=== PATIENT | male | born 1960 | race Caucasian/White ===

== ENCOUNTER 2017-01-17 09:28 | Inpatient (IN) ==
[2017-01-17] MEDS ORDERED: SODIUM CHLORIDE 0.9% 1,000 ML IV STA (09:43)
[2017-01-17] MEDS ORDERED: ASPIRIN 300 MG SUPP RECTAL STA (09:43)
[2017-01-17] MEDS ORDERED: ONDANSETRON 4 MG/2 ML VIAL IV PRN (09:43)
--- NOTE | 2017-01-17 09:48 | EKG Report ---
Stationary ECG Study [facility] Test Date: 01/17/2017 9:39:39 AM Pat Name: LANETTE CARCAMO Department: Room: Gender: M Exercise Planner: : 1960 Requested by: Noman Galloway Order Number: [id number] Reading MD: LANETTE KHOURY Intervals [place] Rate: 85 P: 52 NC: 176 QRS: -42 QRSD: 144 T: 124 QT: 417 QTc: 459 Interpretive Statements SINUS RHYTHM POSSIBLE LEFT ATRIAL ENLARGEMENT MARKED LEFT AXIS DEVIATION LEFT BUNDLE BRANCH BLOCK Electronically Signed On 01-17-17 19:53:18 CDT by LANETTE KHOURY [email or web address]
[2017-01-17] MEDS ORDERED: ASPIRIN 300 MG SUPP RECTAL ONE (09:53)
[2017-01-17 09:56] LABS: Basophils # 0.1 10*3/uL (0.0-0.2); Basophils % 0.7 % (0.0-0.8); Eosinophils # 0.8 10*3/uL (0.0-0.87); Eosinophils % 5.5 % (0.00-10.9); Hematocrit 51.8 VOL% (42.0-52.0); Hemoglobin 17.1 GM/DL (14.0-18.0); Immature Granulocytes % 0.3 %; Immature Granulocytes Absolute 0.05 #; Lymphocytes # 2.6 10*3/uL (1.4-4.0); Lymphocytes % 17.3 % (21.2-54.2); Mean Corpuscular Hemoglobin 31 PG (27-34); Mean Corpuscular Volume 92.8 FL (87-102); Mean Platelet Volume 10.4 FL (9.6-12.0); Monocytes # 1.1 10*3/uL (0.11-0.8); Monocytes % 7.5 % (1.7-12.7); Neutrophils # 10.4 10*3/uL (1.4-7.4); Neutrophils % 68.7 % (38.7-73.9); Platelet Count 293 T/CUMM (130-400); Red Blood Count 5.58 MC/CUMM (3.8-5.5); Red Cell Distribution Width 13.1 % (9.3-17.3); White Blood Count 15.2 T/CUMM (4-12)
--- NOTE | 2017-01-17 09:58 | CT Report ---
CT brain Indication: Left side facial droop, ataxia Comparison: None available Technique: Axial CT imaging of the brain is performed without contrast with 3 mm increments. Findings: No evidence of hemorrhage, mass mass effect midline shift or acute infarct seen. The brain parenchyma attenuation and differentiation appears within normal limits. The ventricles and cisterns are normal in caliber. And ectatic basilar artery is present. No cranial or skull base abnormality is identified. Impression: Ectasia of the basilar artery. No other evidence of abnormality demonstrated. This CT exam was performed using one or more the following dose reduction techniques: Automated exposure control, adjustment of the MA and/or KV according to patient size, or use of iterative reconstruction technique. PROCEDURE INTERPRETED AT [facility] DEPARTMENT OF RADIOLOGY Final Report Signed by: Dr. Chi Chang
--- NOTE | 2017-01-17 09:59 | XRay Report ---
XR chest 2V Indication: Dyspnea Comparison: 02 Feb 2014 Findings: The heart and mediastinum are normal in size and configuration. The pulmonary vascularity is normal in caliber. No lung infiltrates, effusions, pneumothorax or other abnormality is demonstrated. Impression: No acute cardiac pulmonary disease. PROCEDURE INTERPRETED AT [facility] DEPARTMENT OF RADIOLOGY Final Report Signed by: Dr. Chi Chang
[2017-01-17 10:11] LABS: INR 1.1; Partial Thromboplastin Time 30.1 SECS (0-40)
[2017-01-17 10:17] LABS: CKMB % 2.2 %
[2017-01-17 10:18] LABS: Troponin I Only 0.143 NG/ML (0.00-0.045)
--- NOTE | 2017-01-17 10:22 | Emergency Department Note ---
Seema Brennan Kasabria, am scribing for, and in the presence of, Noman Yu MD 10 :18. Aimee Brennan James D, MD, personally performed the services described in this documentation, ascribed by Christopher Stephenson in my presence, and it is both accurate and complete . Arrival - Arrival Chief Complaint: Neuro Stated Complaint: L sided numbness ED Nursing Triage Note: Patient went to bed at 2030 last night feeling fine. He woke up at 0300 this morning with left side weakness, difficulty walking, and left side facial droop. Mode of Arrival: Ambulatory Limitations: No Limitations Source: Patient Time Seen by Provider: 01/17/17 09:42 - History of Present Illness HPI Narrative: This is a 56 y/o white male presenting to the ED with c/o left sided weakness, left sided facial droop and difficulty walking that onset this morning at approximately 2030 last night. states last night he went to the kitchen he felt fine, when he went to reach for an item off the counter with his left hand , "it did not work". Afterwards he had disorientation and then fell down. Pt woke up and went to work this morning and continued to have weakness. states the pt has a PMHx of CHF that is mostly like secondary to his uncontrolled hypertension. 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 Pt denies JADE, fever, chills, nausea, vomiting, dysphagia, and vision change. According to the pt's , he is a former heavy drinker but stopped since his CHF in 2003. He is followed by Dr. Ash and takes ASA daily. Onset (ago): hour(s) (11) Consistency: constant Severity: moderate Allergies/Adverse Reactions: Allergies Allergy/AdvReac Type Severity Reaction Status Date / Time No Known Allergies Allergy Unverified 01/17/17 09:42 Review of System - Review of System 12 point system: reviewed and no additional remarkable complaints except as stated - Review of System Constitutional: Present: diaphoresis. Absent: chills, fever, weakness Eyes: Absent: vision change Head/Ears/Nose/Throat: Absent: nasal drainage Respiratory: Absent: cough, wheezing Cardiovascular: Absent: chest pain, dyspnea on exertion, syncope Gastrointestinal: Absent: abdominal pain, nausea, vomiting, diarrhea Genitourinary male: Absent: dysuria Musculoskeletal: Absent: arm pain, back pain, leg pain, neck pain Skin: Absent: rash Neurological: Present: weakness (left sided facial droop, left arm, and left leg weakness ). Absent: headache, numbness, confusion, abnormal gait, vertigo Psychiatric: Absent: anxiety Endocrine: Absent: fatigue Hematological/Lymphatic: Absent: easy bleeding Allergic/Immunologic: Absent: facial swelling Medical,Surgical,& Family Hx - Medical History Cardio: History of: CHF Gastrointestinal: History of: Diverticulitis/ Diverticulosis, GI Problems ( partial colectomy with colestomy with reversal) - Family History Family History: Reports;: Family Cancer (brain cancer), Family Hypertension ( mother), Family Stroke (maternal grandmother) - Social History Smoking Status: Never smoker Frequency of Alcohol Use: Rarely Type of Drug Use: None Exam Vital Signs: Vital Signs Temperature 96.0 F L 01/17/17 09:33 Pulse Rate 83 01/17/17 09:33 Respiratory Rate 18 01/17/17 09:33 Blood Pressure 111/85 01/17/17 09:33 O2 Sat by Pulse Oximetry 99 01/17/17 09:33 - General General appearance: alert, in no apparent distress - Head Head exam: Present: atraumatic, normocephalic, normal inspection - Eye Eye exam: Present: normal appearance, PERRL, EOMI - ENT ENT exam: Present: normal exam, normal oropharynx, mucous membranes moist, TM's normal bilaterally, normal external ear exam - Neck Neck exam: Present: normal inspection, full ROM, trachea midline. Absent: tenderness - Chest Chest inspection: Present: normal inspection, symmetric chest wall rise. Absent : tenderness - Respiratory Respiratory exam: Present: normal lung sounds bilaterally - Cardiovascular Cardiovascular exam: Present: regular rate, normal rhythm, normal heart sounds - Abdominal Exam Abdominal exam: Present: soft, normal bowel sounds. Absent: distention, tenderness - Extremities Exam Extremities exam: Present: normal inspection, full ROM, normal capillary refill. Absent: tenderness, pedal edema, calf tenderness - Back Exam Back exam: Present: normal inspection, full ROM. Absent: tenderness - Neurological Exam Neurological exam: Present: alert, oriented X3, CN II-XII intact, normal gait, motor sensory deficit (left arm weakness 3-4/5 deficit, 4/5 left leg; ataxia to left leg; left sided facial weakness), reflexes normal - Psychiatric Psychiatric exam: Present: normal affect, normal mood - Skin Skin exam: Present: warm, intact, normal color, diaphoresis. Absent: dry Course Course Narrative: Pt is not a candidate for TPA due to the amount of time that has surpassed between the symptom onset. - Consultations Consultation #1: Discussed with hospitalist. Patient will be admitted to the hospital on their service. Time: 10:20 Results - Labs CBC & BMP: 01/17/17 09:43 Lab Results: I have reviewed the patients labs Labs: Laboratory Tests 01/17/17 01/17/17 09:43 09:43 Troponin I 0.143 H Cholesterol 186 LDL Cholesterol 133.0 VLDL Cholesterol 26.4 HDL Cholesterol 48 Heart Disease Risk Ratio 3.88 - EKG EKG results: interpreted by ERMD - Impressions EKG: Normal sinus rhythm with a rate of 85, left axis deviation, left bundle branch block, nonspecific ST-T wave changes. - Diagnostic Findings Procedure: Chest x-ray: image reviewed by me (No cardiomegaly, no pleural effusions, no infiltrates.), CT: image reviewed by me, report reviewed by me ( CT head: No acute intracranial lesion or hemorrhage.), Ultrasound: report reviewed by me (Carotid Doppler: Results are pending) Disposition Clinical Impression: Subacute stroke, Essential hypertension, Dyslipidemia Case discussed with: patient, patient's family Disposition: Still a Patient Condition: Stable Time of Disposition: 10:21
--- NOTE | 2017-01-17 10:24 | Ultrasound Report ---
Carotid artery ultrasound Indication: Stroke Comparison: None available Color Doppler flow and spectral analysis was performed. Findings: Small amount of atherosclerotic plaque is present in both proximal internal carotid arteries. The peak systolic velocity in the right is 72 cm/s . Ratio of flow is 1.5. The peak systolic velocity in the left is 47 cm/s . Ratio of flow is 0.8 Bilateral antegrade vertebral flow is seen. Impression: No evidence of hemodynamically significant stenosis is seen, 0-49% estimated stenosis. Consensus conference on the carotid ultrasound criteria used. Ultrasound images were captured and stored. PROCEDURE INTERPRETED AT [facility] DEPARTMENT OF RADIOLOGY Final Report Signed by: Dr. Chi Chang
[2017-01-17 10:26] LABS: Risk Ratio 3.88; VLDL CHOLESTEROL 26.4 MG/DL
[2017-01-17 10:36] LABS: Alanine Aminotransferase 19 U/L (16-61); Albumin 3.8 G/DL (3.4-5.0); Alkaline Phosphatase 87 U/L (45-117); Aspartate Amino Transferase 35 U/L (0-37); Blood Urea Nitrogen 17 MG/DL (7-18); Calcium 9.2 MG/DL (8.5-10.1); Glucose 100 MG/DL (74-106); Osmolality,Calculated 278.5 MOS/KG (273-304); Potassium 4.3 MMOL/L (3.5-5.1); Sodium 139 MMOL/L (136-145); Total Protein 7.5 G/DL (6.4-8.3)
[2017-01-17 10:47] LABS: Free T4 (Free Thyroxine) 1.16 NG/DL (0.76-1.46); Thyroid Stimulating Hormone 1.19 uIU/ml (0.358-3.74)
--- NOTE | 2017-01-17 10:55 | Hospitalist History & Physical ---
Assessment and Plan (1) Acute left-sided weakness Status: Acute Assessment and plan: We will admit and complete stroke work-up. Will consult Neuro to evaluate. Current Visit: Yes (2) Dyslipidemia Status: Acute Assessment and plan: We will treat and manage. Current Visit: Yes (3) Essential hypertension Status: Acute Assessment and plan: Will treat and manage. Current Visit: Yes History of Present Illness Chief complaint: left sided weakness History of present illness: This is a very pleasant 56 year old male that presented to the ED this morning for evaluation of left sided weakness. He has medical history significant for hyperlipidemia, congestive heart failure, and hypertension. The patient reports that he went to bed around 8PM on last night. He reports that he got up out of bed and went into the kitchen to get something to drink. He attempted to get something to drink and that his left arm "went out", he lost his balance, and scraped his left hand. He then proceeded to go back to bed and returned to sleep. He noticed some difficulty this morning when he was attempting to shower but really didn't focus on it because he needed to get to work. 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 When he got to work, he noticed that he was not his normal self and called his son. His son arrived and brought him to the ED for further evaluation. At the time of ED presentation; he was noted to have some left sided weakness and facial droop. Labs were obtained which revealed his WBC's at 15.2 and creatinine of 1.60 otherwise unremarkable. Cardiac enzymes were obtained which revealed a troponin at 0.143, CK at 365, and CKMB at 7.9. CT Head performed which revealed no evidence of hemorrhage, mass effect, midline shift, or acute infarct; however ectasia of the basilar artery was noted. Chest radiograph was essentially unremarkable for any acute cardiac or pulmonary processes. After brief discussion with Dr. Yu and Dr. De La O, the patient will be admitted to the hospitalist service for continuation of care. Allergies Allergy/AdvReac Type Severity Reaction Status Date / Time No Known Allergies Allergy Unverified 01/17/17 09:42 Medical,Surgical,& Family Hx - Medical History Cardio: History of: CHF Gastrointestinal: History of: Diverticulitis/ Diverticulosis, GI Problems ( partial colectomy with colestomy with reversal) - Family History Family History: Reports;: Family Cancer (brain cancer), Family Hypertension ( mother), Family Stroke (maternal grandmother) - Social History Smoking Status: Never smoker Frequency of Alcohol Use: Rarely Type of Drug Use: None Exam - Constitutional Vitals: Period Temp Pulse Resp BP Sys/Cha Pulse Ox Last 24 Hr 96.0 F-96.0 F 83-83 18-18 111-111/85-85 99 General appearance: normal weight, no acute distress - Head Head exam: Present: normal inspection, normocephalic - Eye Eye exam: Present: EOMI. Absent: conjunctival injection, nystagmus Pupils: Present: ROJELIO, normal accommodation - ENT ENT exam: Present: other (left sided facial droop) - Neck Neck exam: Present: normal inspection. Absent: lymphadenopathy, meningismus, tenderness, thyromegaly - Respiratory Respiratory exam: Absent: rales, rhonchi, stridor, wheezes - Cardiovascular Cardiovascular exam: Present: regular rate and rhythm. Absent: carotid bruit, diastolic murmur, gallop, JVD, rubs, systolic murmur - GI/Abdominal GI/Abdominal exam: Present: normal bowel sounds, soft. Absent: tenderness - Extremities Exam Extremities exam: Present: normal inspection, other (left sided weakness) - Back Exam Back exam: Present: normal inspection - Neurological Exam Neurological exam: Present: alert, oriented X3, motor sensory deficit (Present: alert, oriented X3, CN II-XII intact, normal gait, motor sensory deficit (left arm weakness 3-4/5 deficit, 4/5 left leg; ataxia to left leg; left sided facial weakness; reflexes normal) - Psychiatric Psychiatric exam: Present: normal affect, normal mood - Skin Skin exam: Present: normal color, warm, dry Results - Labs CBC & BMP: 01/17/17 09:43 01/17/17 09:43 Lab Results: I have reviewed the past 24 hour labs Quality Measures - Stroke Onset of Symptoms Date: 01/17/17 Onset of Symptoms Time: 03:00 Presenting Symptoms: Left hemiparesis Symptom Onset Unknown: Yes
[2017-01-17 12:28] LABS: Apearance,Urine CLEAR (Clear); Bilirubin,Urine Negative (Negative); Blood, Urine Negative (Negative); Glucose,Urine (UA) Negative (Negative); Hyaline Casts,Urine 1 /LPF (0-3); Ketones,Urine Negative (Negative); Mucus,Urine Occasional /LPF (Occasional); Nitrite,Urine Negative (Negative); Protein,Urine Negative; RBC,Urine 1 /HPF (0-4); Squamous Epithelial Cell,Urine Occasional /HPF (0-10); Urine Specific Gravity 1.004 (1.001-1.035); Urine Urobilinogen < 2.0 EU/DL (0.2-1.0)
[2017-01-17 12:31] LABS: Urine Color Light Yellow (Yellow)
[2017-01-17 12:45] LABS: Barbiturates Screen,Urine Negative (Negative); Benzodiazepines Screen,Urine Negative (Negative); Cannabinoid Screen,Urine Positive (Negative); Opiate Screen,Urine Negative (Negative); Phencyclidine Screen,Urine Negative (Negative)
[2017-01-17] MEDS ORDERED: LABETALOL 20 MG/4 ML SYRINGE IV PRN (14:59)
[2017-01-17] MEDS ORDERED: ENOXAPARIN 40 MG/0.4 ML SYRINGE SUBCUT SCH (15:00)
--- NOTE | 2017-01-17 15:48 | XRay Report ---
History: Clearance for MRI. Left arm weakness Date: 01/17/2017 Study: 3 views orbits for MRI clearance Comparison exam: No previous similar exam There is no radiopaque orbital foreign body. There is no acute osseous abnormality. The paranasal sinuses are clear except for some mild to moderate circumferential mucosal thickening in the right frontal sinus. Impression: No radiopaque orbital foreign body is identified PROCEDURE INTERPRETED AT [facility] DEPARTMENT OF RADIOLOGY Final Report Signed by: Dr. Tamela Logan
--- NOTE | 2017-01-17 16:58 | Magnetic Resonance Report ---
Referring physician: Deng De La O Exam: MRI brain without contrast Date: January 17, 2017 Comparison: CT brain without contrast January 17, 2017 Reason: Left arm weakness The patient is an inpatient who was admitted on January 17, 2017. Technique: MRI of the brain was performed without the use of contrast. Obtained images include sagittal T1, axial diffusion-weighted, axial FLAIR, axial T2, coronal T2, axial gradient and axial T1 sequences. A 1.2 Francie open magnet was used. Findings: There is a small area of diffusion restriction and corresponding T2/FLAIR hyperintensity within the right parietal lobe, involving both the cortex and subcortical white matter. This is consistent with an acute infarction and is in a right MCA distribution. There is also a small acute infarction at the vermis of the cerebellum. There are small scattered areas of T2/FLAIR hyperintensity within the cerebral white matter bilaterally. This is nonspecific but likely represents mild chronic microvascular ischemic change. Less common considerations include a demyelinating process, vasculitis, viral process or Lyme disease. No hydrocephalus or midline shift is present. There is no evidence of recent intracranial hemorrhage, abnormal mass effect or an abnormal extra-axial fluid collection. There is a remote lacunar type infarction at the left caudate. Major vascular flow voids are visualized. The basilar artery is slightly ectatic. The orbits, sella and brainstem are unremarkable. The paranasal sinuses and mastoid air cells are clear. Impression: 1. There is a small acute infarction within the right parietal lobe, involving the cortex and subcortical white matter. This is in a right MCA distribution. There is also a subcentimeter acute infarction at the cerebellar vermis (superior cerebellar artery distribution). 2. Probable mild chronic microvascular ischemic change. 3. Remote lacunar infarction at the left caudate. Findings were discussed with Dr. De La O on January 17, 2017 at 4:50 PM. This is a critical test. PROCEDURE INTERPRETED AT [facility] DEPARTMENT OF RADIOLOGY Final Report Signed by: Dr. Rosetta Nicole
[2017-01-17] MEDS: ENOXAPARIN 100 MG/ML SYRINGE SUBCUT SCH (18:10)
[2017-01-17] MEDS: CARVEDILOL 12.5 MG TABLET PO SCH (20:50)
--- NOTE | 2017-01-18 00:25 | ECHO Report ---
Brooks Loving Exam Date: 01/17/2017 12:39 Referring Physician: Technologist: Gena Lawrence [facility] Age: 56 Ht (in): 68 Wt (lb): 226 Gender: M Exam Location: [facility] Echo hypertension BP: 111 / 85 HR: 74 Rhythm: Sinus Technical Quality: IMPRESSIONS Mildly increased left ventricular cavity size with severely reduced left ventricular ejection fraction which is estimated at 20 %. Moderately increased left atrial size. Mild mitral valve regurgitation. Moderate aortic valve calcification with trace to mild aortic valve regurgitation. Trace tricuspid valve regurgitation. MEASUREMENTS (Male / Female) Normal Values 2D ECHO LV Diastolic Diameter PLAX 5.8 cm 4.2 - 5.9 / 3.9 - 5.3 cm LV Systolic Diameter PLAX 5.1 cm LV Fractional Shortening PLAX 11.6 % IVS Diastolic Thickness 1.4 cm 0.6 - 1.0 / 0.6 - 0.9 cm LVPW Diastolic Thickness 1.4 cm 0.6 - 1.0 / 0.6 - 0.9 cm RV Internal Dim ED PLAX 3.8 cm Aortic Root Diameter 3.9 cm LA Systolic Diameter LX 4.6 cm 3.0 - 4.0 / 2.7 - 3.8 cm FINDINGS Left Ventricle Mildly increased left ventricular cavity size with severely reduced left ventricular ejection fraction which is estimated at 20 %. Right Ventricle The right ventricle is normal in size and function. Right Atrium The right atrium is mildly enlarged. Left Atrium Moderately increased left atrial size. Mitral Valve Morphologically normal mitral valve. Mild mitral valve regurgitation. Aortic Valve Moderate aortic valve calcification. Mean gradient 19 mmHg, ROBINSON 1.5 cm. Trace to mild aortic valve regurgitation. Tricuspid Valve Morphologically normal tricuspid valve. Trace tricuspid valve regurgitation. Pulmonic Valve Morphologically normal pulmonic valve without significant stenosis. There is no pulmonic regurgitation. Pericardium Normal pericardium without effusion. Aorta Normal ascending aorta dimension. Brooks Carlson (Electronically Signed) Final Date: 18 Jan 2017 00:23
[2017-01-18] MEDS: ENOXAPARIN 100 MG/ML SYRINGE SUBCUT SCH (06:03)
[2017-01-18] MEDS ORDERED: ASPIRIN 325 MG TABLET PO SCH (09:00)
[2017-01-18] MEDS ORDERED: FUROSEMIDE 40 MG TABLET PO SCH (09:00)
[2017-01-18] MEDS ORDERED: SPIRONOLACTONE 25 MG TABLET PO SCH (09:00)
[2017-01-18] MEDS ORDERED: VALSARTAN/HCTZ 160-12.5 MG TABLET PO SCH (09:00)
[2017-01-18] MEDS: CARVEDILOL 12.5 MG TABLET PO SCH (12:51)
--- NOTE | 2017-01-18 13:35 | Discharge Summary ---
Hospital Course - Hospital Course Hospital Course: This is a 56-year-old man who came to the hospital with slurred speech, gait disturbance, and left upper extremity weakness. The slurred speech and most of the gait disturbance improved over the first 2 hours. Because the symptoms were rapidly improving no TPA was given. Initial CT scan revealed no hemorrhage or stroke. The patient was treated with subcutaneous Lovenox. MRI scan revealed tiny strokes in 2 different watershed distributions. The strokes were in the deep portions of the right brain. Because of this distribution I am concerned that the patient might have embolic phenomenon. Echocardiogram revealed no source of emboli. Carotid Doppler study revealed no significant disease. The patient will be treated with Xarelto as an outpatient. I reviewed the risk and benefit with the patient and offered him the option of taking aspirin alone. The patient will follow up with Dr. Mackay or other primary care physician and might benefit with outpatient neurology evaluation. The neurology erp consultant was not available during the hospital stay. On the date of discharge, chest is clear, abdomen soft, left upper extremity strength improving. [id number] time 34 minutes for discharge planning and documentation. - Time spent with patient Time with patient DS: Greater than 30 minutes Diagnosis - Discharge Diagnosis (1) Lacunar infarct, acute Status: Acute (2) Essential hypertension Status: Acute Discharge Plan - Discharge Data Disposition: Disch To Home/Self Care Condition at Discharge: Stable Discharge Diet: regular diet Activity: resume usual activities as tolerated, other (return to work on Friday, January 22) - Discharge Medications New Atorvastatin [Lipitor] 10 mg PO BEDTIME #30 tablet Rivaroxaban [Xarelto] 15 mg PO DAILY W/SUPPER #30 tablet Continue Spironolactone 25 mg PO DAILY Furosemide 40 mg PO DAILY Valsartan/Hydrochlorothiazide [Valsartan-Hctz 160-12.5 mg Tab] 1 each PO DAILY Carvedilol 12.5 mg PO BID Aspirin [Ecotrin] 81 mg PO DAILY - Follow Up or Referral Follow Up: Felipe Hitchcock MD [Physician] - 2 Weeks - Forms/Instructions Exam - Constitutional Vitals: Period Temp Pulse Resp BP Sys/Cha Pulse Ox Last 24 Hr 96.6 F-98.2 F 70-84 18-20 94-112/66-76 92-99 Discharge Results Labs on day of discharge: Labs from last 24 hours 01/18/17 02:56 Hemoglobin A1c 5.9 DS: Provider Date of admission: 01/17/17 10:31 Primary care physician: . No PCP Attending physician on admission: Deng De La O MD Consults: 01/17/17 15:00 Consult to Occupational Therapy [CONS] Routine Reason for Occupational Therapy: Evaluate and Treat Consult Comment: Stroke Consult to Physical Therapy [CONS] Routine Reason for Physical Therapy: Evaluate and Treat Consult Comment: stroke Consult to Speech Therapy [CONS] Routine Reason for Speech Therapy: CVA Consult Comment: with/without possible aspiration Discharging clinician: Deng De La O MD
[2017-01-18 14:26] VITALS: BP 109/71
[2017-01-20 14:20] LABS: DRVVT Screen Ratio 0.9 ratio (0.0 - 1.1)
[2017-01-20 15:15] LABS: Homocysteine 17 mcmol/L
[2017-01-20 15:45] LABS: Factor V Leiden (R506Q) Mutati Negative (Negative)
== END 2017-01-18 15:45 | disposition home or self-care (01) | DRG 65 ==
LOC: N.ED 09:28 → N.EDINP 10:31 → N.TELES 11:10
PROVIDERS: ADMIT Internal Medicine; ATTEND Internal Medicine

== ENCOUNTER 2017-01-27 15:24 | Inpatient (IN) ==
--- NOTE | 2017-01-27 16:52 | Hospitalist History & Physical ---
<Casie Pablo - Last Filed: 01/27/17 17:56> Assessment and Plan (1) Hypotension Status: Acute Assessment and plan: At the time of presentation, SBP was noted in the 90's. Not sure if this is attributed to volume depletion or medications; he currently takes 2 agents containing diuretics. We will hold meds for now and gently rehydrate. Will obtain labs for baseline and review. Current Visit: Yes Qualifiers: Hypotension type: unspecified hypotension type Qualified Code(s): I95.9 - Hypotension, unspecified (2) Weakness Status: Acute Assessment and plan: This may attributed to volume depletion. He has no gross deficits secondary to his recent CVA. I suspect that this will improve when volume is replenished. Current Visit: Yes (3) Nausea & vomiting Status: Acute Assessment and plan: We will rehydrate and give antiemetics as needed. Current Visit: Yes (4) Essential hypertension Status: Acute Assessment and plan: Patient is hypotensive at this time. We will hold meds for now and reassess in AM. Current Visit: No History of Present Illness Chief complaint: dehydration/nausea/vomiting History of present illness: This is a very pleasant 56 year old male that presented to [facility] as a direct admission from Dr. Bernard Hernandez's office this afternoon for evaluation of nausea, vomiting, and hypotension. He has medical history significant for hyperlipidemia, congestive heart failure, and recent left lacunar stroke. on 01/18. The patient presented to Dr. Hernandez's office today with a chief complaint of nausea, vomiting, and weakness. He was assessed and found to be hypotensive at that time also. He reported a decrease in oral intake over the last several days. He states"I have only been able to keep my medications down". We were notified by Dr. Hernandez on the patient's status. He was subsequently admitted to [facility] to the hospitalist service for further evaluation and care. The patient was recently discharged from [facility] on 01/19 for left sided weakness, slurred speech, and gait disturbances. MRI was performed during the clinical encounter which revealed multiple tiny infarcts within two different watershed distributions within the right brain. The patient was discharged on Xarelto as an outpatient. At the time of discharge, his symptoms were resolved. Home Medications Medication Instructions Recorded Confirmed Type Furosemide 40 mg PO DAILY 01/17/17 01/27/17 History Spironolactone 25 mg PO DAILY 01/17/17 01/27/17 History Valsartan/Hydrochlorothiazide 1 each PO DAILY 01/17/17 01/27/17 History [Valsartan-Hctz 160-12.5 mg Tab] Rivaroxaban [Xarelto] 15 mg PO DAILY W/SUPPER #30 tablet 01/18/17 01/27/17 Rx Allergies Allergy/AdvReac Type Severity Reaction Status Date / Time No Known Allergies Allergy Unverified 01/17/17 09:42 Medical,Surgical,& Family Hx - Medical History Cardio: History of: CHF, Hypertension Gastrointestinal: History of: Diverticulitis/ Diverticulosis, GI Problems ( partial colectomy with colestomy with reversal) - Family History Family History: Reports;: Family Cancer (brain cancer), Family Hypertension ( mother), Family Stroke (maternal grandmother) - Social History Smoking Status: Never smoker - Constitutional Constitutional: Present: fatigue, malaise - Gastrointestinal Gastrointestinal: Present: nausea, vomiting (diaphragm tenderness) - Musculoskeletal Musculoskeletal: Present: other Exam - Constitutional General appearance: normal weight, no acute distress - Head Head exam: Present: normal inspection, normocephalic, atraumatic - Eye Eye exam: Present: EOMI, conjunctival injection Pupils: Present: ROJELIO, normal accommodation - ENT ENT exam: Present: normal exam, normal external ear exam, normal oropharynx - Neck Neck exam: Present: normal inspection. Absent: lymphadenopathy, meningismus, tenderness, thyromegaly - Respiratory Respiratory exam: Present: clear to auscultation bilaterally. Absent: rales, rhonchi, stridor, wheezes - Cardiovascular Cardiovascular exam: Present: regular rate and rhythm. Absent: carotid bruit, diastolic murmur, gallop, JVD, rubs, systolic murmur - GI/Abdominal GI/Abdominal exam: Present: normal bowel sounds, tenderness (upper abdominal/ diaphragm) - Extremities Exam Extremities exam: Present: normal inspection, normal capillary refill, full ROM. Absent: edema - Back Exam Back exam: Present: normal inspection - Neurological Exam Neurological exam: Present: alert, oriented X3, CN II-XII intact, reflexes normal. Absent: motor sensory deficit - Psychiatric Psychiatric exam: Present: anxious - Skin Skin exam: Present: warm, dry, pallor, other (discoloration to upper abdomen/ diaphragm from fall on last week) <Alexandra Gale - Last Filed: 01/27/17 19:03> Assessment and Plan - Time spent with patient Time spent with patient: Greater than 30 minutes (1) ARF (acute renal failure) Status: Acute Assessment and plan: Patient is treated with 3 diuretics as an outpatient for management of his chronic systolic congestive heart failure with ejection fraction of 20%. His diuretics have been held and IV fluids have been started at 75 cc/h. I believe this is all related to volume contraction and dehydration secondary to medications. Further recommendations will depend on his response to therapy. Current Visit: Yes Qualifiers: Acute renal failure type: unspecified Qualified Code(s): N17.9 - Acute kidney failure, unspecified (2) Hyponatremia Status: Acute Assessment and plan: Acute hyponatremia as a result of diuretic effect. Diuretic medications have been held a normal saline ordered. I anticipate this will improve slowly with IV fluid hydration. Current Visit: Yes (3) Dehydration Status: Acute Assessment and plan: See above. Current Visit: Yes (4) Chronic systolic (congestive) heart failure Status: Acute Assessment and plan: Recent echocardiogram reveals an ejection fraction of 20%. Patient will be hydrated slowly with normal saline at 75 cc/h. Current Visit: Yes History of Present Illness History of present illness: Mr. Loving is a 56 year old male admitted as a direct admission from Dr. Hernandez's office with complaints of nausea vomiting and weakness. I have personally seen and examined this patient today. I agree with the above note as prepared by the advanced practice provider. I agree with the assessment and plan. Please see my assessment and plan at the end of the note. The patient's home medications were reviewed and reconciled. His sister was at the bedside at the time of my evaluation. He is a full code. Nephrotoxic medications were held. IV fluids started. Previous chart reviewed including echocardiogram showing chronic systolic left- sided congestive heart failure with an ejection fraction of 20%. Medical,Surgical,& Family Hx - Medical History Cardio: History of: CHF, Hypertension Neurology: History of: Cerebrovascular Accident - Social History Frequency of Alcohol Use: None Type of Drug Use: None Lives With:: Alone Functional capacity: independent ambulation 12 point system: reviewed and no additional remarkable complaints except as stated Exam - Constitutional Vitals: Period Temp Pulse Resp BP Sys/Cha Pulse Ox Last 24 Hr 97.4 F 85 20 93/69 97 Results - Labs CBC & BMP: 01/27/17 17:23 01/27/17 17:23 Lab Results: I have reviewed the past 24 hour labs
[2017-01-27] MEDS ORDERED: ACETAMINOPHEN 325 MG TABLET PO PRN (16:53)
[2017-01-27] MEDS: SODIUM CHLORIDE 0.9% 1,000 ML IV SCH (17:35)
[2017-01-27] MEDS: ONDANSETRON 4 MG/2 ML VIAL IV PRN ×2 (17:35→21:08)
[2017-01-27 18:12] LABS: Basophils # 0.1 10*3/uL (0.0-0.2); Basophils % 0.4 % (0.0-0.8); Eosinophils # 0.1 10*3/uL (0.0-0.87); Eosinophils % 0.6 % (0.00-10.9); Hematocrit 49.5 VOL% (42.0-52.0); Hemoglobin 17.8 GM/DL (14.0-18.0); Immature Granulocytes % 0.6 %; Immature Granulocytes Absolute 0.08 #; Lymphocytes # 1.8 10*3/uL (1.4-4.0); Lymphocytes % 13.1 % (21.2-54.2); Mean Corpuscular Hemoglobin 31 PG (27-34); Mean Corpuscular Volume 86.4 FL (87-102); Mean Platelet Volume 11.3 FL (9.6-12.0); Monocytes # 0.9 10*3/uL (0.11-0.8); Monocytes % 6.6 % (1.7-12.7); Neutrophils % 78.7 % (38.7-73.9); Platelet Count 275 T/CUMM (130-400); Red Blood Count 5.73 MC/CUMM (3.8-5.5); Red Cell Distribution Width 13.1 % (9.3-17.3)
[2017-01-27 18:20] LABS: Apearance,Urine CLEAR (Clear); Bilirubin,Urine Negative (Negative); Blood, Urine Negative (Negative); Glucose,Urine (UA) Negative (Negative); Ketones,Urine Negative (Negative); Mucus,Urine Occasional /LPF (Occasional); Nitrite,Urine Negative (Negative); Protein,Urine Negative; RBC,Urine <1 /HPF (0-4); Squamous Epithelial Cell,Urine Occasional /HPF (0-10); Urine Color Yellow (Yellow); Urine Specific Gravity 1.009 (1.001-1.035); Urine Urobilinogen < 2.0 EU/DL (0.2-1.0); WBC,Urine 1 /HPF (0-6)
[2017-01-27] MEDS ORDERED: RIVAROXABAN 15 MG TABLET PO SCH (18:30)
[2017-01-27 18:39] LABS: Bilirubin,Total 0.7 MG/DL (0.2-1.0); Calcium 11.1 MG/DL (8.5-10.1); Osmolality,Calculated 259.2 MOS/KG (273-304); Potassium 4.2 MMOL/L (3.5-5.1); Total Protein 7.5 G/DL (6.4-8.3)
[2017-01-27 18:46] LABS: Magnesium 1.9 MG/DL (1.8-2.4); Thyroid Stimulating Hormone 0.836 uIU/ml (0.358-3.74)
[2017-01-27 18:48] LABS: Risk Ratio 4.4; VLDL CHOLESTEROL 41.2 MG/DL
--- NOTE | 2017-01-27 19:33 | CT Report ---
CT brain Indication: Recent cerebrovascular occlusion, nausea vomiting, hypotension Comparison: 17 Jan 2017 Technique: Axial CT imaging of the brain is performed without contrast with 3 mm increments. Findings: No evidence of hemorrhage, mass mass effect midline shift or acute infarct seen. The brain parenchyma attenuation and differentiation appears within normal limits. The ventricles and cisterns are normal in caliber. No cranial or skull base abnormality is identified. Impression: No evidence of acute findings or significant change demonstrated. This CT exam was performed using one or more the following dose reduction techniques: Automated exposure control, adjustment of the MA and/or KV according to patient size, or use of iterative reconstruction technique. PROCEDURE INTERPRETED AT [facility] DEPARTMENT OF RADIOLOGY Final Report Signed by: Dr. Chi Chang
[2017-01-28] MEDS: ONDANSETRON 4 MG/2 ML VIAL IV PRN ×4 (00:38→12:43)
[2017-01-28] MEDS: MORPHINE 2 MG/1 ML SYRINGE IV PRN ×4 (00:42→12:43)
[2017-01-28 06:41] LABS: Basophils # 0.1 10*3/uL (0.0-0.2); Basophils % 0.5 % (0.0-0.8); Eosinophils # 0.4 10*3/uL (0.0-0.87); Eosinophils % 2.4 % (0.00-10.9); Hematocrit 47.5 VOL% (42.0-52.0); Hemoglobin 16.5 GM/DL (14.0-18.0); Immature Granulocytes % 0.5 %; Immature Granulocytes Absolute 0.07 #; Lymphocytes # 3.1 10*3/uL (1.4-4.0); Lymphocytes % 21.3 % (21.2-54.2); Mean Corpuscular HGB Conc 34.7 GM/DL (32-36); Mean Corpuscular Hemoglobin 31 PG (27-34); Mean Corpuscular Volume 88.3 FL (87-102); Mean Platelet Volume 11.5 FL (9.6-12.0); Monocytes # 1.3 10*3/uL (0.11-0.8); Monocytes % 9.1 % (1.7-12.7); Neutrophils # 9.8 10*3/uL (1.4-7.4); Neutrophils % 66.2 % (38.7-73.9); Platelet Count 279 T/CUMM (130-400); Red Blood Count 5.38 MC/CUMM (3.8-5.5); Red Cell Distribution Width 13.1 % (9.3-17.3); White Blood Count 14.8 T/CUMM (4-12)
--- NOTE | 2017-01-28 07:03 | XRay Report ---
Exam: XR chest 1V portable Date: 01/28/2017 4:00 AM Indication: COPD Comparison: 01/17/2017 Technical: AP portable Findings: Mild cardiac enlargement. A few reticular nodular densities in the perihilar regions. Oxygen tubing superimposes exam. No obvious infiltrate or effusion. Mediastinum is intact. Impression: 1. No acute cardiopulmonary pathology PROCEDURE INTERPRETED AT [facility] DEPARTMENT OF RADIOLOGY Final Report Signed by: Dr. Román Suazo
[2017-01-28 07:21] LABS: Magnesium 1.9 MG/DL (1.8-2.4); Phosphorous 3.4 MG/DL (2.5-4.9)
[2017-01-28 07:23] LABS: Albumin 3.7 G/DL (3.4-5.0); Bilirubin,Total 0.7 MG/DL (0.2-1.0); Calcium 9.6 MG/DL (8.5-10.1); Osmolality,Calculated 255.4 MOS/KG (273-304); Potassium 4.9 MMOL/L (3.5-5.1)
[2017-01-28] MEDS: SODIUM CHLORIDE 0.9% 1,000 ML IV SCH ×2 (08:39→21:34)
[2017-01-28] MEDS: SODIUM CHLORIDE 1 GM TABLET PO SCH ×2 (08:39→21:33)
[2017-01-28 09:54] LABS: INR 1.1; Partial Thromboplastin Time 34.1 SECS (0-40)
[2017-01-28] MEDS: APIXABAN 2.5 MG TABLET PO SCH ×2 (11:15→21:32)
--- NOTE | 2017-01-28 15:07 | EKG Report ---
Stationary ECG Study [facility] Test Date: 01/28/2017 3:07:23 PM Pat Name: LANETTE CARCAMO Department: Room: 527 Gender: M Stocklayer: ANNY : 1960 Requested by: Rico Ash Order Number: [id number] Reading MD: RICO ASH Intervals [place] Rate: 90 P: 37 [place]: 211 QRS: 17 QRSD: 144 T: 196 QT: 423 QTc: 471 Interpretive Statements SINUS RHYTHM WITH PROLONGED [place] INTERVAL WITH FREQUENT VENTRICULAR PREMATURE COMPLEXES LEFT BUNDLE BRANCH BLOCK Electronically Signed On 01-28-17 18:36:58 CDT by RICO ASH [email or web address]
--- NOTE | 2017-01-28 15:15 | Cardiology Consult Note ---
History of Present Illness - Data of Consult Patient: known to practice within the last 3 years - Consult Narrative History of present illness: Cardiology consult 56-year-old man status post left lacunar stroke January 18, 2017. Was discharged home on January 19 with Xarelto 15 mg daily. He has been at Dr. Hernandez's office 3 times since discharge for evaluation of nausea and weakness and low blood pressure. He was hospitalized yesterday to receive normal saline hydration and his Xarelto was stopped. He was switched Eliquis 5 mg twice daily and his nausea is significantly improved. He denies diarrhea fever or chills. Chest x-ray shows cardiomegaly but no obvious heart failure or infiltrate. CT of the head does not show evidence for acute stroke or hemorrhage. The patient has a documented Nonischemic cardia myopathy secondary to untreated hypertension and alcohol abuse. Cardiac cath done October 19, 2003 showed severe global LV dysfunction, ejection fraction 20% with widely patent coronaries. The patient used to chew tobacco and drink heavily but quit in 2003 following his first episode of congestive heart failure. No history of diabetes. He weighs 97 kg and is 5 feet 8 inches tall. No history of peptic ulcer disease. Denies melena. No history of seizure. No allergies. Surgery tonsillectomy The patient lives in [place] with his Tanya. 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 Lab data today Sodium 126 potassium 4.9 chloride 86 CO2 30 BUN 23 creatinine 1.90 INR 1.1 magnesium 1.9 glucose 84 BNP 411 White count 14.8 hemoglobin 16 point hematocrit 47.5 Impression Nonischemic cardiomyopathy EF 20% and widely patent coronaries documented by cardiac cath October 19, 2003 when the patient presented with first episode of congestive heart failure. Prior history of EtOH abuse, quit 2003 following his CHF episode Status post partial colectomy October 2013 for recurrent diverticulitis 5 feet 8 inches tall, 98 kg. Status post left lacunar stroke January 18, 2017 Echo Doppler done January 17, [address] Carlson showed ejection fraction of 20% with severe global hypokinesis moderate dilated left atrium, mild MR, mild a.s. with mean gradient 19 and ROBINSON 1.5 cm and mild TR Nausea hypotension weakness Plan Xarelto stopped and he is doing better on Eliquis 5 mg twice a day Cautious fluids Holding Lasix and spironolactone I have not seen this patient since November 10, 2013. He does not come to the office for follow-up as requested. BMP in a.m. When I last saw him November 10, 2013 he was taking Coreg 6.25 mg twice daily, Lasix 40 mg daily, Aldactone 25 g daily, Diovan HCT 160/12.5 mg daily and tramadol 50 mg every 8 hours as needed CC: Yuly Perez MD - Home Medications and Allergies Home Medications: Home Medications Medication Instructions Recorded Confirmed Type Furosemide 40 mg PO DAILY 01/17/17 01/27/17 History Spironolactone 25 mg PO DAILY 01/17/17 01/27/17 History Valsartan/Hydrochlorothiazide 1 each PO DAILY 01/17/17 01/27/17 History [Valsartan-Hctz 160-12.5 mg Tab] Rivaroxaban [Xarelto] 15 mg PO DAILY W/SUPPER #30 tablet 01/18/17 01/27/17 Rx Allergies/Adverse Reactions: Allergies Allergy/AdvReac Type Severity Reaction Status Date / Time No Known Allergies Allergy Unverified 01/17/17 09:42 Medical,Surgical,& Family Hx - Medical History Cardio: History of: CHF, Hypertension Psychological: No history of: Anxiety Disorders, ADHD, Behavior Problems, Bipolar Disorder, Depression, Previous Suicide Attempt, Psychiatric/Substance Abuse Tx, Schizophrenia, Violent Behavior, Psychiatric Problems Neurology: History of: Cerebrovascular Accident Rheumatology: History of;: Gout Gastrointestinal: History of: Diverticulitis/ Diverticulosis, GI Problems ( partial colectomy with colestomy with reversal) - Surgical History Thoracic Surgeries: Patient denies;: Organ Transplant Neurologic Surgeries: Patient denies: Neurologic Surgery HEENT Surgeries: Patient denies: Eye Surgery, Tonsilectomy & Adenoidectomy - Family History Family History: Reports;: Family Cancer (brain cancer), Family Hypertension ( mother), Family Stroke (maternal grandmother) - Social History Smoking Status: Never smoker Frequency of Alcohol Use: None Type of Drug Use: None Physical Examination Vital Signs Temp Pulse Resp BP Pulse Ox 97.4 F L 85 20 93/69 97 01/27/17 16:56 01/27/17 16:56 01/27/17 16:56 01/27/17 16:56 01/27/17 16:56 Result/EKG - Labs CBC & BMP: 01/28/17 05:51 01/28/17 05:51 Labs: Laboratory Results - last 24 hr 01/27/17 01/27/17 01/27/17 17:13 17:21 17:21 WBC RBC Hgb Hct MCV MCH MCHC RDW Plt Count MPV Neut % (Auto) Lymph % (Auto) [place] % (Auto) Eos % (Auto) Baso % (Auto) Neut # (Auto) Lymph # (Auto) [place] # (Auto) Eos # (Auto) Baso # (Auto) Immature Gran % Nucleated RBC % Immature Gran # Nucleated RBCs # INR PT Patient/Control Mix Circ Anticoag PTT Sodium Potassium Chloride Carbon Dioxide Anion Gap BUN Creatinine GFR Calculation BUN/Creatinine Ratio Glucose Calculated Osmolality Calcium Phosphorus Magnesium 1.9 Total Bilirubin AST ALT Alkaline Phosphatase B-Natriuretic Peptide 411 H Total Protein Albumin Globulin Albumin/Globulin Ratio Triglycerides Cholesterol LDL Cholesterol VLDL Cholesterol HDL Cholesterol Heart Disease Risk Ratio TSH 3rd Generation 0.836 Urine Color Yellow Urine Appearance Clear Urine pH 5.0 Ur Specific [place] 1.009 Urine Protein Negative Urine Glucose (UA) Negative Urine Ketones Negative Urine Blood Negative Urine Nitrate Negative Urine Bilirubin Negative Urine Urobilinogen < 2.0 H Urine Leukocytes Negative Urine RBC <1 Urine WBC 1 Ur Squamous Epith Cells Occasional Urine Mucus Occasional Ur Culture Indicated? Not indicated 01/27/17 01/27/17 01/27/17 17:23 17:23 17:23 WBC 14.0 H RBC 5.73 H Hgb 17.8 Hct 49.5 MCV 86.4 L MCH 31 MCHC 36.0 RDW 13.1 Plt Count 275 MPV 11.3 Neut % (Auto) 78.7 H Lymph % (Auto) 13.1 L [place] % (Auto) 6.6 Eos % (Auto) 0.6 Baso % (Auto) 0.4 Neut # (Auto) 11.0 H Lymph # (Auto) 1.8 [place] # (Auto) 0.9 H Eos # (Auto) 0.1 Baso # (Auto) 0.1 Immature Gran % 0.6 Nucleated RBC % 0.0 Immature Gran # 0.08 Nucleated RBCs # 0.00 INR PT Patient/Control Mix Circ Anticoag PTT Sodium 127 L Potassium 4.2 Chloride 86 L Carbon Dioxide 30 Anion Gap 15.2 H BUN 26 H Creatinine 2.30 H GFR Calculation 37 BUN/Creatinine Ratio 11.00 Glucose 100 Calculated Osmolality 259.2 L Calcium 11.1 H Phosphorus Magnesium Total Bilirubin 0.70 AST 25 ALT 21 Alkaline Phosphatase 83 B-Natriuretic Peptide Total Protein 7.5 Albumin 4.0 Globulin 3.5 Albumin/Globulin Ratio 1.1 Triglycerides 206 H Cholesterol 198 LDL Cholesterol 128.0 VLDL Cholesterol 41.2 HDL Cholesterol 45 Heart Disease Risk Ratio 4.40 TSH 3rd Generation Urine Color Urine Appearance Urine pH Ur Specific [place] Urine Protein Urine Glucose (UA) Urine Ketones Urine Blood Urine Nitrate Urine Bilirubin Urine Urobilinogen Urine Leukocytes Urine RBC Urine WBC Ur Squamous Epith Cells Urine Mucus Ur Culture Indicated? 01/27/17 01/28/17 01/28/17 17:23 05:51 05:51 WBC 14.8 H RBC 5.38 Hgb 16.5 Hct 47.5 MCV 88.3 MCH 31 MCHC 34.7 RDW 13.1 Plt Count 279 MPV 11.5 Neut % (Auto) 66.2 Lymph % (Auto) 21.3 [place] % (Auto) 9.1 Eos % (Auto) 2.4 Baso % (Auto) 0.5 Neut # (Auto) 9.8 H Lymph # (Auto) 3.1 [place] # (Auto) 1.3 H Eos # (Auto) 0.4 Baso # (Auto) 0.1 Immature Gran % 0.5 Nucleated RBC % 0.0 Immature Gran # 0.07 Nucleated RBCs # 0.00 INR PT Patient/Control Mix Circ Anticoag PTT Sodium 126 L Potassium 4.9 Chloride 87 L Carbon Dioxide 30 Anion Gap 13.9 BUN 23 H Creatinine 1.90 H GFR Calculation 47 BUN/Creatinine Ratio 12.00 Glucose 84 Calculated Osmolality 255.4 L Calcium 9.6 Phosphorus 3.5 Magnesium Total Bilirubin 0.70 AST 25 ALT 21 Alkaline Phosphatase 77 B-Natriuretic Peptide Total Protein 7.0 Albumin 3.7 Globulin 3.3 Albumin/Globulin Ratio 1.1 Triglycerides Cholesterol LDL Cholesterol VLDL Cholesterol HDL Cholesterol Heart Disease Risk Ratio TSH 3rd Generation Urine Color Urine Appearance Urine pH Ur Specific [place] Urine Protein Urine Glucose (UA) Urine Ketones Urine Blood Urine Nitrate Urine Bilirubin Urine Urobilinogen Urine Leukocytes Urine RBC Urine WBC Ur Squamous Epith Cells Urine Mucus Ur Culture Indicated? 01/28/17 01/28/17 05:51 05:51 WBC RBC Hgb Hct MCV MCH MCHC RDW Plt Count MPV Neut % (Auto) Lymph % (Auto) [place] % (Auto) Eos % (Auto) Baso % (Auto) Neut # (Auto) Lymph # (Auto) [place] # (Auto) Eos # (Auto) Baso # (Auto) Immature Gran % Nucleated RBC % Immature Gran # Nucleated RBCs # INR 1.1 PT Patient/Control Mix 12.0 Circ Anticoag PTT 34.1 Sodium Potassium Chloride Carbon Dioxide Anion Gap BUN Creatinine GFR Calculation BUN/Creatinine Ratio Glucose Calculated Osmolality Calcium Phosphorus 3.4 Magnesium 1.9 Total Bilirubin AST ALT Alkaline Phosphatase B-Natriuretic Peptide Total Protein Albumin Globulin Albumin/Globulin Ratio Triglycerides Cholesterol LDL Cholesterol VLDL Cholesterol HDL Cholesterol Heart Disease Risk Ratio TSH 3rd Generation Urine Color Urine Appearance Urine pH Ur Specific [place] Urine Protein Urine Glucose (UA) Urine Ketones Urine Blood Urine Nitrate Urine Bilirubin Urine Urobilinogen Urine Leukocytes Urine RBC Urine WBC Ur Squamous Epith Cells Urine Mucus Ur Culture Indicated? Quality Measures - VTE Contraindication to Pharmacological VTE Prophylaxis: Already on Theraputic Agent , No Prophylaxis Needed
[2017-01-29] MEDS: ONDANSETRON 4 MG/2 ML VIAL IV PRN ×2 (00:30→04:09)
[2017-01-29] MEDS: MORPHINE 2 MG/1 ML SYRINGE IV PRN ×2 (00:30→04:10)
[2017-01-29 06:05] LABS: Basophils # 0.1 10*3/uL (0.0-0.2); Basophils % 0.5 % (0.0-0.8); Eosinophils # 0.3 10*3/uL (0.0-0.87); Eosinophils % 1.6 % (0.00-10.9); Hematocrit 46.2 VOL% (42.0-52.0); Hemoglobin 15.9 GM/DL (14.0-18.0); Immature Granulocytes % 0.7 %; Immature Granulocytes Absolute 0.11 #; Lymphocytes # 1.9 10*3/uL (1.4-4.0); Lymphocytes % 11.2 % (21.2-54.2); Mean Corpuscular HGB Conc 34.4 GM/DL (32-36); Mean Corpuscular Hemoglobin 31 PG (27-34); Mean Corpuscular Volume 88.7 FL (87-102); Mean Platelet Volume 11.5 FL (9.6-12.0); Monocytes # 1.3 10*3/uL (0.11-0.8); Monocytes % 7.9 % (1.7-12.7); Neutrophils # 13.2 10*3/uL (1.4-7.4); Neutrophils % 78.1 % (38.7-73.9); Platelet Count 274 T/CUMM (130-400); Red Blood Count 5.21 MC/CUMM (3.8-5.5); Red Cell Distribution Width 13.2 % (9.3-17.3); White Blood Count 16.8 T/CUMM (4-12)
[2017-01-29 06:32] LABS: Calcium 9.2 MG/DL (8.5-10.1); Osmolality,Calculated 264.5 MOS/KG (273-304); Potassium 5.5 MMOL/L (3.5-5.1)
[2017-01-29] MEDS: APIXABAN 2.5 MG TABLET PO SCH ×2 (08:56→21:04)
[2017-01-29] MEDS: SODIUM CHLORIDE 1 GM TABLET PO SCH ×2 (08:57→21:04)
[2017-01-29] MEDS: SODIUM CHLORIDE 0.9% 1,000 ML IV SCH (11:13)
--- NOTE | 2017-01-29 15:37 | Cardiology Progress Note ---
Se Brennan April, RN, am scribing for, and in the presence of, Mirza Ash MD 15:36. 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 Ash Mr. Loving is a 56-year-old man post left lacunar stroke Jan 18 2007. This admission Xarelto has been changed to Eliquis, and he reports his nausea is greatly improved. He denies any chest pain, shortness of breath, palpitations, or dizziness. O2 sat 98% Blood pressure 101/81 Afebrile Lab data: White count 16.8 hemoglobin 15.9 hematocrit 46.2 Sodium 132 potassium 5.5 chloride 95 CO2 29 BUN 16 creatinine 1.60 Impression: Nonischemic cardiomyopathy ejection EF 20% widely patent coronaries documented by cardiac cath October 19, 2003 Prior history of EtOH abuse, quit 2003 following CHF episode Status post partial colectomy before 2013 for recurrent diverticulitis Status post left lacunar stroke January 18, 2017 Echo done Feb [address] Carlson showed ejection fraction of 20% with severe global hypokinesis, moderate dilated left atrium, mild MR, mild with mean gradient 19 and ROBINSON 1.5 cm and mild TR Nausea, hypertension, weakness Cardiology addendum Patient seen and examined and discussed with nurse Giovanna Saez RN. The patient is hungry and wants to eat. He feels much better. His sister Radha and mother at the bedside. blood pressure 100/62 O2 sat 96% on room air Regular rhythm no gallop Abdomen soft benign nontender No leg edema Plan Begin cardiac diet BMP in a.m. Exam (Progress Note) - Constitutional Vitals: Period Temp Pulse Resp BP Sys/Cha Pulse Ox Last 24 Hr 97.3 F-98.6 F 79-90 18-145 96-110/50-81 95-98 General appearance: no acute distress, over weight - Head Head exam: Absent: abrasion, hematoma - Eye Eye exam: Absent: periorbital swelling, laceration to eyelids - Respiratory Respiratory exam: Present: clear to auscultation bilaterally. Absent: accessory muscle use, chest wall tenderness - Cardiovascular Cardiovascular exam: Present: regular rate and rhythm - GI/Abdominal GI/Abdominal exam: Present: normal bowel sounds, soft. Absent: distended, tenderness - Extremities Exam Extremities exam: Absent: edema - Neurological Exam Neurological exam: Present: alert, oriented X3 - Psychiatric Psychiatric exam: Present: normal affect, normal mood - Skin Skin exam: Present: warm, dry Result/EKG - Labs CBC & BMP: 01/29/17 05:21 01/29/17 05:21 Lab Results: I have reviewed the past 24 hour labs Labs: Laboratory Results - last 24 hr 01/28/17 01/29/17 01/29/17 05:51 05:21 05:21 WBC 16.8 H RBC 5.21 Hgb 15.9 Hct 46.2 MCV 88.7 MCH 31 MCHC 34.4 RDW 13.2 Plt Count 274 MPV 11.5 Neut % (Auto) 78.1 H Lymph % (Auto) 11.2 L [place] % (Auto) 7.9 Eos % (Auto) 1.6 Baso % (Auto) 0.5 Neut # (Auto) 13.2 H Lymph # (Auto) 1.9 [place] # (Auto) 1.3 H Eos # (Auto) 0.3 Baso # (Auto) 0.1 Immature Gran % 0.7 Nucleated RBC % 0.0 Immature Gran # 0.11 Nucleated RBCs # 0.00 INR 1.1 PT Patient/Control Mix 12.0 Circ Anticoag PTT 34.1 Sodium 132 L Potassium 5.5 H Chloride 95 L Carbon Dioxide 29 Anion Gap 13.5 BUN 16 Creatinine 1.60 H GFR Calculation 58 BUN/Creatinine Ratio 10.00 Glucose 90 Calculated Osmolality 264.5 L Calcium 9.2 - EKG EKG results: interpreted by me EKG shows: sinus rhythm Quality Measures - VTE Contraindication to Pharmacological VTE Prophylaxis: Already on Theraputic Agent , No Prophylaxis Needed INilsa Thomas, MD, personally performed the services described in this documentation, ascribed by Giovanna Saez RN in my presence, and it is both accurate and complete 536 .
--- NOTE | 2017-01-29 18:54 | Hospitalist Progress Note ---
Assessment and Plan (1) Chronic systolic (congestive) heart failure Status: Acute Assessment and plan: Nonischemic cardiomyopathy EF 20% and widely patent coronaries documented by cardiac cath October 19, 2003 Cardiology is following Current Visit: Yes (2) Nausea & vomiting Status: Acute Assessment and plan: IVF-cautiously. BMP in am Current Visit: Yes (3) Hypotension Status: Acute Assessment and plan: On IVf. cardiology is following Current Visit: Yes Qualifiers: Hypotension type: unspecified hypotension type Qualified Code(s): I95.9 - Hypotension, unspecified (4) CVA (cerebral vascular accident) Status: Acute Assessment and plan: Status post left lacunar stroke January 18, 2017 Patient has been switched to Eliquis due to Xarelto causing nausea and vomiting Current Visit: Yes (5) Dyslipidemia Status: Acute Assessment and plan: will place on statins Current Visit: Yes (6) Hyponatremia Status: Acute Assessment and plan: resolving on salt pills Current Visit: Yes (7) ARF (acute renal failure) Status: Acute Assessment and plan: resolving with IVF BMP in am Current Visit: Yes Qualifiers: Acute renal failure type: unspecified Qualified Code(s): N17.9 - Acute kidney failure, unspecified Hospitalist: Subjective Interval history: Progress note 01/28/2017 Patient seen. He state nausea and vomiting were related to Xarelto. Exam - Constitutional Vitals: Period Temp Pulse Resp BP Sys/Cha Pulse Ox Last 24 Hr 97.3 F-98.6 F 79-90 18-145 96-118/53-81 95-99 General appearance: no acute distress - Head Head exam: Present: normal inspection - Respiratory Respiratory exam: Present: clear to auscultation bilaterally - Cardiovascular Cardiovascular exam: Present: regular rate and rhythm - GI/Abdominal GI/Abdominal exam: Present: normal bowel sounds - Extremities Exam Extremities exam: Present: normal inspection Results - Labs CBC & BMP: 01/29/17 05:21 01/29/17 05:21 Lab Results: I have reviewed the past 24 hour labs Quality Measures - VTE Contraindication to Pharmacological VTE Prophylaxis: Already on Theraputic Agent , No Prophylaxis Needed
--- NOTE | 2017-01-29 19:05 | Hospitalist Progress Note ---
Assessment and Plan (1) Chronic systolic (congestive) heart failure Status: Acute Assessment and plan: Nonischemic cardiomyopathy EF 20% and widely patent coronaries documented by cardiac cath October 19, 2003 : stable Cardiology is following will dc IVf Current Visit: Yes (2) Nausea & vomiting Status: Acute Assessment and plan: improved. DC IVF BMP in am Current Visit: Yes (3) Hypotension Status: Acute Assessment and plan: stable cardiology is following Current Visit: Yes Qualifiers: Hypotension type: unspecified hypotension type Qualified Code(s): I95.9 - Hypotension, unspecified (4) CVA (cerebral vascular accident) Status: Acute Assessment and plan: Status post left lacunar stroke January 18, 2017 Patient has been switched to Eliquis due to Xarelto causing nausea and vomiting Current Visit: Yes (5) Dyslipidemia Status: Acute Assessment and plan: continue with statins Current Visit: Yes (6) Hyponatremia Status: Acute Assessment and plan: resolving on salt pills Current Visit: Yes (7) ARF (acute renal failure) Status: Acute Assessment and plan: stable BMP in am Current Visit: Yes Qualifiers: Acute renal failure type: unspecified Qualified Code(s): N17.9 - Acute kidney failure, unspecified Hospitalist: Subjective Interval history: Patient seen today. He states nausea and vomiting have resolved. He is tolerating Eliquis. Exam - Constitutional Vitals: Period Temp Pulse Resp BP Sys/Cha Pulse Ox Last 24 Hr 97.3 F-98.6 F 79-90 18-145 96-118/53-81 95-99 General appearance: no acute distress - Head Head exam: Present: normal inspection - Respiratory Respiratory exam: Present: clear to auscultation bilaterally - Cardiovascular Cardiovascular exam: Present: regular rate and rhythm - GI/Abdominal GI/Abdominal exam: Present: normal bowel sounds - Extremities Exam Extremities exam: Present: normal inspection Results - Labs CBC & BMP: 01/29/17 05:21 01/29/17 05:21 Lab Results: I have reviewed the past 24 hour labs Quality Measures - VTE Contraindication to Pharmacological VTE Prophylaxis: Already on Theraputic Agent , No Prophylaxis Needed
[2017-01-29] MEDS ORDERED: ATORVASTATIN 20 MG TABLET PO SCH (21:00)
[2017-01-30 05:51] LABS: Basophils # 0.1 10*3/uL (0.0-0.2); Basophils % 1.1 % (0.0-0.8); Eosinophils # 0.5 10*3/uL (0.0-0.87); Eosinophils % 4.4 % (0.00-10.9); Hematocrit 44.8 VOL% (42.0-52.0); Hemoglobin 15.5 GM/DL (14.0-18.0); Immature Granulocytes % 0.4 %; Immature Granulocytes Absolute 0.04 #; Lymphocytes # 3.1 10*3/uL (1.4-4.0); Lymphocytes % 26.8 % (21.2-54.2); Mean Corpuscular HGB Conc 34.6 GM/DL (32-36); Mean Corpuscular Hemoglobin 31 PG (27-34); Mean Corpuscular Volume 90.7 FL (87-102); Mean Platelet Volume 11.1 FL (9.6-12.0); Monocytes # 1.4 10*3/uL (0.11-0.8); Neutrophils # 6.3 10*3/uL (1.4-7.4); Neutrophils % 55.3 % (38.7-73.9); Platelet Count 259 T/CUMM (130-400); Red Blood Count 4.94 MC/CUMM (3.8-5.5); Red Cell Distribution Width 13.2 % (9.3-17.3); White Blood Count 11.4 T/CUMM (4-12)
[2017-01-30 06:25] LABS: Calcium 8.6 MG/DL (8.5-10.1); Osmolality,Calculated 272.7 MOS/KG (273-304); Potassium 4.2 MMOL/L (3.5-5.1)
[2017-01-30 08:07] VITALS: BP 96/71
[2017-01-30] MEDS: APIXABAN 2.5 MG TABLET PO SCH (08:46)
[2017-01-30] MEDS: SODIUM CHLORIDE 1 GM TABLET PO SCH (08:46)
--- NOTE | 2017-01-30 09:27 | Discharge Summary ---
<Pili Pabloda - Last Filed: 01/30/17 09:28> Hospital Course - Hospital Course Hospital Course: This is a very pleasant 56 year old male that presented to [facility] as a direct admission from Dr. Bernard Hernandez's on 01/27 for evaluation of nausea, vomiting, and hypotension. He has medical history significant for hyperlipidemia, congestive heart failure, and recent left lacunar stroke. on 01/18. The patient presented to Dr. Hernandez's office on the day of presentation with a chief complaint of nausea, vomiting, and weakness. He was assessed and found to be hypotensive at that time also. He reported a decrease in oral intake over the last several days. He reported "I have only been able to keep my medications down". We were notified by Dr. Hernandez on the patient's status. He was subsequently admitted to [facility] to the hospitalist service for further evaluation and care. The patient was recently discharged from [facility] on 01/19 for left sided weakness, slurred speech, and gait disturbances. MRI was performed during the clinical encounter which revealed multiple tiny infarcts within two different watershed distributions within the right brain. The patient was discharged on Xarelto as an outpatient. At the time of discharge, his symptoms were resolved. The patient was admitted and volume replacement was initiated. Cardiology was consulted to evaluate and his medications were adjusted. His condition improved. He has experienced no significant overnight events and his blood pressures are stable. Today, we feel that he is indeed appropriate for discharge home to follow-up with his PCP as directed. Diagnosis - Discharge Diagnosis (1) Hypotension Status: Acute (2) Weakness Status: Acute (3) Nausea & vomiting Status: Acute (4) Essential hypertension Status: Acute Specialty Discharge - Follow Up or Referrals Follow up with: Mirza Ash MD [Physician] - 02/14/17 8:20 am Discharge Plan - Discharge Data Disposition: Disch To Home/Self Care - Discharge Medications New Acetaminophen Tab [Tylenol Tab] 650 mg PO Q4H PRN #0 tablet PRN Reason: Fever, Headache, Mild Pain Atorvastatin [Lipitor] 20 mg PO BEDTIME #30 tablet Sodium Chloride Tab 1 gm PO BID #60 tablet Apixaban [Eliquis] 2.5 mg PO BID #60 tablet Continue Spironolactone 25 mg PO DAILY Discontinued Furosemide 40 mg PO DAILY Rivaroxaban [Xarelto] 15 mg PO DAILY W/SUPPER #30 tablet Valsartan/Hydrochlorothiazide [Valsartan-Hctz 160-12.5 mg Tab] 1 each PO DAILY - Follow Up or Referral Follow Up: Mirza Ash MD [Physician] - 02/14/17 8:20 am - Forms/Instructions Instructions: Dehydration (DC), Acute Nausea and Vomiting (DC) Exam - Constitutional Vitals: Period Temp Pulse Resp BP Sys/Cha Pulse Ox Last 24 Hr 97.6 F-99.5 F 81-104 16-20 96-118/53-73 92-99 Discharge Results Labs on day of discharge: Labs from last 24 hours 01/30/17 01/30/17 05:09 05:09 WBC 11.4 D RBC 4.94 Hgb 15.5 Hct 44.8 MCV 90.7 MCH 31 MCHC 34.6 RDW 13.2 Plt Count 259 MPV 11.1 Neut % (Auto) 55.3 Lymph % (Auto) 26.8 [place] % (Auto) 12.0 Eos % (Auto) 4.4 Baso % (Auto) 1.1 H Neut # (Auto) 6.3 Lymph # (Auto) 3.1 [place] # (Auto) 1.4 H Eos # (Auto) 0.5 Baso # (Auto) 0.1 Immature Gran % 0.4 Nucleated RBC % 0.0 Immature Gran # 0.04 Nucleated RBCs # 0.00 Sodium 138 Potassium 4.2 Chloride 103 Carbon Dioxide 27 Anion Gap 12.2 BUN 11 Creatinine 1.40 H GFR Calculation 69 BUN/Creatinine Ratio 7.00 Glucose 72 L Calculated Osmolality 272.7 L Calcium 8.6 DS: Provider Date of admission: 01/27/17 15:39 Primary care physician: . No PCP Attending physician on admission: Yuly Perez MD Consults: 01/28/17 10:43 Consult to Physician [CONS] Routine Comment: known t you , recent stroke, Hx of CHF Consulting Provider: Mirza Ash Person Notified: Daron Date Notified: 01/28/17 Time Notified: 10:43 Discharging clinician: Casie Pablo CNP <Yuly Perez - Last Filed: 01/30/17 12:17> Hospital Course - Hospital Course Hospital Course: Patient apparently had never visited Dr Ash in the clinic, their contacts have been during hospitalization. He has a nonischemic cardiomyopathy with an EF of 20% probable. He will follow up with him in 2weeks in the clinic.His home meds were held in the hospital due to hypotension and renal failure. I have restarted his spironolactone, his PCP or cardiology need to restart the Lasix and Valsartan/HCTZ if needed as outpatient. His Xarelto was also switched to Eliquis due to nausea and vomiting. - Time spent with patient Time with patient DS: Greater than 30 minutes (time spent: 35mins) Diagnosis - Discharge Diagnosis (1) Chronic systolic (congestive) heart failure Status: Acute (2) Nausea & vomiting Status: Acute (3) Hypotension Status: Acute (4) CVA (cerebral vascular accident) Status: Acute (5) Dyslipidemia Status: Acute (6) Hyponatremia Status: Acute (7) ARF (acute renal failure) Status: Acute (8) Ischemic cardiomyopathy Status: Acute Discharge Plan - Discharge Data Condition at Discharge: Stable Discharge Diet: heart healthy Activity: resume usual activities as tolerated - Forms/Instructions Additional Discharge Instructions: Follow with PCP in 1week, follow with Dr Ash as scheduled.
--- NOTE | 2017-01-30 09:49 | Cardiology Progress Note ---
Assessment and Plan (1) Hypotension Status: Acute Current Visit: Yes Qualifiers: Hypotension type: unspecified hypotension type Qualified Code(s): I95.9 - Hypotension, unspecified (2) Nausea & vomiting Status: Acute Current Visit: Yes (3) Weakness Status: Acute Current Visit: Yes Cardiology - PN: Subj Interval history: Cardiology note Eating without difficulty. No shortness of breath. No nausea. O2 sat 97% room air blood pressure 104/72 Regular rhythm no murmur Clear lungs Abdomen soft benign White count 11.4 Hemoglobin 15.5 hematocrit 44.8 lab data today Sodium 138 potassium 4.2 chloride 103 CO2 2711 creatinine 1.40 Nonischemic cardiomyopathy EF 20% probable Status post left lacunar stroke January 18, 2017 Status post partial colectomy 2013 for recurrent diverticulitis Prior history of EtOH abuse quit 2003 following CHF episode Plan Agree with discharge Office visit with EKG 2 weeks Exam (Progress Note) - Constitutional Vitals: Period Temp Pulse Resp BP Sys/Cha Pulse Ox Last 24 Hr 97.6 F-99.5 F 81-104 16-20 96-118/53-73 92-99 Result/EKG - Labs CBC & BMP: 01/30/17 05:09 01/30/17 05:09 Labs: Laboratory Results - last 24 hr 01/30/17 01/30/17 05:09 05:09 WBC 11.4 D RBC 4.94 Hgb 15.5 Hct 44.8 MCV 90.7 MCH 31 MCHC 34.6 RDW 13.2 Plt Count 259 MPV 11.1 Neut % (Auto) 55.3 Lymph % (Auto) 26.8 [place] % (Auto) 12.0 Eos % (Auto) 4.4 Baso % (Auto) 1.1 H Neut # (Auto) 6.3 Lymph # (Auto) 3.1 [place] # (Auto) 1.4 H Eos # (Auto) 0.5 Baso # (Auto) 0.1 Immature Gran % 0.4 Nucleated RBC % 0.0 Immature Gran # 0.04 Nucleated RBCs # 0.00 Sodium 138 Potassium 4.2 Chloride 103 Carbon Dioxide 27 Anion Gap 12.2 BUN 11 Creatinine 1.40 H GFR Calculation 69 BUN/Creatinine Ratio 7.00 Glucose 72 L Calculated Osmolality 272.7 L Calcium 8.6 Quality Measures - VTE Contraindication to Pharmacological VTE Prophylaxis: Already on Theraputic Agent , No Prophylaxis Needed
== END 2017-01-30 13:10 | disposition home or self-care (01) | DRG 683 ==
LOC: N.5E 15:39
PROVIDERS: ADMIT Internal Medicine; ATTEND Internal Medicine

== ENCOUNTER 2017-02-14 23:01 | Inpatient (IN) ==
--- NOTE | 2017-02-14 23:30 | Emergency Department Note ---
ISeema Kasabria, am scribing for, and in the presence of, Jayna Beckwith DO 23 :30. ITang Debra, DO, personally performed the services described in this documentation, ascribed by Christopher Stephenson in my presence, and it is both accurate and complete 330 . Arrival - Arrival Chief Complaint: Shortness of Breath Stated Complaint: cant breathe ED Nursing Triage Note: pt to triage via wc. pt states he is having trouble breathing since this am. pt was seen by dr ash this am. dr ash increased lasix today to 40 mg bid. Mode of Arrival: Wheelchair Limitations: No Limitations Source: Patient - History of Present Illness HPI Narrative: This is a 56 y/o white male presenting to the ED with c/o SOB that onset this morning. This is a pt of Dr. Ash and he saw him this morning. Pt had a stroke 3-4 weeks ago and was placed on blood thinners. He saw Dr. Hernandez and was taken off the blood thinner and placed on a sodium pill. After visiting Dr. Ash this morning, states he was unhappy with this and took the pt off the sodium pill and put him on Eliquis. Pt has been taking blood thinners since 2003 for CHF. Pt denies residual weakness from the stroke 2-3 weeks ago. Pt was admitted by David for low blood pressure. His blood pressure at triage was 88/ 68 with oxygen sats at 93% on room air. Pt denies chest pain, abdominal pain, back pain, cough, fever, JADE, vision change, and dysuria. His PMHx is consistent with HTN, diverticulitis, CHF, and partial colectomy. Consistency: constant Severity: moderate Allergies/Adverse Reactions: Allergies Allergy/AdvReac Type Severity Reaction Status Date / Time No Known Allergies Allergy Unverified 02/14/17 23:12 Home Medications: Home Medications Medication Instructions Recorded Confirmed Type Spironolactone 25 mg PO DAILY 01/17/17 01/27/17 History Acetaminophen Tab [Tylenol Tab] 650 mg PO Q4H PRN #0 tablet 01/30/17 Rx Apixaban [Eliquis] 2.5 mg PO BID #60 tablet 01/30/17 Rx Atorvastatin [Lipitor] 20 mg PO BEDTIME #30 tablet 01/30/17 Rx Sodium Chloride Tab 1 gm PO BID #60 tablet 01/30/17 Rx Review of System - Review of System 12 point system: reviewed and no additional remarkable complaints except as stated - Review of System Constitutional: Absent: chills, diaphoresis, fever, weakness Eyes: Absent: vision change Head/Ears/Nose/Throat: Absent: nasal drainage Respiratory: Absent: wheezing Cardiovascular: Present: dyspnea on exertion. Absent: chest pain Gastrointestinal: Absent: abdominal pain, nausea, vomiting, diarrhea Genitourinary male: Absent: dysuria Musculoskeletal: Absent: arm pain, back pain, leg pain, neck pain Skin: Absent: rash Neurological: Absent: headache, weakness, confusion, vertigo Psychiatric: Absent: anxiety Endocrine: Absent: fatigue Hematological/Lymphatic: Absent: easy bleeding Allergic/Immunologic: Absent: facial swelling Medical,Surgical,& Family Hx - Medical History Cardio: History of: CHF, Hypertension Psychological: No history of: Anxiety Disorders, ADHD, Behavior Problems, Bipolar Disorder, Depression, Previous Suicide Attempt, Psychiatric/Substance Abuse Tx, Schizophrenia, Violent Behavior, Psychiatric Problems Neurology: History of: Cerebrovascular Accident Rheumatology: History of;: Gout Gastrointestinal: History of: Diverticulitis/ Diverticulosis, GI Problems ( partial colectomy with colestomy with reversal) - Surgical History Thoracic Surgeries: Patient denies;: Organ Transplant Neurologic Surgeries: Patient denies: Neurologic Surgery HEENT Surgeries: Patient denies: Eye Surgery, Tonsilectomy & Adenoidectomy - Family History Family History: Reports;: Family Cancer (brain cancer), Family Hypertension ( mother), Family Stroke (maternal grandmother) - Social History Smoking Status: Never smoker Frequency of Alcohol Use: None Type of Drug Use: None Exam Vital Signs: Vital Signs Temperature 97.8 F 02/14/17 23:04 Pulse Rate 72 02/14/17 23:25 Respiratory Rate 20 02/14/17 23:25 Blood Pressure 94/75 02/14/17 23:25 O2 Sat by Pulse Oximetry 93 L 02/14/17 23:04 - General General appearance: alert, in no apparent distress - Head Head exam: Present: atraumatic, normocephalic, normal inspection - Eye Eye exam: Present: normal appearance, PERRL, EOMI - ENT ENT exam: Present: normal exam, normal oropharynx, mucous membranes moist, TM's normal bilaterally, normal external ear exam - Neck Neck exam: Present: normal inspection, full ROM, trachea midline. Absent: tenderness - Chest Chest inspection: Present: normal inspection, symmetric chest wall rise. Absent : tenderness - Respiratory Respiratory exam: Present: normal lung sounds bilaterally - Cardiovascular Cardiovascular exam: Present: regular rate, normal rhythm, normal heart sounds - Abdominal Exam Abdominal exam: Present: soft, normal bowel sounds. Absent: distention, tenderness - Extremities Exam Extremities exam: Present: normal inspection, full ROM, normal capillary refill. Absent: tenderness, pedal edema, calf tenderness - Back Exam Back exam: Present: normal inspection, full ROM. Absent: tenderness - Neurological Exam Neurological exam: Present: alert, oriented X3, CN II-XII intact, normal gait, reflexes normal - Psychiatric Psychiatric exam: Present: normal affect, normal mood - Skin Skin exam: Present: warm, dry, intact, normal color, erythema (bilateral knees ) . Absent: rash, diaphoresis Course Course Narrative: spoke with DR Savage,who will admit pt for chf Results - Labs CBC & BMP: 02/14/17 23:46 02/14/17 23:46 Lab Results: I have reviewed the patients labs - Diagnostic Findings Procedure: Chest x-ray: image reviewed by me (chf) Disposition Clinical Impression: Congestive heart failure Case discussed with: patient, patient's family Disposition: Still a Patient Condition: Stable Time of Disposition: 01:01
[2017-02-14 23:56] LABS: Basophils # 0.1 10*3/uL (0.0-0.2); Basophils % 0.6 % (0.0-0.8); Eosinophils # 0.2 10*3/uL (0.0-0.87); Eosinophils % 1.5 % (0.00-10.9); Hematocrit 40.6 VOL% (42.0-52.0); Hemoglobin 13.4 GM/DL (14.0-18.0); Immature Granulocytes % 0.3 %; Immature Granulocytes Absolute 0.03 #; Lymphocytes # 2.7 10*3/uL (1.4-4.0); Lymphocytes % 26.5 % (21.2-54.2); Mean Corpuscular Hemoglobin 30 PG (27-34); Mean Corpuscular Volume 91.9 FL (87-102); Mean Platelet Volume 11.2 FL (9.6-12.0); Monocytes # 1.3 10*3/uL (0.11-0.8); Monocytes % 12.8 % (1.7-12.7); NRBC # 0.03 10*3/uL; Neutrophils % 58.3 % (38.7-73.9); Platelet Count 283 T/CUMM (130-400); Red Blood Count 4.42 MC/CUMM (3.8-5.5); White Blood Count 10.3 T/CUMM (4-12)
[2017-02-15 00:06] LABS: INR 1.4; PT Patient Result 15.4 SECS; Partial Thromboplastin Time 29.2 SECS (0-40)
[2017-02-15 00:31] LABS: Albumin 3.2 G/DL (3.4-5.0); Bilirubin,Total 1.3 MG/DL (0.2-1.0); Calcium 8.7 MG/DL (8.5-10.1); Osmolality,Calculated 279.7 MOS/KG (273-304); Potassium 5.3 MMOL/L (3.5-5.1); Total Protein 5.9 G/DL (6.4-8.3)
[2017-02-15] MEDS ORDERED: FUROSEMIDE 40 MG/4 ML VIAL IV STA (00:45)
[2017-02-15] MEDS ORDERED: ONDANSETRON 4 MG/2 ML VIAL IV STA (00:56)
[2017-02-15] MEDS ORDERED: HYDROmorphone 2 MG/1 ML VIAL IV STA (00:56)
[2017-02-15] MEDS ORDERED: HYDROmorphone 2 MG/1 ML VIAL ONE (00:59)
[2017-02-15] MEDS ORDERED: FUROSEMIDE 40 MG/4 ML VIAL ONE (00:59)
[2017-02-15] MEDS ORDERED: ONDANSETRON 4 MG/2 ML VIAL ONE (00:59)
[2017-02-15] MEDS ORDERED: BISACODYL 5 MG TABLET PO PRN (01:17)
[2017-02-15] MEDS ORDERED: MORPHINE 2 MG/1 ML SYRINGE IV PRN (01:17)
[2017-02-15] MEDS ORDERED: ONDANSETRON 4 MG/2 ML VIAL IV PRN (01:17)
[2017-02-15] MEDS ORDERED: ACETAMINOPHEN 325 MG TABLET PO PRN (01:17)
--- NOTE | 2017-02-15 01:22 | Hospitalist History & Physical ---
Assessment and Plan (1) Acute on chronic systolic CHF (congestive heart failure) Status: Acute Current Visit: Yes (2) Acute worsening of stage 3 chronic kidney disease Status: Acute Current Visit: Yes (3) History of recent stroke Status: Acute Current Visit: Yes (4) Chronic anticoagulation Status: Acute Assessment and plan: Plan: Admit for CHF exacerbation, restart diuretics, daily weights, ins and outs Serial cardiac enzymes Continue remainder CHF medications, continue anticoagulation Current Visit: Yes History of Present Illness Chief complaint: Shortness of breath, worsening peripheral edema History of present illness: Mr. Loivng is a 56 year old male with chronic systolic CHF, recent echo showing EF of 20%. He has had a recent stroke and is on Eliquis. He was recently discharged from the hospital being treated for hypotension and dehydration. At that time his diuretic was stopped. Since that time he reports worsening shortness of breath, and worsening swelling of the lower extremities. Shortness of breath and swelling have been constant and worsening since shortly after he was discharged. He denies chest pain, palpitations, or productive cough. He denies fever, nausea vomiting or diarrhea. Chest x-ray is consistent with CHF exacerbation, BNP markedly elevated. Home Medications Medication Instructions Recorded Confirmed Type Spironolactone 25 mg PO DAILY 01/17/17 02/15/17 History Acetaminophen Tab [Tylenol Tab] 650 mg PO Q4H PRN #0 tablet 01/30/17 02/15/17 Rx Apixaban [Eliquis] 2.5 mg PO BID #60 tablet 01/30/17 02/15/17 Rx Atorvastatin [Lipitor] 20 mg PO BEDTIME #30 tablet 01/30/17 02/15/17 Rx Carvedilol [Coreg] 6.25 mg PO BID 02/15/17 02/15/17 History Furosemide 40 mg PO BID 02/15/17 02/15/17 History Allergies Allergy/AdvReac Type Severity Reaction Status Date / Time No Known Allergies Allergy Unverified 02/14/17 23:12 Medical,Surgical,& Family Hx - Medical History Cardio: History of: CHF (EF 20% on echo, January 2017), Hypertension Psychological: No history of: Anxiety Disorders, ADHD, Behavior Problems, Bipolar Disorder, Depression, Previous Suicide Attempt, Psychiatric/Substance Abuse Tx, Schizophrenia, Violent Behavior, Psychiatric Problems Neurology: History of: Cerebrovascular Accident Rheumatology: History of;: Gout Gastrointestinal: History of: Diverticulitis/ Diverticulosis, GI Problems ( partial colectomy with colestomy with reversal) - Surgical History Thoracic Surgeries: Patient denies;: Organ Transplant Neurologic Surgeries: Patient denies: Neurologic Surgery HEENT Surgeries: Patient denies: Eye Surgery, Tonsilectomy & Adenoidectomy - Family History Family History: Reports;: Family Cancer (brain cancer), Family Hypertension ( mother), Family Stroke (maternal grandmother) - Social History Smoking Status: Never smoker Frequency of Alcohol Use: None Type of Drug Use: None Marital Status: Unknown Review of systems: A 12 point review of systems is negative except as specified in the HPI Exam - Constitutional Vitals: Period Temp Pulse Resp BP Sys/Cha Pulse Ox Last 24 Hr 97.8 F-97.8 F 72-77 20-22 88-94/68-75 93 Exam: EXAM: CONSTITUTIONAL: non toxic, NAD HEENT: NC, AT, OP benign, ROJELIO, EOMI CV: RRR no m/g/r RESP: Coarse bilaterally, bibasilar rales GI: abd soft, NT, ND, +bowel sounds INTEGUMENTARY: no lesions or rash EXTREMITIES: 1+ pitting edema bilateral lower extremities NEURO: no focal deficits PSYCH: Awake alert cooperative Results - Labs CBC & BMP: 02/14/17 23:46 02/14/17 23:46 Lab Results: I have reviewed the past 24 hour labs - EKG EKG shows: sinus rhythm - Diagnostic Findings Procedure: Chest x-ray: image reviewed by me Quality Measures - VTE Contraindication to Pharmacological VTE Prophylaxis: Already on Theraputic Agent , No Prophylaxis Needed
[2017-02-15 06:30] LABS: Basophils # 0.1 10*3/uL (0.0-0.2); Basophils % 0.7 % (0.0-0.8); Eosinophils # 0.1 10*3/uL (0.0-0.87); Eosinophils % 0.7 % (0.00-10.9); Hematocrit 42.9 VOL% (42.0-52.0); Hemoglobin 14.1 GM/DL (14.0-18.0); Immature Granulocytes % 0.3 %; Immature Granulocytes Absolute 0.03 #; Lymphocytes # 3.1 10*3/uL (1.4-4.0); Lymphocytes % 28.5 % (21.2-54.2); Mean Corpuscular HGB Conc 32.9 GM/DL (32-36); Mean Corpuscular Hemoglobin 30 PG (27-34); Mean Corpuscular Volume 92.5 FL (87-102); Mean Platelet Volume 11.5 FL (9.6-12.0); Monocytes % 9.6 % (1.7-12.7); NRBC # 0.03 10*3/uL; Neutrophils # 6.5 10*3/uL (1.4-7.4); Neutrophils % 60.2 % (38.7-73.9); Platelet Count 315 T/CUMM (130-400); Red Blood Count 4.64 MC/CUMM (3.8-5.5); Red Cell Distribution Width 15.2 % (9.3-17.3); White Blood Count 10.7 T/CUMM (4-12)
[2017-02-15 07:09] LABS: Albumin 3.5 G/DL (3.4-5.0); Calcium 8.9 MG/DL (8.5-10.1); Osmolality,Calculated 275.1 MOS/KG (273-304); Total Protein 6.5 G/DL (6.4-8.3)
[2017-02-15 07:17] LABS: Potassium 6.6 MMOL/L (3.5-5.1)
[2017-02-15 07:22] LABS: Free T4 (Free Thyroxine) 1.4 NG/DL (0.76-1.46); Thyroid Stimulating Hormone 1.16 uIU/ml (0.358-3.74)
--- NOTE | 2017-02-15 07:39 | Hospitalist Progress Note ---
Assessment and Plan - Time spent with patient Time spent with patient: Less than 30 minutes (1) Acute on chronic systolic CHF (congestive heart failure) Status: Acute Assessment and plan: Patient was admitted with acute decompensation of chronic systolic congestive heart failure with ejection fraction at 20% in January 2017. He is symptomatically better this morning. We will continue to optimize his medical therapy. Current Visit: Yes (2) Hyperkalemia Status: Acute Assessment and plan: Patient is hyperkalemic which is likely secondary to potassium sparing diuretics as well as acute on chronic kidney injury. Will adjust his medical therapy as appropriate and provide Kayexalate with follow-up potassium level later today and in a.m. Current Visit: Yes (3) Acute worsening of stage 3 chronic kidney disease Status: Acute Assessment and plan: Patient's creatinine was 1.4 at the time of most recent discharge. We will continue to optimize his medical therapy and follow-up renal function in the a.m. Current Visit: Yes (4) Chronic anticoagulation Status: Chronic Assessment and plan: Continuing his chronic anticoagulation for prior CVA. Current Visit: Yes (5) History of recent stroke Status: Chronic Assessment and plan: Patient had prior CVA and is being treated with Eliquis. No new signs or symptoms to be concerned about. Current Visit: Yes (6) Dyslipidemia Status: Chronic Assessment and plan: Continuing statin therapy. Current Visit: No (7) Essential hypertension Status: Acute Assessment and plan: Blood pressures currently well controlled. Continue current medical regimen. Current Visit: No Hospitalist: Subjective Interval history: Patient seen and examined this morning. Mr. Loving is a 56-year-old white male admitted last evening for decompensated congestive heart failure and acute on chronic kidney injury. He states his breathing is much better. However this morning we have noted elevation in his creatinine as well as hyperkalemia. He denies any abdominal pain nausea or vomiting. Exam - Constitutional Vitals: Period Temp Pulse Resp BP Sys/Cha Pulse Ox Last 24 Hr 95.9 F-98.2 F 72-77 20-22 88-132/50-76 93-96 General appearance: no acute distress - Head Head exam: Present: normocephalic, atraumatic - Eye Eye exam: Present: EOMI Pupils: Present: ROJELIO - ENT ENT exam: Present: normal exam - Neck Neck exam: Present: normal inspection - Respiratory Respiratory exam: Present: clear to auscultation bilaterally - Cardiovascular Cardiovascular exam: Present: regular rate and rhythm - GI/Abdominal GI/Abdominal exam: Present: normal bowel sounds, soft. Absent: tenderness - Extremities Exam Extremities exam: Absent: calf tenderness, edema - Back Exam Back exam: Present: normal inspection - Neurological Exam Neurological exam: Present: alert, oriented X3, CN II-XII intact. Absent: motor sensory deficit - Psychiatric Psychiatric exam: Present: normal affect, normal mood. Absent: agitated, anxious - Skin Skin exam: Present: warm, dry. Absent: rash Results - Labs CBC & BMP: 02/15/17 05:38 02/15/17 05:38 Lab Results: I have reviewed the past 24 hour labs - Diagnostic Findings Procedure: Chest x-ray: image reviewed by me Quality Measures - VTE Contraindication to Pharmacological VTE Prophylaxis: Already on Theraputic Agent , No Prophylaxis Needed - Stroke Symptom Onset Unknown: No
[2017-02-15] MEDS ORDERED: SODIUM POLYSTYRENE SULFATE 15 GM/60 ML BOTTLE PO ONE (07:47)
[2017-02-15] MEDS ORDERED: FUROSEMIDE 40 MG/4 ML VIAL IV SCH (08:00)
[2017-02-15] MEDS ORDERED: SPIRONOLACTONE 25 MG TABLET PO SCH (09:00)
[2017-02-15] MEDS: PANTOPRAZOLE 40 MG TABLET PO SCH (09:39)
[2017-02-15] MEDS: CARVEDILOL 6.25 MG TABLET PO SCH ×2 (09:39→20:56)
[2017-02-15] MEDS: FUROSEMIDE 40 MG TABLET PO SCH ×2 (09:39→20:56)
[2017-02-15] MEDS: APIXABAN 2.5 MG TABLET PO SCH ×2 (09:39→20:56)
--- NOTE | 2017-02-15 14:51 | Cardiology Consult Note ---
Assessment and Plan (1) Acute on chronic systolic CHF (congestive heart failure) Status: Acute Assessment and plan: I agree with current management. He is improved with IV diuresis. I agree with stopping his spironolactone secondary to hyperkalemia. His potassium improved with Kayexalate. Due to his renal insufficiency and hyperkalemia, an SHEKHAR inhibitor or angiotensin receptor calixto is contraindicated right now. Continue present treatment. Current Visit: Yes (2) Nonischemic cardiomyopathy Status: Acute Current Visit: Yes (3) Acute worsening of stage 3 chronic kidney disease Status: Acute Current Visit: Yes (4) Hyperkalemia Status: Acute Current Visit: Yes (5) Chronic anticoagulation Status: Chronic Current Visit: Yes (6) History of recent stroke Status: Chronic Current Visit: Yes (7) Essential hypertension Status: Acute Current Visit: No History of Present Illness - Consult Narrative History of present illness: Mr. Loving is a 56 year old male who is normally followed by Dr. hollis for cardiology management. The patient has a history of multiple medical problems including a severe nonischemic cardiomyopathy thought to be secondary to alcohol abuse and untreated hypertension. Cardiac catheterization in October 2003 showed a severely reduced left ventricular systolic function with ejection fraction of around 20% and widely patent coronary arteries. Patient also recently had a left lacunar stroke. He is on chronic anticoagulation for this. He was actually discharged from the hospital on 01/30/2017. At that time he actually was somewhat dehydrated secondary to nausea and vomiting. He was gently hydrated and had adjustment in his medical management at that time. Since then he has been doing fairly well until the night of admission when he developed worsening dyspnea. He became moderate to severely short of breath. He had some orthopnea. There were no specific exacerbating or alleviating factors. There were no associated symptoms. He came to the hospital for further workup and management. Clinical evaluation, chest x-ray, and BNP are all consistent with volume overload, secondary to acute on chronic systolic heart failure. Overnight the patient has been started on diuresis and is clinically improved today. Of note, he was on spironolactone as an outpatient, but at the time of this admission his potassium was quite high so this medication had to be stopped and he has been started on Kayexalate. This improved his potassium. He denies any palpitations or syncope. He denies any fever, chills, or cough. He denies any anginal symptoms. CC: Darren Adams - Home Medications and Allergies Home Medications: Home Medications Medication Instructions Recorded Confirmed Type Spironolactone 25 mg PO DAILY 01/17/17 02/15/17 History Acetaminophen Tab [Tylenol Tab] 650 mg PO Q4H PRN #0 tablet 01/30/17 02/15/17 Rx Apixaban [Eliquis] 2.5 mg PO BID #60 tablet 01/30/17 02/15/17 Rx Atorvastatin [Lipitor] 20 mg PO BEDTIME #30 tablet 01/30/17 02/15/17 Rx Carvedilol [Coreg] 6.25 mg PO BID 02/15/17 02/15/17 History Furosemide 40 mg PO BID 02/15/17 02/15/17 History Allergies/Adverse Reactions: Allergies Allergy/AdvReac Type Severity Reaction Status Date / Time No Known Allergies Allergy Unverified 02/14/17 23:12 Medical,Surgical,& Family Hx - Medical History Cardio: History of: CHF (EF 20% on echo, January 2017), Hypertension Psychological: No history of: Anxiety Disorders, ADHD, Behavior Problems, Bipolar Disorder, Depression, Previous Suicide Attempt, Psychiatric/Substance Abuse Tx, Schizophrenia, Violent Behavior, Psychiatric Problems Neurology: History of: Cerebrovascular Accident Rheumatology: History of;: Gout Gastrointestinal: History of: Diverticulitis/ Diverticulosis, GI Problems ( partial colectomy with colestomy with reversal) - Surgical History Thoracic Surgeries: Patient denies;: Organ Transplant Neurologic Surgeries: Patient denies: Neurologic Surgery HEENT Surgeries: Patient denies: Eye Surgery, Tonsilectomy & Adenoidectomy Abdominal Surgeries: Surgical HX of: Abdominal Surgery Reproductive Surgeries: Patient denies;: Genitourinary Surgery - Family History Family History: Reports;: Family Cancer (brain cancer), Family Hypertension ( mother), Family Stroke (maternal grandmother) - Social History Smoking Status: Never smoker Frequency of Alcohol Use: None Type of Drug Use: None Physical Examination Vital Signs Temp Pulse Resp BP Pulse Ox 97.8 F 73 22 88/68 93 L 02/14/17 23:04 02/14/17 23:04 02/14/17 23:04 02/14/17 23:04 02/14/17 23:04 Other: General: Appears well developed, well nourished, obese, no apparent distress HEENT: Normocephalic, atraumatic Neck: Supple Neck, Midline Trachea, No Bruit, No JVD Cardiac: Regular rhythm, 2/6 systolic murmur, no gallop, no rub Lungs: Coarse breath sounds with slight bibasilar crackles Neuro: Cranial Nerve 2-12 Intact, Motor Function Grossly Intact Abdomen: Soft, Active Bowel Sounds, No Masses, No Pulsations/Bruits Skin: Normal color, no rash Extremities: No Clubbing, No Cyanosis, trace bilateral lower extremity edema, Normal Upper Extr. Pulses Musculoskeletal: No acute abnormality noted Psychiatric: The patient does not appear to be anxious or depressed Result/EKG - Labs CBC & BMP: 02/15/17 05:38 02/15/17 12:34 Lab Results: I have reviewed the past 24 hour labs Labs: Laboratory Results - last 24 hr 02/14/17 02/14/17 02/14/17 23:46 23:46 23:46 WBC 10.3 RBC 4.42 Hgb 13.4 L Hct 40.6 L MCV 91.9 MCH 30 MCHC 33.0 RDW 15.0 Plt Count 283 MPV 11.2 Neut % (Auto) 58.3 Lymph % (Auto) 26.5 [place] % (Auto) 12.8 H Eos % (Auto) 1.5 Baso % (Auto) 0.6 Neut # (Auto) 6.0 Lymph # (Auto) 2.7 [place] # (Auto) 1.3 H Eos # (Auto) 0.2 Baso # (Auto) 0.1 Immature Gran % 0.3 Nucleated RBC % 0.3 Immature Gran # 0.03 Nucleated RBCs # 0.03 INR 1.4 PT Patient/Control Mix 15.4 D D-Dimer, Quantitative Circ Anticoag PTT 29.2 Sodium 138 Potassium 5.3 H Chloride 104 Carbon Dioxide 21 Anion Gap 18.3 H BUN 29 H Creatinine 2.10 H GFR Calculation 45 BUN/Creatinine Ratio 13.00 Glucose 84 Calculated Osmolality 279.7 Calcium 8.7 Magnesium Total Bilirubin 1.30 H AST 105 H ALT 171 H Alkaline Phosphatase 136 H B-Natriuretic Peptide Total Protein 5.9 L Albumin 3.2 L Globulin 2.7 Albumin/Globulin Ratio 1.1 Free T4 TSH 3rd Generation 02/14/17 02/14/17 02/15/17 23:46 23:46 05:38 WBC 10.7 RBC 4.64 Hgb 14.1 Hct 42.9 MCV 92.5 MCH 30 MCHC 32.9 RDW 15.2 Plt Count 315 MPV 11.5 Neut % (Auto) 60.2 Lymph % (Auto) 28.5 [place] % (Auto) 9.6 Eos % (Auto) 0.7 Baso % (Auto) 0.7 Neut # (Auto) 6.5 Lymph # (Auto) 3.1 [place] # (Auto) 1.0 H Eos # (Auto) 0.1 Baso # (Auto) 0.1 Immature Gran % 0.3 Nucleated RBC % 0.3 Immature Gran # 0.03 Nucleated RBCs # 0.03 INR PT Patient/Control Mix D-Dimer, Quantitative 0.6 Circ Anticoag PTT Sodium Potassium Chloride Carbon Dioxide Anion Gap BUN Creatinine GFR Calculation BUN/Creatinine Ratio Glucose Calculated Osmolality Calcium Magnesium Total Bilirubin AST ALT Alkaline Phosphatase B-Natriuretic Peptide 4480 H Total Protein Albumin Globulin Albumin/Globulin Ratio Free T4 TSH 3rd Generation 02/15/17 02/15/17 02/15/17 05:38 05:38 05:38 WBC RBC Hgb Hct MCV MCH MCHC RDW Plt Count MPV Neut % (Auto) Lymph % (Auto) [place] % (Auto) Eos % (Auto) Baso % (Auto) Neut # (Auto) Lymph # (Auto) [place] # (Auto) Eos # (Auto) Baso # (Auto) Immature Gran % Nucleated RBC % Immature Gran # Nucleated RBCs # INR PT Patient/Control Mix D-Dimer, Quantitative Circ Anticoag PTT Sodium 135 L Potassium 6.6 H* D Chloride 101 Carbon Dioxide 25 Anion Gap 15.6 H BUN 33 H Creatinine 2.20 H GFR Calculation 42 BUN/Creatinine Ratio 15.00 Glucose 75 Calculated Osmolality 275.1 Calcium 8.9 Magnesium 2.0 Total Bilirubin 1.00 AST 92 H ALT 172 H Alkaline Phosphatase 138 H B-Natriuretic Peptide 4812 H Total Protein 6.5 Albumin 3.5 Globulin 3.0 Albumin/Globulin Ratio 1.1 Free T4 1.40 TSH 3rd Generation 1.160 02/15/17 12:34 WBC RBC Hgb Hct MCV MCH MCHC RDW Plt Count MPV Neut % (Auto) Lymph % (Auto) [place] % (Auto) Eos % (Auto) Baso % (Auto) Neut # (Auto) Lymph # (Auto) [place] # (Auto) Eos # (Auto) Baso # (Auto) Immature Gran % Nucleated RBC % Immature Gran # Nucleated RBCs # INR PT Patient/Control Mix D-Dimer, Quantitative Circ Anticoag PTT Sodium Potassium 5.1 Chloride Carbon Dioxide Anion Gap BUN Creatinine GFR Calculation BUN/Creatinine Ratio Glucose Calculated Osmolality Calcium Magnesium Total Bilirubin AST ALT Alkaline Phosphatase B-Natriuretic Peptide Total Protein Albumin Globulin Albumin/Globulin Ratio Free T4 TSH 3rd Generation - EKG EKG results: interpreted by me Quality Measures - VTE Contraindication to Pharmacological VTE Prophylaxis: Already on Theraputic Agent , No Prophylaxis Needed - Stroke Symptom Onset Unknown: No
[2017-02-15] MEDS ORDERED: FUROSEMIDE 40 MG/4 ML VIAL IV ONE (14:56)
--- NOTE | 2017-02-15 15:28 | XRay Report ---
Exam: XR chest 1V portable Indication: Cardiomegaly, shortness of breath Comparison study: Prior chest radiograph 01/28/2017 Findings: Cardiac silhouette is enlarged, similar to prior. There is slight worsening of perihilar and basilar interstitial opacities suggestive of interstitial edema and/or atelectasis. No definite focal consolidation is visualized. There is no pneumothorax. Osseous structures appear stable from prior Impression: Cardiomegaly with mild interstitial edema changes suggested and/or basilar atelectasis. PROCEDURE INTERPRETED AT [facility] DEPARTMENT OF RADIOLOGY Final Report Signed by: Juvencio Osman
--- NOTE | 2017-02-15 18:30 | EKG Report ---
Stationary ECG Study [facility] ER Test Date: 02/14/2017 11:10:13 PM Pat Name: LANETTE CARCAMO Department: Room: 528 Gender: M Resident Care Aide: Tennille : 1960 Requested by: Jayna Beckwith Order Number: [id number] Reading MD: MALINDA RODRÍGUEZ Intervals [place] Rate: 74 P: 43 DE: 180 QRS: -38 QRSD: 136 T: 129 QT: 476 QTc: 503 Interpretive Statements SINUS RHYTHM WITH OCCASIONAL VENTRICULAR PREMATURE COMPLEXES LEFT ATRIAL ENLARGEMENT LEFT AXIS DEVIATION NONSPECIFIC INTRAVENTRICULAR CONDUCTION BLOCK Electronically Signed On 02-17-17 13:53:17 CDT by MALINDA RODRÍGUEZ [email or web address]
[2017-02-15] MEDS: ATORVASTATIN 20 MG TABLET PO SCH (20:56)
[2017-02-16 06:39] LABS: Calcium 8.3 MG/DL (8.5-10.1); Magnesium 1.9 MG/DL (1.8-2.4); Osmolality,Calculated 280.8 MOS/KG (273-304); Potassium 4.3 MMOL/L (3.5-5.1)
[2017-02-16 06:49] LABS: Bilirubin,Direct 0.3 MG/DL (0.0-0.20); Bilirubin,Indirect 0.3 MG/DL (0.0-1.0); Bilirubin,Total 0.6 MG/DL (0.2-1.0); Total Protein 5.8 G/DL (6.4-8.3)
--- NOTE | 2017-02-16 08:52 | Hospitalist Progress Note ---
Assessment and Plan - Time spent with patient Time spent with patient: Less than 30 minutes (1) Acute on chronic systolic CHF (congestive heart failure) Status: Acute Assessment and plan: Patient was admitted with acute decompensation of chronic systolic congestive heart failure with ejection fraction at 20% in January 2017. He is symptomatically better this morning. We will continue to optimize his medical therapy. Current Visit: Yes (2) Hyperkalemia Status: Acute Assessment and plan: Patient is hyperkalemic which is likely secondary to potassium sparing diuretics as well as acute on chronic kidney injury. Will adjust his medical therapy as appropriate and provide Kayexalate with follow-up potassium level later today and in a.m. Current Visit: Yes (3) Acute worsening of stage 3 chronic kidney disease Status: Acute Assessment and plan: Patient's creatinine was 1.4 at the time of most recent discharge. We will continue to optimize his medical therapy and follow-up renal function in the a.m. Current Visit: Yes (4) Chronic anticoagulation Status: Chronic Assessment and plan: Continuing his chronic anticoagulation for prior CVA. Current Visit: Yes (5) History of recent stroke Status: Chronic Assessment and plan: Patient had prior CVA and is being treated with Eliquis. No new signs or symptoms to be concerned about. Current Visit: Yes (6) Dyslipidemia Status: Chronic Assessment and plan: Continuing statin therapy. Current Visit: No (7) Essential hypertension Status: Acute Assessment and plan: Blood pressures currently well controlled. Continue current medical regimen. Current Visit: No Exam - Constitutional Vitals: Period Temp Pulse Resp BP Sys/Cha Pulse Ox Last 24 Hr 96.9 F-98.1 F 42-95 16-20 110-118/66-92 89-100 Results - Labs CBC & BMP: 02/15/17 05:38 02/16/17 04:56 Lab Results: I have reviewed the past 24 hour labs - Diagnostic Findings Procedure: Chest x-ray: image reviewed by me Quality Measures - VTE Contraindication to Pharmacological VTE Prophylaxis: Already on Theraputic Agent , No Prophylaxis Needed - Stroke Symptom Onset Unknown: No
[2017-02-16] MEDS: FUROSEMIDE 40 MG TABLET PO SCH ×2 (09:12→21:17)
[2017-02-16] MEDS: PANTOPRAZOLE 40 MG TABLET PO SCH (09:12)
[2017-02-16] MEDS: CARVEDILOL 6.25 MG TABLET PO SCH ×2 (09:12→21:17)
[2017-02-16] MEDS: APIXABAN 2.5 MG TABLET PO SCH ×2 (09:12→21:17)
--- NOTE | 2017-02-16 09:20 | Hospitalist Progress Note ---
Assessment and Plan - Time spent with patient Time spent with patient: Less than 30 minutes (1) Acute on chronic systolic CHF (congestive heart failure) Status: Acute Assessment and plan: Patient was admitted with acute decompensation of chronic systolic congestive heart failure with ejection fraction at 20% in January 2017. He is symptomatically better this morning. We will continue to optimize his medical therapy. 02/16/17: Patient appears to be fairly well compensated. He has been seen by cardiology and will await further recommendations as for his change in medications, disposition, follow-up. Current Visit: Yes (2) Hyperkalemia Status: Resolved Assessment and plan: Patient is hyperkalemic which is likely secondary to potassium sparing diuretics as well as acute on chronic kidney injury. Will adjust his medical therapy as appropriate and provide Kayexalate with follow-up potassium level later today and in a.m. 02/16/17: He is down normokalemic. We will continue to follow electrolytes and renal function. Current Visit: Yes (3) Acute worsening of stage 3 chronic kidney disease Status: Acute Assessment and plan: Patient's creatinine was 1.4 at the time of most recent discharge. We will continue to optimize his medical therapy and follow-up renal function in the a.m. 02/16/17: Patient's creatinine is 2.1 today which is a slight improvement from prior. We will continue to follow. Current Visit: Yes (4) Chronic anticoagulation Status: Chronic Assessment and plan: Continuing his chronic anticoagulation for prior CVA. Current Visit: Yes (5) History of recent stroke Status: Chronic Assessment and plan: Patient had prior CVA and is being treated with Eliquis. No new signs or symptoms to be concerned about. Current Visit: Yes (6) Dyslipidemia Status: Chronic Assessment and plan: Continuing statin therapy. Current Visit: No (7) Essential hypertension Status: Acute Assessment and plan: Blood pressures currently well controlled. Continue current medical regimen. Current Visit: No Hospitalist: Subjective Interval history: Patient is doing well this morning he denies any chest pain, shortness of breath , abdominal pain, nausea, vomiting. He had follow-up chest x-ray and abdominal ultrasound this morning which currently pending. Nurses reported that he had a couple episodes of nonsustained ventricular tachycardia during the night. He was unaware and otherwise asymptomatic. Exam - Constitutional Vitals: Period Temp Pulse Resp BP Sys/Cha Pulse Ox Last 24 Hr 96.9 F-98.1 F 42-95 16-20 110-118/66-92 89-100 General appearance: no acute distress - Head Head exam: Present: normocephalic, atraumatic - Eye Eye exam: Present: EOMI Pupils: Present: ROJELIO - ENT ENT exam: Present: normal exam - Neck Neck exam: Present: normal inspection - Respiratory Respiratory exam: Present: clear to auscultation bilaterally - Cardiovascular Cardiovascular exam: Present: regular rate and rhythm - GI/Abdominal GI/Abdominal exam: Present: normal bowel sounds, soft. Absent: tenderness - Extremities Exam Extremities exam: Absent: calf tenderness, edema - Back Exam Back exam: Present: normal inspection - Neurological Exam Neurological exam: Present: alert, oriented X3, CN II-XII intact. Absent: motor sensory deficit - Psychiatric Psychiatric exam: Present: normal affect, normal mood. Absent: agitated, anxious - Skin Skin exam: Present: warm, dry. Absent: rash Results - Labs CBC & BMP: 02/15/17 05:38 02/16/17 04:56 Lab Results: I have reviewed the past 24 hour labs - Diagnostic Findings Procedure: Chest x-ray: image reviewed by me Quality Measures - VTE Contraindication to Pharmacological VTE Prophylaxis: Already on Theraputic Agent , No Prophylaxis Needed - Stroke Symptom Onset Unknown: No
--- NOTE | 2017-02-16 11:07 | XRay Report ---
Exam: XR chest 1V portable Indication: Cardiomegaly Shortness of breath Comparison study: Radiographs 17 Findings: Cardiac silhouette is enlarged, similar to prior. Minimal perihilar interstitial opacities appear essentially unchanged and may represent atelectasis/scarring changes or underlying interstitial edema. Mediastinal contours otherwise appear within normal limits. There is no focal consolidation. There is no pneumothorax or pleural effusion.. Impression: Similar cardiomegaly and mild perihilar interstitial opacities may represent a degree of underlying interstitial edema. PROCEDURE INTERPRETED AT [facility] DEPARTMENT OF RADIOLOGY Final Report Signed by: Juvencio Osman
--- NOTE | 2017-02-16 11:20 | Ultrasound Report ---
Exam: US abdomen Date:02/16/2017 8:00 AM Indication: Renal failure, abdominal pain, elevated liver function studies Comparison: Prior CT abdomen and pelvis 11/10/2013 Findings: Liver: Liver measures 16.8 cm in maximal dimension and hepatic parenchyma appears grossly within normal limits. No focal lesions or intrahepatic biliary ductal dilatation are visualized. Gallbladder: Gallbladder is not enlarged. There is no wall thickening or pericholecystic fluid. Sonographic Starkey's sign is negative. No intraluminal echoes are visualized. CBD: 0.5 cm . Pancreas: Not well seen Kidneys Right kidney measures 9.3 x 4.7 x 5.2 cm with normal echogenicity and no hydronephrosis or perinephric fluid. Left kidney measures 10.4 x 4.9 x 4.6 cm. At the lower pole, there is an echogenic focus with posterior shadowing within the renal parenchyma measuring up to 1.1 x 0.6 x 0.6 cm which is most compatible with a nonobstructing renal stone. Aorta IVC: Visualized proximal aorta is nonaneurysmal. The distal aorta is obscured. IVC is patent. Spleen: Spleen appears unremarkable as visualized. There is no ascites. Impression: 1. There is no acute sonographic abnormality within the abdomen. 2. Possible 1.1 cm nonobstructing stone lower pole left kidney PROCEDURE INTERPRETED AT [facility] DEPARTMENT OF RADIOLOGY Final Report Signed by: Juvencio Osman
--- NOTE | 2017-02-16 14:21 | Cardiology Progress Note ---
Assessment and Plan (1) Acute on chronic systolic CHF (congestive heart failure) Status: Acute Assessment and plan: I agree with current management. He is improved with IV diuresis. I agree with stopping his spironolactone secondary to hyperkalemia. His potassium is back to normal. Due to his renal insufficiency and hyperkalemia, an SHEKHAR inhibitor or angiotensin receptor calixto is contraindicated right now. Continue present treatment. Current Visit: Yes (2) Nonischemic cardiomyopathy Status: Acute Assessment and plan: I think the patient would benefit from an internal cardiac defibrillator, but I am not sure that it is appropriate to do this within just a few weeks of an acute stroke. He wanted to discuss this with his primary blintze roller. Ultimately, I do think this is something that should be planned once he is a little further out from his stroke. Current Visit: Yes (3) Acute worsening of stage 3 chronic kidney disease Status: Acute Current Visit: Yes (4) Chronic anticoagulation Status: Chronic Current Visit: Yes (5) History of recent stroke Status: Chronic Current Visit: Yes (6) Essential hypertension Status: Acute Current Visit: No (7) NSVT (nonsustained ventricular tachycardia) Status: Acute Assessment and plan: The patient had several very short runs of NSVT while sleeping. As noted above , at some point I think he would benefit from a defibrillator, but I am uncomfortable doing this procedure and a defibrillator threshold test less than a month after an acute stroke. At any rate, I am suspicious he may have sleep apnea which may be contributing to the NSVT. I am going to order a sleep consultation for tomorrow. Current Visit: Yes Cardiology - PN: Subj Interval history: The patient is feeling better. His breathing is improved. His potassium is also better. He has no new complaints today. Last night, the patient had multiple episodes of nonsustained VT lasting for 1 or 2 seconds. This seem to only occur while he was asleep. I am suspicious he may have sleep apnea as a contributing factor. I discussed internal cardiac defibrillator implant with the patient today. I do think he would benefit from such a procedure, but he just had a stroke a few weeks ago. I am not sure would be appropriate to do a defibrillator shock so soon after this acute event. He wanted to discuss this with his primary blintze roller Dr. Ash. Current Medications Acetaminophen (Tylenol Tab) 650 mg PO Q4H PRN PRN Reason: Fever, Headache, Mild Pain Hydrocodone Bitart/Acetaminophen (Whitefish 5-325) 1 tablet PO Q4H PRN PRN Reason: Pain Mild (1-3) Last Admin: 02/15/17 18:22 Dose: 1 tablet Apixaban (Eliquis) 2.5 mg PO BID [facility] Last Admin: 02/16/17 09:12 Dose: 2.5 mg Atorvastatin Calcium (Lipitor) 20 mg PO BEDTIME [facility] Last Admin: 02/15/17 20:56 Dose: 20 mg Bisacodyl (Dulcolax Tab) 10 mg PO DAILY PRN PRN Reason: Constipation Carvedilol (Coreg) 6.25 mg PO BID [facility] Last Admin: 02/16/17 09:12 Dose: 6.25 mg Furosemide (Lasix Tab) 40 mg PO BID [facility] Last Admin: 02/16/17 09:12 Dose: 40 mg Pantoprazole Sodium (Protonix Tab) 40 mg PO DAILY [facility] Last Admin: 02/16/17 09:12 Dose: 40 mg Exam (Progress Note) - Constitutional Vitals: Period Temp Pulse Resp BP Sys/Cha Pulse Ox Last 24 Hr 96.9 F-98.4 F 83-99 16-20 110-119/77-92 92-100 Exam: General: Appears well developed, morbidly obese, no apparent distress HEENT: Normocephalic, atraumatic Neck: Supple Neck, Midline Trachea, No Bruit, No JVD Cardiac: Regular rhythm, 2 out of 6 murmur, no gallop, no rub Lungs: Clear to auscultation, No Wheeze, Rales, Rhonchi Neuro: Cranial Nerve 2-12 Intact, Motor Function Grossly Intact Abdomen: Soft, Active Bowel Sounds, No Masses, No Pulsations/Bruits Skin: Normal color, no rash Extremities: No Clubbing, No Cyanosis, No Edema, Normal Upper Extr. Pulses Musculoskeletal: No acute abnormality noted Psychiatric: The patient does not appear to be anxious or depressed Result/EKG - Labs CBC & BMP: 02/15/17 05:38 02/16/17 04:56 Lab Results: I have reviewed the past 24 hour labs Labs: Laboratory Results - last 24 hr 02/16/17 02/16/17 04:56 04:56 Sodium 137 Potassium 4.3 Chloride 99 Carbon Dioxide 29 Anion Gap 13.3 BUN 34 H Creatinine 2.10 H GFR Calculation 44 BUN/Creatinine Ratio 16.00 Glucose 90 Calculated Osmolality 280.8 Calcium 8.3 L Magnesium 1.9 Total Bilirubin 0.60 Direct Bilirubin 0.30 H Indirect Bilirubin 0.3 AST 59 H ALT 145 H Alkaline Phosphatase 153 H Total Protein 5.8 L Albumin 3.0 L - EKG EKG results: interpreted by me Quality Measures - VTE Contraindication to Pharmacological VTE Prophylaxis: Already on Theraputic Agent , No Prophylaxis Needed - Stroke Symptom Onset Unknown: No
[2017-02-16] MEDS: ATORVASTATIN 20 MG TABLET PO SCH (21:17)
[2017-02-17 05:48] LABS: Osmolality,Calculated 280.5 MOS/KG (273-304)
[2017-02-17] MEDS: FUROSEMIDE 40 MG TABLET PO SCH (08:29)
[2017-02-17] MEDS: PANTOPRAZOLE 40 MG TABLET PO SCH (08:29)
[2017-02-17] MEDS: CARVEDILOL 6.25 MG TABLET PO SCH ×2 (08:29→20:51)
[2017-02-17] MEDS: APIXABAN 2.5 MG TABLET PO SCH ×2 (08:29→20:51)
--- NOTE | 2017-02-17 16:26 | Hospitalist Progress Note ---
Assessment and Plan (1) Acute on chronic systolic CHF (congestive heart failure) Status: Chronic Assessment and plan: cont coreg and lasix 40 mg IV. Cont to monitor renal failure, cont to teach about salt and water restriction Current Visit: Yes (2) History of recent stroke Status: Chronic Assessment and plan: Continue Eliquis Current Visit: Yes (3) Nonischemic cardiomyopathy Status: Chronic Assessment and plan: Echocardiogram in January 2017 showed an EF of 20%. Patient will need an AICD. Cardiology has seen him and will like him discuss that with Dr. Ash. Current Visit: Yes (4) Hyperkalemia Status: Resolved Assessment and plan: Resolved Current Visit: Yes (5) NSVT (nonsustained ventricular tachycardia) Status: Acute Assessment and plan: especially while sleeping, cont coreg Current Visit: Yes (6) KATHARINA (obstructive sleep apnea) Status: Acute Assessment and plan: Dr. Viera was consulted Current Visit: Yes Hospitalist: Subjective Interval history: Patient's son is radiology transcriptionist here. Patient is frustrated that his father has had reoccurring admissions being that this is the third admission since January. Patient appears to be noncompliant with his fluid restriction he has got multiple bottles of soda in his room. He is got candy which contains quite a bit of salt tendons and continues to eat pretty much whatever he wants. Will switch him to IV lasix. Will need to enforce fluid restrictions. Exam - Constitutional Vitals: Period Temp Pulse Resp BP Sys/Cha Pulse Ox Last 24 Hr 96.5 F-98.5 F 81-93 18-20 110-124/67-91 96-98 Exam: Heart Rate-[RRR] Lungs-[bilateral crackles] GI-[+bs soft, NT] Ext-[1+ edema] Neuro [Motor 5/5], [alert and oriented times 3] psych [normal mood and affect] General [no acute distress] Results - Labs CBC & BMP: 02/15/17 05:38 02/17/17 04:18 Lab Results: I have reviewed the past 24 hour labs Quality Measures - VTE Contraindication to Pharmacological VTE Prophylaxis: Already on Theraputic Agent , No Prophylaxis Needed - Stroke Symptom Onset Unknown: No Specialty Discharge - Follow Up or Referrals
--- NOTE | 2017-02-17 16:32 | Cardiology Progress Note ---
Clint Brennan Vanessa, RN, am scribing for, and in the presence of, Juan Jose Tenorio MD 16:32. Assessment and Plan - Time spent with patient Time spent with patient: Greater than 30 minutes (1) Acute on chronic systolic CHF (congestive heart failure) Status: Chronic Assessment and plan: CHF has improved with IV diuresis. SHEKHAR inhibitor and ARB are avoided due to current renal insufficiency. Current Visit: Yes (2) Nonischemic cardiomyopathy Status: Chronic Assessment and plan: Known ejection fraction of 20%. Patient will most likely benefit from AICD placement, and he wishes to discuss this with his primary server developer at follow -up. Current Visit: Yes (3) Acute worsening of stage 3 chronic kidney disease Status: Acute Current Visit: Yes (4) NSVT (nonsustained ventricular tachycardia) Status: Acute Assessment and plan: Short, self sustained runs of NSVT while sleeping at night. Sleep apnea could be a contributing factor, and sleep medicine consult has been ordered and is pending. Although patient would benefit from cardiac defibrillator placement, he has had a stroke in the past few weeks, and it may be beneficial to wait until this is further resolved. Current Visit: Yes (5) Chronic anticoagulation Status: Chronic Current Visit: Yes (6) History of recent stroke Status: Chronic Current Visit: Yes (7) Dyslipidemia Status: Chronic Assessment and plan: Continue current lipid lowering agent. Current Visit: No (8) Essential hypertension Status: Acute Assessment and plan: Controlled at this time. Continue current medication regimen. Current Visit: No Cardiology - PN: Subj Interval history: PRIMARY CREATIVE SERVICES DESIGNER: DR ASH PCP: DR. HANH GALLARDO SUMMARY: Mr. Loving is a 56 year old white male with risk factors significant for: hypertension, previous tobacco use, morbid obesity. Past medical history includes nonischemic cardiomyopathy secondary to uncontrolled hypertension with past drug and alcohol abuse. Echo in January 2017 shows LV ejection fraction 20% with severe global hypokinesis, mildly dilated LA, mild MR, AV sclerosis, mild TR with a PA pressure of 40 mmHg. Cardiac cath in October 2003 also revealed severely reduced LV systolic function with EF 20% with widely patent coronary arteries. Status post recent CVA in January 2017, and Eliquis has since been started. He was discharged from the hospital on January 30 after being treated for dehydration secondary to nausea and vomiting. At follow-up visit with Dr. Ash, he was started on Spironolactone. He presented to [facility]'s ED on February 14 with moderate shortness of breath, BNP noted to be 4480, chest x-ray suggestive of volume overload, and hyperkalemia with potassium up to 6.6. Aldactone has been stopped, Kayexalate has been given, and potassium is improved. Cardiac monitoring has revealed several brief episodes of nonsustained VT while at rest, and patient has been asymptomatic.Cardiology has been consulted for evaluation and recommendations. Sleep medicine consultation is pending to evaluate for sleep apnea as source for ectopy. Patient to discuss AICD placement with primary server developer. FEBRUARY 17, 2017: Cardiac monitoring reveals sinus rhythm, occasional ventricular ectopy but overall, less NSVT seen. Patient is awake and alert this morning and is in no acute distress. He denies chest pain, shortness of breath, palpitation, or other complaint. Reports good appetite. Afebrile, vitals stable. Labs reviewed. Potassium is 4.0 and magnesium 2.0. Creatinine continues to trend down and is 1.7 today with GFR 57. LFTs noted. Patient is slowly improving. His electrolytes are back into the normal range and is overall slowly better. His rhythm has been stable and we will continue as currently. Exam (Progress Note) - Constitutional Vitals: Period Temp Pulse Resp BP Sys/Cha Pulse Ox Last 24 Hr 96.5 F-98.5 F 81-108 18-20 113-124/67-91 95-98 Exam: General: Appears well developed, morbidly obese, no apparent distress HEENT: Normocephalic, atraumatic Neck: Supple Neck, Midline Trachea, No Bruit, No JVD Cardiac: Regular rhythm, no gallop, no rub Lungs: Clear to auscultation, No Wheeze, Rales, Rhonchi Neuro: Cranial Nerve 2-12 Intact, Motor Function Grossly Intact Abdomen: Soft, Active Bowel Sounds, No Masses, No Pulsations/Bruits Skin: Normal color, no rash Extremities: No Clubbing, No Cyanosis, No Edema, Normal Upper Extr. Pulses Musculoskeletal: No acute abnormality noted Psychiatric: The patient does not appear to be anxious or depressed Result/EKG - Labs CBC & BMP: 02/15/17 05:38 02/17/17 04:18 Lab Results: I have reviewed the past 24 hour labs Labs: Laboratory Results - last 24 hr 02/17/17 04:18 Sodium 139 Potassium 4.0 Chloride 101 Carbon Dioxide 28 Anion Gap 14.0 BUN 26 H Creatinine 1.70 H GFR Calculation 57 BUN/Creatinine Ratio 15.00 Glucose 87 Calculated Osmolality 280.5 Calcium 8.0 L Magnesium 2.0 - EKG EKG results: interpreted by me, no acute changes EKG shows: sinus rhythm Quality Measures - VTE Contraindication to Pharmacological VTE Prophylaxis: Already on Theraputic Agent , No Prophylaxis Needed - Stroke Symptom Onset Unknown: No Specialty Discharge - Follow Up or Referrals IJona Wesley, MD, personally performed the services described in this documentation, ascribed by Cayla Jaramillo RN in my presence, and it is both accurate and complete [id number] .
--- NOTE | 2017-02-17 16:50 | Sleep Medicine Consult ---
Assessment and Plan (1) Unspecified sleep apnea Status: Acute Assessment and plan: Mr. Loving has a history of loud, disruptive snoring during sleep as well as a positive medical history including congestive heart failure, hypertension, and cardiomyopathy. He recently experienced nonsustained ventricular tachycardia during his sleep that can be suggestive for an underlying sleep disorder, specifically obstructive sleep apnea. I reviewed obstructive sleep apnea in detail as well as the risks and benefits of treatment. He verbalized understanding and does wish to proceed with testing. I will order an HSAT for tonight and will review the results with him tomorrow. Current Visit: Yes History of Present Illness Chief complaint: NSVT during sleep History of present illness: Mr. Loving is a 56 year old male who was admitted last Friday night with acute exacerbation of congestive heart failure. He is a known patient of Dr. Ash for at least 15 years and has battled with congestive heart failure and hypertension ever since. During routine monitoring he was found to have SVT during sleep so sleep medicine was consulted for further review. Mr. Loving lives and sleeps alone but does admit to a long history of snoring, especially in his earlier years when he was an alcoholic. He denies ever awakening with feelings of shortness of breath or racing heartbeat. He denies any shortness of breath while laying supine and typically sleeps on one pillow. He goes to bed between the hours of 10 PM and 1 AM he gets out of bed daily around 6 AM. During the night he gets out of bed at least 2 times to urinate. He denies any difficulty initiating or maintaining sleep routinely. On his stop bang sleep apnea questionnaire, he did have a positive score with 5 positive responses. He awakens refreshed most mornings and has a normal Burns sleepiness score of 2. In addition to congestive heart failure, he recently had a light stroke and is still recovering. He also has an underlying history of kidney failure, hyperlipidemia, nonischemic cardiomyopathy and hypertension. Home Medications Medication Instructions Recorded Confirmed Type Spironolactone 25 mg PO DAILY 01/17/17 02/15/17 History Acetaminophen Tab [Tylenol Tab] 650 mg PO Q4H PRN #0 tablet 01/30/17 02/15/17 Rx Apixaban [Eliquis] 2.5 mg PO BID #60 tablet 01/30/17 02/15/17 Rx Atorvastatin [Lipitor] 20 mg PO BEDTIME #30 tablet 01/30/17 02/15/17 Rx Carvedilol [Coreg] 6.25 mg PO BID 02/15/17 02/15/17 History Furosemide 40 mg PO BID 02/15/17 02/15/17 History Allergies Allergy/AdvReac Type Severity Reaction Status Date / Time No Known Allergies Allergy Unverified 02/14/17 23:12 - Constitutional Constitutional: Present: fatigue. Absent: daytime sleepiness, night sweats, stops breathing during sleep - EENT Nose, mouth and throat: Absent: nasal congestion - Cardiovascular Cardiovascular: Present: dyspnea on exertion, palpitations. Absent: chest pain at rest, chest pain with activity, orthopnea - Respiratory Respiratory: Present: dyspnea on exertion. Absent: pain on inspiration - Gastrointestinal Gastrointestinal: Present: heartburn, other - Genitourinary Genitourinary: Present: urinary frequency (2 times per night) - Neurological Neurological: Present: other (history of stroke/ extremity weakness) - Endocrine Endocrine: Present: fatigue Exam (Pulmonay) H&P - Constitutional Vitals: Period Temp Pulse Resp BP Sys/Cha Pulse Ox Last 24 Hr 96.5 F-98.5 F 81-93 18-20 110-124/67-91 96-98 General appearance: over weight - Head Head exam: Present: normocephalic, atraumatic - Eye Pupils: Present: ROJELIO - ENT ENT exam: Present: other (Neck Circumference 18") - Expanded ENT Exam ENT Exam Mouth exam: Present: moist Throat exam: Present: normal inspection (Mallampati class III) - Neck Neck exam: Absent: lymphadenopathy, thyromegaly - Respiratory Respiratory exam: Present: clear to auscultation bilaterally. Absent: wheezes - Cardiovascular Cardiovascular exam: Present: irregular rhythm. Absent: systolic murmur - GI/Abdominal GI/Abdominal exam: Present: normal bowel sounds, soft. Absent: distended - Extremities Exam Extremities exam: Present: normal capillary refill, full ROM - Neurological Exam Neurological exam: Present: alert, oriented X3 - Psychiatric Psychiatric exam: Present: normal affect - Skin Skin exam: Present: warm, dry Medical,Surgical,& Family Hx - Medical History Cardio: History of: CHF (EF 20% on echo, January 2017), Hypertension Psychological: No history of: Anxiety Disorders, ADHD, Behavior Problems, Bipolar Disorder, Depression, Previous Suicide Attempt, Psychiatric/Substance Abuse Tx, Schizophrenia, Violent Behavior, Psychiatric Problems Neurology: History of: Cerebrovascular Accident Rheumatology: History of;: Gout Gastrointestinal: History of: Diverticulitis/ Diverticulosis, GI Problems ( partial colectomy with colestomy with reversal) - Surgical History Thoracic Surgeries: Patient denies;: Organ Transplant Neurologic Surgeries: Patient denies: Neurologic Surgery HEENT Surgeries: Patient denies: Eye Surgery, Tonsilectomy & Adenoidectomy Abdominal Surgeries: Surgical HX of: Abdominal Surgery Reproductive Surgeries: Patient denies;: Genitourinary Surgery - Family History Family History: Reports;: Family Cancer (brain cancer), Family Hypertension ( mother), Family Stroke (maternal grandmother) - Social History Smoking Status: Never smoker Frequency of Alcohol Use: None Type of Drug Use: None Results - Labs CBC & BMP: 02/15/17 05:38 02/17/17 04:18 Quality Measures - VTE Contraindication to Pharmacological VTE Prophylaxis: Already on Theraputic Agent , No Prophylaxis Needed - Stroke Symptom Onset Unknown: No Specialty Discharge - Follow Up or Referrals
[2017-02-17] MEDS: FUROSEMIDE 40 MG/4 ML VIAL IV SCH (18:23)
[2017-02-17] MEDS: ATORVASTATIN 20 MG TABLET PO SCH (20:51)
[2017-02-18] MEDS: FUROSEMIDE 40 MG/4 ML VIAL IV SCH ×2 (09:01→15:27)
[2017-02-18] MEDS: PANTOPRAZOLE 40 MG TABLET PO SCH (09:01)
[2017-02-18] MEDS: CARVEDILOL 6.25 MG TABLET PO SCH ×2 (09:01→20:32)
[2017-02-18] MEDS: APIXABAN 2.5 MG TABLET PO SCH ×2 (09:02→20:32)
--- NOTE | 2017-02-18 15:44 | Cardiology Progress Note ---
Clint Brennan Vanessa, RN, am scribing for, and in the presence of, Juan Jose Tenorio MD 15:44. Assessment and Plan - Time spent with patient Time spent with patient: Greater than 30 minutes (1) Acute on chronic systolic CHF (congestive heart failure) Status: Chronic Assessment and plan: CHF has improved with IV diuresis. SHEKHAR inhibitor and ARB are avoided due to current renal insufficiency. Current Visit: Yes (2) Nonischemic cardiomyopathy Status: Chronic Assessment and plan: Known ejection fraction of 20%. Patient will most likely benefit from AICD placement, and he wishes to discuss this with his primary glass presser at follow -up. Current Visit: Yes (3) Acute worsening of stage 3 chronic kidney disease Status: Acute Current Visit: Yes (4) NSVT (nonsustained ventricular tachycardia) Status: Acute Assessment and plan: Short, self sustained runs of NSVT while sleeping at night. Sleep apnea could be a contributing factor, and sleep medicine consult has been ordered and is pending. Although patient would benefit from cardiac defibrillator placement, he has had a stroke in the past few weeks, and it may be beneficial to wait until this is further resolved. Current Visit: Yes (5) Chronic anticoagulation Status: Chronic Current Visit: Yes (6) History of recent stroke Status: Chronic Current Visit: Yes (7) Dyslipidemia Status: Chronic Assessment and plan: Continue current lipid lowering agent. Current Visit: No (8) Essential hypertension Status: Acute Assessment and plan: Controlled at this time. Continue current medication regimen. Current Visit: No Cardiology - PN: Subj Interval history: PRIMARY TEXTILE CHEMIST: DR ASH PCP: DR. HANH GALLARDO SUMMARY: Mr. Loving is a 56 year old white male with risk factors significant for: hypertension, previous tobacco use, morbid obesity. Past medical history includes nonischemic cardiomyopathy secondary to uncontrolled hypertension with past drug and alcohol abuse. Echo in January 2017 shows LV ejection fraction 20% with severe global hypokinesis, mildly dilated LA, mild MR, AV sclerosis, mild TR with a PA pressure of 40 mmHg. Cardiac cath in October 2003 also revealed severely reduced LV systolic function with EF 20% with widely patent coronary arteries. Status post recent CVA in January 2017, and Eliquis has since been started. He was discharged from the hospital on January 30 after being treated for dehydration secondary to nausea and vomiting. At follow-up visit with Dr. Ash, he was started on Spironolactone. He presented to [facility]'s ED on February 14 with moderate shortness of breath, BNP noted to be 4480, chest x-ray suggestive of volume overload, and hyperkalemia with potassium up to 6.6. Aldactone has been stopped, Kayexalate has been given, and potassium is improved. Cardiac monitoring has revealed several brief episodes of nonsustained VT while at rest, and patient has been asymptomatic. Cardiology has been consulted for evaluation and recommendations. February: Continues to have intermittent NSVT, bigeminy, trigeminal pattern on cardiac monitoring, and he is asymptomatic with this. Patient was evaluated by sleep medicine yesterday, and sleep study was completed overnight last night. We do appreciate sleep medicine"s input and recommendation. He reports he did not sleep very well last night after receiving IV Lasix yesterday evening and having to get up to the bathroom frequently to void overnight. Systolic BP 120- 140. Labs reviewed. Potassium is 4.0, magnesium is 2.0. Renal function continues to improve, and today his creatinine is 1.7 with a GFR of 57. LFTs noted. Patient is making good progress with good diuresis. Likely will be able to be discharged in the next day or so. His electrolytes and renal function appear to be stable overall things are improving. Exam (Progress Note) - Constitutional Vitals: Period Temp Pulse Resp BP Sys/Cha Pulse Ox Last 24 Hr 97.2 F-97.9 F 80-97 18-20 110-135/67-92 94-98 Exam: General: Appears well developed, morbidly obese, no apparent distress HEENT: Normocephalic, atraumatic Neck: Supple Neck, Midline Trachea, No Bruit, No JVD Cardiac: Regular rhythm, no gallop, no rub Lungs: Clear to auscultation, No Wheeze, Rales, Rhonchi Neuro: Cranial Nerve 2-12 Intact, Motor Function Grossly Intact Abdomen: Soft, Active Bowel Sounds, No Masses, No Pulsations/Bruits Skin: Normal color, no rash Extremities: No Clubbing, No Cyanosis, No Edema, Normal Upper Extr. Pulses Musculoskeletal: No acute abnormality noted Psychiatric: The patient does not appear to be anxious or depressed Result/EKG - Labs CBC & BMP: 02/15/17 05:38 02/17/17 04:18 Lab Results: I have reviewed the past 24 hour labs - EKG EKG results: interpreted by me, no acute changes EKG shows: sinus rhythm (intermitten NSVT, trigeminy, bigeminy) Quality Measures - VTE Contraindication to Pharmacological VTE Prophylaxis: Already on Theraputic Agent , No Prophylaxis Needed - Stroke Symptom Onset Unknown: No Specialty Discharge - Follow Up or Referrals I, Juan Jose Tenorio MD, personally performed the services described in this documentation, ascribed by Cayla Jaramillo RN in my presence, and it is both accurate and complete [id number] .
--- NOTE | 2017-02-18 15:55 | Hospitalist Progress Note ---
Assessment and Plan (1) Acute on chronic systolic CHF (congestive heart failure) Status: Chronic Assessment and plan: cont coreg and decrease Lasix 40 mg IV once a day. Cont to monitor renal failure BMP in am Current Visit: Yes (2) History of recent stroke Status: Chronic Assessment and plan: Continue Eliquis Current Visit: Yes (3) Nonischemic cardiomyopathy Status: Chronic Assessment and plan: Echocardiogram in January 2017 showed an EF of 20%. Patient will need an AICD. Cardiology has seen him and will like him discuss that with Dr. Ash. Current Visit: Yes (4) Hyperkalemia Status: Resolved Assessment and plan: Recheck in am Current Visit: Yes (5) NSVT (nonsustained ventricular tachycardia) Status: Acute Assessment and plan: HST done last night Current Visit: Yes (6) KATHARINA (obstructive sleep apnea) Status: Acute Assessment and plan: HST last night Current Visit: Yes Hospitalist: Subjective Interval history: Patient feeling better today after urinating last night. He said he was up all night urinating and is not sure it is HST will be accurate. This is true he was not sleeping and probably will not be accurate. We will still need to do official sleep study on him when he is discharged. Son was at bedside discussed diet fluid restriction and salt restriction again. Exam - Constitutional Vitals: Period Temp Pulse Resp BP Sys/Cha Pulse Ox Last 24 Hr 97.2 F-98.3 F 48-97 18-20 111-141/67-96 94-97 Exam: Heart Rate-[RRR] Lungs-[clear] GI-[+bs soft, NT] Ext-[1+ edema] Neuro [Motor 5/5], [alert and oriented times 3] psych [normal mood and affect] General [no acute distress] - Expanded ENT Exam Mouth exam: Present: moist Throat exam: Present: normal inspection (Mallampati class III) Results - Labs CBC & BMP: 02/15/17 05:38 02/17/17 04:18 Lab Results: I have reviewed the past 24 hour labs Quality Measures - VTE Contraindication to Pharmacological VTE Prophylaxis: Already on Theraputic Agent , No Prophylaxis Needed - Stroke Symptom Onset Unknown: No Specialty Discharge - Follow Up or Referrals
--- NOTE | 2017-02-18 16:29 | Sleep Medicine Progress Note ---
Assessment and Plan (1) KATHARINA (obstructive sleep apnea) Status: Acute Assessment and plan: After review of HST results, Mr. Loving tested positive for moderate to severe obstructive sleep apnea with a diagnostic AHI of 29.9 along with oxygen desaturations as low as 68%. I will order an auto titration with CPAP with pressure ranging from 5-20 cm tonight. He will possibly be discharged tomorrow so he will be set up for formal CPAP titration at his earliest convenience following discharge. He verbalized understanding of the results of his study and does wish to proceed with testing. Current Visit: Yes Sleep Medicine Subjective Interval history: Mr. Loving is hospitalized with congestive heart failure and a significant medical history positive for nonischemic cardiomyopathy, history of stroke and renal failure. He was evaluated yesterday for possible underlying sleep disorder and was set up for an HSAT last night for further evaluation. He reports having very poor sleep quality due to being up and down all night after taking Lasix. Exam (Progress Note) - Constitutional Vitals: Period Temp Pulse Resp BP Sys/Cha Pulse Ox Last 24 Hr 97.2 F-98.3 F 48-97 18-20 111-141/67-96 94-95 General appearance: normal weight - Head Head exam: Present: normocephalic, atraumatic - Neck Neck exam: Absent: lymphadenopathy, thyromegaly - Respiratory Respiratory exam: Present: clear to auscultation bilaterally. Absent: rhonchi, wheezes - Cardiovascular Cardiovascular exam: Present: regular rate and rhythm - GI/Abdominal GI/Abdominal exam: Present: normal bowel sounds, soft. Absent: distended - Extremities Exam Extremities exam: Present: normal capillary refill - Neurological Exam Neurological exam: Present: oriented X3 - Psychiatric Psychiatric exam: Present: normal affect - Skin Skin exam: Present: warm, dry Results - Labs CBC & BMP: 02/15/17 05:38 02/17/17 04:18 Specialty Discharge - Follow Up or Referrals
--- NOTE | 2017-02-18 18:16 | XRay Report ---
Portable chest. Indication: Pulmonary edema. Comparison: February 16, 2017. The heart is enlarged. The pulmonary vasculature is prominent. No consolidation, pneumothorax, or pleural effusion. Impression: Cardiomegaly and venous congestion. No significant interval change. PROCEDURE INTERPRETED AT [facility] DEPARTMENT OF RADIOLOGY Final Report Signed by: Dr. Lory Hill
[2017-02-18] MEDS: ALBUTEROL/IPRATROPIUM 3 ML NEB RESP TX SCH ×2 (19:33→22:57)
[2017-02-18] MEDS: ATORVASTATIN 20 MG TABLET PO SCH (20:32)
[2017-02-19] MEDS: ALBUTEROL/IPRATROPIUM 3 ML NEB RESP TX SCH ×6 (02:50→23:36)
[2017-02-19 07:32] LABS: Calcium 8.5 MG/DL (8.5-10.1); Magnesium 1.8 MG/DL (1.8-2.4); Osmolality,Calculated 286.1 MOS/KG (273-304); Potassium 3.6 MMOL/L (3.5-5.1)
[2017-02-19] MEDS: APIXABAN 2.5 MG TABLET PO SCH ×2 (08:58→20:10)
[2017-02-19] MEDS: PANTOPRAZOLE 40 MG TABLET PO SCH (08:58)
[2017-02-19] MEDS: CARVEDILOL 6.25 MG TABLET PO SCH ×2 (08:58→20:10)
[2017-02-19] MEDS ORDERED: FUROSEMIDE 40 MG/4 ML VIAL IV SCH (09:00)
--- NOTE | 2017-02-19 12:42 | Hospitalist Progress Note ---
Assessment and Plan (1) Acute on chronic systolic CHF (congestive heart failure) Status: Chronic Assessment and plan: cont coreg and change Lasix to oral and discharge in am Current Visit: Yes (2) History of recent stroke Status: Chronic Assessment and plan: Continue Eliquis Current Visit: Yes (3) Nonischemic cardiomyopathy Status: Chronic Assessment and plan: Echocardiogram in January 2017 showed an EF of 20%. Patient will need an AICD. Cardiology has seen him and will like him discuss that with Dr. Ash. Current Visit: Yes (4) Hyperkalemia Status: Resolved Assessment and plan: resolved Current Visit: Yes (5) NSVT (nonsustained ventricular tachycardia) Status: Acute Assessment and plan: HST shows severe sleep apnea and is tolerating autotitration cpap at night. Current Visit: Yes (6) KATHARINA (obstructive sleep apnea) Status: Acute Assessment and plan: HST has severe KATHARINA autotitration cpap Current Visit: Yes Hospitalist: Subjective Interval history: Patient feels much better today he has slept on his CPAP all night. His sats on room air today with getting up and walking around the room were 90%. Will back off on the IV Lasix and change him to oral. Exam - Constitutional Vitals: Period Temp Pulse Resp BP Sys/Cha Pulse Ox Last 24 Hr 97.2 F-98.6 F 80-102 16-22 104-127/68-87 90-100 Exam: Heart Rate-[RRR] Lungs-[clear] GI-[+bs soft, NT] Ext-[no edema] Neuro [Motor 5/5], [alert and oriented times 3] psych [normal mood and affect] General [no acute distress] - Expanded ENT Exam Mouth exam: Present: moist Throat exam: Present: normal inspection (Mallampati class III) Results - Labs CBC & BMP: 02/15/17 05:38 02/19/17 06:36 Lab Results: I have reviewed the past 24 hour labs Quality Measures - VTE Contraindication to Pharmacological VTE Prophylaxis: Already on Theraputic Agent , No Prophylaxis Needed - Stroke Symptom Onset Unknown: No Specialty Discharge - Follow Up or Referrals
[2017-02-19] MEDS: POTASSIUM CHLORIDE 10 MEQ TABLET PO SCH (13:06)
[2017-02-19 14:22] LABS: Hepatitis A Ab IgM Quant 0.08 Index; Hepatitis A Ab IgM Result Negative (Negative); Hepatitis B Core IgM Quant 0.18 Index; Hepatitis B Core IgM Result Negative (Negative); Hepatitis B Surface Ag Quant 0.32 Index; Hepatitis B Surface Ag Result Negative (Negative); Hepatitis C Virus Ab Quant 0.12 Index; Hepatitis C Virus Ab Result Negative (Negative)
--- NOTE | 2017-02-19 15:11 | Cardiology Progress Note ---
Clint Brennan Vanessa, RN, am scribing for, and in the presence of, Juan Jose Tenorio MD 15:11. Assessment and Plan (1) Acute on chronic systolic CHF (congestive heart failure) Status: Chronic Assessment and plan: CHF has improved with IV diuresis. SHEKHAR inhibitor and ARB are avoided due to current renal insufficiency. IV Lasix has now been switched to by mouth Lasix. Current Visit: Yes (2) Nonischemic cardiomyopathy Status: Chronic Assessment and plan: Known ejection fraction of 20%. Patient will most likely benefit from AICD placement, and he wishes to discuss this with his primary veterans' coordinator at follow -up. Current Visit: Yes (3) Acute worsening of stage 3 chronic kidney disease Status: Acute Current Visit: Yes (4) NSVT (nonsustained ventricular tachycardia) Status: Acute Assessment and plan: Short, self sustained runs of NSVT while sleeping at night. Sleep apnea could be a contributing factor, and sleep medicine consult has been ordered and is pending. Although patient would benefit from cardiac defibrillator placement, he has had a stroke in the past few weeks, and it may be beneficial to wait until this is further resolved. Current Visit: Yes (5) Chronic anticoagulation Status: Chronic Current Visit: Yes (6) History of recent stroke Status: Chronic Current Visit: Yes (7) Dyslipidemia Status: Chronic Assessment and plan: Continue current lipid lowering agent. Current Visit: No (8) Essential hypertension Status: Acute Assessment and plan: Controlled at this time. Continue current medication regimen. Current Visit: No Cardiology - PN: Subj Interval history: PRIMARY LEGAL RESEARCH ANALYST: DR ASH PCP: DR. HANH GALLARDO SUMMARY: Mr. Loving is a 56 year old white male with risk factors significant for: hypertension, previous tobacco use, morbid obesity. Past medical history includes nonischemic cardiomyopathy secondary to uncontrolled hypertension with past drug and alcohol abuse. Echo in January 2017 shows LV ejection fraction 20% with severe global hypokinesis, mildly dilated LA, mild MR, AV sclerosis, mild TR with a PA pressure of 40 mmHg. Cardiac cath in October 2003 also revealed severely reduced LV systolic function with EF 20% with widely patent coronary arteries. Status post recent CVA in January 2017, and Eliquis has since been started. He was discharged from the hospital on January 30 after being treated for dehydration secondary to nausea and vomiting. At follow-up visit with Dr. Ash, he was started on Spironolactone. He presented to [place]'s ED on February 14 with moderate shortness of breath, BNP noted to be 4480, chest x-ray suggestive of volume overload, and hyperkalemia with potassium up to 6.6. Aldactone has been stopped, Kayexalate has been given, and potassium is improved. Cardiac monitoring has revealed several brief episodes of nonsustained VT while at rest, and patient has been asymptomatic. Cardiology has been consulted for evaluation and recommendations. February: Mr. Loving is feeling better today. Reports no chest pain or shortness of breath. Sleep study results positive for moderate to severe obstructive sleep apnea. He is now being set up with CPAP mask, and he used this last night. He rested much better overnight. He is increasing his activity today. IV Lasix has now been switched to by mouth Lasix. Blood pressure 112/87, and pulse rate is in the 90s and regular. Labs reviewed. Creatinine continues to improve and is 1.5 with GFR 65 today. BNP drawn this morning 3238. Previously drawn BNP on 02/15 was 4812. He does continue to have some nonsustained ventricular tachycardia prior cardiac monitoring, but this has not worsened. Exam (Progress Note) - Constitutional Vitals: Period Temp Pulse Resp BP Sys/Cha Pulse Ox Last 24 Hr 97.2 F-98.6 F 80-102 16-22 104-127/68-87 90-100 Result/EKG - Labs CBC & BMP: 02/15/17 05:38 02/19/17 06:36 Labs: Laboratory Results - last 24 hr 02/19/17 02/19/17 06:36 12:48 Sodium 142 Potassium 3.6 Chloride 102 Carbon Dioxide 28 Anion Gap 15.6 H BUN 19 H Creatinine 1.50 H GFR Calculation 65 BUN/Creatinine Ratio 12.00 Glucose 135 H Calculated Osmolality 286.1 Calcium 8.5 Magnesium 1.8 B-Natriuretic Peptide 3238 H Quality Measures - VTE Contraindication to Pharmacological VTE Prophylaxis: Already on Theraputic Agent , No Prophylaxis Needed - Stroke Symptom Onset Unknown: No Specialty Discharge - Follow Up or Referrals Jona Brennan Wesley, MD, personally performed the services described in this documentation, ascribed by Cayla Jaramillo RN in my presence, and it is both accurate and complete 511 .
[2017-02-19] MEDS: FUROSEMIDE 40 MG TABLET PO SCH (16:52)
[2017-02-19] MEDS: ATORVASTATIN 20 MG TABLET PO SCH (20:10)
[2017-02-20] MEDS: ALBUTEROL/IPRATROPIUM 3 ML NEB RESP TX SCH ×3 (03:47→11:04)
[2017-02-20 07:10] LABS: Basophils # 0.1 10*3/uL (0.0-0.2); Basophils % 0.8 % (0.0-0.8); Eosinophils # 0.5 10*3/uL (0.0-0.87); Eosinophils % 3.2 % (0.00-10.9); Hematocrit 43.8 VOL% (42.0-52.0); Hemoglobin 14.2 GM/DL (14.0-18.0); Immature Granulocytes % 0.6 %; Immature Granulocytes Absolute 0.08 #; Lymphocytes # 2.5 10*3/uL (1.4-4.0); Lymphocytes % 18.1 % (21.2-54.2); Mean Corpuscular HGB Conc 32.4 GM/DL (32-36); Mean Corpuscular Hemoglobin 30 PG (27-34); Mean Corpuscular Volume 91.6 FL (87-102); Mean Platelet Volume 11.2 FL (9.6-12.0); Monocytes # 1.4 10*3/uL (0.11-0.8); Monocytes % 9.7 % (1.7-12.7); Neutrophils # 9.5 10*3/uL (1.4-7.4); Neutrophils % 67.6 % (38.7-73.9); Platelet Count 320 T/CUMM (130-400); Red Blood Count 4.78 MC/CUMM (3.8-5.5); Red Cell Distribution Width 15.1 % (9.3-17.3)
[2017-02-20 07:37] LABS: Calcium 8.9 MG/DL (8.5-10.1); Magnesium 1.8 MG/DL (1.8-2.4); Osmolality,Calculated 281.4 MOS/KG (273-304); Potassium 3.9 MMOL/L (3.5-5.1)
[2017-02-20] MEDS: POTASSIUM CHLORIDE 10 MEQ TABLET PO SCH (08:59)
[2017-02-20] MEDS: PANTOPRAZOLE 40 MG TABLET PO SCH (08:59)
[2017-02-20] MEDS: FUROSEMIDE 40 MG TABLET PO SCH (08:59)
[2017-02-20] MEDS: APIXABAN 2.5 MG TABLET PO SCH (08:59)
[2017-02-20] MEDS: CARVEDILOL 6.25 MG TABLET PO SCH (09:00)
[2017-02-20 10:56] VITALS: BP 116/91
--- NOTE | 2017-02-20 11:49 | Discharge Summary ---
Hospital Course - Hospital Course Hospital Course: 56-year-old male presents emergency room with complaints of shortness of breath. His BNP on admission was over 4000. Patient was diuresed with IV Lasix. Patient has worsening acute renal failure which improved with diuresis. His creatinine on discharge is 1.5. No SHEKHAR or arb will be started due to his renal failure and hyperkalemia. His Spironolactone was discontinued due to elevated potassium on admission. Patient has elevated liver enzymes but his hepatitis panel is negative. Because of his elevated liver enzymes, I had to stop his Lipitor. We have told patient that is best for him to give up alcohol. He also tends to be very noncompliant with water and salt restrictions. Without doing this he will continue to go back into heart failure. His echocardiogram showed an EF of only 20%. Patient has had nonstop sustained runs of V. tach. Patient will need a defibrillator. Dr. Tenorio from cardiology has been seeing him and recommends that he discuss this with Dr. Ash as an outpatient. Patient also clearly has sleep apnea. Sleep medicine consult was performed with an HST showing severe obstructive sleep apnea. Patient was placed on auto titrating CPAP. He had difficulty sleeping on it last night but the night before was difficult. Dr. Viera will continue to work with him on titrating his CPAP. Patient will hopefully have less arrhythmias with treatment of his sleep apnea. Patient already is on anticoagulation to prevent further strokes. Patient will be discharged home today to follow-up with Dr. Ash and Dr. Viera in his primary care physician. - Time spent with patient Time with patient DS: Greater than 30 minutes (45 min) Diagnosis - Discharge Diagnosis (1) Acute on chronic systolic CHF (congestive heart failure) Status: Chronic (2) History of recent stroke Status: Chronic (3) Nonischemic cardiomyopathy Status: Chronic (4) Hyperkalemia Status: Resolved (5) NSVT (nonsustained ventricular tachycardia) Status: Acute (6) KATHARINA (obstructive sleep apnea) Status: Acute Specialty Discharge - Follow Up or Referrals Discharge Plan - Discharge Data Disposition: Disch To Home/Self Care Condition at Discharge: Stable Discharge Diet: heart healthy, low salt diet Activity: resume usual activities as tolerated Hygiene: no restrictions Weight Bearing at Discharge: full weight bearing Driving: no restrictions Contact your physician if you experience:: fever over 101 - Discharge Medications Continue Apixaban [Eliquis] 2.5 mg PO BID #60 tablet Carvedilol [Coreg] 6.25 mg PO BID Furosemide 40 mg PO BID #60 tablet Discontinued Spironolactone 25 mg PO DAILY Acetaminophen Tab [Tylenol Tab] 650 mg PO Q4H PRN #0 tablet PRN Reason: Fever, Headache, Mild Pain Atorvastatin [Lipitor] 20 mg PO BEDTIME #30 tablet - Follow Up or Referral Follow Up: Mirza Ash MD [Physician] - 1 Week Bernard Hernandez MD [Physician] - 2 Weeks Rachael Viera MD [Physician] - 1 Week - Forms/Instructions Instructions: Low Sodium Diet (DC) Additional Discharge Instructions: Fluid restriction of 2 L daily. No salt. lipitor discontinued due to elevated liver enzymes Exam - Constitutional Vitals: Period Temp Pulse Resp BP Sys/Cha Pulse Ox Last 24 Hr 97.4 F-98.5 F 91-107 12-22 112-125/75-91 90-99 General appearance: normal weight, no acute distress - Respiratory Respiratory exam: Present: clear to auscultation bilaterally. Absent: rhonchi, wheezes - Cardiovascular Cardiovascular exam: Present: regular rate and rhythm - GI/Abdominal GI/Abdominal exam: Present: soft. Absent: tenderness - Extremities Exam Extremities exam: Present: normal inspection, normal capillary refill, edema Discharge Results Procedures and tests throughout hospitalization: Pending Orders 02/21/17 04:00 BMP w/ Mg [Basic Metabolic Panel w/Mg] IN AM Comp Blood Count Auto Diff IN AM 02/22/17 04:00 BMP w/ Mg [Basic Metabolic Panel w/Mg] IN AM Comp Blood Count Auto Diff IN AM Labs on day of discharge: Labs from last 24 hours 02/20/17 02/20/17 02/19/17 06:19 06:19 12:48 WBC 14.0 H RBC 4.78 Hgb 14.2 Hct 43.8 MCV 91.6 MCH 30 MCHC 32.4 RDW 15.1 Plt Count 320 MPV 11.2 Neut % (Auto) 67.6 Lymph % (Auto) 18.1 L Navarro % (Auto) 9.7 Eos % (Auto) 3.2 Baso % (Auto) 0.8 Neut # (Auto) 9.5 H Lymph # (Auto) 2.5 Navarro # (Auto) 1.4 H Eos # (Auto) 0.5 Baso # (Auto) 0.1 Immature Gran % 0.6 Nucleated RBC % 0.0 Immature Gran # 0.08 Nucleated RBCs # 0.00 Sodium 140 Potassium 3.9 Chloride 101 Carbon Dioxide 30 Anion Gap 12.9 BUN 21 H Creatinine 1.50 H GFR Calculation 65 BUN/Creatinine Ratio 14.00 Glucose 97 Calculated Osmolality 281.4 Calcium 8.9 Magnesium 1.8 B-Natriuretic Peptide 3238 H Hepatitis A IgM Ab Hep Bs Antigen Hep B Core IgM Ab Hepatitis C Antibody 02/19/17 12:48 WBC RBC Hgb Hct MCV MCH MCHC RDW Plt Count MPV Neut % (Auto) Lymph % (Auto) Navarro % (Auto) Eos % (Auto) Baso % (Auto) Neut # (Auto) Lymph # (Auto) Navarro # (Auto) Eos # (Auto) Baso # (Auto) Immature Gran % Nucleated RBC % Immature Gran # Nucleated RBCs # Sodium Potassium Chloride Carbon Dioxide Anion Gap BUN Creatinine GFR Calculation BUN/Creatinine Ratio Glucose Calculated Osmolality Calcium Magnesium B-Natriuretic Peptide Hepatitis A IgM Ab Negative Hep Bs Antigen Negative Hep B Core IgM Ab Negative Hepatitis C Antibody Negative DS: Provider Date of admission: 02/15/17 01:17 Primary care physician: . No PCP Attending physician on admission: Howard Savage DO Consults: 02/15/17 01:17 Consult to Physician [CONS] Routine Comment: Consulting Provider: Consult to Specialist Group: Cardiology When should Consulting Provider be notified: In am Person Notified: ELIZABETH Date Notified: 02/17/17 Time Notified: 08:52 02/16/17 14:24 Consult to Sleep Center [CONS] Routine Reason for Sleep Center: Sleep Center Physician Consult Comment: hst may not be accurate due to up all night urinating 02/17/17 16:37 Consult to Dietitian [CONS] Routine Reason for Dietitian: Diet Recommendations Consult Comment: discuss fluid and salt restriction Discharging clinician: Chica Moreno MD
--- NOTE | 2017-02-20 13:05 | Sleep Medicine Progress Note ---
Assessment and Plan (1) KATHARINA (obstructive sleep apnea) Status: Acute Assessment and plan: I will have Dr. Viera review the results of his HSAT as there was some evidence of juliette pierre breathing, concerning for central sleep apnea. His CPAP data was obtained and shows worsening of his apnea with CPAP therapy with an elevated AHI of 37.2 while on CPAP pressure ranging from 5-20 cm. He utilized CPAP for 7 hours and 19 minutes. There was no significant mask leak detected. I recommend that he undergo in-house polysomnography with likely BiPAP titration due to his intolerance of CPAP and worsening apnea. If he is experiencing central sleep apneas, he will likely need BiPAP therapy. With an ejection fraction of 20%, he will not qualify for adaptive servo ventilation. I discussed the need for further testing, he verbalized understanding and does wish to proceed with further testing. He is being discharged today so an outpatient polysomnography possibly done in a split-night fashion with BiPAP titration will be ordered. Follow up in sleep clinic pending those results. Current Visit: Yes Sleep Medicine Subjective Interval history: Mr. Loving was diagnosed with severe sleep apnea earlier this week by HSAT with a diagnostic AHI of 29.9 and oxygen desaturations as low as 68%. He was placed on an auto CPAP with a pressure ranging from 5-20 cm for treatment last night but states he did not tolerate therapy well and had a difficult night overall. He had feelings of suffocation then states the pressure settings increased and he had a difficult time exhaling. He did not feel more rested upon awakening this morning. He hopes to be discharged later today. He was admitted with acute congestive heart failure and has a significant medical history including history of recent stroke, congestive heart failure, hypertension, history of alcoholism and hypercholesterolemia. He is also had recurrent nonsustained supraventricular tachycardia during sleep which precipitated the sleep consultation. Exam (Progress Note) - Constitutional Vitals: Period Temp Pulse Resp BP Sys/Cha Pulse Ox Last 24 Hr 97.4 F-98.5 F 91-107 12-22 115-125/75-91 90-99 General appearance: normal weight - Head Head exam: Present: normocephalic, atraumatic - Neck Neck exam: Absent: lymphadenopathy, thyromegaly - Respiratory Respiratory exam: Absent: rales, rhonchi, wheezes - Cardiovascular Cardiovascular exam: Present: regular rate and rhythm - GI/Abdominal GI/Abdominal exam: Present: normal bowel sounds. Absent: tenderness - Extremities Exam Extremities exam: Present: normal capillary refill - Neurological Exam Neurological exam: Present: oriented X3 - Psychiatric Psychiatric exam: Present: normal affect, normal mood - Skin Skin exam: Present: warm, dry Results - Labs CBC & BMP: 02/20/17 06:19 02/20/17 06:19 Specialty Discharge - Follow Up or Referrals Follow up with: Bernard Hernandez MD [Physician] - 2 Weeks Rachael Viera MD [Physician] - 1 Week Mirza Ash MD [Physician] - 1 Week
== END 2017-02-20 13:57 | disposition home or self-care (01) | DRG 291 ==
LOC: N.ED 23:01 → SUATTDRO 02-15 01:17 → N.EDINP 02-15 01:17 → N.5E 02-15 01:49
PROVIDERS: ADMIT Internal Medicine; ATTEND Internal Medicine

== ENCOUNTER 2017-03-05 13:56 | Inpatient (IN) ==
--- NOTE | 2017-03-05 14:32 | EKG Report ---
Stationary ECG Study [facility] ER Test Date: 03/05/2017 2:06:31 PM Pat Name: LANETTE CARCAMO Department: Room: Gender: M [employer] Department Manager: : 1960 Requested by: Noman Galloway Order Number: [id number] Reading MD: ELYSE DAMIAN Intervals [place] Rate: 80 P: 40 [place]: 196 QRS: -26 QRSD: 153 T: 139 QT: 471 QTc: 507 Interpretive Statements SINUS RHYTHM WITH OCCASIONAL VENTRICULAR PREMATURE COMPLEXES LEFT ATRIAL ENLARGEMENT Electronically Signed On 03-06-17 08:25:04 CDT by ELYSE DAMIAN [email or web address]
[2017-03-05] MEDS ORDERED: FUROSEMIDE 40 MG/4 ML VIAL IV STA (14:42)
[2017-03-05] MEDS ORDERED: FUROSEMIDE 40 MG/4 ML VIAL ONE (14:44)
[2017-03-05 14:56] LABS: Basophils # 0.1 10*3/uL (0.0-0.2); Basophils % 0.5 % (0.0-0.8); Eosinophils # 0.1 10*3/uL (0.0-0.87); Eosinophils % 0.4 % (0.00-10.9); Hematocrit 43.5 VOL% (42.0-52.0); Hemoglobin 14.6 GM/DL (14.0-18.0); Immature Granulocytes % 0.5 %; Immature Granulocytes Absolute 0.08 #; Lymphocytes # 3.1 10*3/uL (1.4-4.0); Lymphocytes % 18.3 % (21.2-54.2); Mean Corpuscular HGB Conc 33.6 GM/DL (32-36); Mean Corpuscular Hemoglobin 30 PG (27-34); Mean Corpuscular Volume 90.1 FL (87-102); Mean Platelet Volume 11.4 FL (9.6-12.0); Monocytes # 1.9 10*3/uL (0.11-0.8); Monocytes % 11.5 % (1.7-12.7); Neutrophils # 11.6 10*3/uL (1.4-7.4); Neutrophils % 68.8 % (38.7-73.9); Platelet Count 372 T/CUMM (130-400); Red Blood Count 4.83 MC/CUMM (3.8-5.5); Red Cell Distribution Width 15.6 % (9.3-17.3); White Blood Count 16.9 T/CUMM (4-12)
--- NOTE | 2017-03-05 15:03 | XRay Report ---
History: Shortness of breath Date: 03/05/2017 Study: Chest x-ray AP portable Comparison exam: February 18, 2017 There is cardiomegaly. The pulmonary vasculature is upper normal. There is some mild hazy right basilar and left infrahilar parenchymal disease. There is no gross pleural effusion. Osseous structures are unremarkable. Impression: Mild bilateral lower lung infiltrate/edema which could represent pulmonary edema rather than pneumonia PROCEDURE INTERPRETED AT [facility] DEPARTMENT OF RADIOLOGY Final Report Signed by: Dr. Tamela Logan
[2017-03-05 15:12] LABS: INR 1.3; PT Patient Result 14.2 SECS; Partial Thromboplastin Time 31.3 SECS (0-40)
[2017-03-05 15:24] LABS: Albumin 3.1 G/DL (3.4-5.0); Bilirubin,Total 1.2 MG/DL (0.2-1.0); Calcium 8.9 MG/DL (8.5-10.1); Magnesium 2.1 MG/DL (1.8-2.4); Potassium 3.7 MMOL/L (3.5-5.1); Total Protein 6.4 G/DL (6.4-8.3)
[2017-03-05] MEDS ORDERED: MORPHINE 2 MG/1 ML SYRINGE IV STA (15:24)
[2017-03-05] MEDS ORDERED: ONDANSETRON 4 MG/2 ML VIAL IV STA (15:24)
[2017-03-05] MEDS ORDERED: ONDANSETRON 4 MG/2 ML VIAL ONE (15:25)
[2017-03-05] MEDS ORDERED: MORPHINE 2 MG/1 ML SYRINGE ONE (15:26)
--- NOTE | 2017-03-05 15:26 | Emergency Department Note ---
Meaghan Brennan Hilary, am scribing for, and in the presence of, Noman Yu MD 14: 48. Aimee Brennan James D, MD, personally performed the services described in this documentation, ascribed by Doreen Harding in my presence, and it is both accurate and complete 519 . Arrival - Arrival Chief Complaint: Shortness of Breath Stated Complaint: SOB ED Nursing Triage Note: Pt c/o SOB since 0800 with a non productive cough. Mode of Arrival: Wheelchair Limitations: No Limitations Source: Patient, RN Notes Reviewed Time Seen by Provider: 03/05/17 14:29 - History of Present Illness HPI Narrative: Pt is a 57 y/o white male with c/o SOB which onset a few days ago. Pt was here for CHF 2 weeks ago and confirms SOB and cough. No other complaints or problems stated in the ED. Pt states that he takes his medication as prescribed. Onset (ago): day(s) Consistency: constant Severity: mild Severity scale (1-10): 1 Allergies/Adverse Reactions: Allergies Allergy/AdvReac Type Severity Reaction Status Date / Time No Known Allergies Allergy Unverified 02/14/17 23:12 Home Medications: Home Medications Medication Instructions Recorded Confirmed Type Apixaban [Eliquis] 2.5 mg PO BID #60 tablet 01/30/17 02/15/17 Rx Carvedilol [Coreg] 6.25 mg PO BID 02/15/17 02/15/17 History Furosemide 40 mg PO BID #60 tablet 02/20/17 Rx Review of System - Review of System 12 point system: reviewed and no additional remarkable complaints except as stated - Review of System Constitutional: Absent: fever Respiratory: Present: cough, respiratory distress (SOB) Medical,Surgical,& Family Hx - Medical History Cardio: History of: CHF (EF 20% on echo, January 2017), Hypertension Psychological: No history of: Anxiety Disorders, ADHD, Behavior Problems, Bipolar Disorder, Depression, Previous Suicide Attempt, Psychiatric/Substance Abuse Tx, Schizophrenia, Violent Behavior, Psychiatric Problems Neurology: History of: Cerebrovascular Accident Rheumatology: History of;: Gout Gastrointestinal: History of: Diverticulitis/ Diverticulosis, GI Problems ( partial colectomy with colestomy with reversal) - Surgical History Thoracic Surgeries: Patient denies;: Organ Transplant Neurologic Surgeries: Patient denies: Neurologic Surgery HEENT Surgeries: Patient denies: Eye Surgery, Tonsilectomy & Adenoidectomy Abdominal Surgeries: Surgical HX of: Abdominal Surgery Reproductive Surgeries: Patient denies;: Genitourinary Surgery - Family History Family History: Reports;: Family Cancer (brain cancer), Family Hypertension ( mother), Family Stroke (maternal grandmother) - Social History Smoking Status: Never smoker Exam Physical Examination: GENERAL: This is a well-nourished, well-developed in no apparent distress. VITAL SIGNS: Temperature: 96.3 Pulse: 86 Respiratory: 24 Blood Pressure: 105/ 77 O2Sat: 99 HEENT: Head is normocephalic and atraumatic. Pupils are equally round and reactive to light. Extraocular movement are intact. Oropharynx is benign with moist mucous membranes. NECK: Neck is soft and supple without tenderness. There are no masses. There is no lymphadenopathy. LUNGS: Bibasular rales. Chest rises symmetrically. There is no chest wall tenderness. CV: Heart is regular rate and rhythm, s3 gallops without murmurs, rubs. ABDOMEN: Abdomen is soft, non-tender to palpation. There are no abnormal masses palpated. There is no organomegaly. Bowel sounds are present and active. SKIN: Skin is warm and dry. No rash. Synodic EXTREMITIES: Patient has full range of motion without tenderness. There is no pedal edema. NEUROLOGIC: Awake, alert, and oriented x4. Cranial nerves II through XII are grossly intact. There are no motorsensory deficits. PSYCHIATRIC: Normal affect. Normal mood. Vital Signs: Vital Signs Temperature 96.3 F L 03/05/17 14:05 Pulse Rate 86 03/05/17 14:05 Respiratory Rate 24 03/05/17 14:05 Blood Pressure 105/77 03/05/17 14:05 O2 Sat by Pulse Oximetry 99 03/05/17 14:05 Course - Consultations Consultation #1: Discussed with Dr. Ybarra. Patient will be seen by him in the emergency department. The patient will be admitted to his service to telemetry. Time: 15:26 Results - Labs CBC & BMP: 03/05/17 14:50 Lab Results: I have reviewed the patients labs Labs: Laboratory Tests 03/05/17 03/05/17 14:50 14:50 WBC 16.9 H Hgb 14.6 Hct 43.5 Plt Count 372 INR 1.3 - EKG EKG results: interpreted by ERMD - Impressions EKG: Sinus rhythm with sinus arrhythmia, rate 80. Left bundle branch block. Left atrial enlargement, no further interpretation possible. - Diagnostic Findings Procedure: Chest x-ray: image reviewed by me (Cardiomegaly with increased pulmonary markings bilaterally) Disposition Clinical Impression: Acute on chronic congestive heart failure, Hypertensive cardiomyopathy, Epigastric pain, Left bundle branch block Case discussed with: patient, patient's family Disposition: Still a Patient Condition: Guarded
[2017-03-05 15:30] LABS: Troponin I Only 0.093 NG/ML (0.00-0.045)
--- NOTE | 2017-03-05 16:00 | XRay Report ---
XR abdomen complete w decub Indication: Epigastric abdominal pain. Abdomen 3 views: Comparison 11/08/2013. Scattered air-fluid levels and gaseous prominence without dilatation of small bowel are present throughout the mid abdomen. Little significant stool and gas is seen in the colon. No pneumatosis. No evidence of free air. Impression: Favor moderately severe ileus versus gastroenteritis. Doubt obstruction, but if symptoms worsen, recommend repeat radiograph. PROCEDURE INTERPRETED AT [facility] DEPARTMENT OF RADIOLOGY Final Report Signed by: Weston Lamar M.D.
[2017-03-05] MEDS ORDERED: diphenhydrAMINE CAP 25 MG CAPSULE PO PRN (16:13)
--- NOTE | 2017-03-05 16:36 | Cardiology History & Physical ---
Assessment and Plan - Time spent with patient Time spent with patient: Greater than 30 minutes (Exam, discussion with other physicians, chart review, film review documentation and orders) (1) Acute on chronic systolic and diastolic heart failure, NYHA class 3 Status: Acute Assessment and plan: This appears to be progressively worsening with 3 admissions now in the last 7 weeks. Current Visit: Yes (2) Dyslipidemia Status: Chronic Current Visit: No (3) Acute worsening of stage 3 chronic kidney disease Status: Chronic Assessment and plan: Recent hyperkalemia therefore no SHEKHAR/ARB or Entresto at this time. Get the patient out of HF and consider starting if renal failure stable. Current Visit: No (4) History of recent stroke Status: Chronic Current Visit: No (5) Chronic anticoagulation Status: Chronic Assessment and plan: INR is subtherapeutic. Will hold warfarin for now. May benefit from HOUSE RN-D if no evidence of infection. Current Visit: No (6) Nonischemic cardiomyopathy Status: Chronic Current Visit: No (7) Epigastric pain Status: Chronic Assessment and plan: recent fall. Check biomarkers Current Visit: Yes (8) Left bundle branch block Status: Chronic Current Visit: Yes History of Present Illness Chief complaint: Shortness of breath History of present illness: Mr. Loving is a 57 year old male who has a history of nonischemic dilated cardiomyopathy. He had left heart catheterization done on 12/27 showed severe LV systolic function ejection fraction of 20% and widely patent coronary arteries. He has a history of polysubstance abuse that was felt to be a large protruding factor both alcohol and methamphetamine to his cardiomyopathy. The patient is resides alone in [place]. The patient has had several admissions in the last 7 weeks he had a stroke that was felt to be cardioembolic and has been on anticoagulants. He also had hyperkalemia with a potassium of 6.6 and a creatinine of 2.2 on February 15. Due to his hyperkalemia his lisinopril and spironolactone were stopped at that time. The patient has been followed closely in outpatient setting by Dr. Howard Ash and was actually last seen on 02/27/2017 and was told to weigh himself daily and his weight has been stable. Despite a stable weight he has progressive shortness of breath that is worse he has 3 pillow orthopnea. He denies any chest pain but he has had some cough that has been scant sputum production. Dr. Ash is discussed with him about the possibility of an ICD and they are in the process of consideration for HOUSE RN-D. He presents to the emergency room was evaluated by Dr. Alfredo Yu is found to have chest x-ray that was abnormal with pulmonary edema and possibly underlying pneumonitis a white cell count of almost 17,000. I saw and examined the patient in the emergency room room 15. His sister was there at the time as well as his son. I discussed via the phone with his primary cake icer and packer Dr. Ash as well as Dr. Lombardo. Because of the patient's recent hyperkalemia with lisinopril and spironolactone will hold on this for now. I would consider adding Entresto at some point. No Aldactone at this time because of hyperkalemia and renal insufficiency. Home Medications Medication Instructions Recorded Confirmed Type Apixaban [Eliquis] 2.5 mg PO BID #60 tablet 01/30/17 03/05/17 Rx Furosemide 40 mg PO BID #60 tablet 02/20/17 03/05/17 Rx Carvedilol [Carvedilol] 12.5 mg PO BID 03/05/17 03/05/17 History Allergies Allergy/AdvReac Type Severity Reaction Status Date / Time No Known Allergies Allergy Unverified 02/14/17 23:12 - Constitutional Constitutional: Present: anorexia, daytime sleepiness, malaise, weakness, other (Weight has been stable over the last few days but he did lose some over the long-term. His day-to-day weights have fluctuated very little but his global direction has been a decline in weight). Absent: chills, headache(s), increased appetite, lethargy - EENT Eyes: Absent: blurry vision, diplopia Nose, mouth and throat: Absent: dysphagia, headache(s), lip swelling - Cardiovascular Cardiovascular: Present: chest pain at rest, dyspnea, dyspnea on exertion, edema , orthopnea, other (He has had some musculoskeletal chest wall pain after a fall where he hit his front and is back on the cabinets. He also has abdominal pain is he thinks is related.). Absent: chest pain with activity, palpitations - Respiratory Respiratory: Present: cough, dyspnea, dyspnea on exertion - Gastrointestinal Gastrointestinal: Present: abdominal pain, bloating, early satiety. Absent: constipation, cramping, diarrhea, dyspepsia, dysphagia, heartburn, hematemesis, melena, nausea, odynophagia, vomiting, jaundice - Genitourinary Genitourinary: Absent: difficulty urinating, hematuria - Musculoskeletal Musculoskeletal: Absent: arthralgias, joint swelling - Neurological Neurological: Absent: abnormal gait, abnormal speech, behavioral changes, confusion, convulsions, disequilibrium, dizziness, focal weakness, frequent falls, headache(s), memory loss - Psychiatric Psychiatric: Present: anxiety, depression, difficulty concentrating, memory loss - Endocrine Endocrine: Present: fatigue. Absent: cold intolerance, heat intolerance, polydipsia, polyphagia, polyuria Medical,Surgical,& Family Hx - Medical History Cardio: History of: CHF (EF 20% on echo, January 2017, nonischemic dilated cardiomyopathy with both syst), Hypertension Psychological: No history of: Anxiety Disorders, ADHD, Behavior Problems, Bipolar Disorder, Depression, Previous Suicide Attempt, Psychiatric/Substance Abuse Tx, Schizophrenia, Violent Behavior, Psychiatric Problems Neurology: History of: Cerebrovascular Accident ([place] to be cardioembolic approximately 7 weeks ago) Rheumatology: History of;: Gout Gastrointestinal: History of: Diverticulitis/ Diverticulosis, GI Problems ( partial colectomy with colestomy with reversal) - Surgical History Thoracic Surgeries: Patient denies;: Organ Transplant Neurologic Surgeries: Patient denies: Neurologic Surgery HEENT Surgeries: Patient denies: Eye Surgery, Tonsilectomy & Adenoidectomy Abdominal Surgeries: Surgical HX of: Abdominal Surgery Reproductive Surgeries: Patient denies;: Genitourinary Surgery - Family History Family History: Reports;: Family Cancer (brain cancer), Family Hypertension ( mother), Family Stroke (maternal grandmother) - Social History Smoking Status: Never smoker Marital Status: Lives With:: Alone Functional capacity: independent ambulation Cardiology Physical Exam - Constitutional Vitals: Vital Signs Temp Pulse Resp BP Pulse Ox 96.3 F L 92 H 26 H 101/69 99 03/05/17 14:30 03/05/17 15:00 03/05/17 15:00 03/05/17 15:00 03/05/17 15:00 Intake and Output 03/05/17 03/05/17 03/05/17 07:59 15:59 23:59 Other: Weight 100.698 kg Patient Weight 03/05/17 23:59 Weight 100.698 kg General appearance: over weight - Head Head exam: Present: normal inspection - Eye Eye exam: Present: EOMI Pupils: Present: ROJELIO - ENT ENT exam: Present: normal exam - Neck Neck exam: Present: normal inspection (Unable to assess JVP) - Respiratory Respiratory exam: Present: rales, rhonchi - Cardiovascular Cardiovascular exam: Present: regular rate and rhythm (PMI is laterally displaced he has an S3 gallop.) - GI/Abdominal GI/Abdominal exam: Present: normal bowel sounds - Extremities Exam Extremities exam: Absent: edema - Back Exam Back exam: Present: other (Tenderness over the middle of the spine) - Neurological Exam Neurological exam: Present: alert, oriented X3 - Psychiatric Psychiatric exam: Present: normal affect, depressed, flat affect - Skin Skin exam: Present: normal color, warm, dry Result/EKG - Labs CBC & BMP: 03/05/17 14:50 03/05/17 14:50 Labs: Laboratory Results - last 24 hr 03/05/17 03/05/17 03/05/17 14:50 14:50 14:50 WBC 16.9 H RBC 4.83 Hgb 14.6 Hct 43.5 MCV 90.1 MCH 30 MCHC 33.6 RDW 15.6 Plt Count 372 MPV 11.4 Neut % (Auto) 68.8 Lymph % (Auto) 18.3 L [place] % (Auto) 11.5 Eos % (Auto) 0.4 Baso % (Auto) 0.5 Neut # (Auto) 11.6 H Lymph # (Auto) 3.1 [place] # (Auto) 1.9 H Eos # (Auto) 0.1 Baso # (Auto) 0.1 Immature Gran % 0.5 Nucleated RBC % 0.0 Immature Gran # 0.08 Nucleated RBCs # 0.00 INR 1.3 PT Patient/Control Mix 14.2 Circ Anticoag PTT 31.3 Sodium 136 Potassium 3.7 Chloride 98 Carbon Dioxide 27 Anion Gap 14.7 BUN 38 H Creatinine 1.80 H GFR Calculation 52 BUN/Creatinine Ratio 21.00 H Glucose 103 Calculated Osmolality 280.0 Calcium 8.9 Magnesium 2.1 Total Bilirubin 1.20 H AST 26 ALT 26 Alkaline Phosphatase 88 Troponin I 0.093 H B-Natriuretic Peptide Total Protein 6.4 Albumin 3.1 L Globulin 3.3 Albumin/Globulin Ratio 0.9 L 03/05/17 14:50 WBC RBC Hgb Hct MCV MCH MCHC RDW Plt Count MPV Neut % (Auto) Lymph % (Auto) [place] % (Auto) Eos % (Auto) Baso % (Auto) Neut # (Auto) Lymph # (Auto) [place] # (Auto) Eos # (Auto) Baso # (Auto) Immature Gran % Nucleated RBC % Immature Gran # Nucleated RBCs # INR PT Patient/Control Mix Circ Anticoag PTT Sodium Potassium Chloride Carbon Dioxide Anion Gap BUN Creatinine GFR Calculation BUN/Creatinine Ratio Glucose Calculated Osmolality Calcium Magnesium Total Bilirubin AST ALT Alkaline Phosphatase Troponin I B-Natriuretic Peptide 3434 H Total Protein Albumin Globulin Albumin/Globulin Ratio - EKG EKG results: interpreted by me (Left bundle morphology with frequent PVCs QRS duration 150 ms) Quality Measures - VTE Contraindication to Pharmacological VTE Prophylaxis: Already on Theraputic Agent , No Prophylaxis Needed
[2017-03-05] MEDS ORDERED: PNEUMOCOCCAL VACCINE (13 VALENT) 0.5 ML SYRINGE IM ONE (18:21)
--- NOTE | 2017-03-05 18:26 | Electrophysiology Consultation ---
History of Present Illness - Data of Consult Patient: new to practice Consult date: 03/05/17 Requesting Physician: Irasema Ybarra - Consult Narrative Reason for consult: CHF, LBBB History of present illness: Mr. Loving is a 57 year old male, followed by Dr. Ash. He was diagnosed with nonischemic cardiomyopathy, ejection fraction 20%. He had multiple hospitalizations in the past few months due to recurrent CHF. Adjusting his CHF regimen was limited by acute kidney injury, hyperkalemia, the SHEKHAR inhibitor and Aldactone had to be stopped. He is currently taking low-dose Lasix, beta- calixto. Low blood pressure was also limiting titration of medications. He was discharged several days ago but developed progressive edema again and was readmitted. He is symptomatic at rest, unable to sleep due to orthopnea and had progressive shortness of breath. The lower extremity edema is only mild at this time. He has a history of alcohol and methamphetamine abuse. Tox screen from January 2017 was positive for marijuana and methamphetamine. He also had a recent ischemic CVA, was suggestive of embolic origin. So far, no A. fib documented. EKG shows sinus rhythm, PVCs, left bundle branch block with QRS around 135 ms. WBC 16.9, creatinine 1.8. CC: Irasema Ybarra, DO - Home Medications and Allergies Home Medications: Home Medications Medication Instructions Recorded Confirmed Type Apixaban [Eliquis] 2.5 mg PO BID #60 tablet 01/30/17 03/05/17 Rx Furosemide 40 mg PO BID #60 tablet 02/20/17 03/05/17 Rx Carvedilol [Carvedilol] 12.5 mg PO BID 03/05/17 03/05/17 History Allergies/Adverse Reactions: Allergies Allergy/AdvReac Type Severity Reaction Status Date / Time No Known Allergies Allergy Unverified 02/14/17 23:12 Medical,Surgical,& Family Hx - Medical History Cardio: History of: CHF (EF 20% on echo, January 2017, nonischemic dilated cardiomyopathy with both syst), Hypertension Psychological: No history of: Anxiety Disorders, ADHD, Behavior Problems, Bipolar Disorder, Depression, Previous Suicide Attempt, Psychiatric/Substance Abuse Tx, Schizophrenia, Violent Behavior, Psychiatric Problems Neurology: History of: Cerebrovascular Accident ([place] to be cardioembolic approximately 7 weeks ago) Rheumatology: History of;: Gout Gastrointestinal: History of: Diverticulitis/ Diverticulosis, GI Problems ( partial colectomy with colestomy with reversal) - Surgical History Thoracic Surgeries: Patient denies;: Organ Transplant Neurologic Surgeries: Patient denies: Neurologic Surgery HEENT Surgeries: Patient denies: Eye Surgery, Tonsilectomy & Adenoidectomy Abdominal Surgeries: Surgical HX of: Abdominal Surgery Reproductive Surgeries: Patient denies;: Genitourinary Surgery - Family History Family History: Reports;: Family Cancer (brain cancer), Family Hypertension ( mother), Family Stroke (maternal grandmother) - Social History Smoking Status: Never smoker Frequency of Alcohol Use: None Type of Drug Use: None 12 point system: reviewed and no additional remarkable complaints except as stated Exam - Constitutional Vitals: Period Temp Pulse Resp BP Sys/Cha Pulse Ox Last 24 Hr 96.3 F-96.3 F 71-92 13-26 94-116/69-80 97-100 General appearance: no acute distress, over weight - Head Head exam: Present: normal inspection. Absent: abrasion - Eye Eye exam: Absent: conjunctival injection Pupils: Absent: dilated - ENT ENT exam: Present: normal external ear exam - Neck Neck exam: Present: normal inspection, other (elev jvp) - Respiratory Respiratory exam: Present: decreased breath sounds, rhonchi - Cardiovascular Cardiovascular exam: Present: regular rate and rhythm, systolic murmur, tachycardia - GI/Abdominal GI/Abdominal exam: Present: normal bowel sounds. Absent: distended - Extremities Exam Extremities exam: Present: normal inspection, normal capillary refill, edema (1+ ) - Back Exam Back exam: Present: normal inspection - Neurological Exam Neurological exam: Present: alert, oriented X3 - Psychiatric Psychiatric exam: Present: normal affect, normal mood - Skin Skin exam: Present: normal color, warm. Absent: cyanosis Results - Labs CBC & BMP: 03/05/17 14:50 03/05/17 14:50 Lab Results: I have reviewed the past 24 hour labs Assessment and Plan (1) Nonischemic cardiomyopathy Status: Chronic Assessment and plan: 57-year-old male, nonischemic cardiomyopathy, CHF [place] Heart Association class IV, left bundle branch block, history of hypertension, most recently hypertension and recent acute kidney injury/hyperkalemia. Polysubstance abuse, including EtOH, methamphetamine and marijuana. Currently admitted with CHF exacerbation, after recent hospitalization. Medical management in the past was limited due to hypotension, acute kidney injury, hyperkalemia. -Nonischemic cardiomyopathy, left bundle branch block, CHF. He is a candidate for SEAT COVER CUTTER-D implant. Discussed risks and benefits of this option. -Check urine tox screen. If he is still abusing methamphetamine, I would suggest to address that first, as interventions would likely be futile if he keeps using cardiotoxic agents. -Increase Eliquis to 5 mg twice daily. The recent stroke is suggestive of cardioembolic origin, although no atrial fibrillation documented so far. No bleeding issues so far. -If his CHF improves and drug addiction is not an active issue, we may proceed with a SEAT COVER CUTTER-D implant during his hospitalization. Given his recent CVA, I plan to pursue this with minimal interruption to anticoagulation. Continue diuresis , still has pulmonary edema. Monitor and replete electrolytes closely. -We may plan for the procedure Friday afternoon, if his CHF improves by then and no prohibitive drug abuse issues identified Current Visit: No (2) Essential hypertension Status: Acute Current Visit: No (3) Dyslipidemia Status: Chronic Current Visit: No (4) Hypotension Status: Acute Current Visit: No Qualifiers: Hypotension type: unspecified hypotension type Qualified Code(s): I95.9 - Hypotension, unspecified (5) ARF (acute renal failure) Status: Acute Current Visit: No Qualifiers: Acute renal failure type: unspecified Qualified Code(s): N17.9 - Acute kidney failure, unspecified (6) Chronic anticoagulation Status: Chronic Current Visit: No (7) NSVT (nonsustained ventricular tachycardia) Status: Acute Current Visit: No (8) KATHARINA (obstructive sleep apnea) Status: Acute Current Visit: No (9) Left bundle branch block Status: Chronic Current Visit: Yes Quality Measures - VTE Contraindication to Pharmacological VTE Prophylaxis: Already on Theraputic Agent , No Prophylaxis Needed
[2017-03-05] MEDS ORDERED: FUROSEMIDE 40 MG/4 ML VIAL IV ONE (18:28)
[2017-03-05] MEDS: ALBUTEROL 0.63 MG/3 ML NEB RESP TX SCH ×3 (20:08→23:43)
[2017-03-05] MEDS: APIXABAN 2.5 MG TABLET PO SCH (20:51)
[2017-03-05] MEDS: CARVEDILOL 12.5 MG TABLET PO SCH (20:51)
[2017-03-05] MEDS: DOCUSATE SODIUM 100 MG CAPSULE PO SCH (20:52)
[2017-03-05] MEDS: MAGNESIUM OXIDE 400 MG TABLET PO SCH (20:52)
[2017-03-05] MEDS: POTASSIUM CHLORIDE 20 MEQ TABLET PO SCH (20:52)
[2017-03-05] MEDS ORDERED: POTASSIUM CHLORIDE 20 MEQ TABLET PO SCH (21:00)
[2017-03-05] MEDS ORDERED: APIXABAN 2.5 MG TABLET PO SCH (21:00)
[2017-03-05] MEDS ORDERED: SACUBITRIL/VALSARTAN 49-51 MG TABLET PO SCH (21:00)
[2017-03-05 21:27] LABS: Barbiturates Screen,Urine Negative (Negative); Benzodiazepines Screen,Urine Negative (Negative); Cannabinoid Screen,Urine Positive (Negative); Opiate Screen,Urine Negative (Negative); Phencyclidine Screen,Urine Negative (Negative)
[2017-03-06] MEDS: ACETAMINOPHEN 325 MG TABLET PO PRN (03:31)
[2017-03-06 04:43] LABS: Basophils # 0.1 10*3/uL (0.0-0.2); Basophils % 0.3 % (0.0-0.8); Eosinophils % 0.2 % (0.00-10.9); Hematocrit 38.8 VOL% (42.0-52.0); Hemoglobin 12.9 GM/DL (14.0-18.0); Immature Granulocytes % 0.6 %; Immature Granulocytes Absolute 0.09 #; Lymphocytes # 2.2 10*3/uL (1.4-4.0); Lymphocytes % 13.5 % (21.2-54.2); Mean Corpuscular HGB Conc 33.2 GM/DL (32-36); Mean Corpuscular Hemoglobin 30 PG (27-34); Mean Corpuscular Volume 89.2 FL (87-102); Mean Platelet Volume 11.8 FL (9.6-12.0); Neutrophils % 73.4 % (38.7-73.9); Platelet Count 329 T/CUMM (130-400); Red Blood Count 4.35 MC/CUMM (3.8-5.5); Red Cell Distribution Width 15.5 % (9.3-17.3); White Blood Count 16.3 T/CUMM (4-12)
[2017-03-06 05:13] LABS: Eosinophils 1 % (0-10); Hypochromasia 1+; Lymphocytes 13 % (20-55); Platelet Estimate Adequate; Segmented Neutrophils 77 % (50-85); Total Cells Counted 100
[2017-03-06 05:19] LABS: Calcium 8.7 MG/DL (8.5-10.1); Magnesium 2.2 MG/DL (1.8-2.4); Osmolality,Calculated 279.2 MOS/KG (273-304); Thyroid Stimulating Hormone 0.905 uIU/ml (0.358-3.74)
[2017-03-06] MEDS: metOLazone 5 MG TABLET PO SCH ×3 (05:54→08:21)
[2017-03-06] MEDS ORDERED: DIAZEPAM 5 MG TABLET PO ONE (06:47)
--- NOTE | 2017-03-06 07:03 | EKG Report ---
Stationary ECG Study [facility] Test Date: 03/06/2017 7:02:33 AM Pat Name: LANETTE CARCAMO Department: Room: 280 Gender: M Manager Actuarial: MEENU : 1960 Requested by: Porfirio Galloway Order Number: [id number] Mitra MD: LANETTE KHOURY Intervals [place] Rate: 84 P: 59 MA: 184 QRS: 101 QRSD: 141 T: -60 QT: 433 QTc: 474 Interpretive Statements SINUS RHYTHM MARKED RIGHT AXIS DEVIATION INTRAVENTRICULAR CONDUCTION DELAY Electronically Signed On 03-06-17 15:27:31 CDT by LANETTE KHOURY [email or web address]
[2017-03-06] MEDS: ALBUTEROL 0.63 MG/3 ML NEB RESP TX SCH ×4 (07:59→19:50)
[2017-03-06] MEDS ORDERED: FUROSEMIDE 40 MG/4 ML VIAL IV SCH (08:00)
[2017-03-06] MEDS: APIXABAN 2.5 MG TABLET PO SCH ×2 (08:20→20:38)
[2017-03-06] MEDS: POTASSIUM CHLORIDE 20 MEQ TABLET PO SCH ×2 (08:21→20:38)
[2017-03-06] MEDS: CARVEDILOL 12.5 MG TABLET PO SCH ×2 (08:21→20:38)
[2017-03-06] MEDS: MAGNESIUM OXIDE 400 MG TABLET PO SCH ×2 (08:21→20:38)
[2017-03-06] MEDS: DOCUSATE SODIUM 100 MG CAPSULE PO SCH ×2 (08:21→20:40)
--- NOTE | 2017-03-06 08:27 | XRay Report ---
XR chest 2V Date: 03/06/2017 4:00 AM History: Shortness of breath Comparison: 03/05/2017 Technique: PA and lateral chest Findings: Persistent cardiomegaly with residual diffuse parenchymal findings especially in the lower lung zones with stable mediastinum and osseous structures. Impression: Fairly stable diffuse edema/atelectasis/infiltration especially in the lower lobes. The heart remains minimally enlarged. PROCEDURE INTERPRETED AT [facility] DEPARTMENT OF RADIOLOGY Final Report Signed by: Dr. Stephy Zarate
[2017-03-06] MEDS ORDERED: POTASSIUM CHLORIDE 20 MEQ TABLET PO SCH (09:00)
--- NOTE | 2017-03-06 09:50 | Cardiology Progress Note ---
Assessment and Plan - Time spent with patient Time spent with patient: Greater than 30 minutes Time spent discussing smoking cessation with patient: more than 10 minutes (1) CHF (congestive heart failure), NYHA class III Status: Acute Assessment and plan: SEE PLAN OF CARE LISTED BELOW Current Visit: Yes Qualifiers: Congestive heart failure type: systolic Congestive heart failure chronicity : acute on chronic Qualified Code(s): I50.23 - Acute on chronic systolic ( congestive) heart failure (2) Cardiomyopathy, dilated, nonischemic Status: Chronic Assessment and plan: SEE PLAN OF CARE LISTED BELOW Current Visit: Yes (3) Hypertension Status: Chronic Assessment and plan: SEE PLAN OF CARE LISTED BELOW Current Visit: Yes (4) CKD (chronic kidney disease) stage 3, GFR 30-59 ml/min Status: Chronic Assessment and plan: SEE PLAN OF CARE LISTED BELOW Current Visit: Yes (5) History of recent stroke Status: Chronic Assessment and plan: SEE PLAN OF CARE LISTED BELOW Current Visit: No (6) Chronic anticoagulation Status: Chronic Assessment and plan: SEE PLAN OF CARE LISTED BELOW Current Visit: No (7) Left bundle branch block Status: Chronic Assessment and plan: SEE PLAN OF CARE LISTED BELOW Current Visit: Yes (8) Polysubstance abuse Status: Chronic Assessment and plan: SEE PLAN OF CARE LISTED BELOW Current Visit: Yes Cardiology - PN: Subj Interval history: ELECTORATE OFFICER: DR. MARTINEZ SUMMARY: Mr. Loving, 57WM, history of NIDCM with [facility] October 19, 2013 which revealed severe LV systolic function EF 20%, widely patent coronary arteries. History of polysubstance abuse (alcohol. marijuana and methamphetamine) felt to be a large protruding factor to his cardiomyopathy. He is positive for marijuana and methamphetamines this admission. The patient has had several admissions in the last 7 weeks. He had a stroke that was felt to be cardioembolic and has been on anticoagulants. He also had hyperkalemia, renal insufficiency February 15, 2017 therefor Lisinopril and Spironolactone were stopped. Patient was admitted March 05, 2017 for continued, progressive shortness of breath. Diagnosed with pulmonary edema and possibly underlying pneumonitis. MARCH 06, 2017: Overnight, patient is resting comfortably laying flat. Daily weight, intake and output record, does not reflect any weight loss however he appears much more comfortable. Denies chest pain, heaviness or tightness. Dr. Lombardo was consulted and evaluated patient for adjustment in CHF medication regimen, candidacy for DRILL SETUP OPERATOR-D. Unfortunately, patient has had several toxicology screens positive for methamphetamines, marijuana including this admission. Patient is not a candidate for ICD until he is reformed. I discussed the importance of cessation and abstinence and patient states "it has no problem to quit". No arrhythmia has been recorded per telemetry. Vital signs are stable fortunately, labs stable. Patient is on Eliquis, beta-calixto and diuretics. Potassium chloride was started last evening by Dr. Lombardo, potassium 4.0 this morning. Entresto may be considered prior to discharge if labs and blood pressure will allow. I will further discuss with Dr. Ybarra and await additional recommendations. Hopefully, because patient's orthopnea has resolved, he may be eligible for discharge soon. ASSESSMENT/PLAN: 1. NIDCM - EF 20%. Continue with beta-blockers, at this time avoiding SHEKHAR inhibitors but may try to incorporate Entresto prior to discharge if labs and blood pressure will allow. Dr. Lombardo has seen patient, evaluated and made recommendations. At this time, not a candidate for DRILL SETUP OPERATOR-D until reformed from polysubstance abuse 2. ACUTE ON CHRONIC CHF - Secondary to severely decreased LVEF (20%), NYHA CLASS III on admission, Class II this morning. Continue with diuretics, afterload reduction as able. 3. POLYSUBSTANCE ABUSE - the merits of substance abuse cessation was thoroughly discussed for greater than 10 minutes today. 4. RECENT CVA - continue Eliquis. Continue to monitor telemetry, no arrhythmia noted at this time. 5. CHRONIC ANTICOAGULATION - Eliquis continues 6. LBBB - continue current plan of care. 7. ELEVATED TROPONIN - not ACS. Continue current plan of care. 8. CKD - stage III. Creatinine 1.9 this morning. Continue monitoring daily Exam (Progress Note) - Constitutional Vitals: Period Temp Pulse Resp BP Sys/Cha Pulse Ox Last 24 Hr 96.3 F-98.8 F 71-92 13-28 93-127/69-92 93-100 Exam: General appearance: no acute distress, over weight - Head Head exam: Present: normal inspection. Absent: abrasion - Eye Eye exam: Absent: conjunctival injection Pupils: Absent: dilated - ENT ENT exam: Present: normal external ear exam - Neck Neck exam: Present: normal inspection, difficult to assess for JVD due to habitus. - Respiratory Respiratory exam: Present: decreased breath sounds, rhonchi throughout. Still requiring oxygen via nasal cannula - Cardiovascular Cardiovascular exam: Present: regular rate and rhythm, systolic murmur, tachycardia noted - GI/Abdominal GI/Abdominal exam: Present: normal bowel sounds. Absent: distended - Extremities Exam Extremities exam: Present: normal inspection, normal capillary refill, edema (1+ ) - Back Exam Back exam: Present: normal inspection without kyphosis - Neurological Exam Neurological exam: Present: alert, oriented X3. No tremors noted. No hemiparesis or paralysis noted - Psychiatric Psychiatric exam: Present: normal affect, normal mood - Skin Skin exam: Present: normal color, warm. Absent: cyanosis Result/EKG - Labs CBC & BMP: 03/06/17 04:35 03/06/17 04:35 Lab Results: I have reviewed the past 24 hour labs Labs: Laboratory Results - last 24 hr 03/05/17 03/05/17 03/05/17 14:50 14:50 14:50 WBC 16.9 H RBC 4.83 Hgb 14.6 Hct 43.5 MCV 90.1 MCH 30 MCHC 33.6 RDW 15.6 Plt Count 372 MPV 11.4 Neut % (Auto) 68.8 Lymph % (Auto) 18.3 L [place] % (Auto) 11.5 Eos % (Auto) 0.4 Baso % (Auto) 0.5 Neut # (Auto) 11.6 H Lymph # (Auto) 3.1 [place] # (Auto) 1.9 H Eos # (Auto) 0.1 Baso # (Auto) 0.1 Total Counted Immature Gran % 0.5 Nucleated RBC % 0.0 Immature Gran # 0.08 Segmented Neutrophils Lymphocytes Monocytes Eosinophils Nucleated RBCs # 0.00 Platelet Estimate Hypochromasia Morphology Comment INR 1.3 PT Patient/Control Mix 14.2 Circ Anticoag PTT 31.3 Sodium 136 Potassium 3.7 Chloride 98 Carbon Dioxide 27 Anion Gap 14.7 BUN 38 H Creatinine 1.80 H GFR Calculation 52 BUN/Creatinine Ratio 21.00 H Glucose 103 Calculated Osmolality 280.0 Calcium 8.9 Magnesium 2.1 Total Bilirubin 1.20 H AST 26 ALT 26 Alkaline Phosphatase 88 Troponin I 0.093 H B-Natriuretic Peptide Total Protein 6.4 Albumin 3.1 L Globulin 3.3 Albumin/Globulin Ratio 0.9 L Lipase Free T4 TSH 3rd Generation Urine Opiates Screen Ur Barbiturates Screen Ur Phencyclidine Scrn U Amphetamine/Methamph U Benzodiazepines Scrn U Cocaine Metab Screen U Cannabinoids Screen 03/05/17 03/05/17 03/05/17 14:50 19:14 19:14 WBC RBC Hgb Hct MCV MCH MCHC RDW Plt Count MPV Neut % (Auto) Lymph % (Auto) [place] % (Auto) Eos % (Auto) Baso % (Auto) Neut # (Auto) Lymph # (Auto) [place] # (Auto) Eos # (Auto) Baso # (Auto) Total Counted Immature Gran % Nucleated RBC % Immature Gran # Segmented Neutrophils Lymphocytes Monocytes Eosinophils Nucleated RBCs # Platelet Estimate Hypochromasia Morphology Comment INR PT Patient/Control Mix Circ Anticoag PTT Sodium Potassium Chloride Carbon Dioxide Anion Gap BUN Creatinine GFR Calculation BUN/Creatinine Ratio Glucose Calculated Osmolality Calcium Magnesium Total Bilirubin AST ALT Alkaline Phosphatase Troponin I 0.074 H D B-Natriuretic Peptide 3434 H Total Protein Albumin Globulin Albumin/Globulin Ratio Lipase 82.0 Free T4 TSH 3rd Generation Urine Opiates Screen Ur Barbiturates Screen Ur Phencyclidine Scrn U Amphetamine/Methamph U Benzodiazepines Scrn U Cocaine Metab Screen U Cannabinoids Screen 03/05/17 03/05/17 03/06/17 20:54 23:06 04:35 WBC 16.3 H RBC 4.35 Hgb 12.9 L Hct 38.8 L MCV 89.2 MCH 30 MCHC 33.2 RDW 15.5 Plt Count 329 MPV 11.8 Neut % (Auto) 73.4 Lymph % (Auto) 13.5 L [place] % (Auto) 12.0 Eos % (Auto) 0.2 Baso % (Auto) 0.3 Neut # (Auto) 12.0 H Lymph # (Auto) 2.2 [place] # (Auto) 2.0 H Eos # (Auto) 0.0 Baso # (Auto) 0.1 Total Counted 100 Immature Gran % 0.6 Nucleated RBC % 0.0 Immature Gran # 0.09 Segmented Neutrophils 77 Lymphocytes 13 L Monocytes 9 Eosinophils 1 Nucleated RBCs # 0.00 Platelet Estimate Adequate Hypochromasia 1+ Morphology Comment INR PT Patient/Control Mix Circ Anticoag PTT Sodium Potassium Chloride Carbon Dioxide Anion Gap BUN Creatinine GFR Calculation BUN/Creatinine Ratio Glucose Calculated Osmolality Calcium Magnesium Total Bilirubin AST ALT Alkaline Phosphatase Troponin I 0.083 H B-Natriuretic Peptide Total Protein Albumin Globulin Albumin/Globulin Ratio Lipase Free T4 TSH 3rd Generation Urine Opiates Screen Negative Ur Barbiturates Screen Negative Ur Phencyclidine Scrn Negative U Amphetamine/Methamph Positive H U Benzodiazepines Scrn Negative U Cocaine Metab Screen Negative U Cannabinoids Screen Positive H 03/06/17 03/06/17 04:35 04:35 WBC RBC Hgb Hct MCV MCH MCHC RDW Plt Count MPV Neut % (Auto) Lymph % (Auto) [place] % (Auto) Eos % (Auto) Baso % (Auto) Neut # (Auto) Lymph # (Auto) [place] # (Auto) Eos # (Auto) Baso # (Auto) Total Counted Immature Gran % Nucleated RBC % Immature Gran # Segmented Neutrophils Lymphocytes Monocytes Eosinophils Nucleated RBCs # Platelet Estimate Hypochromasia Morphology Comment INR PT Patient/Control Mix Circ Anticoag PTT Sodium 134 L Potassium 4.0 Chloride 97 L Carbon Dioxide 26 Anion Gap 15.0 BUN 44 H Creatinine 1.90 H GFR Calculation 48 BUN/Creatinine Ratio 23.00 H Glucose 110 H Calculated Osmolality 279.2 Calcium 8.7 Magnesium 2.2 Total Bilirubin AST ALT Alkaline Phosphatase Troponin I B-Natriuretic Peptide Total Protein Albumin Globulin Albumin/Globulin Ratio Lipase Free T4 1.70 H TSH 3rd Generation 0.905 Urine Opiates Screen Ur Barbiturates Screen Ur Phencyclidine Scrn U Amphetamine/Methamph U Benzodiazepines Scrn U Cocaine Metab Screen U Cannabinoids Screen - Diagnostic Findings Procedure: Chest x-ray: report reviewed by me - EKG EKG results: interpreted by me EKG shows: sinus rhythm Quality Measures - VTE Contraindication to Pharmacological VTE Prophylaxis: Already on Theraputic Agent , No Prophylaxis Needed
--- NOTE | 2017-03-06 12:24 | Electrophysiology Progress Not ---
Assessment and Plan (1) Nonischemic cardiomyopathy Status: Chronic Assessment and plan: 57-year-old male, nonischemic cardiomyopathy, CHF [place] Heart Association class IV, left bundle branch block, history of hypertension, most recently hypertension and recent acute kidney injury/hyperkalemia. Polysubstance abuse, including EtOH, methamphetamine and marijuana. Currently admitted with CHF exacerbation, after recent hospitalization. Medical management in the past was limited due to hypotension, acute kidney injury, hyperkalemia. -Nonischemic cardiomyopathy, left bundle branch block, CHF. He is a candidate for DRAWER UPFITTER-D implant. Unfortunately he is still actively abusing drugs, and is unlikely to respond well, unless he changes his lifestyle. He is leaking troponin and has frequent hospitalizations, despite attempts with medical management. I suspect methamphetamine plays a major role in his difficult to treat cardiomyopathy. -Polymorphic ventricular ectopy, nonsustained VT. I recommend LifeVest, he is high risk for malignant VTA. Electrolytes are normal. -Cont Eliquis 5 mg twice daily. Recent CVA, suggestive of embolic origin. No A. fib documented so far. -Follow-up with EP in 2 weeks. Once he is abstinent, we may pursue device implant. Current Visit: No (2) Essential hypertension Status: Acute Current Visit: No (3) Dyslipidemia Status: Chronic Current Visit: No (4) Hypotension Status: Acute Current Visit: No Qualifiers: Hypotension type: unspecified hypotension type Qualified Code(s): I95.9 - Hypotension, unspecified (5) ARF (acute renal failure) Status: Acute Current Visit: No Qualifiers: Acute renal failure type: unspecified Qualified Code(s): N17.9 - Acute kidney failure, unspecified (6) Chronic anticoagulation Status: Chronic Current Visit: No (7) NSVT (nonsustained ventricular tachycardia) Status: Acute Current Visit: No (8) KATHARINA (obstructive sleep apnea) Status: Acute Current Visit: No (9) Left bundle branch block Status: Chronic Current Visit: Yes Electrophysiology Subjective Interval history: He was anxious and mildly agitated yesterday night. Now calm. Polymorphic ventricular ectopy and few NSVTs documented on telemetry. He had poor urine output, despite IV Lasix. Blood pressure is trending borderline Exam - Constitutional Vitals: Period Temp Pulse Resp BP Sys/Cha Pulse Ox Last 24 Hr 96.3 F-98.8 F 71-92 13-28 93-127/69-92 93-100 General appearance: no acute distress, over weight - Head Head exam: Present: normal inspection, normocephalic - Eye Eye exam: Absent: conjunctival injection Pupils: Absent: dilated - ENT ENT exam: Present: normal external ear exam - Neck Neck exam: Present: normal inspection - Respiratory Respiratory exam: Present: decreased breath sounds, rhonchi - Cardiovascular Cardiovascular exam: Present: regular rate and rhythm, systolic murmur - GI/Abdominal GI/Abdominal exam: Present: normal bowel sounds. Absent: distended - Extremities Exam Extremities exam: Present: normal inspection, normal capillary refill, edema (1+ ) - Back Exam Back exam: Present: normal inspection - Neurological Exam Neurological exam: Present: alert - Psychiatric Psychiatric exam: Present: normal mood, flat affect - Skin Skin exam: Present: normal color, warm. Absent: cyanosis Results - Labs CBC & BMP: 03/06/17 04:35 03/06/17 04:35 Lab Results: I have reviewed the past 24 hour labs Quality Measures - VTE Contraindication to Pharmacological VTE Prophylaxis: Already on Theraputic Agent , No Prophylaxis Needed Specialty Discharge - Follow Up or Referrals - Speciality Discharge Instructions Cardiology Instructions: Follow up with EPdr. Lombardo in 2 weeks
[2017-03-06] MEDS: ZALEPLON 5 MG CAPSULE PO PRN (20:38)
[2017-03-07] MEDS: ALBUTEROL 0.63 MG/3 ML NEB RESP TX SCH ×7 (00:09→23:31)
[2017-03-07 05:35] LABS: Basophils # 0.1 10*3/uL (0.0-0.2); Basophils % 0.5 % (0.0-0.8); Eosinophils # 0.1 10*3/uL (0.0-0.87); Eosinophils % 0.5 % (0.00-10.9); Hemoglobin 14.5 GM/DL (14.0-18.0); Immature Granulocytes % 0.5 %; Immature Granulocytes Absolute 0.08 #; Lymphocytes # 2.8 10*3/uL (1.4-4.0); Lymphocytes % 18.3 % (21.2-54.2); Mean Corpuscular HGB Conc 33.7 GM/DL (32-36); Mean Corpuscular Hemoglobin 30 PG (27-34); Mean Corpuscular Volume 88.7 FL (87-102); Mean Platelet Volume 11.7 FL (9.6-12.0); Monocytes # 2.2 10*3/uL (0.11-0.8); Monocytes % 14.4 % (1.7-12.7); NRBC # 0.04 10*3/uL; Neutrophils # 10.1 10*3/uL (1.4-7.4); Neutrophils % 65.8 % (38.7-73.9); Platelet Count 340 T/CUMM (130-400); Red Blood Count 4.85 MC/CUMM (3.8-5.5); Red Cell Distribution Width 15.2 % (9.3-17.3); White Blood Count 15.4 T/CUMM (4-12)
[2017-03-07 05:59] LABS: Magnesium 2.2 MG/DL (1.8-2.4); Osmolality,Calculated 271.9 MOS/KG (273-304); Potassium 3.7 MMOL/L (3.5-5.1)
[2017-03-07 06:01] LABS: Calcium 8.3 MG/DL (8.5-10.1); Magnesium 2.2 MG/DL (1.8-2.4); Osmolality,Calculated 271.9 MOS/KG (273-304); Potassium 3.5 MMOL/L (3.5-5.1)
[2017-03-07] MEDS: CARVEDILOL 12.5 MG TABLET PO SCH ×2 (08:24→20:39)
[2017-03-07] MEDS: DOCUSATE SODIUM 100 MG CAPSULE PO SCH ×2 (08:24→20:37)
[2017-03-07] MEDS: APIXABAN 2.5 MG TABLET PO SCH ×2 (08:24→20:39)
[2017-03-07] MEDS: MAGNESIUM OXIDE 400 MG TABLET PO SCH ×2 (08:25→20:39)
[2017-03-07] MEDS: FUROSEMIDE 40 MG TABLET PO SCH (08:25)
[2017-03-07] MEDS: POTASSIUM CHLORIDE 20 MEQ TABLET PO SCH (08:25)
--- NOTE | 2017-03-07 09:32 | Discharge Summary ---
Se Brennan April RN, am scribing for, and in the presence of, Irasema Ybarra DO 09 :31. Hospital Course - Hospital Course Hospital Course: Senior Manager: Dr. Ash Mr. Loving is a 57 year old male who has a history of nonischemic dilated cardiomyopathy. He had left heart catheterization done on 10/19/2013 showed severe LV systolic function ejection fraction of 20% and widely patent coronary arteries. He has a history of polysubstance abuse that was felt to be a large protruding factor both alcohol and methamphetamine to his cardiomyopathy. The patient has had several admissions in the last 7 weeks, he had a stroke that was felt to be cardioembolic and has been on anticoagulants. He also had hyperkalemia with a potassium of 6.6 and a creatinine of 2.2 on February 15. Due to his hyperkalemia his lisinopril and spironolactone were stopped at that time, it was decided to continue holding these for now. He presented to emergency department 03/05/2016 with worsening shortness of breath, he reported 3 pillow orthopnea. He denies any chest pain but has had some productive cough. Dr. Ash has discussed with him regarding a possible ICD. Chest x-ray on admission was abnormal with pulmonary edema and possibly underlying pneumonia. Urine drug screen was positive for methamphetamines and cannabinoids. Dr. Lombardo saw the patient in consultation regarding STEAM HEATING INSTALLER device. Will wait on STEAM HEATING INSTALLER device for now since drug screen was positive. He will see the patient back in follow- up and if he becomes abstinent, may pursue device implant. He had a LifeVest placed 03/06/2017 and will be discharged with it. During his hospitalization I had 2 discussions with Mr. Loving about the importance of his cessation of recreational drug use. This has contributed to if not been the etiology of his nonischemic combined systolic and diastolic heart failure. He certainly is contributing to its inability to improve. He voiced understanding. Today Mr. Loving is seen resting in bed in no acute distress. He continues to complain of coughing of sputum and abdominal soreness. He states he has had this soreness since he fell a couple weeks ago. He denies any chest pain and states his breathing is improving. His white count is down to 15.4 today. His pressures have been stable, at 105/72 today. Telemetry monitoring currently sinus rhythm with heart rates in the 90s. He appears to have maximally benefited from hospitalization and has his LifeVest on. He will follow-up as below He has met maximum benefit from hospitalization and will be discharged home today. He will be discharged home the following medications: Increase Eliquis to 5 mg twice daily Decrease Lasix to 40 mg daily Add potassium 10 meq daily Coreg 12.5 mg twice daily Due to his hyperkalemia and renal insufficiency he will not be discharged on SHEKHAR inhibitor or an ARB. We will schedule follow-up with Dr. Lombardo in [address] Ash in 1 month. - Time spent with patient Time with patient DS: Greater than 30 minutes Diagnosis - Discharge Diagnosis (1) CHF (congestive heart failure), NYHA class III Status: Chronic (2) CKD (chronic kidney disease) stage 3, GFR 30-59 ml/min Status: Chronic (3) Cardiomyopathy, dilated, nonischemic Status: Chronic (4) Hypertension Status: Chronic (5) Polysubstance abuse Status: Chronic (6) Chronic anticoagulation Status: Chronic (7) History of recent stroke Status: Chronic Specialty Discharge - Follow Up or Referrals Follow up with: Hal Lombardo MD [Physician] - 2 Weeks Mirza Ash MD [Physician] - 1 Month (with EKG, CBC, BMP, Mag) Discharge Plan - Discharge Data Disposition: Disch To Home/Self Care Condition at Discharge: Stable Discharge Diet: heart healthy Activity: resume usual activities as tolerated Hygiene: no restrictions Weight Bearing at Discharge: weight bear as tolerated Driving: no restrictions Contact your physician if you experience:: fever over 101, Difficulty voiding, Redness or swelling, Nausea/Vomiting, Shortness of breath, Bleeding, pain uncontrolled by pain medications - Discharge Medications New Potassium Chloride Cap/Tab [K Dur] 10 meq PO DAILY #30 tablet Apixaban [Eliquis] 5 mg PO BID #60 tablet Furosemide Tab [Lasix Tab] 40 mg PO DAILY #30 tablet Continue Carvedilol 12.5 mg PO BID Discontinued Apixaban [Eliquis] 2.5 mg PO BID #60 tablet Furosemide 40 mg PO BID #60 tablet - Follow Up or Referral Follow Up: Hal Lombardo MD [Physician] - 2 Weeks Mirza Ash MD [Physician] - 1 Month (with EKG, CBC, BMP, Mag) - Forms/Instructions Exam - Constitutional Vitals: Period Temp Pulse Resp BP Sys/Cha Pulse Ox Last 24 Hr 97 F-99.2 F 72-99 15-28 94-121/48-80 82-100 General appearance: no acute distress, over weight - Head Head exam: Absent: abrasion, hematoma - Eye Eye exam: Absent: periorbital swelling, laceration to eyelids - Neck Neck exam: Absent: tenderness - Respiratory Respiratory exam: Present: rhonchi, other (Oxygen via nasal cannula). Absent: accessory muscle use, chest wall tenderness - Cardiovascular Cardiovascular exam: Present: regular rate and rhythm. Absent: rubs - GI/Abdominal GI/Abdominal exam: Present: normal bowel sounds, soft. Absent: distended, tenderness - Extremities Exam Extremities exam: Present: edema (Trace to bilateral lower extremities) - Neurological Exam Neurological exam: Present: alert, oriented X3 - Psychiatric Psychiatric exam: Present: anxious - Skin Skin exam: Present: warm, dry Discharge Results Procedures and tests throughout hospitalization: Pending Orders 03/08/17 04:00 BMP w/ Mg [Basic Metabolic Panel w/Mg] IN AM Basic Metabolic Panel IN AM CBC [Comp Blood Count Auto Diff] IN AM Comp Blood Count Auto Diff IN AM 03/09/17 04:00 BMP w/ Mg [Basic Metabolic Panel w/Mg] IN AM CBC [Comp Blood Count Auto Diff] IN AM 03/10/17 04:00 BMP w/ Mg [Basic Metabolic Panel w/Mg] IN AM CBC [Comp Blood Count Auto Diff] IN AM Labs on day of discharge: Labs from last 24 hours 03/07/17 03/07/17 03/07/17 05:09 05:08 05:08 WBC RBC Hgb Hct MCV MCH MCHC RDW Plt Count MPV Neut % (Auto) Lymph % (Auto) [place] % (Auto) Eos % (Auto) Baso % (Auto) Neut # (Auto) Lymph # (Auto) [place] # (Auto) Eos # (Auto) Baso # (Auto) Immature Gran % Nucleated RBC % Immature Gran # Nucleated RBCs # Sodium 129 L 129 L Potassium 3.7 3.5 Chloride 85 L 87 L Carbon Dioxide 34 H 27 Anion Gap 13.7 18.5 H BUN 46 H 48 H Creatinine 2.00 H 1.90 H GFR Calculation 45 48 BUN/Creatinine Ratio 23.00 H 25.00 H Glucose 127 H 116 H Calculated Osmolality 271.9 L 271.9 L Calcium 9.0 8.3 L Magnesium 2.2 2.2 B-Natriuretic Peptide 4245 H 03/07/17 05:08 WBC 15.4 H RBC 4.85 Hgb 14.5 Hct 43.0 MCV 88.7 MCH 30 MCHC 33.7 RDW 15.2 Plt Count 340 MPV 11.7 Neut % (Auto) 65.8 Lymph % (Auto) 18.3 L [place] % (Auto) 14.4 H Eos % (Auto) 0.5 Baso % (Auto) 0.5 Neut # (Auto) 10.1 H Lymph # (Auto) 2.8 [place] # (Auto) 2.2 H Eos # (Auto) 0.1 Baso # (Auto) 0.1 Immature Gran % 0.5 Nucleated RBC % 0.3 Immature Gran # 0.08 Nucleated RBCs # 0.04 Sodium Potassium Chloride Carbon Dioxide Anion Gap BUN Creatinine GFR Calculation BUN/Creatinine Ratio Glucose Calculated Osmolality Calcium Magnesium B-Natriuretic Peptide - Imaging and Cardiology Procedure: Abdominal x-ray: report reviewed by me, Chest x-ray: report reviewed by me DS: Provider Consults: 03/05/17 16:17 Consult to Physician [CONS] Routine Comment: CRTD? Consulting Provider: Hal Lombardo 03/06/17 14:51 Consult to Case Mgmt/Social Srvs [CONS] Routine Reason for Case Mgmt/Social Srvs: Equipment Consult Comment: lifevest Expected date of discharge: 03/07/17 Amada Brennan Shea, , personally performed the services described in this documentation, ascribed by Giovanna Saez RN in my presence, and it is both accurate and complete [id number] .
--- NOTE | 2017-03-07 10:39 | Event Note ---
The patient had been discharged because is felt that he had maximally benefited from hospitalization. The patient's requested that he stay in the hospital because she thinks he is no better we had a lengthy discussion with the and his son we will hold onto the patient. I will give a trial dose of Samsca because of the declining sodium with diuresis that he is experienced since he has been here. The patient is able to lie completely flat in the bed his vital signs are stable. If he does not improve with Samsca I suppose we could consider a trial of milrinone.
--- NOTE | 2017-03-07 10:47 | Physician Query Form ---
CLICK EDIT DOCUMENT TO SELECT QUERY ANSWER --> OK --> SIGN Suri Andino RN, CCDS Certified Clinical Toolsmith W) [phone] (f) [phone] [email or web address] PROVIDERS: Make your selection(s) from the choices in EACH section by typing an "x" and enter comments in the comment section. Please use your independent medical judgment in providing your response. This request does not imply that any particular answer is desired or expected. CLINICAL INDICATORS: (Providers should not edit this section) "I will give a trial dose of Samsca because of the declining sodium with diuresis that he is experienced since he has been here." Based on the above, could you clarify the appropriate diagnosis, if significant , that supports the above abnormalities and additional evaluation, monitoring, and/or treatment rendered: (x) Patient treated or monitored for hyponatremia ( ) Patient not treated or monitored for hyponatremia ( ) Other, please specify: ( ) Clinically unable to determine COMMENTS: PLEASE ALSO DOCUMENT RESPONSE IN PROGRESS NOTES AND/OR DISCHARGE SUMMARY Use of terms such as suspected, likely, or probable (associated with a specific diagnosis that is being evaluated, monitored, or treated as if it exists) are acceptable and can be restated in the discharge summary if not ruled out. MTDD
[2017-03-07] MEDS ORDERED: TOLVAPTAN 15 MG TABLET PO SCH (11:00)
[2017-03-07] MEDS: DOXYCYCLINE HYCLATE 100 MG CAPSULE PO SCH ×2 (11:37→20:39)
[2017-03-07] MEDS: LORazepam 1 MG TABLET PO PRN (16:21)
[2017-03-07] MEDS: ACETAMINOPHEN 325 MG TABLET PO PRN (16:21)
[2017-03-08] MEDS: LORazepam 1 MG TABLET PO PRN ×3 (01:49→20:24)
[2017-03-08] MEDS: ALBUTEROL 0.63 MG/3 ML NEB RESP TX SCH ×6 (03:44→23:13)
[2017-03-08 04:53] LABS: Basophils # 0.1 10*3/uL (0.0-0.2); Basophils % 0.4 % (0.0-0.8); Eosinophils # 0.2 10*3/uL (0.0-0.87); Hematocrit 40.3 VOL% (42.0-52.0); Hemoglobin 13.8 GM/DL (14.0-18.0); Immature Granulocytes % 0.6 %; Immature Granulocytes Absolute 0.09 #; Lymphocytes # 2.8 10*3/uL (1.4-4.0); Lymphocytes % 17.8 % (21.2-54.2); Mean Corpuscular HGB Conc 34.2 GM/DL (32-36); Mean Corpuscular Hemoglobin 30 PG (27-34); Mean Corpuscular Volume 87.4 FL (87-102); Monocytes # 2.2 10*3/uL (0.11-0.8); Monocytes % 14.1 % (1.7-12.7); NRBC # 0.06 10*3/uL; Neutrophils # 10.3 10*3/uL (1.4-7.4); Neutrophils % 66.1 % (38.7-73.9); Platelet Count 334 T/CUMM (130-400); Red Blood Count 4.61 MC/CUMM (3.8-5.5); Red Cell Distribution Width 15.1 % (9.3-17.3); White Blood Count 15.6 T/CUMM (4-12)
[2017-03-08 05:20] LABS: Calcium 8.2 MG/DL (8.5-10.1); Osmolality,Calculated 269.8 MOS/KG (273-304)
[2017-03-08 05:37] LABS: Calcium 8.4 MG/DL (8.5-10.1); Magnesium 2.4 MG/DL (1.8-2.4); Osmolality,Calculated 269.8 MOS/KG (273-304)
[2017-03-08] MEDS ORDERED: POTASSIUM CHLORIDE 20 MEQ TABLET PO ONE ×2 (07:11→11:00)
[2017-03-08] MEDS: MAGNESIUM OXIDE 400 MG TABLET PO SCH ×2 (08:34→20:19)
[2017-03-08] MEDS: APIXABAN 2.5 MG TABLET PO SCH ×2 (08:34→20:19)
[2017-03-08] MEDS: FUROSEMIDE 40 MG TABLET PO SCH (08:34)
[2017-03-08] MEDS: DOXYCYCLINE HYCLATE 100 MG CAPSULE PO SCH ×2 (08:34→20:19)
[2017-03-08] MEDS: CARVEDILOL 12.5 MG TABLET PO SCH ×2 (08:35→20:19)
[2017-03-08] MEDS: POTASSIUM CHLORIDE 10 MEQ TABLET PO SCH (08:35)
[2017-03-08] MEDS: DOCUSATE SODIUM 100 MG CAPSULE PO SCH ×2 (08:35→20:02)
[2017-03-08] MEDS ORDERED: POTASSIUM CHLORIDE 10 MEQ TABLET PO SCH (09:00)
[2017-03-08] MEDS ORDERED: TOLVAPTAN 15 MG TABLET PO SCH (09:00)
--- NOTE | 2017-03-08 09:54 | Cardiology Progress Note ---
Assessment and Plan (1) CHF (congestive heart failure), NYHA class III Status: Chronic Current Visit: Yes Qualifiers: Congestive heart failure type: systolic Congestive heart failure chronicity : acute on chronic Qualified Code(s): I50.23 - Acute on chronic systolic ( congestive) heart failure (2) CKD (chronic kidney disease) stage 3, GFR 30-59 ml/min Status: Chronic Current Visit: Yes (3) Cardiomyopathy, dilated, nonischemic Status: Chronic Current Visit: Yes (4) Hypertension Status: Chronic Current Visit: Yes (5) Polysubstance abuse Status: Chronic Current Visit: Yes (6) Chronic anticoagulation Status: Chronic Assessment and plan: INR is subtherapeutic. Will hold warfarin for now. May benefit from INSURANCE ADJUSTER-D if no evidence of infection. Current Visit: No (7) History of recent stroke Status: Chronic Current Visit: No (8) Ventricular tachycardia Status: Acute Current Visit: Yes Cardiology - PN: Subj Interval history: The patient states that he is much better. He is lying flat. No palpitations but lots of ventricular ectopy and some non-sustained ventricular tachycardia. He has diuresed some overnight and his sodium is up. I discussed with the patient and his . He looks like he feels better. His thinks that it is because he got a good night's sleep and she has requested "sleeping pills" for when he goes home. Exam (Progress Note) - Constitutional Vitals: Period Temp Pulse Resp BP Sys/Cha Pulse Ox Last 24 Hr 97.2 F-98.7 F 61-88 16-22 107-140/63-86 91-98 General appearance: normal weight - Head Head exam: Present: normal inspection - Eye Eye exam: Present: EOMI Pupils: Present: ROJELIO - Neck Neck exam: Present: normal inspection - Respiratory Respiratory exam: Present: clear to auscultation bilaterally, other (no rales or rhonchi.) - Cardiovascular Cardiovascular exam: Present: regular rate and rhythm (S3.) - GI/Abdominal GI/Abdominal exam: Present: normal bowel sounds - Extremities Exam Extremities exam: Present: normal inspection - Back Exam Back exam: Present: normal inspection - Neurological Exam Neurological exam: Present: alert, oriented X3 - Psychiatric Psychiatric exam: Present: normal affect, depressed - Skin Skin exam: Present: normal color, warm Result/EKG - Labs CBC & BMP: 03/08/17 04:08 03/08/17 04:09 Labs: Laboratory Results - last 24 hr 03/08/17 03/08/17 03/08/17 04:08 04:08 04:09 WBC 15.6 H RBC 4.61 Hgb 13.8 L Hct 40.3 L MCV 87.4 MCH 30 MCHC 34.2 RDW 15.1 Plt Count 334 MPV 12.0 Neut % (Auto) 66.1 Lymph % (Auto) 17.8 L [place] % (Auto) 14.1 H Eos % (Auto) 1.0 Baso % (Auto) 0.4 Neut # (Auto) 10.3 H Lymph # (Auto) 2.8 [place] # (Auto) 2.2 H Eos # (Auto) 0.2 Baso # (Auto) 0.1 Immature Gran % 0.6 Nucleated RBC % 0.4 Immature Gran # 0.09 Nucleated RBCs # 0.06 Sodium 130 L 130 L Potassium 3.0 L 3.0 L Chloride 86 L 85 L Carbon Dioxide 33 H 33 H Anion Gap 14.0 15.0 BUN 40 H 39 H Creatinine 1.60 H 1.50 H GFR Calculation 59 63 BUN/Creatinine Ratio 25.00 H 26.00 H Glucose 99 109 H Calculated Osmolality 269.8 L 269.8 L Calcium 8.4 L 8.2 L Magnesium 2.4 Quality Measures - VTE Contraindication to Pharmacological VTE Prophylaxis: Already on Theraputic Agent , No Prophylaxis Needed Specialty Discharge - Follow Up or Referrals Follow up with: Hal Lombardo MD [Physician] - 03/25/17 1:30 pm Mirza Ash MD [Physician] - 04/18/17 8:00 am (with EKG, CBC, BMP, Mag)
--- NOTE | 2017-03-08 10:22 | XRay Report ---
XR chest 2V Date: 03/08/2017 4:00 AM History: Shortness of breath Comparison: 03/06/2017 Technique: PA and lateral chest Findings: Persistent cardiomegaly with progressive perihilar parenchymal findings extending into the lung bases. There is associated hilar prominence with degenerative changes. Artifactual densities limit the exam. Impression: COPD with progressive pulmonary edema/infiltration with more prominent pulmonary vasculature/daniela. Follow-up chest x-ray recommended. PROCEDURE INTERPRETED AT [facility] DEPARTMENT OF RADIOLOGY Final Report Signed by: Dr. Stephy Zarate
[2017-03-09 03:29] LABS: Basophils # 0.1 10*3/uL (0.0-0.2); Basophils % 0.3 % (0.0-0.8); Eosinophils # 0.2 10*3/uL (0.0-0.87); Hematocrit 40.7 VOL% (42.0-52.0); Hemoglobin 13.5 GM/DL (14.0-18.0); Immature Granulocytes % 0.5 %; Immature Granulocytes Absolute 0.09 #; Lymphocytes # 2.6 10*3/uL (1.4-4.0); Lymphocytes % 15.8 % (21.2-54.2); Mean Corpuscular HGB Conc 33.2 GM/DL (32-36); Mean Corpuscular Hemoglobin 29 PG (27-34); Mean Corpuscular Volume 88.7 FL (87-102); Mean Platelet Volume 11.9 FL (9.6-12.0); Monocytes # 1.6 10*3/uL (0.11-0.8); Monocytes % 9.8 % (1.7-12.7); NRBC # 0.02 10*3/uL; Neutrophils # 11.9 10*3/uL (1.4-7.4); Neutrophils % 72.6 % (38.7-73.9); Platelet Count 310 T/CUMM (130-400); Red Blood Count 4.59 MC/CUMM (3.8-5.5); Red Cell Distribution Width 14.9 % (9.3-17.3); White Blood Count 16.4 T/CUMM (4-12)
[2017-03-09 04:08] LABS: Calcium 8.2 MG/DL (8.5-10.1); Magnesium 2.2 MG/DL (1.8-2.4); Osmolality,Calculated 272.5 MOS/KG (273-304); Potassium 2.8 MMOL/L (3.5-5.1)
[2017-03-09] MEDS ORDERED: POTASSIUM CHLORIDE RIDER 20 MEQ in PREMIX 1 EACH IV PRN (05:10)
[2017-03-09] MEDS: ALBUTEROL 0.63 MG/3 ML NEB RESP TX SCH ×5 (05:26→20:46)
[2017-03-09] MEDS: POTASSIUM CHLORIDE RIDER 10 MEQ in PREMIX 1 EACH IV PRN (05:37)
[2017-03-09] MEDS ORDERED: POTASSIUM CHLORIDE 20 MEQ TABLET PO ONE ×4 (07:33→15:00)
[2017-03-09] MEDS: DOXYCYCLINE HYCLATE 100 MG CAPSULE PO SCH ×2 (08:27→20:02)
[2017-03-09] MEDS: POTASSIUM CHLORIDE 10 MEQ TABLET PO SCH (08:27)
[2017-03-09] MEDS: LORazepam 1 MG TABLET PO PRN (08:27)
[2017-03-09] MEDS: MAGNESIUM OXIDE 400 MG TABLET PO SCH ×3 (08:27→20:02)
[2017-03-09] MEDS: CARVEDILOL 12.5 MG TABLET PO SCH ×2 (08:27→20:02)
[2017-03-09] MEDS: FUROSEMIDE 40 MG TABLET PO SCH (08:27)
[2017-03-09] MEDS: APIXABAN 2.5 MG TABLET PO SCH ×2 (08:27→20:02)
[2017-03-09] MEDS: DOCUSATE SODIUM 100 MG CAPSULE PO SCH ×2 (08:30→20:01)
--- NOTE | 2017-03-09 10:01 | Cardiology Progress Note ---
Assessment and Plan (1) CHF (congestive heart failure), NYHA class III Status: Chronic Current Visit: Yes Qualifiers: Congestive heart failure type: systolic Congestive heart failure chronicity : acute on chronic Qualified Code(s): I50.23 - Acute on chronic systolic ( congestive) heart failure (2) CKD (chronic kidney disease) stage 3, GFR 30-59 ml/min Status: Chronic Current Visit: Yes (3) Cardiomyopathy, dilated, nonischemic Status: Chronic Current Visit: Yes (4) Hypertension Status: Chronic Current Visit: Yes (5) Polysubstance abuse Status: Chronic Current Visit: Yes (6) Chronic anticoagulation Status: Chronic Current Visit: No (7) History of recent stroke Status: Chronic Current Visit: No (8) Ventricular tachycardia Status: Acute Current Visit: Yes (9) Hypokalemia Status: Acute Assessment and plan: Replete Current Visit: Yes Cardiology - PN: Subj Interval history: The patient continues to be very somnolent and his is at the bedside they both say that he is doing dramatically better. He is lying completely flat in bed. His eyes and nose would suggest that he has been positive since he has been here however his weight is down almost 3 kg yesterday from his admission weight. He has also been profoundly hypokalemic which would suggest volume loss. His sodium has come up his potassium has gone down I think this is a reflection of volume loss that is not collected. The patient appears to be too sedated to me at this time he and his were both requesting anxiolytics I will decrease the dose of this. His potassium is very low and we will replete this today and hopefully anticipate discharge in the next 24 hours. I think the hypokalemia certainly contributing to his ventricular ectopy. Hopefully the patient will mend his ways and get off his recreational substances. His primary ops analyst is Dr. bunny Ash will be resuming care tomorrow. His LifeVest is on at this time. Exam (Progress Note) - Constitutional Vitals: Period Temp Pulse Resp BP Sys/Cha Pulse Ox Last 24 Hr 97.4 F-100.1 F 75-92 15-20 85-106/52-80 89-99 General appearance: normal weight, other (Somnolent but arousable) - Head Head exam: Present: normal inspection - Eye Eye exam: Present: EOMI Pupils: Present: ROJELIO - Respiratory Respiratory exam: Present: clear to auscultation bilaterally (I hear no rales wheezing or rhonchi) - Cardiovascular Cardiovascular exam: Present: regular rate and rhythm - GI/Abdominal GI/Abdominal exam: Present: normal bowel sounds - Extremities Exam Extremities exam: Present: normal inspection - Back Exam Back exam: Present: normal inspection - Neurological Exam Neurological exam: Present: oriented X3, other (Somnolent but arousable and oriented and conversant) - Psychiatric Psychiatric exam: Present: depressed, flat affect - Skin Skin exam: Present: normal color, warm, dry Result/EKG - Labs CBC & BMP: 03/09/17 02:59 03/09/17 02:59 Labs: Laboratory Results - last 24 hr 03/09/17 03/09/17 02:59 02:59 WBC 16.4 H RBC 4.59 Hgb 13.5 L Hct 40.7 L MCV 88.7 MCH 29 MCHC 33.2 RDW 14.9 Plt Count 310 MPV 11.9 Neut % (Auto) 72.6 Lymph % (Auto) 15.8 L [place] % (Auto) 9.8 Eos % (Auto) 1.0 Baso % (Auto) 0.3 Neut # (Auto) 11.9 H Lymph # (Auto) 2.6 [place] # (Auto) 1.6 H Eos # (Auto) 0.2 Baso # (Auto) 0.1 Immature Gran % 0.5 Nucleated RBC % 0.1 Immature Gran # 0.09 Nucleated RBCs # 0.02 Sodium 132 L Potassium 2.8 L Chloride 85 L Carbon Dioxide 34 H Anion Gap 15.8 H BUN 29 H D Creatinine 1.50 H GFR Calculation 63 BUN/Creatinine Ratio 19.00 Glucose 149 H Calculated Osmolality 272.5 L Calcium 8.2 L Magnesium 2.2 Quality Measures - VTE Contraindication to Pharmacological VTE Prophylaxis: Already on Theraputic Agent , No Prophylaxis Needed Specialty Discharge - Follow Up or Referrals Follow up with: Hal Lombardo MD [Physician] - 03/25/17 1:30 pm Mirza Ash MD [Physician] - 04/18/17 8:00 am (with EKG, CBC, BMP, Mag)
[2017-03-09] MEDS ORDERED: LORazepam 0.5 MG TABLET PO PRN (19:58)
[2017-03-10] MEDS: ZALEPLON 5 MG CAPSULE PO PRN (00:15)
[2017-03-10] MEDS: ALBUTEROL 0.63 MG/3 ML NEB RESP TX SCH ×4 (00:36→11:13)
[2017-03-10 05:20] LABS: Basophils # 0.1 10*3/uL (0.0-0.2); Basophils % 0.6 % (0.0-0.8); Eosinophils # 0.5 10*3/uL (0.0-0.87); Eosinophils % 2.9 % (0.00-10.9); Hemoglobin 14.1 GM/DL (14.0-18.0); Immature Granulocytes % 0.6 %; Immature Granulocytes Absolute 0.09 #; Lymphocytes # 3.3 10*3/uL (1.4-4.0); Lymphocytes % 21.1 % (21.2-54.2); Mean Corpuscular HGB Conc 33.6 GM/DL (32-36); Mean Corpuscular Hemoglobin 30 PG (27-34); Mean Corpuscular Volume 87.9 FL (87-102); Mean Platelet Volume 11.7 FL (9.6-12.0); Monocytes % 12.7 % (1.7-12.7); Neutrophils # 9.8 10*3/uL (1.4-7.4); Neutrophils % 62.1 % (38.7-73.9); Platelet Count 346 T/CUMM (130-400); Red Blood Count 4.78 MC/CUMM (3.8-5.5); Red Cell Distribution Width 14.7 % (9.3-17.3); White Blood Count 15.8 T/CUMM (4-12)
[2017-03-10 05:51] LABS: Calcium 8.7 MG/DL (8.5-10.1); Magnesium 2.5 MG/DL (1.8-2.4); Osmolality,Calculated 273.1 MOS/KG (273-304); Potassium 3.4 MMOL/L (3.5-5.1)
[2017-03-10] MEDS: DOXYCYCLINE HYCLATE 100 MG CAPSULE PO SCH (08:17)
[2017-03-10] MEDS: POTASSIUM CHLORIDE 10 MEQ TABLET PO SCH (08:17)
[2017-03-10] MEDS: CARVEDILOL 12.5 MG TABLET PO SCH (08:18)
[2017-03-10] MEDS: DOCUSATE SODIUM 100 MG CAPSULE PO SCH (08:18)
[2017-03-10] MEDS: APIXABAN 2.5 MG TABLET PO SCH (08:18)
[2017-03-10] MEDS: FUROSEMIDE 40 MG TABLET PO SCH (08:18)
[2017-03-10] MEDS: MAGNESIUM OXIDE 400 MG TABLET PO SCH (08:18)
[2017-03-10] MEDS: POTASSIUM CHLORIDE RIDER 10 MEQ in PREMIX 1 EACH IV PRN ×3 (08:19→10:47)
[2017-03-10 11:37] VITALS: BP 96/72
--- NOTE | 2017-03-10 11:37 | Discharge Summary ---
Se Brennan April RN, am scribing for, and in the presence of, Mirza Ash MD 11:36. 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 Ash Mr. Loving is a 57 year old male who has a history of nonischemic dilated cardiomyopathy. He had left heart catheterization done on 10/19/2013 showed severe LV systolic function ejection fraction of 20% and widely patent coronary arteries. He has a history of polysubstance abuse that was felt to be a large protruding factor both alcohol and methamphetamine to his cardiomyopathy. The patient has had several admissions in the last 7 weeks, he had a stroke that was felt to be cardioembolic and has been on anticoagulants. He also had hyperkalemia with a potassium of 6.6 and a creatinine of 2.2 on February 15. Due to his hyperkalemia his lisinopril and spironolactone were stopped at that time, it was decided to continue holding these for now. He presented to emergency department 03/05/2016 with worsening shortness of breath, he reported 3 pillow orthopnea. He denies any chest pain but has had some productive cough. Dr. Ash has discussed with him regarding a possible ICD. Chest x-ray on admission was abnormal with pulmonary edema and possibly underlying pneumonia. Urine drug screen was positive for methamphetamines and cannabinoids. Dr. Lombardo saw the patient in consultation regarding CERTIFIED PROFESSIONAL CODER device. Will wait on CERTIFIED PROFESSIONAL CODER device for now since drug screen was positive. He will see the patient back in follow- up and if he becomes abstinent, may pursue device implant. He had a LifeVest placed 03/06/2017 and will be discharged with it. He was scheduled to be discharged home 03/07/2017, his requested he stay because she thought he was no better. His BNP had elevated to 4245. Over the weekend he required DuoNeb's to assist with his breathing as well as Lasix for diuresing. His potassium has been low over the weekend and he has required IV potassium replacement. Today Mr. Loving is seen resting in bed in no acute distress. He denies any chest pain and states his breathing is improving. Blood pressure today is 95/ 68. Telemetry monitoring currently sinus rhythm with heart rates in the80s. Today's labs: White count 15.8 H&H 14.1 and 42.0 Sodium 135 potassium 3.4 chloride 88 CO2 35 BUN and creatinine 23 and 1.30 Magnesium 2.5 He has met maximum benefit from hospitalization and will be discharged home today. He will be discharged home the following medications: Increase Eliquis to 5 mg twice daily Decrease Lasix to 40 mg daily Add potassium 10 meq daily Continue Coreg 12.5 mg twice daily Due to his hyperkalemia and renal insufficiency he will not be discharged on SHEKHAR inhibitor or an ARB. We will schedule follow-up with Dr. Lombardo in [address] Ash in 2 weeks. Plan: 1. CHF 2. Chronic kidney disease 3. Cardiomyopathy, dilated, nonischemic 4. Hypertension 5. Polysubstance abuse 6. Chronic anticoagulation 7. History of recent stroke 8. Ventricular tachycardia 9. Office visit [address] Lombardo and recheck BMP I had a long talk with his Tanya about compliance with medical regimen and follow-up visits and limiting fluid intake to 2000 cc per day and absolutely no drug use. He will be staying at his mother house for the next week or 2 and watch closely. If his potassium permits, I hope to be able to start low-dose SHEKHAR inhibitor in the office. - Time spent with patient Time with patient DS: Greater than 30 minutes Diagnosis - Discharge Diagnosis (1) CHF (congestive heart failure), NYHA class III Status: Chronic (2) CKD (chronic kidney disease) stage 3, GFR 30-59 ml/min Status: Chronic (3) Cardiomyopathy, dilated, nonischemic Status: Chronic (4) Hypertension Status: Chronic (5) Polysubstance abuse Status: Chronic (6) Chronic anticoagulation Status: Chronic (7) History of recent stroke Status: Chronic Specialty Discharge - Follow Up or Referrals Follow up with: Hal Lombardo MD [Physician] - 03/25/17 1:30 pm Mirza Ash MD [Physician] - 2 Weeks (with EKG, CBC, BMP, Mag) Discharge Plan - Discharge Data Disposition: Disch To Home/Self Care Condition at Discharge: Stable Discharge Diet: heart healthy Activity: resume usual activities as tolerated Hygiene: no restrictions Weight Bearing at Discharge: weight bear as tolerated Driving: no restrictions Contact your physician if you experience:: fever over 101, Difficulty voiding, Redness or swelling, Nausea/Vomiting, Shortness of breath, Bleeding, pain uncontrolled by pain medications - Discharge Medications New Potassium Chloride Cap/Tab [K Dur] 10 meq PO DAILY #30 tablet Apixaban [Eliquis] 5 mg PO BID #60 tablet Furosemide Tab [Lasix Tab] 40 mg PO DAILY #30 tablet Continue Carvedilol 12.5 mg PO BID Discontinued Apixaban [Eliquis] 2.5 mg PO BID #60 tablet Furosemide 40 mg PO BID #60 tablet - Follow Up or Referral Follow Up: Hal Lombardo MD [Physician] - 03/25/17 1:30 pm Mirza Ash MD [Physician] - 2 Weeks (with EKG, CBC, BMP, Mag) - Forms/Instructions Instructions: Dilated Cardiomyopathy (DC) Exam - Constitutional Vitals: Period Temp Pulse Resp BP Sys/Cha Pulse Ox Last 24 Hr 98.0 F-100.0 F 46-91 16-24 80-105/47-72 88-98 Exam: General appearance: normal weight, other (Somnolent but arousable) - Head Head exam: Present: normal inspection - Eye Eye exam: Present: EOMI Pupils: Present: ROJELIO - Respiratory Respiratory exam: Present: clear to auscultation bilaterally (I hear no rales wheezing or rhonchi) - Cardiovascular Cardiovascular exam: Present: regular rate and rhythm - GI/Abdominal GI/Abdominal exam: Present: normal bowel sounds - Extremities Exam Extremities exam: Present: normal inspection - Back Exam Back exam: Present: normal inspection - Neurological Exam Neurological exam: Present: oriented X3, other (Somnolent but arousable and oriented and conversant) - Psychiatric Psychiatric exam: Present: depressed, flat affect - Skin Skin exam: Present: normal color, warm, dry Discharge Results Labs on day of discharge: Labs from last 24 hours 03/10/17 03/10/17 04:34 04:34 WBC 15.8 H RBC 4.78 Hgb 14.1 Hct 42.0 MCV 87.9 MCH 30 MCHC 33.6 RDW 14.7 Plt Count 346 MPV 11.7 Neut % (Auto) 62.1 Lymph % (Auto) 21.[address] [place] % (Auto) 12.7 Eos % (Auto) 2.9 Baso % (Auto) 0.6 Neut # (Auto) 9.8 H Lymph # (Auto) 3.3 [place] # (Auto) 2.0 H Eos # (Auto) 0.5 Baso # (Auto) 0.1 Immature Gran % 0.6 Nucleated RBC % 0.0 Immature Gran # 0.09 Nucleated RBCs # 0.00 Sodium 135 L Potassium 3.4 L Chloride 88 L Carbon Dioxide 35 H Anion Gap 15.4 H BUN 23 H Creatinine 1.30 GFR Calculation 76 BUN/Creatinine Ratio 17.00 Glucose 95 Calculated Osmolality 273.1 Calcium 8.7 Magnesium 2.5 H - Imaging and Cardiology Procedure: Chest x-ray: report reviewed by me DS: Provider Consults: 03/05/17 16:17 Consult to Physician [CONS] Routine Comment: CRTD? Consulting Provider: Hal Lombardo 03/06/17 14:51 Consult to Case Mgmt/Social Srvs [CONS] Routine Reason for Case Mgmt/Social Srvs: Equipment Consult Comment: lifevest Expected date of discharge: 03/10/17 Nilsa Brennan Thomas, MD, personally performed the services described in this documentation, ascribed by Giovanna Saez RN in my presence, and it is both accurate and complete 136 .
== END 2017-03-10 14:18 | disposition home or self-care (01) | DRG 291 ==
LOC: N.ED 13:56 → N.EDINP 16:13 → N.TELEN 16:46
PROVIDERS: ADMIT Internal Medicine Cardiovascular Disease; ATTEND Internal Medicine Cardiovascular Disease

== ENCOUNTER 2017-03-20 15:59 | Inpatient (IN) ==
[2017-03-20 16:23] LABS: Basophils # 0.1 10*3/uL (0.0-0.2); Basophils % 0.5 % (0.0-0.8); Eosinophils % 0.1 % (0.00-10.9); Hematocrit 40.4 VOL% (42.0-52.0); Hemoglobin 13.2 GM/DL (14.0-18.0); Immature Granulocytes % 0.6 %; Immature Granulocytes Absolute 0.11 #; Lymphocytes # 1.1 10*3/uL (1.4-4.0); Lymphocytes % 6.4 % (21.2-54.2); Mean Corpuscular HGB Conc 32.7 GM/DL (32-36); Mean Corpuscular Hemoglobin 30 PG (27-34); Mean Corpuscular Volume 90.2 FL (87-102); Mean Platelet Volume 10.4 FL (9.6-12.0); Monocytes # 1.4 10*3/uL (0.11-0.8); Monocytes % 8.2 % (1.7-12.7); Neutrophils # 14.6 10*3/uL (1.4-7.4); Neutrophils % 84.2 % (38.7-73.9); Platelet Count 349 T/CUMM (130-400); Red Blood Count 4.48 MC/CUMM (3.8-5.5); Red Cell Distribution Width 15.5 % (9.3-17.3); White Blood Count 17.3 T/CUMM (4-12)
[2017-03-20 16:30] LABS: INR 1.2; Partial Thromboplastin Time 34.1 SECS (0-40)
--- NOTE | 2017-03-20 16:34 | XRay Report ---
XR chest 1V portable Indication: Shortness of breath. Chest one view: Comparison 03/08/2017. Multiple the electronic devices are again seen over the chest wall, presumably implanted. This prior study, cardiomegaly has worsened with increased central pulmonary vascular congestion and increased reticular prominence of the lungs diffusely. No focal infiltrate is seen. Impression: CHF decompensation. Presumed electronic cardiac device, stable appearing overall. PROCEDURE INTERPRETED AT [facility] DEPARTMENT OF RADIOLOGY Final Report Signed by: Weston aLmar M.D.
[2017-03-20 16:41] LABS: Alanine Aminotransferase 28 U/L (16-61); Albumin 2.8 G/DL (3.4-5.0); Alkaline Phosphatase 88 U/L (45-117); Aspartate Amino Transferase 23 U/L (0-37); Blood Urea Nitrogen 22 MG/DL (7-18); Calcium 8.7 MG/DL (8.5-10.1); Glucose 112 MG/DL (74-106); Osmolality,Calculated 273.1 MOS/KG (273-304); Potassium 4.9 MMOL/L (3.5-5.1); Sodium 135 MMOL/L (136-145); Total Protein 6.4 G/DL (6.4-8.3)
[2017-03-20 16:43] LABS: Troponin I Only 0.065 NG/ML (0.00-0.045)
[2017-03-20] MEDS ORDERED: FUROSEMIDE 40 MG/4 ML VIAL IV STA (16:51)
--- NOTE | 2017-03-20 16:51 | Emergency Department Note ---
Vinnie Brennan Manpreet, am scribing for, and in the presence of, Jayna Beckwith DO 16: 17. ITang Debra, DO, personally performed the services described in this documentation, ascribed by Simba Birmingham in my presence, and it is both accurate and complete 651 . Arrival - Arrival Chief Complaint: Shortness of Breath Stated Complaint: sob Limitations: No Limitations Source: Patient, Family Time Seen by Provider: 03/20/17 16:08 - History of Present Illness HPI Narrative: Pt is a 57 y/o male, with PMHx of CHF, HTN, and CVA, who presents to the ED with CC of SOB since yesterday. Pt is accompanied by his son, who states the pt was previously discharged from the hospital on 03/10/17. Pt also has had 2 previous strokes before. No other pain/complaints reported to ED. Onset (ago): day(s) Consistency: constant Severity: moderate Severity scale (1-10): 3 Allergies/Adverse Reactions: Allergies Allergy/AdvReac Type Severity Reaction Status Date / Time No Known Allergies Allergy Verified 03/20/17 16:11 Home Medications: Home Medications Medication Instructions Recorded Confirmed Type Carvedilol 12.5 mg PO BID 03/05/17 03/20/17 History Furosemide Tab [Lasix Tab] 40 mg PO DAILY #30 tablet 03/07/17 03/20/17 Rx Potassium Chloride Cap/Tab [K Dur] 10 meq PO DAILY #30 tablet 03/07/17 03/20/17 Rx Acetaminophen/Diphenhydramine 1 each PO QPM 03/20/17 03/20/17 History [Acetaminophen Pm Caplet] Apixaban [Eliquis] 5 mg PO BID 03/20/17 03/20/17 History Zolpidem Tartrate [Ambien] 10 mg PO QPM 03/20/17 03/20/17 History Review of System - Review of System 12 point system: reviewed and no additional remarkable complaints except as stated - Review of System Constitutional: Absent: chills, diaphoresis, fever, weakness Respiratory: Present: respiratory distress. Absent: cough Cardiovascular: Absent: chest pain, dyspnea on exertion Gastrointestinal: Absent: abdominal pain, nausea Musculoskeletal: Absent: back pain Neurological: Absent: headache, weakness, numbness, paresthesias, confusion Medical,Surgical,& Family Hx - Medical History Cardio: History of: CHF (EF 20% on echo, January 2017, nonischemic dilated cardiomyopathy with both syst), Hypertension Psychological: No history of: Anxiety Disorders, ADHD, Behavior Problems, Bipolar Disorder, Depression, Previous Suicide Attempt, Psychiatric/Substance Abuse Tx, Schizophrenia, Violent Behavior, Psychiatric Problems Neurology: History of: Cerebrovascular Accident ([place] to be cardioembolic approximately 7 weeks ago) Rheumatology: History of;: Gout Gastrointestinal: History of: Diverticulitis/ Diverticulosis, GI Problems ( partial colectomy with colestomy with reversal) - Surgical History Thoracic Surgeries: Patient denies;: Organ Transplant Neurologic Surgeries: Patient denies: Neurologic Surgery HEENT Surgeries: Patient denies: Eye Surgery, Tonsilectomy & Adenoidectomy Abdominal Surgeries: Surgical HX of: Abdominal Surgery Reproductive Surgeries: Patient denies;: Genitourinary Surgery - Family History Family History: Reports;: Family Cancer (brain cancer), Family Hypertension ( mother), Family Stroke (maternal grandmother) - Social History Smoking Status: Never smoker Exam Vital Signs: Vital Signs Temperature 96.7 F L 03/20/17 16:07 Pulse Rate 98 H 03/20/17 16:15 Respiratory Rate 28 H 03/20/17 16:15 Blood Pressure 110/79 03/20/17 16:15 O2 Sat by Pulse Oximetry 98 03/20/17 16:15 - General General appearance: alert - Head Head exam: Present: atraumatic, normocephalic, normal inspection - Eye Eye exam: Present: normal appearance, PERRL, EOMI - ENT ENT exam: Present: normal exam, normal oropharynx, mucous membranes moist, TM's normal bilaterally - Neck Neck exam: Present: normal inspection, full ROM, trachea midline. Absent: tenderness, thyromegaly - Chest Chest inspection: Present: normal inspection, symmetric chest wall rise - Respiratory Respiratory exam: Present: normal lung sounds bilaterally, accessory muscle use (Use of accessory muscle upon breathing.), respiratory distress (Mild respiratory distress, decreased on left.), other - Cardiovascular Cardiovascular exam: Present: regular rate, normal rhythm, normal heart sounds. Absent: murmur, rubs, gallop - Abdominal Exam Abdominal exam: Present: soft, normal bowel sounds. Absent: distention, tenderness, diminished bowel sounds - Extremities Exam Extremities exam: Present: normal inspection, full ROM. Absent: tenderness - Back Exam Back exam: Present: normal inspection, full ROM. Absent: tenderness - Neurological Exam Neurological exam: Present: alert, oriented X3, CN II-XII intact, reflexes normal - Psychiatric Psychiatric exam: Present: normal affect, normal mood - Skin Skin exam: Present: warm, dry, intact, normal color. Absent: pallor Course Course Narrative: spoke with hospitalist who will admit pt. Results - Labs CBC & BMP: 03/20/17 16:14 03/20/17 16:14 Lab Results: I have reviewed the patients labs Labs: Laboratory Tests 03/20/17 03/20/17 16:14 16:14 WBC 17.3 H RBC 4.48 Hgb 13.2 L Hct 40.4 L Neut % (Auto) 84.2 H Lymph % (Auto) 6.4 L Neut # (Auto) 14.6 H Lymph # (Auto) 1.1 L [place] # (Auto) 1.4 H INR 1.2 PT Patient/Control Mix 13.0 Circ Anticoag PTT 34.1 Laboratory Tests 03/20/17 16:14 Sodium 135 L Potassium 4.9 Chloride 104 Carbon Dioxide 20 L Anion Gap 15.9 H BUN 22 H Glucose 112 H Total Bilirubin 2.10 H CK-MB (CK-2) 1.8 Troponin I 0.065 H Albumin 2.8 L Globulin 3.6 H Albumin/Globulin Ratio 0.7 L Laboratory Tests 03/20/17 16:14 B-Natriuretic Peptide 3939 H - Diagnostic Findings Procedure: Chest x-ray: report reviewed by me (CHF decompensation. Presumed electronic cardiac device, stable appearing overall.) Disposition Clinical Impression: Acute on chronic systolic CHF (congestive heart failure) Case discussed with: patient, patient's family Disposition: Still a Patient Condition: Stable Time of Disposition: 17:50
[2017-03-20] MEDS ORDERED: FUROSEMIDE 40 MG/4 ML VIAL ONE (17:18)
[2017-03-20 17:41] LABS: Barbiturates Screen,Urine Negative (Negative); Benzodiazepines Screen,Urine Negative (Negative); Cannabinoid Screen,Urine Positive (Negative); Opiate Screen,Urine Negative (Negative); Phencyclidine Screen,Urine Negative (Negative)
[2017-03-20 17:42] LABS: Apearance,Urine CLEAR (Clear); Bacteria,Urine Occasional /HPF (Few); Bilirubin,Urine Negative (Negative); Blood, Urine Small mg/dL (Negative); Glucose,Urine (UA) Negative (Negative); Hyaline Casts,Urine 7 /LPF (0-3); Ketones,Urine Negative (Negative); Mucus,Urine Occasional /LPF (Occasional); Nitrite,Urine Negative (Negative); Protein,Urine Negative; RBC,Urine <1 /HPF (0-4); Squamous Epithelial Cell,Urine Occasional /HPF (0-10); Urine Color Yellow (Yellow); Urine Urobilinogen < 2.0 EU/DL (0.2-1.0)
[2017-03-20] MEDS ORDERED: ONDANSETRON 4 MG/2 ML VIAL IV PRN (17:45)
[2017-03-20] MEDS ORDERED: ACETAMINOPHEN 325 MG TABLET PO PRN (17:45)
[2017-03-20] MEDS ORDERED: LACTULOSE 20 GM/30 ML UDCUP PO PRN (17:45)
[2017-03-20] MEDS ORDERED: ENOXAPARIN 30 MG/0.3 ML SYRINGE SUBCUT SCH (18:00)
--- NOTE | 2017-03-20 18:09 | Hospitalist History & Physical ---
Assessment and Plan (1) Acute on chronic congestive heart failure Status: Acute Assessment and plan: acute on chronic systolic chf exacerbation, noncompliance, lasix 40 mg IV every 12 hours, cont coreg 3.125 mg po bid, last echo January 2017 ef 20% Current Visit: No (2) Leukocytosis Status: Acute Assessment and plan: zosyn, blood cx times 2, ua negative, persistent elevation from 02/20, Dr Moran consulted Current Visit: Yes (3) Chronic anticoagulation Status: Chronic Assessment and plan: cont eliquis Current Visit: No (4) KATHARINA (obstructive sleep apnea) Status: Acute Assessment and plan: chest ct to rule out pe, sleep medicine coming to see him in the hospital Current Visit: No (5) Cardiomyopathy, dilated, nonischemic Status: Chronic Current Visit: No (6) Hypertension Status: Chronic Assessment and plan: cont coreg Current Visit: No (7) Polysubstance abuse Status: Chronic Assessment and plan: marijuana Current Visit: No (8) Elevated bilirubin Status: Acute Assessment and plan: direct bilirubin and us of abdomen Current Visit: Yes History of Present Illness Chief complaint: sob History of present illness: Mr. Loving is a 57 year old male with history of KATHARINA, Hypertension and chf exacerbation with reoccurring admission about every 2 weeks for chf exacerbation. Patient wearing life vest. Drug Screen again positive for marijuana. Patient looks very ashy. Denies chest pain, history of hepatitis. His WBC has been persistently elevated since 02/20 slowly increasing. Will get chest ct looking for infiltrates. Blood culture ordered, UA negative for infectiion. Patient requested to be DNI with and son present. Patient had an HST while in hospital but was seeing someone [facility] who will see him tomorrow. Needs cpap at night. Home Medications Medication Instructions Recorded Confirmed Type Carvedilol 12.5 mg PO BID 03/05/17 03/20/17 History Furosemide Tab [Lasix Tab] 40 mg PO DAILY #30 tablet 03/07/17 03/20/17 Rx Potassium Chloride Cap/Tab [K Dur] 10 meq PO DAILY #30 tablet 03/07/17 03/20/17 Rx Acetaminophen/Diphenhydramine 1 each PO QPM 03/20/17 03/20/17 History [Acetaminophen Pm Caplet] Apixaban [Eliquis] 5 mg PO BID 03/20/17 03/20/17 History Zolpidem Tartrate [Ambien] 10 mg PO QPM 03/20/17 03/20/17 History Allergies Allergy/AdvReac Type Severity Reaction Status Date / Time No Known Allergies Allergy Verified 03/20/17 16:11 Medical,Surgical,& Family Hx - Medical History Cardio: History of: CHF (EF 20% on echo, January 2017, nonischemic dilated cardiomyopathy with both syst), Hypertension Psychological: No history of: Anxiety Disorders, ADHD, Behavior Problems, Bipolar Disorder, Depression, Previous Suicide Attempt, Psychiatric/Substance Abuse Tx, Schizophrenia, Violent Behavior, Psychiatric Problems Neurology: History of: Cerebrovascular Accident ([place] to be cardioembolic approximately 7 weeks ago) Rheumatology: History of;: Gout Gastrointestinal: History of: Diverticulitis/ Diverticulosis, GI Problems ( partial colectomy with colestomy with reversal) - Surgical History Thoracic Surgeries: Patient denies;: Organ Transplant Neurologic Surgeries: Patient denies: Neurologic Surgery HEENT Surgeries: Patient denies: Eye Surgery, Tonsilectomy & Adenoidectomy Abdominal Surgeries: Surgical HX of: Abdominal Surgery Reproductive Surgeries: Patient denies;: Genitourinary Surgery - Family History Family History: Reports;: Family Cancer (brain cancer), Family Hypertension ( mother), Family Stroke (maternal grandmother) - Social History Smoking Status: Former smoker Frequency of Alcohol Use: None Type of Drug Use: Marijuana, Methamphetamine Marital Status: Lives With:: Alone Functional capacity: independent ambulation - Constitutional Constitutional: Present: fatigue, headache(s), weakness. Absent: fever(s) - EENT Eyes: Absent: blurry vision, diplopia Ears: Absent: decreased hearing, ear discharge Nose, mouth and throat: Present: headache(s). Absent: sore throat - Cardiovascular Cardiovascular: Present: dyspnea, dyspnea on exertion, edema, lightheadedness, orthopnea, palpitations, PND. Absent: chest pain at rest, chest pain with activity - Respiratory Respiratory: Present: dyspnea, dyspnea on exertion, snoring. Absent: cough, change in phlegm color - Gastrointestinal Gastrointestinal: Present: nausea, vomiting. Absent: constipation, diarrhea - Genitourinary Genitourinary: Absent: difficulty urinating, dysuria - Neurological Neurological: Present: confusion, dizziness, headache(s). Absent: syncope - Psychiatric Psychiatric: Present: depression, difficulty concentrating. Absent: anxiety - Endocrine Endocrine: Present: fatigue, heat intolerance. Absent: cold intolerance - Hematologic/Lymphatic Hematologic/Lymphatic: Present: easy bleeding, easy bruising Exam - Constitutional Vitals: Period Temp Pulse Resp BP Sys/Cha Pulse Ox Last 24 Hr 96.7 F-96.7 F 98-99 28-28 110-110/79-79 96-98 General appearance: mild distress, over weight - Head Head exam: Present: normal inspection, normocephalic - Eye Eye exam: Present: EOMI, scleral icterus Pupils: Present: ROJELIO, normal accommodation - ENT ENT exam: Present: normal exam, normal external ear exam - Neck Neck exam: Absent: lymphadenopathy, thyromegaly - Respiratory Respiratory exam: Present: decreased breath sounds, rales. Absent: wheezes - Cardiovascular Cardiovascular exam: Present: tachycardia. Absent: systolic murmur - GI/Abdominal GI/Abdominal exam: Present: normal bowel sounds, soft. Absent: tenderness - Extremities Exam Extremities exam: Present: normal capillary refill, edema - Neurological Exam Neurological exam: Present: altered, CN II-XII intact, reflexes normal. Absent : motor sensory deficit - Psychiatric Psychiatric exam: Present: depressed, flat affect - Skin Skin exam: Present: cyanosis, other (jaundice) Results - Labs CBC & BMP: 03/20/17 16:14 03/20/17 16:14 Lab Results: I have reviewed the past 24 hour labs Labs: uds marijuana, ua negative for infection - EKG EKG shows: tachycardia (St depression in inferior leads and lateral leads ), sinus rhythm - Diagnostic Findings Procedure: Chest x-ray: report reviewed by me (chf )
[2017-03-20 18:59] LABS: Bilirubin,Direct 0.7 MG/DL (0.0-0.20); Free T4 (Free Thyroxine) 1.32 NG/DL (0.76-1.46); Thyroid Stimulating Hormone 1.33 uIU/ml (0.358-3.74)
--- NOTE | 2017-03-20 19:00 | Ultrasound Report ---
History: Elevated bilirubin Date: 03/20/2017 Study: Abdominal ultrasound complete Comparison exam: February 16, 2017 Real-time ultrasound images are captured and archived. The gallbladder wall is measured mildly thickened at 6 mm. There is no cholelithiasis or sonographic Starkey sign. There is no abnormal pericholecystic fluid. There is no abnormal biliary dilatation. The common bile duct measures 4.8 mm diameter. The liver appears normal. The pancreas is obscured by bowel gas. There is hepatopedal flow in the portal vein. The right kidney measures 9.2 cm length and contains a 15 mm cyst at its upper pole. The left kidney measures 9.4 cm length and contains a 10 mm nonobstructing stone in its lower pole. There is no focal splenic abnormality. The spleen measures 12.0 x 3.6 x 4.0 cm. There is no aortic aneurysm. IVC is patent. The exam was technically difficult due to patient labored breathing. Impression: Nonspecific gallbladder wall thickening without cholelithiasis. There is no sonographic Starkey sign Nonobstructing left nephrolithiasis Some of the midline structures are obscured by bowel gas PROCEDURE INTERPRETED AT [facility] DEPARTMENT OF RADIOLOGY Final Report Signed by: Dr. Tamela Logan
--- NOTE | 2017-03-20 19:07 | CT Report ---
History: Shortness of breath. Elevated white blood cell count Date: 03/20/2017 Study: CT chest with IV contrast with pulmonary embolus technique Comparison exam: No previous Spiral CT sections were obtained through the lungs following the IV administration of 80 mL of Omnipaque 350 without immediate complication. Multiplanar reconstruction images are also evaluated. The CT exam was performed using one or more of the following dose reduction techniques: Automated exposure control, adjustment of the mA and/or kV according to patient size, or use of iterative reconstruction technique. There is no definite discrete filling defect within the pulmonary arterial tree to suggest acute pulmonary embolic disease. There is decreased sensitivity for small peripheral emboli in the lung bases because of metallic artifact from monitoring devices. There is mild nonspecific right paratracheal lymphadenopathy with lymph nodes measuring at least 11 mm maximum diameter. There is no pericardial effusion. There is trace pleural effusion. There is scattered patchy and groundglass infiltrate in all lobes. Pneumonia is slightly favored over pulmonary edema. The partially visualized upper abdomen is unremarkable. There is mild thoracic spondylosis. Impression: No evidence of acute pulmonary embolic disease Bilateral airspace disease. Pneumonia is favored. Trace bilateral pleural effusion Nonspecific mild right paratracheal lymphadenopathy PROCEDURE INTERPRETED AT [facility] DEPARTMENT OF RADIOLOGY Final Report Signed by: Dr. Tamela Logan
[2017-03-20] MEDS: CARVEDILOL 12.5 MG TABLET PO SCH (21:42)
[2017-03-20] MEDS: ZALEPLON 5 MG CAPSULE PO PRN (21:42)
[2017-03-20] MEDS: APIXABAN 5 MG TABLET PO SCH (21:43)
[2017-03-20] MEDS: ZOLPIDEM 5 MG TABLET PO SCH (21:44)
[2017-03-21] MEDS: PIPERACILLIN/TAZOBACTAM 3,375 MG in SODIUM CHLORIDE 0.9% 100 ML IV SCH ×5 (01:23→23:05)
[2017-03-21 06:01] LABS: Basophils # 0.1 10*3/uL (0.0-0.2); Basophils % 0.6 % (0.0-0.8); Eosinophils # 0.2 10*3/uL (0.0-0.87); Eosinophils % 1.1 % (0.00-10.9); Hematocrit 38.2 VOL% (42.0-52.0); Hemoglobin 12.4 GM/DL (14.0-18.0); Immature Granulocytes % 0.6 %; Immature Granulocytes Absolute 0.09 #; Lymphocytes # 2.2 10*3/uL (1.4-4.0); Lymphocytes % 13.8 % (21.2-54.2); Mean Corpuscular HGB Conc 32.5 GM/DL (32-36); Mean Corpuscular Hemoglobin 29 PG (27-34); Mean Corpuscular Volume 89.5 FL (87-102); Mean Platelet Volume 11.4 FL (9.6-12.0); Monocytes # 1.6 10*3/uL (0.11-0.8); Monocytes % 10.4 % (1.7-12.7); Neutrophils # 11.6 10*3/uL (1.4-7.4); Neutrophils % 73.5 % (38.7-73.9); Platelet Count 294 T/CUMM (130-400); Red Blood Count 4.27 MC/CUMM (3.8-5.5); Red Cell Distribution Width 15.3 % (9.3-17.3); White Blood Count 15.8 T/CUMM (4-12)
--- NOTE | 2017-03-21 06:29 | EKG Report ---
Stationary ECG Study [facility] ER Test Date: 03/20/2017 4:06:09 PM Pat Name: LANETTE CARCAMO Department: Room: 289 Gender: M [employer] Room: : 1960 Requested by: Jayna Beckwith Order Number: [id number] Reading MD: CHERYL BROWN Intervals [place] Rate: 102 P: 50 AK: 178 QRS: 134 QRSD: 137 T: -46 QT: 372 QTc: 431 Interpretive Statements SINUS TACHYCARDIA LEFT ATRIAL ENLARGEMENT INTRAVENTRICULAR CONDUCTION DELAY POSSIBLE RIGHT VENTRICULAR HYPERTROPHY Nonspecific repol abnorm Electronically Signed On 03-21-17 07:50:28 CDT by CHERYL BROWN [email or web address]
[2017-03-21 06:34] LABS: Albumin 2.4 G/DL (3.4-5.0); Bilirubin,Total 2.1 MG/DL (0.2-1.0); Osmolality,Calculated 280.5 MOS/KG (273-304); Potassium 4.5 MMOL/L (3.5-5.1); Risk Ratio 3.68; Total Protein 5.6 G/DL (6.4-8.3); VLDL CHOLESTEROL 12.6 MG/DL
[2017-03-21] MEDS: APIXABAN 5 MG TABLET PO SCH ×2 (08:15→21:55)
[2017-03-21] MEDS: CARVEDILOL 12.5 MG TABLET PO SCH (08:15)
[2017-03-21] MEDS: FUROSEMIDE 40 MG/4 ML VIAL IV SCH ×2 (08:16→15:50)
[2017-03-21] MEDS ORDERED: CLORAZEPATE 3.75 MG TABLET PO PRN ×2 (11:00→17:30)
--- NOTE | 2017-03-21 11:03 | Infectious Disease Consult ---
Assessment and Plan (1) Pneumonia Status: Acute Assessment and plan: Patient has bilateral bronchopneumonia based on CT chest findings. I am surprised he does not have significant sputum production. Recommendations: 1. Agree with empiric Zosyn 2. Sputum Gram stain and culture 3. Follow-up blood culture results Current Visit: Yes (2) Leukocytosis Status: Acute Assessment and plan: When he focus of infection I see is bilateral bronchopneumonia. Workup as above. Continue Zosyn. Current Visit: Yes (3) Acute on chronic systolic CHF (congestive heart failure) Status: Chronic Current Visit: Yes (4) CKD (chronic kidney disease) stage 2, GFR 60-89 ml/min Status: Chronic Current Visit: Yes (5) Hypertension Status: Chronic Current Visit: No History of Present Illness Chief complaint: Leukocytosis History of present illness: Mr. Loving is a 57 year old male with nonischemic dilated cardiomyopathy who is been in and out of hospital every 2 weeks about over the past 2 months. He says he has been more sick since he had a stroke in early January. Since then patient has been noted to have leukocytosis which has persisted averaging about 15-16. He has not had any fever at all. He has shortness of breath related to CHF with orthopnea and he is hardly able to sleep. He says he actually has not had a full night states that he was discharged from hospital 2 weeks ago. He has not had any significant sputum production no pleuritic chest pain no nausea vomiting or diarrhea no irritative urinary symptoms and his appetite has been excellent throughout all this he says. Because of this leukocytosis I am asked to assist with evaluation. Patient was started on Zosyn. No past positive cultures in the records. Home Medications Medication Instructions Recorded Confirmed Type Carvedilol 12.5 mg PO BID 03/05/17 03/20/17 History Furosemide Tab [Lasix Tab] 40 mg PO DAILY #30 tablet 03/07/17 03/20/17 Rx Potassium Chloride Cap/Tab [K Dur] 10 meq PO DAILY #30 tablet 03/07/17 03/20/17 Rx Acetaminophen/Diphenhydramine 1 each PO QPM 03/20/17 03/20/17 History [Acetaminophen Pm Caplet] Apixaban [Eliquis] 5 mg PO BID 03/20/17 03/20/17 History Zolpidem Tartrate [Ambien] 10 mg PO QPM 03/20/17 03/20/17 History Allergies Allergy/AdvReac Type Severity Reaction Status Date / Time No Known Allergies Allergy Verified 03/20/17 16:11 12 point system: reviewed and no additional remarkable complaints except as stated (Per HPI) Medical,Surgical,& Family Hx - Medical History Cardio: History of: CHF (EF 20% on echo, January 2017, nonischemic dilated cardiomyopathy with both syst), Hypertension Psychological: No history of: Anxiety Disorders, ADHD, Behavior Problems, Bipolar Disorder, Depression, Previous Suicide Attempt, Psychiatric/Substance Abuse Tx, Schizophrenia, Violent Behavior, Psychiatric Problems Neurology: History of: Cerebrovascular Accident ([place] to be cardioembolic approximately 7 weeks ago) Rheumatology: History of;: Gout Gastrointestinal: History of: Diverticulitis/ Diverticulosis, GI Problems ( partial colectomy with colestomy with reversal) - Surgical History Thoracic Surgeries: Patient denies;: Organ Transplant Neurologic Surgeries: Patient denies: Neurologic Surgery HEENT Surgeries: Patient denies: Eye Surgery, Tonsilectomy & Adenoidectomy Abdominal Surgeries: Surgical HX of: Abdominal Surgery Reproductive Surgeries: Patient denies;: Genitourinary Surgery - Family History Family History: Reports;: Family Cancer (brain cancer), Family Hypertension ( mother), Family Stroke (maternal grandmother) - Social History Smoking Status: Former smoker Frequency of Alcohol Use: None Type of Drug Use: Marijuana, Methamphetamine Infectious Disease Exam H&P - Constitutional Vitals: Vital Signs Temp Pulse Resp BP Pulse Ox 98 F 71 20 100/74 94 L 03/21/17 07:46 03/21/17 07:46 03/21/17 07:46 03/21/17 07:46 03/21/17 07:46 Intake and Output 03/20/17 03/21/17 03/21/17 23:59 07:59 15:59 Intake Total 480 / 480 200 / 200 Output Total 920 / 920 400 / 400 Balance -440 / -440 -200 / -200 Intake: IV 100 / 100 Zosyn 3,375 mg In Ns 100 100 / 100 ml @ 25 mls/hr IV Q8H MARILYN Rx#:[id number] Oral 480 / 480 100 / 100 Output: Urine 920 / 920 400 / 400 Other: Voiding Method Urinal Urinal Weight 95.254 kg 97.522 kg Patient Weight 03/21/17 23:59 Weight 97.522 kg Exam: General: Patient uncomfortable, short of breath at rest HEENT: Mucous membranes pink and moist, anicteric acyanotic, ROJELIO, no oral exudates Neck: Supple, no thyroid gland enlargement Respiratory system: He is quite tachypneic but breath sounds are vesicular, no crepitations or wheezes heard Cardiovascular: Normal S1 and S2, no murmurs appreciated Abdomen: Normal bowel sounds, soft nontender throughout, no organomegaly or mass Genitourinary: No suprapubic pain or bladder distention Extremities: no edema Skin: No rash Reports - Labs CBC & BMP: 03/21/17 05:03 03/21/17 05:03 Labs: Laboratory Results - last 24 hr 03/20/17 03/20/17 03/20/17 16:14 16:14 16:14 WBC 17.3 H RBC 4.48 Hgb 13.2 L Hct 40.4 L MCV 90.2 MCH 30 MCHC 32.7 RDW 15.5 Plt Count 349 MPV 10.4 Neut % (Auto) 84.2 H Lymph % (Auto) 6.4 L [place] % (Auto) 8.2 Eos % (Auto) 0.1 Baso % (Auto) 0.5 Neut # (Auto) 14.6 H Lymph # (Auto) 1.1 L [place] # (Auto) 1.4 H Eos # (Auto) 0.0 Baso # (Auto) 0.1 Immature Gran % 0.6 Nucleated RBC % 0.0 Immature Gran # 0.11 Nucleated RBCs # 0.00 INR 1.2 PT Patient/Control Mix 13.0 Circ Anticoag PTT 34.1 Sodium 135 L Potassium 4.9 Chloride 104 Carbon Dioxide 20 L Anion Gap 15.9 H BUN 22 H Creatinine 1.30 GFR Calculation 75 BUN/Creatinine Ratio 16.00 Glucose 112 H Hemoglobin A1c Calculated Osmolality 273.1 Calcium 8.7 Magnesium Total Bilirubin 2.10 H Direct Bilirubin AST 23 ALT 28 Alkaline Phosphatase 88 Ammonia Total Creatine Kinase 56 CK-MB (CK-2) 1.8 Troponin I 0.065 H B-Natriuretic Peptide Total Protein 6.4 Albumin 2.8 L Globulin 3.6 H Albumin/Globulin Ratio 0.7 L Triglycerides Cholesterol LDL Cholesterol VLDL Cholesterol HDL Cholesterol Heart Disease Risk Ratio Free T4 TSH 3rd Generation Urine Color Urine Appearance Urine pH Ur Specific [place] Urine Protein Urine Glucose (UA) Urine Ketones Urine Blood Urine Nitrate Urine Bilirubin Urine Urobilinogen Urine Leukocytes Urine RBC Ur Squamous Epith Cells Urine Bacteria Hyaline Casts Urine Mucus Ur Culture Indicated? Urine Opiates Screen Ur Barbiturates Screen Ur Phencyclidine Scrn U Amphetamine/Methamph U Benzodiazepines Scrn U Cocaine Metab Screen U Cannabinoids Screen 03/20/17 03/20/17 03/20/17 16:14 16:14 17:06 WBC RBC Hgb Hct MCV MCH MCHC RDW Plt Count MPV Neut % (Auto) Lymph % (Auto) [place] % (Auto) Eos % (Auto) Baso % (Auto) Neut # (Auto) Lymph # (Auto) [place] # (Auto) Eos # (Auto) Baso # (Auto) Immature Gran % Nucleated RBC % Immature Gran # Nucleated RBCs # INR PT Patient/Control Mix Circ Anticoag PTT Sodium Potassium Chloride Carbon Dioxide Anion Gap BUN Creatinine GFR Calculation BUN/Creatinine Ratio Glucose Hemoglobin A1c Calculated Osmolality Calcium Magnesium 2.0 Total Bilirubin Direct Bilirubin 0.70 H AST ALT Alkaline Phosphatase Ammonia 41 H Total Creatine Kinase CK-MB (CK-2) Troponin I B-Natriuretic Peptide 3939 H Total Protein Albumin Globulin Albumin/Globulin Ratio Triglycerides Cholesterol LDL Cholesterol VLDL Cholesterol HDL Cholesterol Heart Disease Risk Ratio Free T4 1.32 TSH 3rd Generation 1.330 Urine Color Yellow Urine Appearance Clear Urine pH 5.0 Ur Specific [place] 1.010 Urine Protein Negative Urine Glucose (UA) Negative Urine Ketones Negative Urine Blood Small Urine Nitrate Negative Urine Bilirubin Negative Urine Urobilinogen < 2.0 H Urine Leukocytes Negative Urine RBC <1 Ur Squamous Epith Cells Occasional Urine Bacteria Occasional Hyaline Casts 7 Urine Mucus Occasional Ur Culture Indicated? Not indicated Urine Opiates Screen Ur Barbiturates Screen Ur Phencyclidine Scrn U Amphetamine/Methamph U Benzodiazepines Scrn U Cocaine Metab Screen U Cannabinoids Screen 03/20/17 03/21/17 03/21/17 17:06 05:03 05:03 WBC 15.8 H RBC 4.27 Hgb 12.4 L Hct 38.2 L MCV 89.5 MCH 29 MCHC 32.5 RDW 15.3 Plt Count 294 MPV 11.4 Neut % (Auto) 73.5 Lymph % (Auto) 13.8 L [place] % (Auto) 10.4 Eos % (Auto) 1.1 Baso % (Auto) 0.6 Neut # (Auto) 11.6 H Lymph # (Auto) 2.2 [place] # (Auto) 1.6 H Eos # (Auto) 0.2 Baso # (Auto) 0.1 Immature Gran % 0.6 Nucleated RBC % 0.0 Immature Gran # 0.09 Nucleated RBCs # 0.00 INR PT Patient/Control Mix Circ Anticoag PTT Sodium 139 Potassium 4.5 Chloride 102 Carbon Dioxide 24 Anion Gap 17.5 H BUN 26 H Creatinine 1.40 H GFR Calculation 69 BUN/Creatinine Ratio 18.00 Glucose 87 Hemoglobin A1c Calculated Osmolality 280.5 Calcium 9.0 Magnesium Total Bilirubin 2.10 H Direct Bilirubin AST 15 ALT 22 Alkaline Phosphatase 75 Ammonia Total Creatine Kinase CK-MB (CK-2) Troponin I B-Natriuretic Peptide Total Protein 5.6 L Albumin 2.4 L Globulin 3.2 Albumin/Globulin Ratio 0.7 L Triglycerides 63 Cholesterol 147 LDL Cholesterol 94.0 VLDL Cholesterol 12.6 HDL Cholesterol 40 Heart Disease Risk Ratio 3.68 Free T4 TSH 3rd Generation Urine Color Urine Appearance Urine pH Ur Specific [place] Urine Protein Urine Glucose (UA) Urine Ketones Urine Blood Urine Nitrate Urine Bilirubin Urine Urobilinogen Urine Leukocytes Urine RBC Ur Squamous Epith Cells Urine Bacteria Hyaline Casts Urine Mucus Ur Culture Indicated? Urine Opiates Screen Negative Ur Barbiturates Screen Negative Ur Phencyclidine Scrn Negative U Amphetamine/Methamph Negative U Benzodiazepines Scrn Negative U Cocaine Metab Screen Negative U Cannabinoids Screen Positive H 03/21/17 03/21/17 05:03 05:03 WBC RBC Hgb Hct MCV MCH MCHC RDW Plt Count MPV Neut % (Auto) Lymph % (Auto) [place] % (Auto) Eos % (Auto) Baso % (Auto) Neut # (Auto) Lymph # (Auto) [place] # (Auto) Eos # (Auto) Baso # (Auto) Immature Gran % Nucleated RBC % Immature Gran # Nucleated RBCs # INR PT Patient/Control Mix Circ Anticoag PTT Sodium Potassium Chloride Carbon Dioxide Anion Gap BUN Creatinine GFR Calculation BUN/Creatinine Ratio Glucose Hemoglobin A1c 5.9 Calculated Osmolality Calcium Magnesium Total Bilirubin Direct Bilirubin AST ALT Alkaline Phosphatase Ammonia Total Creatine Kinase CK-MB (CK-2) Troponin I 0.075 H B-Natriuretic Peptide Total Protein Albumin Globulin Albumin/Globulin Ratio Triglycerides Cholesterol LDL Cholesterol VLDL Cholesterol HDL Cholesterol Heart Disease Risk Ratio Free T4 TSH 3rd Generation Urine Color Urine Appearance Urine pH Ur Specific [place] Urine Protein Urine Glucose (UA) Urine Ketones Urine Blood Urine Nitrate Urine Bilirubin Urine Urobilinogen Urine Leukocytes Urine RBC Ur Squamous Epith Cells Urine Bacteria Hyaline Casts Urine Mucus Ur Culture Indicated? Urine Opiates Screen Ur Barbiturates Screen Ur Phencyclidine Scrn U Amphetamine/Methamph U Benzodiazepines Scrn U Cocaine Metab Screen U Cannabinoids Screen - Diagnostic Findings Procedure: Chest x-ray: image reviewed by me, report reviewed by me (Patchy opacities bilaterally), CT - chest: image reviewed by me, report reviewed by me (Patchy consolidation bilaterally)
--- NOTE | 2017-03-21 14:41 | Cardiology Consult Note ---
Mika, Cayla Jaramillo RN, am scribing for, and in the presence of, Hal Lombardo MD 14 :36. Assessment and Plan - Time spent with patient Time spent with patient: Greater than 30 minutes (due to assessment, planning, documentation, medication review) Time spent discussing smoking cessation with patient: 3 to 10 minutes (1) Acute on chronic systolic CHF (congestive heart failure) Status: Chronic Assessment and plan: 57-year-old male, nonischemic cardiomyopathy, CHF [place] Heart Association class IV, left bundle branch block, history of hypertension, most recently hypertension and recent acute kidney injury/hyperkalemia. Polysubstance abuse, including EtOH, methamphetamine and marijuana. Currently admitted with CHF exacerbation, after recent hospitalization. Medical management in the past was limited due to hypotension, acute kidney injury, hyperkalemia. -NICM. We initiated medical CHF regimen on last admission, and tox screen finally negative for methamphetamines. Still positive for marijuana. Low blood pressure limits dose titration of his CHF medications at this time. -CT scan suggested bronchopneumonia. Antibiotics were started. He is still quite hypoxic. Will obtain pulmonary consult. -I suspect pulmonary edema from high filling pressure may still contribute to his findings. Doubt that we could use more diuretics, if low cardiac output, edema remains an issue, we can try dobutamine -Prior CVA. On Eliquis 5 mg twice daily. The recent stroke was suggestive of cardioembolic origin, although no atrial fibrillation documented so far. No bleeding issues. Current Visit: Yes (2) CKD (chronic kidney disease) stage 2, GFR 60-89 ml/min Status: Chronic Assessment and plan: SEE PLAN OF CARE LISTED ABOVE. Current Visit: Yes (3) Essential hypertension Status: Chronic Assessment and plan: SEE PLAN OF CARE LISTED ABOVE. Current Visit: No (4) NSVT (nonsustained ventricular tachycardia) Status: Chronic Current Visit: No (5) Chronic anticoagulation Status: Chronic Assessment and plan: SEE PLAN OF CARE LISTED ABOVE. Current Visit: No (6) History of recent stroke Status: Chronic Assessment and plan: SEE PLAN OF CARE LISTED ABOVE. Current Visit: No (7) Left bundle branch block Status: Chronic Assessment and plan: SEE PLAN OF CARE LISTED ABOVE. Current Visit: No (8) Polysubstance abuse Status: Chronic Assessment and plan: SEE PLAN OF CARE LISTED ABOVE. Current Visit: No (9) Cardiomyopathy, dilated, nonischemic Status: Chronic Assessment and plan: SEE PLAN OF CARE LISTED ABOVE. Current Visit: No History of Present Illness - Data of Consult Patient: known to practice within the last 3 years Consult date: 03/21/17 Requesting Physician: Chica Moreno Primary care physician: Bernard Hernandez - Consult Narrative Reason for consult: severe cardiomyopathy History of present illness: PRIMARY [employer] CAR UN[employer]ER: DR. MARTINEZ Mr. Loving is a 57 year old white male with risk factors significant for: hypertension, tobacco use, sedentary lifestyle, obesity. Past medical history includes nonischemic dilated cardiomyopathy with most recent EF 20% per echocardiogram in January 2017, polysubstance abuse, acute on chronic systolic congestive heart failure, NYHA class IV, chronic LBBB, chronic renal insufficiency. He has had several recurrent admissions for CHF over the last 8 weeks. Patient also had CVA in January 2017, thought to be of embolic origin. He has been started on Eliquis for stroke prevention. Patient was recently discharged from hospital on March 07 for CHF exacerbation. He was diuresed, medications were adjusted, and he showed improvement. SHEKHAR inhibitors and ARBs were not started due to hyperkalemia and renal dysfunction. NSVT and PVCs per EKG monitoring. Toxicology screen positive for methamphetamine and marijuana. BEZEL CUTTER-D placement was discussed with him, and could be pursued pending abstinence of illicit drug use. He had LifeVest placed prior to discharge and was discharged home with it. At time of discharge, medication compliance, fluid intake restriction, and absolute statement from drugs was discussed with patient and his . They voiced understanding. Patient presented to [facility] on the afternoon of March 20 with complaints of shortness of breath with onset approximately 2-3 days prior. He was tachypneic with RR 30. Chest CT ruled out pulmonary emboli. Chest x-ray with some worsened cardiomegaly and increasing pulmonary congestion but no infiltrate. BNP 3939. Creatinine 1.4. Tox screen again positive for marijuana. He was admitted to telemetry unit per hospital medicine for further observation. Cardiology has been asked to see also. Upon exam, he is sleeping without acute respiratory distress. No tachypnea at rest. He is not really orthopneic this morning, and is basically lying flat in bed using one pillow. Denies shortness of breath at this time, but he is mildly tachypneic with conversation. He is not having any chest pain. Admits PND, nocturia. Trace pretibial edema of bilateral lower extremities. His is present with him this morning. They report he had an outpatient appointment to be set up for CPAP machine. Patient's reports he will be seen by sleep medicine this morning in the hospital to get a machine. Nonproductive cough. No recent fever or chills. He received Lasix 80 mg IV in ER yesterday evening with greater than 1000 ml output overnight, and he reports that he feels better this morning. BP 150/75. Review of tele shows sinus rhythm with LBBB, some NSVT and PVCs. Electrolytes within acceptable range. WBC 15,800. Troponin 0.065. CC: Daniel Costello III - Home Medications and Allergies Home Medications: Home Medications Medication Instructions Recorded Confirmed Type Carvedilol 12.5 mg PO BID 03/05/17 03/20/17 History Furosemide Tab [Lasix Tab] 40 mg PO DAILY #30 tablet 03/07/17 03/20/17 Rx Potassium Chloride Cap/Tab [K Dur] 10 meq PO DAILY #30 tablet 03/07/17 03/20/17 Rx Acetaminophen/Diphenhydramine 1 each PO QPM 03/20/17 03/20/17 History [Acetaminophen Pm Caplet] Apixaban [Eliquis] 5 mg PO BID 03/20/17 03/20/17 History Zolpidem Tartrate [Ambien] 10 mg PO QPM 03/20/17 03/20/17 History Allergies/Adverse Reactions: Allergies Allergy/AdvReac Type Severity Reaction Status Date / Time No Known Allergies Allergy Verified 03/20/17 16:11 - Constitutional Constitutional: Present: daytime sleepiness, fatigue, lethargy, stops breathing during sleep. Absent: fever(s), frequent falls, weakness, weight gain, weight loss - EENT Eyes: Absent: loss of vision Ears: Absent: decreased hearing Nose, mouth and throat: Absent: dysphagia, nasal congestion, neck pain, throat swelling, tongue swelling - Cardiovascular Cardiovascular: Present: dyspnea, dyspnea on exertion, edema (Trace pretibial edema bilateral lower extremities), orthopnea, palpitations, PND. Absent: chest pain at rest, chest pain with activity, diaphoresis, radiating jaw, neck or arm pain, lightheadedness - Respiratory Respiratory: Present: cough (Nonproductive), dyspnea, dyspnea on exertion. Absent: hemoptysis, wheezing, change in phlegm color - Gastrointestinal Gastrointestinal: Present: abdominal pain. Absent: constipation, diarrhea, dysphagia, hematemesis, hematochezia, melena, nausea, vomiting - Genitourinary Genitourinary: Present: dysuria, nocturia. Absent: flank pain, hematuria - Musculoskeletal Musculoskeletal: Absent: arthralgias, limited range of motion - Neurological Neurological: Absent: abnormal speech, dizziness, frequent falls, syncope, tremor(s) - Psychiatric Psychiatric: Absent: anxiety, confusion, depression - Endocrine Endocrine: Absent: cold intolerance, heat intolerance - Hematologic/Lymphatic Hematologic/Lymphatic: Absent: easy bleeding, easy bruising Medical,Surgical,& Family Hx - Medical History Cardio: History of: Cardiac Dysrhythmia, CHF (EF 20% on echo, January 2017, nonischemic dilated cardiomyopathy with both syst), Hypertension No history of: HI Psychological: No history of: Anxiety Disorders, ADHD, Behavior Problems, Bipolar Disorder, Depression, Previous Suicide Attempt, Psychiatric/Substance Abuse Tx, Schizophrenia, Violent Behavior, Psychiatric Problems Neurology: History of: Cerebrovascular Accident ([place] to be cardioembolic approximately 7 weeks ago) No history of: Dementia, Seizures, TIA Endocrine: No history of: Diabetes Mellitus (IDDM), Diabetes Mellitus (NIDDM) Rheumatology: History of;: Gout Renal: History of: Renal Problems Gastrointestinal: History of: Diverticulitis/ Diverticulosis, GI Problems ( partial colectomy with colestomy with reversal) No history of: Gastrointestinal Bleed Hematology: No history of: Anemia Other: No history of: Cancer - Surgical History Cardiac Surgeries: Sugical HX of: Cardiac Catheterization Patient Denies: Internal Defibrillator Thoracic Surgeries: Patient denies;: Organ Transplant Neurologic Surgeries: Patient denies: Neurologic Surgery HEENT Surgeries: Patient denies: Eye Surgery, Tonsilectomy & Adenoidectomy Abdominal Surgeries: Surgical HX of: Abdominal Surgery Reproductive Surgeries: Patient denies;: Genitourinary Surgery - Family History Family History: Reports;: Family Cancer (brain cancer), Family Hypertension ( mother), Family Stroke (maternal grandmother) - Social History Smoking Status: Former smoker Frequency of Alcohol Use: None Type of Drug Use: Marijuana, Methamphetamine Marital Status: Functional capacity: independent ambulation Physical Examination Vital Signs Temp Pulse Resp BP Pulse Ox 96.7 F L 99 H 28 H 110/79 96 03/20/17 16:07 03/20/17 16:07 03/20/17 16:07 03/20/17 16:07 03/20/17 16:07 General: Present: Other (mild distress) HEENT: Present: Jaundice, PERRL, Mucus Membranes Dry Neck: Present: Midline Trachea, No JVD/HJR, No Masses, No Bruit Cardiac: Present: Irregularly Regular, No Murmur. Absent: Tachycardia, Bradycardia Lungs: Present: Decreased Breath Sounds, Rales - Left, Rales - Right, No Wheezes , No Rhonchi, Other (mild accessory muscle use) Neuro: Present: Grossly Intact. Absent: Numbness, Tingling, Weakness, Resting Tremor, Essential Tremor Abdomen: Present: Soft, Active Bowel Sounds. Absent: Tender Skin: Present: Clear. Absent: Rash, Suspicious Lesions Musculoskeletal: Present: Normal Range of Motion Extremities: Present: No Clubbing, No Cyanosis, Normal Upper Extr. Pulses, Normal Lower Extr. Pulses, Edema (Trace pretibial edema), Capillary Refill ( normal) Result/EKG - Labs CBC & BMP: 03/21/17 05:03 03/21/17 05:03 Lab Results: I have reviewed the past 24 hour labs Labs: Laboratory Results - last 24 hr 03/20/17 03/20/17 03/20/17 16:14 16:14 16:14 WBC 17.3 H RBC 4.48 Hgb 13.2 L Hct 40.4 L MCV 90.2 MCH 30 MCHC 32.7 RDW 15.5 Plt Count 349 MPV 10.4 Neut % (Auto) 84.2 H Lymph % (Auto) 6.4 L [place] % (Auto) 8.2 Eos % (Auto) 0.1 Baso % (Auto) 0.5 Neut # (Auto) 14.6 H Lymph # (Auto) 1.1 L [place] # (Auto) 1.4 H Eos # (Auto) 0.0 Baso # (Auto) 0.1 Immature Gran % 0.6 Nucleated RBC % 0.0 Immature Gran # 0.11 Nucleated RBCs # 0.00 INR 1.2 PT Patient/Control Mix 13.0 Circ Anticoag PTT 34.1 Sodium 135 L Potassium 4.9 Chloride 104 Carbon Dioxide 20 L Anion Gap 15.9 H BUN 22 H Creatinine 1.30 GFR Calculation 75 BUN/Creatinine Ratio 16.00 Glucose 112 H Hemoglobin A1c Calculated Osmolality 273.1 Calcium 8.7 Magnesium Total Bilirubin 2.10 H Direct Bilirubin AST 23 ALT 28 Alkaline Phosphatase 88 Ammonia Total Creatine Kinase 56 CK-MB (CK-2) 1.8 Troponin I 0.065 H B-Natriuretic Peptide Total Protein 6.4 Albumin 2.8 L Globulin 3.6 H Albumin/Globulin Ratio 0.7 L Triglycerides Cholesterol LDL Cholesterol VLDL Cholesterol HDL Cholesterol Heart Disease Risk Ratio Free T4 TSH 3rd Generation Urine Color Urine Appearance Urine pH Ur Specific [place] Urine Protein Urine Glucose (UA) Urine Ketones Urine Blood Urine Nitrate Urine Bilirubin Urine Urobilinogen Urine Leukocytes Urine RBC Ur Squamous Epith Cells Urine Bacteria Hyaline Casts Urine Mucus Ur Culture Indicated? Urine Opiates Screen Ur Barbiturates Screen Ur Phencyclidine Scrn U Amphetamine/Methamph U Benzodiazepines Scrn U Cocaine Metab Screen U Cannabinoids Screen 03/20/17 03/20/17 03/20/17 16:14 16:14 17:06 WBC RBC Hgb Hct MCV MCH MCHC RDW Plt Count MPV Neut % (Auto) Lymph % (Auto) [place] % (Auto) Eos % (Auto) Baso % (Auto) Neut # (Auto) Lymph # (Auto) [place] # (Auto) Eos # (Auto) Baso # (Auto) Immature Gran % Nucleated RBC % Immature Gran # Nucleated RBCs # INR PT Patient/Control Mix Circ Anticoag PTT Sodium Potassium Chloride Carbon Dioxide Anion Gap BUN Creatinine GFR Calculation BUN/Creatinine Ratio Glucose Hemoglobin A1c Calculated Osmolality Calcium Magnesium 2.0 Total Bilirubin Direct Bilirubin 0.70 H AST ALT Alkaline Phosphatase Ammonia 41 H Total Creatine Kinase CK-MB (CK-2) Troponin I B-Natriuretic Peptide 3939 H Total Protein Albumin Globulin Albumin/Globulin Ratio Triglycerides Cholesterol LDL Cholesterol VLDL Cholesterol HDL Cholesterol Heart Disease Risk Ratio Free T4 1.32 TSH 3rd Generation 1.330 Urine Color Yellow Urine Appearance Clear Urine pH 5.0 Ur Specific [place] 1.010 Urine Protein Negative Urine Glucose (UA) Negative Urine Ketones Negative Urine Blood Small Urine Nitrate Negative Urine Bilirubin Negative Urine Urobilinogen < 2.0 H Urine Leukocytes Negative Urine RBC <1 Ur Squamous Epith Cells Occasional Urine Bacteria Occasional Hyaline Casts 7 Urine Mucus Occasional Ur Culture Indicated? Not indicated Urine Opiates Screen Ur Barbiturates Screen Ur Phencyclidine Scrn U Amphetamine/Methamph U Benzodiazepines Scrn U Cocaine Metab Screen U Cannabinoids Screen 03/20/17 03/21/17 03/21/17 17:06 05:03 05:03 WBC 15.8 H RBC 4.27 Hgb 12.4 L Hct 38.2 L MCV 89.5 MCH 29 MCHC 32.5 RDW 15.3 Plt Count 294 MPV 11.4 Neut % (Auto) 73.5 Lymph % (Auto) 13.8 L [place] % (Auto) 10.4 Eos % (Auto) 1.1 Baso % (Auto) 0.6 Neut # (Auto) 11.6 H Lymph # (Auto) 2.2 [place] # (Auto) 1.6 H Eos # (Auto) 0.2 Baso # (Auto) 0.1 Immature Gran % 0.6 Nucleated RBC % 0.0 Immature Gran # 0.09 Nucleated RBCs # 0.00 INR PT Patient/Control Mix Circ Anticoag PTT Sodium 139 Potassium 4.5 Chloride 102 Carbon Dioxide 24 Anion Gap 17.5 H BUN 26 H Creatinine 1.40 H GFR Calculation 69 BUN/Creatinine Ratio 18.00 Glucose 87 Hemoglobin A1c Calculated Osmolality 280.5 Calcium 9.0 Magnesium Total Bilirubin 2.10 H Direct Bilirubin AST 15 ALT 22 Alkaline Phosphatase 75 Ammonia Total Creatine Kinase CK-MB (CK-2) Troponin I B-Natriuretic Peptide Total Protein 5.6 L Albumin 2.4 L Globulin 3.2 Albumin/Globulin Ratio 0.7 L Triglycerides 63 Cholesterol 147 LDL Cholesterol 94.0 VLDL Cholesterol 12.6 HDL Cholesterol 40 Heart Disease Risk Ratio 3.68 Free T4 TSH 3rd Generation Urine Color Urine Appearance Urine pH Ur Specific [place] Urine Protein Urine Glucose (UA) Urine Ketones Urine Blood Urine Nitrate Urine Bilirubin Urine Urobilinogen Urine Leukocytes Urine RBC Ur Squamous Epith Cells Urine Bacteria Hyaline Casts Urine Mucus Ur Culture Indicated? Urine Opiates Screen Negative Ur Barbiturates Screen Negative Ur Phencyclidine Scrn Negative U Amphetamine/Methamph Negative U Benzodiazepines Scrn Negative U Cocaine Metab Screen Negative U Cannabinoids Screen Positive H 03/21/17 05:03 WBC RBC Hgb Hct MCV MCH MCHC RDW Plt Count MPV Neut % (Auto) Lymph % (Auto) [place] % (Auto) Eos % (Auto) Baso % (Auto) Neut # (Auto) Lymph # (Auto) [place] # (Auto) Eos # (Auto) Baso # (Auto) Immature Gran % Nucleated RBC % Immature Gran # Nucleated RBCs # INR PT Patient/Control Mix Circ Anticoag PTT Sodium Potassium Chloride Carbon Dioxide Anion Gap BUN Creatinine GFR Calculation BUN/Creatinine Ratio Glucose Hemoglobin A1c 5.9 Calculated Osmolality Calcium Magnesium Total Bilirubin Direct Bilirubin AST ALT Alkaline Phosphatase Ammonia Total Creatine Kinase CK-MB (CK-2) Troponin I B-Natriuretic Peptide Total Protein Albumin Globulin Albumin/Globulin Ratio Triglycerides Cholesterol LDL Cholesterol VLDL Cholesterol HDL Cholesterol Heart Disease Risk Ratio Free T4 TSH 3rd Generation Urine Color Urine Appearance Urine pH Ur Specific [place] Urine Protein Urine Glucose (UA) Urine Ketones Urine Blood Urine Nitrate Urine Bilirubin Urine Urobilinogen Urine Leukocytes Urine RBC Ur Squamous Epith Cells Urine Bacteria Hyaline Casts Urine Mucus Ur Culture Indicated? Urine Opiates Screen Ur Barbiturates Screen Ur Phencyclidine Scrn U Amphetamine/Methamph U Benzodiazepines Scrn U Cocaine Metab Screen U Cannabinoids Screen - Diagnostic Findings Procedure: Chest x-ray: image reviewed by me, report reviewed by me - EKG EKG results: interpreted by me, no acute changes EKG shows: sinus rhythm Grupo Brennan Attila, MD, personally performed the services described in this documentation, ascribed by Cayla Jaramillo RN in my presence, and it is both accurate and complete [id number] .
--- NOTE | 2017-03-21 15:32 | Hospitalist Progress Note ---
Assessment and Plan (1) Pneumonia Problem details: Suspected bilateral community-acquired pneumonia. Patient does not complain of hypoxemia, productive cough, or recent systemic fever. He did experience hypoxemia prior to admission. Reportedly a portable O2 sat monitor recorded saturation in the mid 70s prior to his arrival in this hospital ED. formal home eval assessment is planned to determine if patient is available eligible for insurance company payment to receive supplemental home O2. Leukocytosis is slightly lower today compared with yesterday. Check sputum Gram stain and culture. No growth thus far and blood cultures collected yesterday. Status: Acute Current Visit: Yes (2) Acute on chronic systolic CHF (congestive heart failure) Status: Acute Current Visit: Yes (3) Acute kidney injury Problem details: Continue IV hydration. Repeat BMP in a.m. serum creatinine level is slightly higher today compared with yesterday. Balance need for diuresis to correct congestive heart failure with need to preserve intravascular volume and renal perfusion. Patient is wearing a LifeVest defibrillator unit until permanent implanted device is placed. Status: Acute Current Visit: Yes (4) Elevated troponin level Problem details: Not thought to be indicative of acute coronary syndrome. Troponin level is a sustained low-level elevation not the characteristic peak and fall toward normal range. Status: Acute Current Visit: Yes (5) Dyslipidemia Problem details: Fasting lipid panel total cholesterol 147, LDL 94, HDL 40, triglycerides 63 Status: Acute Current Visit: Yes (6) Substance abuse Problem details: Patient counseled and encouraged to avoid THC use. Status: Acute Current Visit: Yes (7) Dilated cardiomyopathy Problem details: Nonischemic causing significant ADL functional impairment. Status: Acute Current Visit: Yes (8) On continuous oral anticoagulation Problem details: Atrial fibrillation not documented. Nonetheless patient receives Eliquis 5 mg twice daily. Status: Acute Current Visit: Yes (9) Essential hypertension Problem details: Fairly well-controlled. Continue Coreg, Lasix, lisinopril combination therapy. Status: Acute Current Visit: Yes (10) Obstructive sleep apnea Problem details: Patient is tolerating overnight CPAP therapy. Status: Acute Current Visit: Yes (11) Advanced directives, counseling/discussion Problem details: Patient requests DNR/DNI status. Order written to reflect same in patient's medical records. Status: Acute Current Visit: Yes Hospitalist: Subjective Interval history: Patient is alert and fully oriented. He communicates well verbally. His 2 sisters and mother are at bedside at the time of my interview and exam today. He describes mid sternal chest pressure intermittent. He has not identified any precipitating or relieving factors. Eating or specific food ingestion does not seem to exacerbate his complaints. He was please with the beneficial effect of hospital CPAP unit on overnight last night. Exam - Constitutional Vitals: Period Temp Pulse Resp BP Sys/Cha Pulse Ox Last 24 Hr 96.7 F-99.4 F 71-103 18-52 84-113/53-83 91-98 General appearance: normal weight - Head Head exam: Present: normal inspection - Eye Eye exam: Present: EOMI Pupils: Present: ROJELIO - ENT ENT exam: Present: normal exam - Neck Neck exam: Present: normal inspection - Respiratory Respiratory exam: Present: clear to auscultation bilaterally. Absent: accessory muscle use, chest wall tenderness, rales, wheezes - Cardiovascular Cardiovascular exam: Present: regular rate and rhythm - GI/Abdominal GI/Abdominal exam: Present: normal bowel sounds, soft. Absent: rebound - Extremities Exam Extremities exam: Absent: calf tenderness, edema - Neurological Exam Neurological exam: Present: alert, oriented X3, other (No focal motor weakness or abnormal activity) - Skin Skin exam: Present: normal color, warm, dry. Absent: petechiae, rash Results - Labs CBC & BMP: 03/21/17 05:03 03/21/17 05:03 - Diagnostic Findings Procedure: Chest x-ray: report reviewed by me, other (Yesterday's chest x-ray interpreted as cardiomegaly with worsening central pulmonary vascular congestion without focal lung infiltrate.), CT - chest: report reviewed by me, other (Chest CT completed yesterday no acute pulmonary emboli reported. Mild nonspecific right paratracheal lymphadenopathy with nodes measuring up to 11 mm maximum diameter. No significant pericardial effusion. Trace pleural effusions bilaterally. Scattered patchy and groundglass infiltrate all lobes suspect pneumonia or diffuse pulmonary edema. Thoracic spondylosis. )
--- NOTE | 2017-03-21 17:31 | ECHO Report ---
Brooks Loving Exam Date: 03/21/2017 09:57 Referring Physician: Technologist: clifford Soler ARDMS, RVT Age: 57 Ht (in): 71 Wt (lb): 210 Gender: M Exam Location: [facility] Echo Indications: Pulmonary hypertension, CHF BP: 98 / 76 HR: 72 Rhythm: Sinus Technical Quality: IMPRESSIONS Moderately dilated left ventricle, with mild concentric hypertrophy, with severe global hypokinesis. Estimated left ventricle ejection fraction 10%. Grade 3 diastolic dysfunction. The right ventricle is normal in size, with decreased systolic function. Biatrial enlargement. Thickened mitral valve, with moderate regurgitation. Aortic valve sclerosis, without stenosis, with mild insufficiency. Moderate pulmonary hypertension. MEASUREMENTS (Male / Female) Normal Values 2D ECHO LV Diastolic Diameter PLAX 6.8 cm 4.2 - 5.9 / 3.9 - 5.3 cm LV Systolic Diameter PLAX 6.5 cm LV Fractional Shortening PLAX 4.8 % IVS Diastolic Thickness 1.6 cm 0.6 - 1.0 / 0.6 - 0.9 cm LVPW Diastolic Thickness 1.6 cm 0.6 - 1.0 / 0.6 - 0.9 cm RV Internal Dim ED PLAX 5.1 cm Aortic Root Diameter 4.6 cm LA Systolic Diameter LX 4.4 cm 3.0 - 4.0 / 2.7 - 3.8 cm DOPPLER TR Peak Velocity 322.0 cm/s TR Peak Gradient 41.5 mmHg FINDINGS Left Ventricle Moderately dilated left ventricle, with mild concentric hypertrophy, with severe global hypokinesis. Estimated left ventricle ejection fraction 10%. Grade 3 diastolic dysfunction. Right Ventricle The right ventricle is normal in size, with decreased systolic function. Right Atrium The right atrium is mildly enlarged. Left Atrium Moderately increased left atrial size. Mitral Valve Thickened mitral valve. Moderate mitral regurgitation. Aortic Valve Aortic valve sclerosis, without stenosis. Mild insufficiency. Tricuspid Valve Morphologically normal tricuspid valve. Mild tricuspid valve regurgitation. Tricuspid regurgitation velocities suggest a PAP of 51 mmHg. Pulmonic Valve Morphologically normal pulmonic valve without significant stenosis. There is no pulmonic regurgitation. Pericardium Normal pericardium without effusion. Aorta Normal ascending aorta dimension. Hal Lombardo (Electronically Signed) Final Date: 21 March 2017 17:04
--- NOTE | 2017-03-21 17:52 | Event Note ---
Echo showed progression of cardiomyopathy, LVEF 10%, moderate pulmonary hypertension, moderate mitral regurgitation, hypokinetic right ventricle. I suspect the pulmonary findings are mostly due to restrictive LV filling, MR, pulmonary edema, low cardiac output state. He continues to have borderline troponins. We discussed management options. Unfortunately, he was tested for amphetamines/methamphetamine multiple times recently, and his most recent drug screen is still positive for marijuana. He understands that at this time, he would not be a candidate for LVAD or heart transplant due to these issues. Otherwise, he does not smoke and has a supportive family and has no other limiting disease, if he remains abstinent and we cannot manage his CHF otherwise, we can consider these options. He can also be a candidate for endomyocardial biopsy, if the cardiomyopathy does not improve with drug abstinence and medical management. Onset a month ago , IVCD/NSVT, persistent mild trop elevation. -We will start dobutamine 2 mics for hemodynamic support. Hold Coreg and lisinopril for now. Once blood pressure allows, we will pursue vasodilation treatment. Continue IV diuretics. -Continue to monitor on telemetry. Had asymptomatic nonsustained VT. If VTA becomes more frequent or he becomes hemodynamically unstable, recommend transfer to the ICU. -Discussed CODE STATUS in length. Yesterday, he refused long-term ventilator treatment and asked for DNI. He would be okay with short-term respiratory support, if needed. We will switch his CODE STATUS to full code.
[2017-03-21] MEDS: DOBUTamine 500 MG/250 ML PREMIX IV SCH (17:56)
--- NOTE | 2017-03-21 18:18 | Pulmonology Consult Note ---
Assessment and Plan (1) Acute on chronic systolic CHF (congestive heart failure) Status: Acute Assessment and plan: Patient comes in with shortness of breath and his symptoms and clinical picture are certainly consistent with heart failure. He will continue with diuretic therapy. He is getting dobutamine. Current Visit: Yes (2) History of recent stroke Status: Chronic Assessment and plan: He is getting Eliquis and has had a previous stroke. Current Visit: No (3) Chronic anticoagulation Status: Chronic Assessment and plan: He will continue with his anticoagulation. Current Visit: No (4) NSVT (nonsustained ventricular tachycardia) Status: Chronic Assessment and plan: The patient is wearing a LifeVest and is being monitored. Current Visit: No (5) CHF (congestive heart failure), NYHA class III Status: Chronic Assessment and plan: The patient does have chronic congestive heart failure. Current Visit: No Qualifiers: Congestive heart failure type: systolic Congestive heart failure chronicity : acute on chronic Qualified Code(s): I50.23 - Acute on chronic systolic ( congestive) heart failure (6) CKD (chronic kidney disease) stage 2, GFR 60-89 ml/min Status: Chronic Assessment and plan: His creatinine around 1.4 Current Visit: Yes (7) Pneumonia Status: Acute Assessment and plan: He is being covered with antibiotics but clinically is not acting much like pneumonia. Current Visit: Yes (8) Substance abuse Problem details: Patient counseled and encouraged to avoid THC use. Status: Acute Assessment and plan: He apparently has a long history of substance abuse. Current Visit: Yes (9) Dilated cardiomyopathy Problem details: Nonischemic causing significant ADL functional impairment. 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 His ejection fraction is 20% Current Visit: Yes (10) Essential hypertension Problem details: Fairly well-controlled. Continue Coreg, Lasix, lisinopril combination therapy. Status: Acute Assessment and plan: His blood pressures on the low side now. Current Visit: Yes History of Present Illness Chief complaint: Shortness of breath History of present illness: Mr. Loving is a 57 year old white male that has a history of having a very severe nonischemic cardiomyopathy. He has a long history of hypertension and some substance abuse. He apparently drank alcohol quite frequently in the past. He has been in and out of the hospital with congestive heart failure. He does have problems with hypotension and renal insufficiency and he has had nonsustained V. tach at times. He is chronically been on anticoagulation. He did have an embolic CVA in the past. He has class IV symptoms in the short of breath all the time. He says he does not sleep very well. He has been wearing a LifeVest at home. He says he is not coughing much or having any pleurisy. He has not had any fever or chills or significant sweats. His ejection fraction apparently is about 20%. He is a former smoker. Home Medications Medication Instructions Recorded Confirmed Type Carvedilol 12.5 mg PO BID 03/05/17 03/20/17 History Furosemide Tab [Lasix Tab] 40 mg PO DAILY #30 tablet 03/07/17 03/20/17 Rx Potassium Chloride Cap/Tab [K Dur] 10 meq PO DAILY #30 tablet 03/07/17 03/20/17 Rx Acetaminophen/Diphenhydramine 1 each PO QPM 03/20/17 03/20/17 History [Acetaminophen Pm Caplet] Apixaban [Eliquis] 5 mg PO BID 03/20/17 03/20/17 History Zolpidem Tartrate [Ambien] 10 mg PO QPM 03/20/17 03/20/17 History Allergies Allergy/AdvReac Type Severity Reaction Status Date / Time No Known Allergies Allergy Verified 03/20/17 16:11 - Constitutional Constitutional: Present: fatigue, lethargy. Absent: chills, fever(s), weight gain (He had about a 5 pound weight gain since 2 weeks ago.) - EENT Eyes: Absent: loss of vision Ears: Absent: decreased hearing Nose, mouth and throat: Absent: dysphagia, headache(s), sinus pressure, sore throat - Cardiovascular Cardiovascular: Present: dyspnea, edema, orthopnea, palpitations, PND. Absent: chest pain at rest, chest pain with activity - Respiratory Respiratory: Present: cough, dyspnea. Absent: hemoptysis, pain on inspiration, change in phlegm color - Gastrointestinal Gastrointestinal: Absent: abdominal pain, change in bowel habits, dysphagia, nausea, vomiting - Genitourinary Genitourinary: Absent: difficulty urinating, dysuria, urinary frequency - Musculoskeletal Musculoskeletal: Absent: arthralgias, muscle weakness - Neurological Neurological: Absent: abnormal speech, focal weakness, paresthesias - Psychiatric Psychiatric: Present: depression. Absent: anxiety Exam (Pulmonay) H&P - Constitutional Vitals: Period Temp Pulse Resp BP Sys/Cha Pulse Ox Last 24 Hr 96.9 F-99.4 F 71-101 18-52 84-113/53-83 91-98 General appearance: mild distress (He is tachypneic but is comfortable sitting up in bed.), over weight - Head Head exam: Present: normal inspection - Eye Eye exam: Present: EOMI, scleral icterus Pupils: Present: ROJELIO - ENT ENT exam: Present: normal exam - Neck Neck exam: Present: normal inspection. Absent: lymphadenopathy, thyromegaly - Respiratory Respiratory exam: Present: accessory muscle use, rales (He has crackles in the bases). Absent: wheezes - Cardiovascular Cardiovascular exam: Present: gallop, irregular rhythm, other (His PMI is laterally displaced). Absent: systolic murmur - GI/Abdominal GI/Abdominal exam: Present: normal bowel sounds, soft. Absent: organomegaly, tenderness - Extremities Exam Extremities exam: Present: edema (He has very minimal edema.). Absent: calf tenderness - Neurological Exam Neurological exam: Present: alert, oriented X3, CN II-XII intact. Absent: motor sensory deficit - Psychiatric Psychiatric exam: Present: normal affect - Skin Skin exam: Present: warm, dry Medical,Surgical,& Family Hx - Medical History Cardio: History of: Cardiac Dysrhythmia, CHF (EF 20% on echo, January 2017, nonischemic dilated cardiomyopathy with both syst), Hypertension No history of: [place] Psychological: No history of: Anxiety Disorders, ADHD, Behavior Problems, Bipolar Disorder, Depression, Previous Suicide Attempt, Psychiatric/Substance Abuse Tx, Schizophrenia, Violent Behavior, Psychiatric Problems Neurology: History of: Cerebrovascular Accident ([place] to be cardioembolic approximately 7 weeks ago) No history of: Dementia, Seizures, TIA Endocrine: No history of: Diabetes Mellitus (IDDM), Diabetes Mellitus (NIDDM) Rheumatology: History of;: Gout Renal: History of: Renal Problems Gastrointestinal: History of: Diverticulitis/ Diverticulosis, GI Problems ( partial colectomy with colestomy with reversal) No history of: Gastrointestinal Bleed Hematology: No history of: Anemia Other: No history of: Cancer - Surgical History Cardiac Surgeries: Sugical HX of: Cardiac Catheterization Patient Denies: Internal Defibrillator Thoracic Surgeries: Patient denies;: Organ Transplant Neurologic Surgeries: Patient denies: Neurologic Surgery HEENT Surgeries: Patient denies: Eye Surgery, Tonsilectomy & Adenoidectomy Abdominal Surgeries: Surgical HX of: Abdominal Surgery Reproductive Surgeries: Patient denies;: Genitourinary Surgery - Family History Family History: Reports;: Family Cancer (brain cancer), Family Hypertension ( mother), Family Stroke (maternal grandmother) - Social History Smoking Status: Former smoker Frequency of Alcohol Use: None Type of Drug Use: Marijuana, Methamphetamine Results - Labs CBC & BMP: 03/21/17 05:03 03/21/17 05:03 - Diagnostic Findings Procedure: Chest x-ray: image reviewed by me, report reviewed by me (Chest x- ray shows marked cardiomegaly and does suggest mild CHF.), CT - chest: image reviewed by me, report reviewed by me (CT shows patchy bilateral changes that actually could be related to congestive heart failure. Some of the areas may be patchy pneumonia but most of this is likely heart failure.)
[2017-03-21] MEDS: ZALEPLON 5 MG CAPSULE PO PRN (21:55)
[2017-03-21] MEDS: ZOLPIDEM 5 MG TABLET PO SCH (21:56)
[2017-03-22 05:51] LABS: Basophils # 0.1 10*3/uL (0.0-0.2); Basophils % 0.6 % (0.0-0.8); Eosinophils # 0.3 10*3/uL (0.0-0.87); Eosinophils % 2.1 % (0.00-10.9); Hematocrit 37.2 VOL% (42.0-52.0); Hemoglobin 12.2 GM/DL (14.0-18.0); Immature Granulocytes % 0.6 %; Immature Granulocytes Absolute 0.09 #; Lymphocytes # 2.6 10*3/uL (1.4-4.0); Lymphocytes % 15.8 % (21.2-54.2); Mean Corpuscular HGB Conc 32.8 GM/DL (32-36); Mean Corpuscular Hemoglobin 29 PG (27-34); Mean Corpuscular Volume 89.2 FL (87-102); Monocytes # 1.7 10*3/uL (0.11-0.8); Monocytes % 10.3 % (1.7-12.7); Neutrophils # 11.4 10*3/uL (1.4-7.4); Neutrophils % 70.6 % (38.7-73.9); Platelet Count 313 T/CUMM (130-400); Red Blood Count 4.17 MC/CUMM (3.8-5.5); Red Cell Distribution Width 15.4 % (9.3-17.3); White Blood Count 16.1 T/CUMM (4-12)
[2017-03-22 06:32] LABS: Albumin 2.3 G/DL (3.4-5.0); Bilirubin,Total 1.4 MG/DL (0.2-1.0); Calcium 8.4 MG/DL (8.5-10.1); Osmolality,Calculated 279.7 MOS/KG (273-304); Total Protein 5.5 G/DL (6.4-8.3)
[2017-03-22] MEDS: APIXABAN 5 MG TABLET PO SCH ×2 (08:57→22:57)
[2017-03-22] MEDS: FUROSEMIDE 40 MG/4 ML VIAL IV SCH ×2 (08:58→15:38)
[2017-03-22] MEDS ORDERED: LISINOPRIL 2.5 MG TABLET PO SCH (09:00)
[2017-03-22] MEDS: PIPERACILLIN/TAZOBACTAM 3,375 MG in SODIUM CHLORIDE 0.9% 100 ML IV SCH (09:02)
--- NOTE | 2017-03-22 11:26 | Cardiology Progress Note ---
Assessment and Plan (1) Acute on chronic systolic CHF (congestive heart failure) Status: Acute Assessment and plan: 57-year-old male, nonischemic cardiomyopathy, CHF [place] Heart Association class IV, left bundle branch block, history of hypertension, most recently hypertension and recent acute kidney injury/hyperkalemia. Polysubstance abuse, including EtOH, methamphetamine and marijuana. Currently admitted with CHF exacerbation, after recent hospitalization. Medical management in the past was limited due to hypotension, acute kidney injury, hyperkalemia. -Continue dobutamine drip. Good response. No significant arrhythmia. Had asymptomatic nonsustained VT's. -Monitor and replete electrolytes. -Continue IV Lasix 40 mg twice daily. -If remains stable, after dobutamine is stopped, may be in a day or 2, plan to reinitiate heart failure regimen, vasodilators and eventually beta-calixto. -Prior CVA. On Eliquis 5 mg twice daily. The recent stroke was suggestive of cardioembolic origin, although no atrial fibrillation documented so far. No bleeding issues. Current Visit: Yes (2) CKD (chronic kidney disease) stage 2, GFR 60-89 ml/min Status: Chronic Assessment and plan: SEE PLAN OF CARE LISTED ABOVE. Current Visit: Yes (3) Essential hypertension Status: Chronic Assessment and plan: SEE PLAN OF CARE LISTED ABOVE. Current Visit: No (4) NSVT (nonsustained ventricular tachycardia) Status: Chronic Current Visit: No (5) Chronic anticoagulation Status: Chronic Assessment and plan: SEE PLAN OF CARE LISTED ABOVE. Current Visit: No (6) History of recent stroke Status: Chronic Assessment and plan: SEE PLAN OF CARE LISTED ABOVE. Current Visit: No (7) Left bundle branch block Status: Chronic Assessment and plan: SEE PLAN OF CARE LISTED ABOVE. Current Visit: No (8) Polysubstance abuse Status: Chronic Assessment and plan: SEE PLAN OF CARE LISTED ABOVE. Current Visit: No (9) Cardiomyopathy, dilated, nonischemic Status: Chronic Assessment and plan: SEE PLAN OF CARE LISTED ABOVE. Current Visit: No Cardiology - PN: Subj Interval history: He started feeling better, soon after dobutamine was started. Fair diuresis. Saturation improved. Exam (Progress Note) - Constitutional Vitals: Period Temp Pulse Resp BP Sys/Cha Pulse Ox Last 24 Hr 97.1 F-99 F 74-91 16-20 84-109/53-78 91-100 General appearance: normal weight, over weight - Head Head exam: Present: normal inspection, normocephalic - Eye Eye exam: Absent: conjunctival injection, scleral icterus Pupils: Absent: dilated - ENT ENT exam: Present: normal external ear exam - Neck Neck exam: Present: normal inspection - Respiratory Respiratory exam: Present: decreased breath sounds. Absent: rhonchi - Cardiovascular Cardiovascular exam: Present: systolic murmur, tachycardia. Absent: JVD - GI/Abdominal GI/Abdominal exam: Present: normal bowel sounds - Extremities Exam Extremities exam: Present: normal inspection, normal capillary refill. Absent: edema - Back Exam Back exam: Present: normal inspection - Neurological Exam Neurological exam: Present: alert, oriented X3 - Psychiatric Psychiatric exam: Present: normal affect, normal mood - Skin Skin exam: Present: normal color, warm. Absent: cyanosis Result/EKG - Labs CBC & BMP: 03/22/17 04:37 03/22/17 04:37 Lab Results: I have reviewed the past 24 hour labs Labs: Laboratory Results - last 24 hr 03/22/17 03/22/17 03/22/17 04:35 04:37 04:37 WBC 16.1 H RBC 4.17 Hgb 12.2 L Hct 37.2 L MCV 89.2 MCH 29 MCHC 32.8 RDW 15.4 Plt Count 313 MPV 11.0 Neut % (Auto) 70.6 Lymph % (Auto) 15.8 L [place] % (Auto) 10.3 Eos % (Auto) 2.1 Baso % (Auto) 0.6 Neut # (Auto) 11.4 H Lymph # (Auto) 2.6 [place] # (Auto) 1.7 H Eos # (Auto) 0.3 Baso # (Auto) 0.1 Immature Gran % 0.6 Nucleated RBC % 0.0 Immature Gran # 0.09 Nucleated RBCs # 0.00 Sodium 138 Potassium 4.0 Chloride 100 Carbon Dioxide 25 Anion Gap 17.0 H BUN 28 H Creatinine 1.30 GFR Calculation 75 BUN/Creatinine Ratio 21.00 H Glucose 76 Calculated Osmolality 279.7 Calcium 8.4 L Total Bilirubin 1.40 H AST 17 ALT 22 Alkaline Phosphatase 76 Troponin I 0.061 H Total Protein 5.5 L Albumin 2.3 L Globulin 3.2 Albumin/Globulin Ratio 0.7 L - EKG EKG results: interpreted by me
--- NOTE | 2017-03-22 15:15 | Hospitalist Progress Note ---
Assessment and Plan (1) Pneumonia Problem details: Suspected bilateral community-acquired pneumonia. Patient does not complain of hypoxemia, productive cough, or recent systemic fever. He did experience hypoxemia prior to admission. Reportedly a portable O2 sat monitor recorded saturation in the mid 70s prior to his arrival in this hospital ED. Evaluation is planned to determine if patient is eligible for insurance company payment to receive supplemental home O2. Yeast reported on yesterday's sputum Gram stain and culture. No growth thus far in blood cultures collected 03/20/2017. I question if patient actually had pneumonia at the time of admission or if the radiographic changes are related to pulmonary edema and vascular congestion. Discontinue empiric Zosyn Rx. Status: Acute Current Visit: Yes (2) Acute on chronic systolic CHF (congestive heart failure) Problem details: 03/21/2017 echocardiogram reported LVEF 10% with grade 3 diastolic dysfunction and moderate pulmonary hypertension. Patient seems to respond well to dobutamine infusion. Dobutamine titration and dose adjustments deferred to consulting general repair mechanic. Patient has acute on chronic systolic and diastolic congestive heart failure. Status: Acute Current Visit: Yes (3) Acute kidney injury Problem details: Repeat BMP in a.m. serum creatinine level has essentially remained the same for the past 3 days. Balance need for diuresis to correct congestive heart failure with need to preserve intravascular volume and renal perfusion. Patient is wearing a LifeVest defibrillator unit until permanent implanted device is placed. Sustained low degree elevation serum troponin level is not indicative of acute coronary syndrome. Status: Acute Current Visit: Yes (4) Elevated troponin level Problem details: Not thought to be indicative of acute coronary syndrome. Troponin level is a sustained low-level elevation not the characteristic peak and fall toward normal range. Status: Acute Current Visit: Yes (5) Dyslipidemia Problem details: Fasting lipid panel total cholesterol 147, LDL 94, HDL 40, triglycerides 63 Patient is not receiving statin therapy Status: Acute Current Visit: Yes (6) Substance abuse Problem details: Patient counseled and encouraged to avoid THC use. Status: Acute Current Visit: Yes (7) Dilated cardiomyopathy Problem details: Nonischemic causing significant ADL functional impairment. Patient seems to be responding well to dobutamine infusion. He may be a candidate for scheduled outpatient infusions perhaps every 2 or 3 weeks. Ideally reviewed with consulting general repair mechanic today. Status: Acute Current Visit: Yes (8) On continuous oral anticoagulation Problem details: Atrial fibrillation not documented. Nonetheless patient receives Eliquis 5 mg twice daily. Possible indication advanced dilated cardiomyopathy. Patient certainly is at increased risk but I do not believe that a ventricular thrombus has been documented. Status: Acute Current Visit : Yes (9) Essential hypertension Problem details: Fairly well-controlled. Continue Coreg, Lasix, lisinopril combination therapy. Status: Acute Current Visit: Yes (10) Obstructive sleep apnea Problem details: Patient is tolerating overnight CPAP therapy. Status: Acute Current Visit: Yes (11) Advanced directives, counseling/discussion Problem details: Patient requests DNR/DNI status. Order written to reflect same in patient's medical records. Status: Acute Current Visit: Yes Hospitalist: Subjective Interval history: Patient is receiving dobutamine infusion. He believes that his exercise tolerance is improving. He does not complain of chest pain, tightness, fullness , or pressure. His was at bedside at the time of my interview and exam. Exam - Constitutional Vitals: Period Temp Pulse Resp BP Sys/Cha Pulse Ox Last 24 Hr 98 F-99 F 70-91 16-20 92-109/69-78 94-100 General appearance: normal weight - Head Head exam: Present: normal inspection - Eye Eye exam: Present: EOMI Pupils: Present: ROJELIO - ENT ENT exam: Present: normal exam - Neck Neck exam: Present: normal inspection. Absent: meningismus - Respiratory Respiratory exam: Present: clear to auscultation bilaterally. Absent: rales, wheezes - Cardiovascular Cardiovascular exam: Present: regular rate and rhythm - GI/Abdominal GI/Abdominal exam: Present: normal bowel sounds, soft, other (Overweight ). Absent: tenderness - Extremities Exam Extremities exam: Absent: calf tenderness, edema (No pretibial or pedal pitting edema) - Neurological Exam Neurological exam: Present: alert, oriented X3 - Psychiatric Psychiatric exam: Present: normal affect, normal mood. Absent: agitated - Skin Skin exam: Present: normal color, warm, dry. Absent: petechiae, rash Results - Labs CBC & BMP: 03/22/17 04:37 03/22/17 04:37
--- NOTE | 2017-03-22 15:57 | Pulmonology Progress Note ---
Pulmonary - PN: Subj Interval history: Patient seen yesterday for shortness of breath. Patient with severe CHF, and was volume overloaded. Has been aggressively managed by cardiology for this and he is feeling much better today. Denies any shortness of breath at this time Exam (Progress Note) - Constitutional Vitals: Period Temp Pulse Resp BP Sys/Cha Pulse Ox Last 24 Hr 98 F-99 F 70-91 16-20 92-109/69-78 94-100 General appearance: normal weight - Head Head exam: Present: normal inspection - Neck Neck exam: Present: normal inspection - Respiratory Respiratory exam: Present: clear to auscultation bilaterally Results - Labs CBC & BMP: 03/22/17 04:37 03/22/17 04:37 Lab Results: I have reviewed the past 24 hour labs - Diagnostic Findings Procedure: Chest x-ray: image reviewed by me, report reviewed by me (i have reviewed the images and reports), CT - chest: image reviewed by me, report reviewed by me (I reviewed the images and report- disagree that this favors pneumonia, it is bilateral and multifocal, mostly central, which is much more consistent with heart failure) Assessment and Plan (1) Acute on chronic systolic CHF (congestive heart failure) Problem details: 03/21/2017 echocardiogram reported LVEF 10% with grade 3 diastolic dysfunction and moderate pulmonary hypertension. Patient seems to respond well to dobutamine infusion. Dobutamine titration and dose adjustments deferred to consulting stringing machine tender. Patient has acute on chronic systolic and diastolic congestive heart failure. Status: Acute Assessment and plan: Patient doing much better. Given the rapidity with which he improved, and his lack of infectious symptoms, this is extrememly unlikely to be pneumonia. Will stop antibiotics and let cardiology continue to optimize his cardiac regimen. If there is any worsening please call, otherwise Dr Phan will return on Friday Current Visit: Yes
[2017-03-22] MEDS: DOBUTamine 500 MG/250 ML PREMIX IV SCH (19:07)
[2017-03-22] MEDS: ZALEPLON 5 MG CAPSULE PO PRN (22:57)
[2017-03-23 05:58] LABS: Basophils # 0.1 10*3/uL (0.0-0.2); Basophils % 0.7 % (0.0-0.8); Eosinophils # 0.5 10*3/uL (0.0-0.87); Eosinophils % 3.8 % (0.00-10.9); Hematocrit 38.9 VOL% (42.0-52.0); Hemoglobin 12.5 GM/DL (14.0-18.0); Immature Granulocytes % 0.4 %; Immature Granulocytes Absolute 0.05 #; Lymphocytes # 1.7 10*3/uL (1.4-4.0); Lymphocytes % 13.5 % (21.2-54.2); Mean Corpuscular HGB Conc 32.1 GM/DL (32-36); Mean Corpuscular Hemoglobin 29 PG (27-34); Mean Corpuscular Volume 90.7 FL (87-102); Mean Platelet Volume 11.5 FL (9.6-12.0); Monocytes # 1.4 10*3/uL (0.11-0.8); Monocytes % 11.4 % (1.7-12.7); Neutrophils # 8.8 10*3/uL (1.4-7.4); Neutrophils % 70.2 % (38.7-73.9); Platelet Count 309 T/CUMM (130-400); Red Blood Count 4.29 MC/CUMM (3.8-5.5); Red Cell Distribution Width 15.3 % (9.3-17.3); White Blood Count 12.5 T/CUMM (4-12)
[2017-03-23 06:27] LABS: Albumin 2.1 G/DL (3.4-5.0); Bilirubin,Total 0.9 MG/DL (0.2-1.0); Calcium 8.2 MG/DL (8.5-10.1); Osmolality,Calculated 278.5 MOS/KG (273-304); Potassium 3.3 MMOL/L (3.5-5.1); Total Protein 5.4 G/DL (6.4-8.3)
[2017-03-23] MEDS: APIXABAN 5 MG TABLET PO SCH ×2 (08:07→21:49)
[2017-03-23] MEDS: FUROSEMIDE 40 MG/4 ML VIAL IV SCH ×2 (08:08→17:07)
[2017-03-23] MEDS: POTASSIUM CHLORIDE 20 MEQ TABLET PO SCH ×2 (10:15→21:48)
--- NOTE | 2017-03-23 11:44 | Cardiology Progress Note ---
Assessment and Plan (1) Acute on chronic systolic CHF (congestive heart failure) Problem details: 03/21/2017 echocardiogram reported LVEF 10% with grade 3 diastolic dysfunction and moderate pulmonary hypertension. Patient seems to respond well to dobutamine infusion. Dobutamine titration and dose adjustments deferred to consulting customer service leader. Patient has acute on chronic systolic and diastolic congestive heart failure. Status: Acute Assessment and plan: 57-year-old male, nonischemic cardiomyopathy, CHF Wright Heart Association class IV, left bundle branch block, history of hypertension, most recently hypertension and recent acute kidney injury/hyperkalemia. Polysubstance abuse, including EtOH, methamphetamine and marijuana. Currently admitted with CHF exacerbation, after recent hospitalization. Medical management in the past was limited due to hypotension, acute kidney injury, hyperkalemia. -Continue dobutamine drip. Good response. Asymptomatic nonsustained VT's. Monitor and replete electrolytes. Keep on telemetry -Continue IV Lasix 40 mg twice daily. -Start on Entresto twice daily. Mild FRANCISCA resolved. Blood pressure is around 100. I would accept asymptomatic hypotension, if remains adequately perfused -Prior CVA. On Eliquis 5 mg twice daily. The recent stroke was suggestive of cardioembolic origin, although no atrial fibrillation documented so far. No bleeding issues. -If remains stable, plan to discontinue dobutamine tomorrow, I doubt we can start beta-blockers at this time. Ejection fraction declined further, this time , he presented with low cardiac output, hypotension. -Recommend referral to [facility] CHF program. His cardiomyopathy is likely due to prior EtOH+meth abuse. Reviewed prior records, NICM was documented around 2003 , and started declining a month ago. He seems to be willing to change his lifestyle, and could be a candidate for LVAD or KADEN. -IVCD. This is less prominent, than a month ago. FITTER HELPER could be considered, if his EKG shows persistent LBBB with QRS >120, or IVCD >150. He will need defibrillator for primary prevention, continue LifeVest in the meantime, plan to proceed, once recovers from current CHF episode. Current Visit: Yes (2) CKD (chronic kidney disease) stage 2, GFR 60-89 ml/min Status: Chronic Assessment and plan: SEE PLAN OF CARE LISTED ABOVE. Current Visit: Yes (3) Essential hypertension Status: Chronic Assessment and plan: SEE PLAN OF CARE LISTED ABOVE. Current Visit: No (4) NSVT (nonsustained ventricular tachycardia) Status: Chronic Current Visit: No (5) Chronic anticoagulation Status: Chronic Assessment and plan: SEE PLAN OF CARE LISTED ABOVE. Current Visit: No (6) History of recent stroke Status: Chronic Assessment and plan: SEE PLAN OF CARE LISTED ABOVE. Current Visit: No (7) Left bundle branch block Status: Chronic Assessment and plan: SEE PLAN OF CARE LISTED ABOVE. Current Visit: No (8) Polysubstance abuse Status: Chronic Assessment and plan: SEE PLAN OF CARE LISTED ABOVE. Current Visit: No (9) Cardiomyopathy, dilated, nonischemic Status: Chronic Assessment and plan: SEE PLAN OF CARE LISTED ABOVE. Current Visit: No Cardiology - PN: Subj Interval history: He is feeling better. Diuresing well, oxygenation improved, with dobutamine drip. Asymptomatic nonsustained VT on telemetry. Potassium was lower. Exam (Progress Note) - Constitutional Vitals: Period Temp Pulse Resp BP Sys/Cha Pulse Ox Last 24 Hr 97 F-99.6 F 72-82 16-20 90-113/60-75 81-98 General appearance: normal weight, over weight - Head Head exam: Present: normal inspection, normocephalic - Eye Eye exam: Absent: conjunctival injection, scleral icterus Pupils: Absent: dilated - ENT ENT exam: Present: normal external ear exam - Neck Neck exam: Present: normal inspection - Respiratory Respiratory exam: Present: clear to auscultation bilaterally. Absent: accessory muscle use, wheezes - Cardiovascular Cardiovascular exam: Present: regular rate and rhythm, systolic murmur. Absent : JVD - GI/Abdominal GI/Abdominal exam: Present: normal bowel sounds. Absent: distended - Extremities Exam Extremities exam: Present: normal inspection, normal capillary refill. Absent: edema - Back Exam Back exam: Present: normal inspection - Neurological Exam Neurological exam: Present: alert, oriented X3 - Psychiatric Psychiatric exam: Present: normal affect, normal mood - Skin Skin exam: Present: normal color, warm. Absent: cyanosis Result/EKG - Labs CBC & BMP: 03/23/17 04:31 03/23/17 04:31 Lab Results: I have reviewed the past 24 hour labs Labs: Laboratory Results - last 24 hr 03/23/17 03/23/17 04:31 04:31 WBC 12.5 H RBC 4.29 Hgb 12.5 L Hct 38.9 L MCV 90.7 MCH 29 MCHC 32.1 RDW 15.3 Plt Count 309 MPV 11.5 Neut % (Auto) 70.2 Lymph % (Auto) 13.5 L [place] % (Auto) 11.4 Eos % (Auto) 3.8 Baso % (Auto) 0.7 Neut # (Auto) 8.8 H Lymph # (Auto) 1.7 [place] # (Auto) 1.4 H Eos # (Auto) 0.5 Baso # (Auto) 0.1 Immature Gran % 0.4 Nucleated RBC % 0.0 Immature Gran # 0.05 Nucleated RBCs # 0.00 Sodium 139 Potassium 3.3 L Chloride 100 Carbon Dioxide 28 Anion Gap 14.3 BUN 19 H Creatinine 1.20 GFR Calculation 83 BUN/Creatinine Ratio 15.00 Glucose 99 Calculated Osmolality 278.5 Calcium 8.2 L Total Bilirubin 0.90 AST 33 ALT 34 Alkaline Phosphatase 83 Total Protein 5.4 L Albumin 2.1 L Globulin 3.3 Albumin/Globulin Ratio 0.6 L - EKG EKG results: interpreted by me
[2017-03-23] MEDS: DOBUTamine 500 MG/250 ML PREMIX IV SCH ×2 (12:19→21:52)
[2017-03-23] MEDS: SACUBITRIL/VALSARTAN 49-51 MG TABLET PO SCH ×2 (12:20→21:48)
--- NOTE | 2017-03-23 13:47 | Hospitalist Progress Note ---
Assessment and Plan - Time spent with patient Time spent with patient: Greater than 30 minutes (1) Acute on chronic systolic CHF (congestive heart failure) Problem details: 03/21/2017 echocardiogram reported LVEF 10% with grade 3 diastolic dysfunction and moderate pulmonary hypertension. Patient seems to respond well to dobutamine infusion. Dobutamine titration and dose adjustments deferred to consulting senior associate. Patient has acute on chronic systolic and diastolic congestive heart failure. Status: Acute Assessment and plan: On dobutamine drip low dose today. Cards f/u. Hope can be off this drip in am. Continue other current medical treatment regimen. Current Visit: Yes (2) Nonischemic cardiomyopathy Status: Chronic Assessment and plan: Cards f/u. See listed as above. Current Visit: No (3) Hypertensive cardiomyopathy Status: Acute Assessment and plan: Cards f/u, see listed as above. Current Visit: No (4) Elevated troponin level Problem details: Not thought to be indicative of acute coronary syndrome. Troponin level is a sustained low-level elevation not the characteristic peak and fall toward normal range. Status: Acute Current Visit: Yes (5) CKD (chronic kidney disease) stage 2, GFR 60-89 ml/min Status: Chronic Assessment and plan: Cr level 1.2 today. Current Visit: Yes (6) Dyslipidemia Problem details: Fasting lipid panel total cholesterol 147, LDL 94, HDL 40, triglycerides 63 Patient is not receiving statin therapy Status: Acute Current Visit: Yes (7) Substance abuse Problem details: Patient counseled and encouraged to avoid THC use. Status: Acute Current Visit: Yes (8) On continuous oral anticoagulation Problem details: Per Dr. Costello's note on 03/22/17: Atrial fibrillation not documented. Nonetheless patient receives Eliquis 5 mg twice daily. Possible indication advanced dilated cardiomyopathy. Patient certainly is at increased risk but I do not believe that a ventricular thrombus has been documented. Status: Acute Current Visit: Yes (9) Essential hypertension Problem details: Fairly well-controlled. Continue Coreg, Lasix, lisinopril combination therapy. Status: Acute Current Visit: Yes (10) Obstructive sleep apnea Problem details: Patient is tolerating overnight CPAP therapy. Status: Acute Current Visit: Yes Hospitalist: Subjective Interval history: No overnight acute event. Feeling better. On Dobutamine drip per Cards. Exam - Constitutional Vitals: Period Temp Pulse Resp BP Sys/Cha Pulse Ox Last 24 Hr 97 F-99.6 F 72-82 16-20 90-113/60-75 81-98 Exam: GENERAL: Lying in bed supine. AAOx3. HEENT: Pupils equally round and reactive to light, conjunctivae clear. TMs menezes and translucent. Oropharynx pink, with moist mucous membranes. Normal lips, teeth and gums. NECK: Supple without mass. HEART: RRR, no gallops CHEST: Normal shape, good air movement, no retractions. CV: RRR, no murmurs, 2+ peripheral pulses LUNGS: Clear to auscultation; no rales, rhonchi, or wheezes. ABDOMEN: Soft, nontender, and no hepatosplenomegaly. SKIN: No rash or edema. LYMPH: No anterior or posterior cervical, or supraclavicular lymphadenopathy. NEURO: No gross motor deficits noted. Results - Labs CBC & BMP: 03/23/17 04:31 03/23/17 04:31
[2017-03-23] MEDS: ZALEPLON 5 MG CAPSULE PO PRN ×2 (21:48→23:46)
--- NOTE | 2017-03-24 07:45 | EKG Report ---
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
[2017-03-24 08:35] LABS: Calcium 8.6 MG/DL (8.5-10.1); Magnesium 2.1 MG/DL (1.8-2.4); Osmolality,Calculated 277.5 MOS/KG (273-304); Potassium 3.4 MMOL/L (3.5-5.1)
[2017-03-24] MEDS: APIXABAN 5 MG TABLET PO SCH ×2 (09:09→22:09)
[2017-03-24] MEDS: SACUBITRIL/VALSARTAN 49-51 MG TABLET PO SCH ×2 (09:09→22:03)
[2017-03-24] MEDS: POTASSIUM CHLORIDE 20 MEQ TABLET PO SCH ×2 (09:09→22:07)
[2017-03-24] MEDS: FUROSEMIDE 40 MG/4 ML VIAL IV SCH ×2 (09:10→17:20)
--- NOTE | 2017-03-24 10:57 | Hospitalist Progress Note ---
Assessment and Plan (1) Acute kidney injury Problem details: Repeat BMP in a.m. serum creatinine level has essentially remained the same for the past 3 days. Balance need for diuresis to correct congestive heart failure with need to preserve intravascular volume and renal perfusion. Patient is wearing a LifeVest defibrillator unit until permanent implanted device is placed. Sustained low degree elevation serum troponin level is not indicative of acute coronary syndrome. Status: Acute Assessment and plan: Renal function remains stable BUN 15 creatinine 1.30. We will monitor closely recheck labs in a.m. Current Visit: Yes (2) Acute on chronic systolic CHF (congestive heart failure) Problem details: 03/21/2017 echocardiogram reported LVEF 10% with grade 3 diastolic dysfunction and moderate pulmonary hypertension. Patient seems to respond well to dobutamine infusion. Dobutamine titration and dose adjustments deferred to consulting general manager. Patient has acute on chronic systolic and diastolic congestive heart failure. Status: Acute Assessment and plan: Dobutamine remains infusing per cardiology order. Echocardiogram on 03 21 reported left ventricular ejection fraction at 10% with grade 3 diastolic dysfunction and moderate pulmonary hypertension. Cardiology to manage. Current Visit: Yes (3) Dilated cardiomyopathy Problem details: Nonischemic causing significant ADL functional impairment. Patient seems to be responding well to dobutamine infusion. He may be a candidate for scheduled outpatient infusions perhaps every 2 or 3 weeks. Ideally reviewed with consulting general manager today. Status: Acute Current Visit: Yes Hospitalist: Subjective Interval history: Patient seen and examined; no significant overnight events reported. Dobutamine infusion remains in progress at 2 mcg/kg/min. Patient reports no episodes of chest pain or shortness of breath. Exam - Constitutional Vitals: Period Temp Pulse Resp BP Sys/Cha Pulse Ox Last 24 Hr 97.0 F-98.7 F 61-92 18-22 83-118/54-74 94-99 General appearance: normal weight, no acute distress - Head Head exam: Present: normal inspection, normocephalic, atraumatic - Eye Eye exam: Present: EOMI. Absent: conjunctival injection Pupils: Present: ROJELIO, normal accommodation - ENT ENT exam: Present: normal exam, normal external ear exam, normal oropharynx - Neck Neck exam: Present: normal inspection. Absent: lymphadenopathy, meningismus, tenderness, thyromegaly - Respiratory Respiratory exam: Present: clear to auscultation bilaterally. Absent: rales, rhonchi, stridor, wheezes - Cardiovascular Cardiovascular exam: Present: regular rate and rhythm. Absent: carotid bruit, diastolic murmur, gallop, JVD, rubs, systolic murmur, tachycardia - GI/Abdominal GI/Abdominal exam: Present: normal bowel sounds, soft - Extremities Exam Extremities exam: Present: normal inspection. Absent: normal capillary refill, full ROM, edema - Back Exam Back exam: Present: normal inspection - Neurological Exam Neurological exam: Present: alert, oriented X3, CN II-XII intact - Psychiatric Psychiatric exam: Present: normal affect, normal mood - Skin Skin exam: Present: normal color, warm, dry Results - Labs CBC & BMP: 03/23/17 04:31 03/24/17 08:00 Lab Results: I have reviewed the past 24 hour labs
--- NOTE | 2017-03-24 11:25 | Infectious Disease Progress ---
Assessment and Plan (1) Pneumonia Status: Acute Assessment and plan: CT was suggestive of pneumonia that his sputum culture was unremarkable. Clinically he feels better on the leukocytosis has improved significantly. Recommendations: Complete 5 days of Zosyn Current Visit: Yes (2) Leukocytosis Status: Acute Assessment and plan: Improved seemingly due to Zosyn. Current Visit: Yes (3) Acute on chronic systolic CHF (congestive heart failure) Problem details: 03/21/2017 echocardiogram reported LVEF 10% with grade 3 diastolic dysfunction and moderate pulmonary hypertension. Patient seems to respond well to dobutamine infusion. Dobutamine titration and dose adjustments deferred to consulting fire control system installer. Patient has acute on chronic systolic and diastolic congestive heart failure. Status: Acute Current Visit: Yes (4) CKD (chronic kidney disease) stage 2, GFR 60-89 ml/min Status: Chronic Current Visit: Yes (5) Hypertension Status: Chronic Current Visit: No Infectious Disease - PN: Subj Interval history: Patient said he is feeling much better, seems the dobutamine drip has helped him a lot. He remains without cough up sputum. No fever. He is now sleeping better. Infectious Disease Exam (PN) - Constitutional Vitals: Temp Pulse Resp BP Pulse Ox 97.0 F L 67 22 83/57 94 L 03/24/17 08:00 03/24/17 08:00 03/24/17 09:10 03/24/17 08:00 03/24/17 08:00 General appearance: normal weight, no acute distress Exam: General appearance: no acute distress, looks better than when I last saw him 3 days ago - Eye Eye exam: Present: EOMI. no icterus Pupils: Present: ROJELIO - ENT ENT exam: no oral exudates - Respiratory Respiratory exam: No longer in respiratory distress, vesicular BS, no crepitations or wheezes - Cardiovascular Cardiovascular exam: regular rate and rhythm, no murmurs - GI/Abdominal GI/Abdominal exam: normal bowel sounds, soft, non-tender, no organomegaly or mass - Extremities Exam Extremities exam: no edema - Skin Skin exam: no rash Results - Labs CBC & BMP: 03/23/17 04:31 03/24/17 08:00 Lab Results: I have reviewed the past 24 hour labs (Sputum Gram stain negative culture had yeast, likely from the mouth)
--- NOTE | 2017-03-24 12:52 | Pulmonology Progress Note ---
Pulmonary - PN: Subj Interval history: Patient is a 57-year-old white man that has a very severe cardiomyopathy and his ejection fraction is around 10-15%. He came in with shortness of breath last week and there was a question that he might have a mild pneumonitis. However his scan looked mainly like congestive heart failure. He did not have a lot of fever or sputum and he has been getting dobutamine and Lasix. He is feeling better now. He looks much more comfortable and is having less shortness of breath. He does not have any chest pain or pleurisy. He is not coughing any sputum now. He does feel like his weight is down. Overall he looks much better. Exam (Progress Note) - Constitutional Vitals: Period Temp Pulse Resp BP Sys/Cha Pulse Ox Last 24 Hr 97.0 F-98.7 F 61-116 18-22 83-110/50-74 92-99 Exam: General appearance: no distress (He is resting comfortably in bed and is not in any distress.) - Head Head exam: Present: normal inspection - Eye Eye exam: Present: EOMI, scleral icterus Pupils: Present: ROJELIO - ENT ENT exam: Present: normal exam - Neck Neck exam: Present: normal inspection. Absent: lymphadenopathy, thyromegaly - Respiratory Respiratory exam: Present: His lungs have fairly good breath sounds and they sound better with less rales. - Cardiovascular Cardiovascular exam: Present: gallop, irregular rhythm, other (His PMI is laterally displaced). Absent: systolic murmur - GI/Abdominal GI/Abdominal exam: Present: normal bowel sounds, soft. Absent: organomegaly, tenderness - Extremities Exam Extremities exam: Present: His leg swelling is gone down nicely. - Neurological Exam Neurological exam: Present: alert, oriented X3, CN II-XII intact. Absent: motor sensory deficit - Psychiatric Psychiatric exam: Present: normal affect - Skin Skin exam: Present: warm, dry Results - Labs CBC & BMP: 03/23/17 04:31 03/24/17 08:00 Assessment and Plan (1) Acute on chronic systolic CHF (congestive heart failure) Problem details: 03/21/2017 echocardiogram reported LVEF 10% with grade 3 diastolic dysfunction and moderate pulmonary hypertension. Patient seems to respond well to dobutamine infusion. Dobutamine titration and dose adjustments deferred to consulting trimming press operator. Patient has acute on chronic systolic and diastolic congestive heart failure. Status: Acute Assessment and plan: Patient comes in with shortness of breath and his symptoms and clinical picture are certainly consistent with heart failure. He has done well over the weekend his breathing is better. His dobutamine will be stopped today. Current Visit: Yes (2) History of recent stroke Status: Chronic Assessment and plan: He is getting Eliquis and has had a previous stroke. Current Visit: No (3) Chronic anticoagulation Status: Chronic Assessment and plan: He will continue with his anticoagulation. Current Visit: No (4) NSVT (nonsustained ventricular tachycardia) Status: Chronic Assessment and plan: The patient is wearing a LifeVest and is being monitored. Current Visit: No (5) CHF (congestive heart failure), NYHA class III Status: Chronic Assessment and plan: The patient does have chronic congestive heart failure. He is responding well to therapy and is breathing better. Current Visit: No Qualifiers: Congestive heart failure type: systolic Congestive heart failure chronicity : acute on chronic Qualified Code(s): I50.23 - Acute on chronic systolic ( congestive) heart failure (6) CKD (chronic kidney disease) stage 2, GFR 60-89 ml/min Status: Chronic Assessment and plan: His creatinine is around 1.3 Current Visit: Yes (7) Pneumonia Status: Acute Assessment and plan: He is being covered with antibiotics but clinically is not acting much like pneumonia. He continues to do well and his breathing is better. His blood cultures are negative. Current Visit: Yes (8) Substance abuse Problem details: Patient counseled and encouraged to avoid THC use. Status: Acute Assessment and plan: He apparently has a long history of substance abuse. Current Visit: Yes (9) Dilated cardiomyopathy Problem details: Nonischemic causing significant ADL functional impairment. Patient seems to be responding well to dobutamine infusion. He may be a candidate for scheduled outpatient infusions perhaps every 2 or 3 weeks. Ideally reviewed with consulting trimming press operator today. 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 His ejection fraction is 10-20% range. Current Visit: Yes (10) Essential hypertension Problem details: Fairly well-controlled. Continue Coreg, Lasix, lisinopril combination therapy. Status: Acute Assessment and plan: His blood pressures on the low side now. Current Visit: Yes
--- NOTE | 2017-03-24 16:05 | Cardiology Progress Note ---
Clint Brennan Vanessa, RN, am scribing for, and in the presence of, Juan Jose Tenorio MD 16:05. Assessment and Plan - Time spent with patient Time spent with patient: Greater than 30 minutes (1) Acute on chronic systolic CHF (congestive heart failure) Problem details: 03/21/2017 echocardiogram reported LVEF 10% with grade 3 diastolic dysfunction and moderate pulmonary hypertension. Patient seems to respond well to dobutamine infusion. Dobutamine titration and dose adjustments deferred to consulting entertainer or variety artist. Patient has acute on chronic systolic and diastolic congestive heart failure. Status: Acute Assessment and plan: Continue IV Lasix and Dobutamine. Continue Entresto 49-51 1/2 tablet by mouth daily. Monitor BMP and renal function. Once current medical issues resolve, he will need RESIDENTIAL FRAMING CARPENTER-D implant. Continue LifeVest use for now. Current Visit: Yes (2) CKD (chronic kidney disease) stage 2, GFR 60-89 ml/min Status: Chronic Assessment and plan: Creatinine stable 1.3 GFR 75. Continue to monitor renal function very closely. Current Visit: Yes (3) Essential hypertension Status: Chronic Assessment and plan: Remains borderline low. Continue support with IV dobutamine. Current Visit: No (4) NSVT (nonsustained ventricular tachycardia) Status: Chronic Assessment and plan: This is stable. Patient does have a LifeVest but has not had sustained dysrhythmia. Current Visit: No (5) Chronic anticoagulation Status: Chronic Assessment and plan: Eliquis continued. No melena, overt bleeding. Current Visit: No (6) History of recent stroke Status: Chronic Assessment and plan: Most likely cardioembolic origin. He is now anticoagulated for stroke prevention. Current Visit: No (7) Left bundle branch block Status: Chronic Assessment and plan: Chronic. Stable. Current Visit: No (8) Polysubstance abuse Status: Chronic Assessment and plan: Encourage patient to continue to abstain from illicit drugs. Currently, he agrees to lifestyle change. Current Visit: No (9) Cardiomyopathy, dilated, nonischemic Status: Chronic Assessment and plan: Severely decreased EF 10%. Continue current plan of care for CHF. Current Visit: No Cardiology - PN: Subj Interval history: PRIMARY ACID LOADER: DR. MARTINEZ SUMMARY: Mr. Loving is a 57 year old white male with risk factors significant for: hypertension, diabetes, dyslipidemia, sleep apnea, tobacco abuse, sedentary lifestyle, overweight. Past medical history includes nonischemic dilated cardiomyopathy with worsened EF 10% per echo this admission, polysubstance abuse , acute on chronic systolic congestive heart failure, NYHA class IV. He also has chronic LBBB, chronic renal insufficiency. 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 Now anticoagulated with Eliquis. He has had multiple admissions for CHF over the past couple months. He is currently admitted to [facility] telemetry with exacerbation of NICM and shortness of breath. Previous echocardiogram in January with EF of 20% and now decreased to 10%. In the past, medical management of CHF has been limited due to acute kidney injury, hypotension, and hyperkalemia. Currently has a LifeVest and pending improvement of current symptoms and abstaining from methamphetamine and marijuana, he will have RESIDENTIAL FRAMING CARPENTER-D implant. Patient has some NSVT per cardiac monitoring but no sustained dyrhythmia or atrial fib. IV Dopamine infusion initiated on March 21, and he has shown some improvement in his symptoms. He has also been treated for pneumonia since admission. March: Mr. Loving is sitting up in bedside chair completing PT this morning. No obvious distress or needs noted. Patient is very pleasant and in good spirits. Appetite is good. Denies chest pain or shortness of breath. Cough has improved also. Entresto therapy was initiated yesterday, and IV Dobutrex 2 mcg/kg/min. WBC has shown improvement and 12,500 today. K+ 3.4. Mg+ 2.1. Renal function stable with creatinine 1.3. Patient appears to be slowly improving and is doing well from a cardiac standpoint without complaints today. Dr. Lombardo is anticipating that he will have a RESIDENTIAL FRAMING CARPENTER device placed and our plan at this point will be to taper and discontinue his dobutamine likely plan discharge on LifeVest and then return for ICD placement. Exam (Progress Note) - Constitutional Vitals: Period Temp Pulse Resp BP Sys/Cha Pulse Ox Last 24 Hr 97.0 F-98.7 F 61-92 18-22 83-118/54-74 94-99 Exam: General appearance: normal weight, over weight. no acute distress. - Head Head exam: Present: normal inspection, normocephalic. No laceration, contusion, hematoma. - Eye Eye exam: Absent: conjunctival injection, scleral icterus, periorbital swelling. Pupils: Absent: dilated - ENT ENT exam: Present: normal external ear exam - Neck Neck exam: Present: normal inspection. No tenderness. No JVD or bruit. - Respiratory Respiratory exam: Present: fine bibasilar rales. Absent: accessory muscle use, wheezes, rhonchi, rales - Cardiovascular Cardiovascular exam: Present: regular rate and rhythm, systolic murmur. Absent : JVD, tachycardia, bradycardia - GI/Abdominal GI/Abdominal exam: Present: normal bowel sounds, soft. Absent: distended, firm , tender - Extremities Exam Extremities exam: Present: normal inspection, normal capillary refill, full ROM. Absent: edema - Back Exam Back exam: Present: normal inspection. no tenderness. - Neurological Exam Neurological exam: Present: alert, oriented X3 - Psychiatric Psychiatric exam: Present: normal affect, normal mood. Patient does not appear anxious or depressed. - Skin Skin exam: Present: normal color, warm, dry. Absent: cyanosis, diaphoresis, rash, suspicious lesion. Result/EKG - Labs CBC & BMP: 03/23/17 04:31 03/24/17 08:00 Lab Results: I have reviewed the past 24 hour labs Labs: Laboratory Results - last 24 hr 03/24/17 08:00 Sodium 139 Potassium 3.4 L Chloride 101 Carbon Dioxide 34 H Anion Gap 7.4 BUN 15 Creatinine 1.30 GFR Calculation 75 BUN/Creatinine Ratio 11.00 Glucose 94 Calculated Osmolality 277.5 Calcium 8.6 Magnesium 2.1 - Diagnostic Findings Procedure: Chest x-ray: image reviewed by me, report reviewed by me - EKG EKG results: interpreted by me, no acute changes EKG shows: sinus rhythm IJona Wesley, MD, personally performed the services described in this documentation, ascribed by Cayla Jaramillo RN in my presence, and it is both accurate and complete 605 .
[2017-03-24] MEDS: ZALEPLON 5 MG CAPSULE PO PRN (22:08)
[2017-03-25 05:56] LABS: Basophils # 0.2 10*3/uL (0.0-0.2); Basophils % 1.7 % (0.0-0.8); Eosinophils % 8.3 % (0.00-10.9); Hematocrit 45.1 VOL% (42.0-52.0); Hemoglobin 14.5 GM/DL (14.0-18.0); Immature Granulocytes % 0.6 %; Immature Granulocytes Absolute 0.07 #; Lymphocytes # 3.5 10*3/uL (1.4-4.0); Lymphocytes % 28.4 % (21.2-54.2); Mean Corpuscular HGB Conc 32.2 GM/DL (32-36); Mean Corpuscular Hemoglobin 29 PG (27-34); Mean Corpuscular Volume 91.1 FL (87-102); Monocytes # 1.2 10*3/uL (0.11-0.8); Neutrophils # 6.3 10*3/uL (1.4-7.4); Platelet Count 366 T/CUMM (130-400); Red Blood Count 4.95 MC/CUMM (3.8-5.5); Red Cell Distribution Width 15.2 % (9.3-17.3); White Blood Count 12.3 T/CUMM (4-12)
[2017-03-25 06:26] LABS: Calcium 8.7 MG/DL (8.5-10.1); Magnesium 2.2 MG/DL (1.8-2.4); Osmolality,Calculated 282.1 MOS/KG (273-304); Potassium 4.4 MMOL/L (3.5-5.1)
[2017-03-25 06:28] LABS: Albumin 2.2 G/DL (3.4-5.0); Bilirubin,Total 0.5 MG/DL (0.2-1.0); Calcium 8.5 MG/DL (8.5-10.1); Osmolality,Calculated 282.1 MOS/KG (273-304); Phosphorous 3.8 MG/DL (2.5-4.9); Potassium 4.5 MMOL/L (3.5-5.1); Total Protein 5.8 G/DL (6.4-8.3)
--- NOTE | 2017-03-25 07:00 | XRay Report ---
Exam: XR chest 1V portable Indication: Cardiomegaly, COPD, shortness of breath Comparison study: Prior chest radiograph 03/20/2017 Findings: Cardiac silhouette is enlarged, similar to prior. Multiple electronic control unit are noted overlying the chest and upper abdomen, similar to prior. The heart, mediastinum and bony structures are stable from prior. Minimal central perihilar interstitial opacities are noted, similar to prior. There is no focal consolidation, pneumothorax or pleural effusion identified. Impression: No significant change PROCEDURE INTERPRETED AT [facility] DEPARTMENT OF RADIOLOGY Final Report Signed by: Juvencio Osman
[2017-03-25] MEDS: DOBUTamine 500 MG/250 ML PREMIX IV SCH ×2 (07:30→18:11)
[2017-03-25] MEDS: FUROSEMIDE 40 MG/4 ML VIAL IV SCH ×2 (08:52→16:41)
[2017-03-25] MEDS: POTASSIUM CHLORIDE 20 MEQ TABLET PO SCH ×2 (08:53→21:26)
[2017-03-25] MEDS: APIXABAN 5 MG TABLET PO SCH ×2 (08:53→21:25)
[2017-03-25] MEDS: SACUBITRIL/VALSARTAN 49-51 MG TABLET PO SCH ×2 (08:57→21:25)
--- NOTE | 2017-03-25 11:38 | Hospitalist Progress Note ---
Assessment and Plan (1) Acute kidney injury Problem details: Repeat BMP in a.m. serum creatinine level has essentially remained the same for the past 3 days. Balance need for diuresis to correct congestive heart failure with need to preserve intravascular volume and renal perfusion. Patient is wearing a LifeVest defibrillator unit until permanent implanted device is placed. Sustained low degree elevation serum troponin level is not indicative of acute coronary syndrome. Status: Acute Assessment and plan: Renal function remains stable BUN 15 creatinine 1.30. We will monitor closely recheck labs in a.m. 03/25-improvement in renal function noted. BUN noted at 13 creatinine at 1.10. Will recheck labs in a.m. Current Visit: Yes (2) Acute on chronic systolic CHF (congestive heart failure) Problem details: 03/21/2017 echocardiogram reported LVEF 10% with grade 3 diastolic dysfunction and moderate pulmonary hypertension. Patient seems to respond well to dobutamine infusion. Dobutamine titration and dose adjustments deferred to consulting upper marker. Patient has acute on chronic systolic and diastolic congestive heart failure. Status: Acute Assessment and plan: Dobutamine remains infusing per cardiology order. Echocardiogram on 03 21 reported left ventricular ejection fraction at 10% with grade 3 diastolic dysfunction and moderate pulmonary hypertension. Cardiology to manage. 03/25-dobutamine discontinued this morning. Vital signs have remained stable. We will monitor patient overnight and assess for possible discharge in a.m. Current Visit: Yes (3) Dilated cardiomyopathy Problem details: Nonischemic causing significant ADL functional impairment. Patient seems to be responding well to dobutamine infusion. He may be a candidate for scheduled outpatient infusions perhaps every 2 or 3 weeks. Ideally reviewed with consulting upper marker today. Status: Acute Current Visit: Yes Hospitalist: Subjective Interval history: Patient seen and examined; chart reviewed. No significant overnight events reported. Patient reports no further episodes of chest pain and discomfort. Dobutamine discontinued earlier this shift. We will monitor overnight. We will plan for discharge in a.m. Exam - Constitutional Vitals: Period Temp Pulse Resp BP Sys/Cha Pulse Ox Last 24 Hr 97.2 F-98.0 F 70-116 18-24 89-112/50-73 92-99 General appearance: normal weight, no acute distress - Head Head exam: Present: normal inspection, normocephalic - Eye Eye exam: Present: EOMI, conjunctival injection Pupils: Present: ROJELIO, normal accommodation - ENT ENT exam: Present: normal exam, normal external ear exam, normal oropharynx - Neck Neck exam: Present: normal inspection. Absent: lymphadenopathy, meningismus, tenderness, thyromegaly - Respiratory Respiratory exam: Present: clear to auscultation bilaterally. Absent: rhonchi, stridor, wheezes - Cardiovascular Cardiovascular exam: Present: regular rate and rhythm. Absent: carotid bruit, diastolic murmur, gallop, JVD, rubs, systolic murmur - GI/Abdominal GI/Abdominal exam: Present: normal bowel sounds, soft - Extremities Exam Extremities exam: Present: normal inspection, normal capillary refill, full ROM , edema (Trace edema noted to bilateral lower extremities) - Back Exam Back exam: Present: normal inspection - Neurological Exam Neurological exam: Present: alert, oriented X3, CN II-XII intact - Psychiatric Psychiatric exam: Present: normal affect, normal mood - Skin Skin exam: Present: normal color, warm, dry Results - Labs CBC & BMP: 03/25/17 05:07 03/25/17 05:07 Lab Results: I have reviewed the past 24 hour labs
--- NOTE | 2017-03-25 14:36 | Pulmonology Progress Note ---
Pulmonary - PN: Subj Interval history: Patient is a 57-year-old white man that has a very severe cardiomyopathy and his ejection fraction is around 10-15%. He came in with shortness of breath last week and there was a question that he might have a mild pneumonitis. However his scan looked mainly like congestive heart failure. He did not have a lot of fever or sputum and he has been getting dobutamine and Lasix. He said he had a fairly good night and feels like he diuresed fairly well. His weight is down a little bit. The dobutamine has been weaned off overall he feels like he is better. He is not coughing or having any chest congestion. He feels like his breathing is better. Exam (Progress Note) - Constitutional Vitals: Period Temp Pulse Resp BP Sys/Cha Pulse Ox Last 24 Hr 97.2 F-98.0 F 70-85 18-24 89-112/66-73 94-99 Exam: General appearance: no distress (He is resting comfortably in bed and is not in any distress. He looks like he feels a little better.) - Head Head exam: Present: normal inspection - Eye Eye exam: Present: EOMI, scleral icterus Pupils: Present: ROJELIO - ENT ENT exam: Present: normal exam - Neck Neck exam: Present: normal inspection. Absent: lymphadenopathy, thyromegaly - Respiratory Respiratory exam: Present: His lungs have fairly good breath sounds and they sound better with less rales. He does not have any wheezing. - Cardiovascular Cardiovascular exam: Present: gallop, irregular rhythm, other (His PMI is laterally displaced). Absent: systolic murmur - GI/Abdominal GI/Abdominal exam: Present: normal bowel sounds, soft. Absent: organomegaly, tenderness - Extremities Exam Extremities exam: Present: His leg swelling is gone down nicely. - Neurological Exam Neurological exam: Present: alert, oriented X3, CN II-XII intact. Absent: motor sensory deficit - Psychiatric Psychiatric exam: Present: normal affect - Skin Skin exam: Present: warm, dry Results - Labs CBC & BMP: 03/25/17 05:07 03/25/17 05:07 Assessment and Plan (1) Acute on chronic systolic CHF (congestive heart failure) Problem details: 03/21/2017 echocardiogram reported LVEF 10% with grade 3 diastolic dysfunction and moderate pulmonary hypertension. Patient seems to respond well to dobutamine infusion. Dobutamine titration and dose adjustments deferred to consulting manager ent. Patient has acute on chronic systolic and diastolic congestive heart failure. Status: Acute Assessment and plan: Patient comes in with shortness of breath and his symptoms and clinical picture are certainly consistent with heart failure. He has done well over the weekend and his breathing is better. The dobutamine has been stopped. He says he is comfortable at present. Current Visit: Yes (2) History of recent stroke Status: Chronic Assessment and plan: He is getting Eliquis and has had a previous stroke. Current Visit: No (3) Chronic anticoagulation Status: Chronic Assessment and plan: He will continue with his anticoagulation. Current Visit: No (4) NSVT (nonsustained ventricular tachycardia) Status: Chronic Assessment and plan: The patient is wearing a LifeVest and is being monitored. Current Visit: No (5) CHF (congestive heart failure), NYHA class III Status: Chronic Assessment and plan: The patient does have chronic congestive heart failure. He is responding well to therapy and is breathing better. He says he is quite comfortable at present. Current Visit: No Qualifiers: Congestive heart failure type: systolic Congestive heart failure chronicity : acute on chronic Qualified Code(s): I50.23 - Acute on chronic systolic ( congestive) heart failure (6) CKD (chronic kidney disease) stage 2, GFR 60-89 ml/min Status: Chronic Assessment and plan: His creatinine is down to 1.1. Current Visit: Yes (7) Pneumonia Status: Acute Assessment and plan: He is being covered with antibiotics but clinically is not acting much like pneumonia. He continues to do well and his breathing is better. His blood cultures are negative. He mainly has CHF Current Visit: Yes (8) Substance abuse Problem details: Patient counseled and encouraged to avoid THC use. Status: Acute Assessment and plan: He apparently has a long history of substance abuse. Current Visit: Yes (9) Dilated cardiomyopathy Problem details: Nonischemic causing significant ADL functional impairment. Patient seems to be responding well to dobutamine infusion. He may be a candidate for scheduled outpatient infusions perhaps every 2 or 3 weeks. Ideally reviewed with consulting manager ent today. 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 His ejection fraction is 10-20% range. His medicines have been adjusted. Current Visit: Yes (10) Essential hypertension Problem details: Fairly well-controlled. Continue Coreg, Lasix, lisinopril combination therapy. Status: Acute Assessment and plan: His blood pressures are a little better today. Current Visit: Yes
--- NOTE | 2017-03-25 17:00 | Infectious Disease Progress ---
Assessment and Plan (1) Pneumonia Status: Acute Assessment and plan: Patient generally feeling better on Zosyn Recommendations: Complete 5 days of Zosyn, so on about 1 more day to go Current Visit: Yes (2) Leukocytosis Status: Acute Assessment and plan: Improved Current Visit: Yes (3) Acute on chronic systolic CHF (congestive heart failure) Problem details: 03/21/2017 echocardiogram reported LVEF 10% with grade 3 diastolic dysfunction and moderate pulmonary hypertension. Patient seems to respond well to dobutamine infusion. Dobutamine titration and dose adjustments deferred to consulting roll bucker. Patient has acute on chronic systolic and diastolic congestive heart failure. Status: Acute Current Visit: Yes (4) CKD (chronic kidney disease) stage 2, GFR 60-89 ml/min Status: Chronic Current Visit: Yes (5) Hypertension Status: Chronic Current Visit: No Infectious Disease - PN: Subj Interval history: Patient doing much better in general, no shortness of breath no cough no sputum production. No fever. Tolerating the Zosyn without nausea vomiting or diarrhea. Infectious Disease Exam (PN) - Constitutional Vitals: Temp Pulse Resp BP Pulse Ox 97.6 F 85 18 107/70 94 L 03/25/17 12:00 03/25/17 12:00 03/25/17 12:00 03/25/17 12:00 03/25/17 12:00 General appearance: normal weight, no acute distress Exam: General appearance: no acute distress - Eye Eye exam: Present: EOMI. no icterus Pupils: Present: ROJELIO - ENT ENT exam: no oral exudates - Respiratory Respiratory exam: No longer in respiratory distress, vesicular BS, no crepitations or wheezes - Cardiovascular Cardiovascular exam: regular rate and rhythm, no murmurs - GI/Abdominal GI/Abdominal exam: normal bowel sounds, soft, non-tender, no organomegaly or mass - Extremities Exam Extremities exam: no edema - Skin Skin exam: no rash Results - Labs CBC & BMP: 03/25/17 05:07 03/25/17 05:07 Lab Results: I have reviewed the past 24 hour labs
--- NOTE | 2017-03-25 18:44 | Cardiology Progress Note ---
Clint Brennan Vanessa, RN, am scribing for, and in the presence of, Juan Jose Tenorio MD 18:44. Assessment and Plan - Time spent with patient Time spent with patient: Greater than 30 minutes (1) Acute on chronic systolic CHF (congestive heart failure) Problem details: 03/21/2017 echocardiogram reported LVEF 10% with grade 3 diastolic dysfunction and moderate pulmonary hypertension. Patient seems to respond well to dobutamine infusion. Dobutamine titration and dose adjustments deferred to consulting squash centre manager. Patient has acute on chronic systolic and diastolic congestive heart failure. Status: Acute Assessment and plan: Continue IV Lasix. Continue Entresto 49-51 1/2 tablet by mouth daily. Monitor BMP and renal function. Once current medical issues resolve, he will need WORK[employer] COMPENSATION CLAIMS EXAMINER-D implant. Continue LifeVest use for now. Current Visit: Yes (2) CKD (chronic kidney disease) stage 2, GFR 60-89 ml/min Status: Chronic Assessment and plan: Creatinine stable 1.1 GFR 92. Continue to monitor renal function very closely. Current Visit: Yes (3) Essential hypertension Status: Chronic Assessment and plan: Remains borderline low. Dobutamine discontinued earlier this morning. Monitor closely for rebound hypotension. Current Visit: No (4) NSVT (nonsustained ventricular tachycardia) Status: Chronic Assessment and plan: This is stable. Patient does have a LifeVest but has not had sustained dysrhythmia. Current Visit: No (5) Chronic anticoagulation Status: Chronic Assessment and plan: Eliquis continued. Monitor closely for bleeding. Current Visit: No (6) History of recent stroke Status: Chronic Assessment and plan: Most likely cardioembolic origin. He is now anticoagulated for stroke prevention. Current Visit: No (7) Left bundle branch block Status: Chronic Assessment and plan: Chronic. Stable. Current Visit: No (8) Polysubstance abuse Status: Chronic Assessment and plan: Encourage patient to continue to abstain from illicit drugs. Currently, he agrees to lifestyle change. Current Visit: No (9) Cardiomyopathy, dilated, nonischemic Status: Chronic Assessment and plan: Severely decreased EF 10%. Continue current plan of care for CHF and cardiomyopathy. Current Visit: No Cardiology - PN: Subj Interval history: PRIMARY DESIGN INTERN: DR. MARTINEZ SUMMARY: Mr. Loving is a 57 year old white male with risk factors significant for: hypertension, diabetes, dyslipidemia, sleep apnea, tobacco abuse, sedentary lifestyle, overweight. Past medical history includes nonischemic dilated cardiomyopathy with worsened EF 10% per echo this admission, polysubstance abuse , acute on chronic systolic congestive heart failure, NYHA class IV. He also has chronic LBBB, chronic renal insufficiency. 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 Now anticoagulated with Eliquis. He has had multiple admissions for CHF over the past couple months. He is currently admitted to [facility] telemetry with exacerbation of NICM and shortness of breath. Previous echocardiogram in January with EF of 20% and now decreased to 10%. In the past, medical management of CHF has been limited due to acute kidney injury, hypotension, and hyperkalemia. Currently has a LifeVest and pending improvement of current symptoms and abstaining from methamphetamine and marijuana, he will have WORK[employer] COMPENSATION CLAIMS EXAMINER-D implant. Patient has some NSVT per cardiac monitoring but no sustained dyrhythmia or atrial fib. IV dobutamine infusion initiated on March 21, and he has shown some improvement in his symptoms. Dobutamine has since been weaned and titrated off. He has also been treated for pneumonia since admission. March: Mr. Loving is sitting up in bed this morning. He is in no acute distress. He looks like he is feeling better, and he remains in good spirits this morning. No chest pain or shortness of breath. Reports he slept very well last night. Appetite is great this morning. Labs reviewed. WBC consecutive trend downward , 12,300 today. Electrolytes are within acceptable range. Renal function is stable and continues to improve with creatinine 1.1 today. IV dobutamine able to be titrated and discontinued much earlier this morning. BP 112/73. Sinus rhythm with NSVTs noted. Patient request to stay hospitalized and be monitored again overnight and expresses he is concerned in regards to his several recent recurrent admissions for CHF exacerbation. I have discussed in detail the particulars of this case and I have examined the patient and reviewed the patient's chart both current and old. I was directly involved in the patient's evaluation and management and I completely agree with Cayla Jaramillo RN regarding this patient's evaluation and treatment plan. Exam (Progress Note) - Constitutional Vitals: Period Temp Pulse Resp BP Sys/Cha Pulse Ox Last 24 Hr 97.2 F-98.0 F 70-116 18-24 89-112/50-73 92-99 Exam: General appearance: normal weight, over weight. no acute distress. - Head Head exam: Present: normal inspection, normocephalic. No laceration, contusion, hematoma. - Eye Eye exam: Absent: conjunctival injection, scleral icterus, periorbital swelling. Pupils: Absent: dilated - ENT ENT exam: Present: normal external ear exam - Neck Neck exam: Present: normal inspection. No tenderness. No JVD or bruit. - Respiratory Respiratory exam: Present: scant bibasilar rales. Absent: accessory muscle use , wheezes, rhonchi, rales - Cardiovascular Cardiovascular exam: Present: regular rate and rhythm, systolic murmur. Absent : JVD, tachycardia, bradycardia - GI/Abdominal GI/Abdominal exam: Present: normal bowel sounds, soft. Absent: distended, firm , tender - Extremities Exam Extremities exam: Present: normal inspection, normal capillary refill, full ROM. Absent: edema - Back Exam Back exam: Present: normal inspection. no tenderness. - Neurological Exam Neurological exam: Present: alert, oriented X3 - Psychiatric Psychiatric exam: Present: normal affect, normal mood. Patient does not appear anxious or depressed. - Skin Skin exam: Present: normal color, warm, dry. Absent: cyanosis, diaphoresis, rash, suspicious lesion. Result/EKG - Labs CBC & BMP: 03/25/17 05:07 03/25/17 05:07 Lab Results: I have reviewed the past 24 hour labs Labs: Laboratory Results - last 24 hr 03/25/17 03/25/17 03/25/17 05:07 05:07 05:07 WBC 12.3 H RBC 4.95 Hgb 14.5 D Hct 45.1 MCV 91.1 MCH 29 MCHC 32.2 RDW 15.2 Plt Count 366 MPV 11.0 Neut % (Auto) 51.0 Lymph % (Auto) 28.4 George % (Auto) 10.0 Eos % (Auto) 8.3 Baso % (Auto) 1.7 H Neut # (Auto) 6.3 Lymph # (Auto) 3.5 George # (Auto) 1.2 H Eos # (Auto) 1.0 H Baso # (Auto) 0.2 Immature Gran % 0.6 Nucleated RBC % 0.0 Immature Gran # 0.07 Nucleated RBCs # 0.00 Sodium 142 142 Potassium 4.4 4.5 Chloride 106 105 Carbon Dioxide 28 26 Anion Gap 12.4 15.5 H BUN 13 13 Creatinine 1.10 1.10 GFR Calculation 92 92 BUN/Creatinine Ratio 11.00 11.00 Glucose 97 91 Calculated Osmolality 282.1 282.1 Calcium 8.7 8.5 Phosphorus 3.8 Magnesium 2.2 Total Bilirubin 0.50 AST 54 H ALT 65 H Alkaline Phosphatase 107 Total Protein 5.8 L Albumin 2.2 L Globulin 3.6 H Albumin/Globulin Ratio 0.6 L - EKG EKG results: interpreted by me, no acute changes EKG shows: sinus rhythm (Intermittent NSVT) IJona Wesley, MD, personally performed the services described in this documentation, ascribed by Cayla Jaramillo RN in my presence, and it is both accurate and complete [id number] .
[2017-03-25] MEDS: ZALEPLON 5 MG CAPSULE PO PRN (21:25)
[2017-03-26] MEDS: SACUBITRIL/VALSARTAN 49-51 MG TABLET PO SCH (08:43)
[2017-03-26] MEDS: APIXABAN 5 MG TABLET PO SCH (08:43)
[2017-03-26] MEDS: POTASSIUM CHLORIDE 20 MEQ TABLET PO SCH (08:43)
[2017-03-26] MEDS: FUROSEMIDE 40 MG/4 ML VIAL IV SCH (08:44)
--- NOTE | 2017-03-26 09:15 | Pulmonology Progress Note ---
Pulmonary - PN: Subj Interval history: Patient is a 57-year-old white man that has a very severe cardiomyopathy and his ejection fraction is around 10-15%. He came in with shortness of breath last week and there was a question that he might have a mild pneumonitis. However his scan looked mainly like congestive heart failure. He did not have a lot of fever or sputum and he has been getting dobutamine and Lasix. He is off the dobutamine now and said he had a good night. He feels like he is breathing better and wants to go home today. He will need a defibrillator placed at some point in the future. He certainly needs to stay off alcohol and drugs. Exam (Progress Note) - Constitutional Vitals: Period Temp Pulse Resp BP Sys/Cha Pulse Ox Last 24 Hr 97 F-97.9 F 83-94 16-20 82-121/58-83 94-99 Exam: General appearance: no distress (He is resting comfortably in bed and is not in any distress. He said he had a good night and is breathing comfortably.) - Head Head exam: Present: normal inspection - Eye Eye exam: Present: EOMI, scleral icterus Pupils: Present: ROJELIO - ENT ENT exam: Present: normal exam - Neck Neck exam: Present: normal inspection. Absent: lymphadenopathy, thyromegaly - Respiratory Respiratory exam: Present: His lungs have fairly good breath sounds and they sound better with less rales. He does not have any wheezing. - Cardiovascular Cardiovascular exam: Present: gallop, irregular rhythm, other (His PMI is laterally displaced). Absent: systolic murmur - GI/Abdominal GI/Abdominal exam: Present: normal bowel sounds, soft. Absent: organomegaly, tenderness - Extremities Exam Extremities exam: Present: His leg swelling is gone down nicely. He does not have any leg tenderness. - Neurological Exam Neurological exam: Present: alert, oriented X3, CN II-XII intact. Absent: motor sensory deficit - Psychiatric Psychiatric exam: Present: normal affect - Skin Skin exam: Present: warm, dry Results - Labs CBC & BMP: 03/25/17 05:07 03/25/17 05:07 Assessment and Plan (1) Acute on chronic systolic CHF (congestive heart failure) Problem details: 03/21/2017 echocardiogram reported LVEF 10% with grade 3 diastolic dysfunction and moderate pulmonary hypertension. Patient seems to respond well to dobutamine infusion. Dobutamine titration and dose adjustments deferred to consulting vacuum filter operator. Patient has acute on chronic systolic and diastolic congestive heart failure. Status: Acute Assessment and plan: Patient comes in with shortness of breath and his symptoms and clinical picture are certainly consistent with heart failure. He has done well over the weekend and his breathing is better. The dobutamine has been stopped. He says he is comfortable at present. Clinically he is much improved. Current Visit: Yes (2) History of recent stroke Status: Chronic Assessment and plan: He is getting Eliquis and has had a previous stroke. Current Visit: No (3) Chronic anticoagulation Status: Chronic Assessment and plan: He will continue with his anticoagulation. Current Visit: No (4) NSVT (nonsustained ventricular tachycardia) Status: Chronic Assessment and plan: The patient is wearing a LifeVest and is being monitored. He will need a defibrillator in the future. Current Visit: No (5) CHF (congestive heart failure), NYHA class III Status: Chronic Assessment and plan: The patient does have chronic congestive heart failure. He is responding well to therapy and is breathing better. He says he is quite comfortable at present. He says he has oxygen at home and feels like he will do okay at home. Current Visit: No Qualifiers: Congestive heart failure type: systolic Congestive heart failure chronicity : acute on chronic Qualified Code(s): I50.23 - Acute on chronic systolic ( congestive) heart failure (6) CKD (chronic kidney disease) stage 2, GFR 60-89 ml/min Status: Chronic Assessment and plan: His creatinine is down to 1.1. Current Visit: Yes (7) Pneumonia Status: Acute Assessment and plan: He is being covered with antibiotics but clinically is not acting much like pneumonia. He continues to do well and his breathing is better. His blood cultures are negative. He is doing well and can go home today. Current Visit: Yes (8) Substance abuse Problem details: Patient counseled and encouraged to avoid THC use. Status: Acute Assessment and plan: He apparently has a long history of substance abuse. He certainly needs to stay off drugs. Current Visit: Yes (9) Dilated cardiomyopathy Problem details: Nonischemic causing significant ADL functional impairment. Patient seems to be responding well to dobutamine infusion. He may be a candidate for scheduled outpatient infusions perhaps every 2 or 3 weeks. Ideally reviewed with consulting vacuum filter operator today. 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 His ejection fraction is 10-20% range. His medicines have been adjusted. Current Visit: Yes (10) Essential hypertension Problem details: Fairly well-controlled. Continue Coreg, Lasix, lisinopril combination therapy. Status: Acute Assessment and plan: His blood pressures are a little better today. He looks like he is hemodynamically stable at present. Current Visit: Yes
--- NOTE | 2017-03-26 10:23 | Event Note ---
Patient doing better, no breathing difficulties no cough, no fever. Completed 5 days of antibiotics today empirically for possible pneumonia. He is due to go home today.
--- NOTE | 2017-03-26 11:24 | Discharge Summary ---
<Casie Pablo - Last Filed: 03/26/17 11:22> Hospital Course - Hospital Course Hospital Course: This is a very pleasant 57-year-old male that presented to the ED at [facility] on March 21, 2017 for the evaluation of shortness of breath. The patient has a very complex medical history significant for: Hypertension, dyslipidemia, cerebrovascular accident, acute renal failure, chronic systolic congestive heart failure, ischemic cardiomyopathy with an estimated ejection fraction of 10-15%, diverticulitis, diverticulosis, gouty arthritis, polysubstance abuse, pneumonia, and obstructive sleep apnea. Patient has a surgical history significant for partial colectomy and colostomy placement. The patient reported the onset of symptoms 2 days prior to presentation. Ironically, the patient was recently discharged from [facility] for symptoms similar in nature. In recent months, the patient has required multiple hospitalizations due to congestive heart failure exacerbation. The patient was immediately assessed and subsequently admitted to the hospitalist services for continuation of care. The patient was admitted to the telemetry unit and a cardiology, infectious disease, and pulmonary consultation was requested. Empiric antibiotics were initiated for probable bilateral bronchopneumonia. Due to the severity of his current cardiopulmonary status; the patient was placed on dobutamine for hemodynamic support. The patient was followed closely during the clinical encounter and his symptoms gradually improved. The patient's condition is stable. He has not experienced any significant overnight events. Today, we feel that he is indeed appropriate for discharge to follow-up with cardiology, primary care physician, and pulmonology as directed.We have spoke with the patient in great detail the need to refrain from alcohol consumption and illicit drug use. We have arranged home health care services to assist at the time of discharge. Diagnosis - Discharge Diagnosis (1) Acute kidney injury Status: Acute (2) Acute on chronic systolic CHF (congestive heart failure) Status: Acute (3) Dilated cardiomyopathy Status: Acute Specialty Discharge - Follow Up or Referrals Follow up with: Hal Lombardo MD [Physician] - Mirza Ash MD [Physician] - 1 Week (Patient will need a follow-up appoint with Dr. hollis in 1 week with BMP and EKG.) Discharge Plan - Discharge Data Disposition: Home Health Service - Discharge Medications New Carvedilol [Coreg] 3.125 mg PO BID #60 tablet Zaleplon [Sonata] 5 mg PO BEDTIME PRN #30 capsule PRN Reason: Insomnia Sacubitril/Valsartan [Entresto 49 mg-51 mg Tablet] 0.5 tablet PO BID #60 tablet Continue Potassium Chloride Cap/Tab [K Dur] 10 meq PO DAILY #30 tablet Apixaban [Eliquis] 5 mg PO BID Furosemide Tab [Lasix Tab] 40 mg PO DAILY #30 tablet Acetaminophen/Diphenhydramine [Acetaminophen Pm Caplet] 1 each PO QPM Discontinued Carvedilol 12.5 mg PO BID Zolpidem Tartrate [Ambien] 10 mg PO QPM - Follow Up or Referral Follow Up: Hal Lombardo MD [Physician] - Mirza Ash MD [Physician] - 1 Week (Patient will need a follow-up appoint with Dr. hollis in 1 week with BMP and EKG.) - Forms/Instructions Exam - Constitutional Vitals: Period Temp Pulse Resp BP Sys/Cha Pulse Ox Last 24 Hr 97 F-97.9 F 83-94 16-20 82-121/58-83 84-99 DS: Provider Date of admission: 03/20/17 17:16 Primary care physician: . No PCP Attending physician on admission: Chica Moreno MD Consults: 03/20/17 17:45 Consult to Physician [CONS] Routine Comment: defib Consulting Provider: Hal Lombardo Person Notified: Daron Date Notified: 03/21/17 Time Notified: 07:40 Consult to Physician [CONS] Routine Comment: persistent wbc, infectious etiology Consulting Provider: Sarah Feldman When should Consulting Provider be notified: Now 03/20/17 17:48 Consult to Physical Therapy [CONS] Routine Reason for Physical Therapy: Evaluate and Treat 03/21/17 12:33 Consult to Physician [CONS] Routine Comment: Consulting Provider: Consult to Specialist Group: Pulmonology When should Consulting Provider be notified: Now 03/24/17 08:47 Consult to Case Mgmt/Social Srvs [CONS] Routine Reason for Case Mgmt/Social Srvs: Home Health Other Consult Comment: need home O2 upon discharge Discharging clinician: Casie Pablo CNP <Alexandra Gale - Last Filed: 03/26/17 14:13> Hospital Course - Time spent with patient Time with patient DS: Greater than 30 minutes (Total discharge time for this patient, including [id number] time, clinical documentation, medication reconciliation, and discharge planning was 42 minutes.) Diagnosis - Discharge Diagnosis (1) Polysubstance abuse Status: Chronic (2) Leukocytosis Status: Acute (3) Elevated troponin level Status: Acute (4) Dyslipidemia Status: Acute (5) Substance abuse Status: Acute (6) Dilated cardiomyopathy Status: Acute (7) On continuous oral anticoagulation Status: Acute (8) Essential hypertension Status: Chronic (9) Obstructive sleep apnea Status: Acute Discharge Plan - Discharge Data Condition at Discharge: Stable Discharge Diet: heart healthy Activity: as per physical therapy Hygiene: no restrictions Weight Bearing at Discharge: full weight bearing Contact your physician if you experience:: Shortness of breath DS: Provider Expected date of discharge: 03/26/17
--- NOTE | 2017-03-26 11:42 | Cardiology Progress Note ---
<Lory Victoria - Last Filed: 03/26/17 11:42> Assessment and Plan (1) Acute on chronic systolic CHF (congestive heart failure) Problem details: 03/21/2017 echocardiogram reported LVEF 10% with grade 3 diastolic dysfunction and moderate pulmonary hypertension. Patient seems to respond well to dobutamine infusion. Dobutamine titration and dose adjustments deferred to consulting park aide. Patient has acute on chronic systolic and diastolic congestive heart failure. Status: Resolved Assessment and plan: See plan of care listed below. (2) Essential hypertension Problem details: Fairly well-controlled. Continue Coreg, Lasix, lisinopril combination therapy. Status: Chronic Assessment and plan: See plan of care listed below. (3) CKD (chronic kidney disease) stage 2, GFR 60-89 ml/min Status: Chronic Assessment and plan: See plan of care listed below. (4) Chronic anticoagulation Status: Chronic Assessment and plan: See plan of care listed below. (5) History of recent stroke Status: Chronic Assessment and plan: See plan of care listed below. (6) Left bundle branch block Status: Chronic Assessment and plan: See plan of care listed below. (7) NSVT (nonsustained ventricular tachycardia) Status: Chronic Assessment and plan: See plan of care listed below. (8) Nonischemic cardiomyopathy Status: Chronic Assessment and plan: See plan of care listed below. (9) Polysubstance abuse Status: Chronic Assessment and plan: See plan of care listed below. Cardiology - PN: Subj Interval history: PRIMARY EHS SPECIALIST: DR. ASH SUMMARY: Mr. Loving is a 57 year old white male with risk factors significant for: hypertension, diabetes, dyslipidemia, sleep apnea, tobacco abuse, sedentary lifestyle, overweight. Past medical history includes nonischemic dilated cardiomyopathy with worsened EF 10% per echo this admission, polysubstance abuse , acute on chronic systolic congestive heart failure, NYHA class IV. He also has chronic LBBB, chronic renal insufficiency. 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 Now anticoagulated with Eliquis. He has had multiple admissions for CHF over the past couple months. He is currently admitted to [facility] telemetry with exacerbation of NICM and shortness of breath. Previous echocardiogram in January with EF of 20% and now decreased to 10%. In the past, medical management of CHF has been limited due to acute kidney injury, hypotension, and hyperkalemia. 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 Patient has some NSVT per cardiac monitoring but no sustained dyrhythmia or atrial fib. IV dobutamine infusion initiated on March 21, and he has shown some improvement in his symptoms. Dobutamine has since been weaned and titrated off. He has also been treated for pneumonia since admission. March: Mr. Loving is doing very well this morning and sitting up in bed with no acute distress. He reports that he is feeling much better and without shortness of breath. He also is without chest pain, heaviness and tightness. He reports that he is going to be discharged home today. Labs have been reviewed. Vital signs are stable. Renal function continues to improve, today creatinine 1.1. Telemetry has been reviewed and patient has been without any dysrhythmias. LifeVest noted. Patient is stable for discharge home from a cardiac standpoint. He will be given a follow-up appointment with Dr. Ash in 1-2 weeks with BMP and EKG. ASSESSMENT/PLAN: 1. ACUTE ON CHRONIC SYSTOLIC CHF - Compensated. Lasix has been changed to p.o. 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 Continue LifeVest use for now. 2. CKD, STAGE 2 - Stable. Creatinine today 1.1. 3. HYPERTENSION - Under well control. Patient's blood pressure will now allow reinitiation of beta-calixto. I have restarted Coreg 3.125 twice daily. Recommend is being continued at discharge. 4. NSVT - This is stable. Patient does have a LifeVest but has not had sustained dysrhythmia. 5. CHRONIC ANTICOAGULATION - Eliquis continued. Monitor closely for bleeding. 6. HISTORY OF RECENT STROKE - Most likely cardioembolic origin. He is now anticoagulated for stroke prevention. Continue Eliquis. 7. CHRONIC LBBB - Chronic. Stable. 8. POLYSUBSTANCE ABUSE - Encourage patient to continue to abstain from illicit drugs. Currently, he agrees to making a lifestyle change. 9. CARDIOMYOPAHTY, DILATED, NONISCHEMIC - Severely decreased EF 10%. Continue current plan of care with Entresto and Lasix. Beta-blockade was reinitiated today as his blood pressure will now allow. Coreg 3.125 twice daily. Recommend the following cardiac discharge medications: Entresto 0.5 tablet p.o. twice daily Coreg 3.125 p.o. twice daily Lasix 40 mg p.o. twice daily Eliquis 5 mg p.o. twice daily Exam (Progress Note) - Constitutional Vitals: Period Temp Pulse Resp BP Sys/Cha Pulse Ox Last 24 Hr 97 F-97.9 F 83-94 16-20 82-121/58-83 84-99 Exam: General: Appears well with no apparent distress. Pleasant and cooperative. Appears comfortable. HEENT: PERRL, normocephalic, atraumatic. Mucous membranes moist. No jaundice noted. Conjunctiva moist and clear, sclerae anicteric Neck: No JVD/HJR, no thyromegaly or lymphadenopathy noted. No carotid bruit appreciated Cardiac: Regular rate and rhythm, systolic murmur. LifeVest noted. Lungs: Clear to auscultation without accessory muscle use to assist the respiratory pattern. Abdomen: Soft, bowel sounds normoactive. Nontender and nondistended. No abdominal bruit or thrill noted. No masses noted. Extremities: No clubbing, cyanosis noted. No edema noted. Upper extremity pulses 2+. Lower extremity pulses 2+. Capillary refill less than 3 seconds. Skin: No unusual lesions or rashes. No skin breakdown appreciated. Neuro: Awake, alert and oriented 3. Moves all extremities well without hemiparesis or paralysis. No essential tremor is appreciated. Result/EKG - Labs CBC & BMP: 03/25/17 05:07 03/25/17 05:07 Lab Results: I have reviewed the past 24 hour labs Specialty Discharge - Follow Up or Referrals Follow up with: Hal Lombardo MD [Physician] - Mirza Ash MD [Physician] - 04/18/17 7:55 am (Patient will need a follow-up appoint with Dr. hollis in 1 week with BMP and EKG.) <Juan Jose Tenorio - Last Filed: 03/26/17 15:19> Assessment and Plan (1) Acute on chronic systolic CHF (congestive heart failure) Problem details: 03/21/2017 echocardiogram reported LVEF 10% with grade 3 diastolic dysfunction and moderate pulmonary hypertension. Patient seems to respond well to dobutamine infusion. Dobutamine titration and dose adjustments deferred to consulting park aide. Patient has acute on chronic systolic and diastolic congestive heart failure. Status: Resolved (2) CKD (chronic kidney disease) stage 2, GFR 60-89 ml/min Status: Chronic (3) Essential hypertension Status: Chronic (4) NSVT (nonsustained ventricular tachycardia) Status: Chronic (5) Chronic anticoagulation Status: Chronic (6) History of recent stroke Status: Chronic (7) Left bundle branch block Status: Chronic (8) Polysubstance abuse Status: Chronic (9) Cardiomyopathy, dilated, nonischemic Status: Chronic Cardiology - PN: Subj Interval history: Mr. Loving continues to do well and is ready for discharge today to follow-up with Dr. hollis. I have discussed in detail the particulars of this case and I have examined the patient and reviewed the patient's chart both current and old. I was directly involved in the patient's evaluation and management and I completely agree with Lory Victoria CORPORATE DEVELOPMENT ASSOCIATE regarding this patient's evaluation and treatment plan. Exam (Progress Note) - Constitutional Vitals: Period Temp Pulse Resp BP Sys/Cha Pulse Ox Last 24 Hr 97 F-97.9 F 83-94 16-20 82-121/58-83 84-99 Result/EKG - Labs CBC & BMP: 03/25/17 05:07 03/25/17 05:07
[2017-03-26 11:43] VITALS: BP 110/68
[2017-03-26] MEDS ORDERED: CARVEDILOL 3.125 MG TABLET PO SCH (12:30)
[2017-03-26] MEDS ORDERED: FUROSEMIDE 40 MG TABLET PO SCH (16:00)
== END 2017-03-26 15:09 | disposition home health service (06) | DRG 291 ==
LOC: EDBD → EDUNIT# → N.ED 15:59 → SUATTDRO 17:16 → N.EDINP 17:16 → N.TELEN 19:08
PROVIDERS: ADMIT Internal Medicine; ATTEND Family Medicine

== ENCOUNTER 2017-07-10 22:20 | Observation (INO) ==
[2017-07-10 23:37] LABS: Basophils # 0.1 10*3/uL (0.0-0.2); Basophils % 0.7 % (0.0-0.8); Eosinophils # 0.3 10*3/uL (0.0-0.87); Eosinophils % 2.7 % (0.00-10.9); Hematocrit 42.6 VOL% (42.0-52.0); Hemoglobin 14.4 GM/DL (14.0-18.0); Immature Granulocytes % 0.3 %; Immature Granulocytes Absolute 0.03 #; Lymphocytes # 3.5 10*3/uL (1.4-4.0); Lymphocytes % 31.3 % (21.2-54.2); Mean Corpuscular HGB Conc 33.8 GM/DL (32-36); Mean Corpuscular Hemoglobin 31 PG (27-34); Mean Corpuscular Volume 90.3 FL (87-102); Mean Platelet Volume 11.4 FL (9.6-12.0); Monocytes # 0.9 10*3/uL (0.11-0.8); Monocytes % 8.3 % (1.7-12.7); Neutrophils # 6.4 10*3/uL (1.4-7.4); Neutrophils % 56.7 % (38.7-73.9); Platelet Count 226 T/CUMM (130-400); Red Blood Count 4.72 MC/CUMM (3.8-5.5); Red Cell Distribution Width 15.1 % (9.3-17.3); White Blood Count 11.3 T/CUMM (4-12)
[2017-07-10 23:47] LABS: INR 1.2; PT Patient Result 12.9 SECS; Partial Thromboplastin Time 26.8 SECS (0-40)
[2017-07-10 23:56] LABS: Alanine Aminotransferase 16 U/L (16-61); Albumin 3.6 G/DL (3.4-5.0); Alkaline Phosphatase 95 U/L (45-117); Aspartate Amino Transferase 18 U/L (0-37); Blood Urea Nitrogen 27 MG/DL (7-18); Glucose 86 MG/DL (74-106); Osmolality,Calculated 280.5 MOS/KG (273-304); Potassium 4.2 MMOL/L (3.5-5.1); Sodium 139 MMOL/L (136-145); Total Protein 7.1 G/DL (6.4-8.3)
[2017-07-11 00:02] LABS: Troponin I Only 0.056 NG/ML (0.00-0.045)
[2017-07-11 02:04] LABS: Apearance,Urine CLEAR (Clear); Bilirubin,Urine Negative (Negative); Blood, Urine Negative (Negative); Glucose,Urine (UA) Negative (Negative); Ketones,Urine Negative (Negative); Nitrite,Urine Negative (Negative); Protein,Urine Negative; Urine Color Straw (Yellow); Urine Specific Gravity 1.003 (1.001-1.035); Urine Urobilinogen < 2.0 EU/DL (0.2-1.0)
[2017-07-11] MEDS ORDERED: FUROSEMIDE 40 MG/4 ML VIAL IV STA (02:13)
[2017-07-11 02:18] LABS: Barbiturates Screen,Urine Negative (Negative); Benzodiazepines Screen,Urine Negative (Negative); Cannabinoid Screen,Urine Negative (Negative); Opiate Screen,Urine Positive (Negative); Phencyclidine Screen,Urine Negative (Negative)
[2017-07-11] MEDS ORDERED: FUROSEMIDE 40 MG/4 ML VIAL ONE (02:48)
[2017-07-11] MEDS ORDERED: MORPHINE 2 MG/1 ML SYRINGE IV PRN (04:40)
[2017-07-11] MEDS ORDERED: ZALEPLON 5 MG CAPSULE PO PRN (04:40)
[2017-07-11 06:23] LABS: Risk Ratio 5.7; VLDL CHOLESTEROL 24.2 MG/DL
[2017-07-11 09:25] LABS: Basophils # 0.1 10*3/uL (0.0-0.2); Basophils % 0.6 % (0.0-0.8); Eosinophils # 0.2 10*3/uL (0.0-0.87); Eosinophils % 2.2 % (0.00-10.9); Hematocrit 44.2 VOL% (42.0-52.0); Hemoglobin 14.8 GM/DL (14.0-18.0); Immature Granulocytes % 0.4 %; Immature Granulocytes Absolute 0.04 #; Lymphocytes # 1.8 10*3/uL (1.4-4.0); Lymphocytes % 18.1 % (21.2-54.2); Mean Corpuscular HGB Conc 33.5 GM/DL (32-36); Mean Corpuscular Hemoglobin 30 PG (27-34); Mean Corpuscular Volume 89.3 FL (87-102); Mean Platelet Volume 11.9 FL (9.6-12.0); Monocytes # 0.5 10*3/uL (0.11-0.8); Monocytes % 5.5 % (1.7-12.7); Neutrophils # 7.2 10*3/uL (1.4-7.4); Neutrophils % 73.2 % (38.7-73.9); Platelet Count 235 T/CUMM (130-400); Red Blood Count 4.95 MC/CUMM (3.8-5.5); Red Cell Distribution Width 15.1 % (9.3-17.3); White Blood Count 9.8 T/CUMM (4-12)
[2017-07-11] MEDS: DOCUSATE SODIUM 100 MG CAPSULE PO SCH ×2 (09:49→20:45)
[2017-07-11] MEDS: CARVEDILOL 3.125 MG TABLET PO SCH ×2 (09:49→16:48)
[2017-07-11] MEDS: POTASSIUM CHLORIDE 10 MEQ TABLET PO SCH (09:50)
[2017-07-11] MEDS: PANTOPRAZOLE 40 MG TABLET PO SCH (09:50)
[2017-07-11] MEDS: ALLOPURINOL 300 MG TABLET PO SCH (09:50)
[2017-07-11] MEDS: FUROSEMIDE 40 MG/4 ML VIAL IV SCH ×2 (09:50→16:48)
[2017-07-11] MEDS: SACUBITRIL/VALSARTAN 49-51 MG TABLET PO SCH ×2 (09:50→20:45)
[2017-07-11] MEDS: ENOXAPARIN 40 MG/0.4 ML SYRINGE SUBCUT SCH (09:51)
[2017-07-11 09:59] LABS: Calcium 9.2 MG/DL (8.5-10.1); Osmolality,Calculated 281.5 MOS/KG (273-304); Potassium 3.9 MMOL/L (3.5-5.1)
[2017-07-12 03:09] LABS: Basophils # 0.1 10*3/uL (0.0-0.2); Basophils % 0.9 % (0.0-0.8); Eosinophils # 0.4 10*3/uL (0.0-0.87); Eosinophils % 3.9 % (0.00-10.9); Hematocrit 44.1 VOL% (42.0-52.0); Hemoglobin 14.6 GM/DL (14.0-18.0); Immature Granulocytes % 0.3 %; Immature Granulocytes Absolute 0.03 #; Lymphocytes # 2.8 10*3/uL (1.4-4.0); Lymphocytes % 29.4 % (21.2-54.2); Mean Corpuscular HGB Conc 33.1 GM/DL (32-36); Mean Corpuscular Hemoglobin 29 PG (27-34); Mean Corpuscular Volume 88.2 FL (87-102); Mean Platelet Volume 11.7 FL (9.6-12.0); Monocytes % 10.9 % (1.7-12.7); Neutrophils # 5.2 10*3/uL (1.4-7.4); Neutrophils % 54.6 % (38.7-73.9); Platelet Count 220 T/CUMM (130-400); White Blood Count 9.5 T/CUMM (4-12)
[2017-07-12 03:45] LABS: Calcium 8.8 MG/DL (8.5-10.1); Magnesium 2.1 MG/DL (1.8-2.4); Osmolality,Calculated 278.7 MOS/KG (273-304); Potassium 3.8 MMOL/L (3.5-5.1)
[2017-07-12] MEDS: FUROSEMIDE 40 MG/4 ML VIAL IV SCH (08:39)
[2017-07-12] MEDS: PANTOPRAZOLE 40 MG TABLET PO SCH (08:39)
[2017-07-12] MEDS: ENOXAPARIN 40 MG/0.4 ML SYRINGE SUBCUT SCH (08:39)
[2017-07-12] MEDS: CARVEDILOL 3.125 MG TABLET PO SCH (08:39)
[2017-07-12] MEDS: DOCUSATE SODIUM 100 MG CAPSULE PO SCH (08:39)
[2017-07-12] MEDS: SACUBITRIL/VALSARTAN 49-51 MG TABLET PO SCH (08:40)
[2017-07-12] MEDS: ALLOPURINOL 300 MG TABLET PO SCH (08:40)
[2017-07-12] MEDS: POTASSIUM CHLORIDE 10 MEQ TABLET PO SCH (08:40)
[2017-07-12 12:53] VITALS: BP 103/73
[2017-07-12] MEDS ORDERED: ATORVASTATIN 40 MG TABLET PO SCH (21:00)
[2017-07-13] MEDS ORDERED: ASPIRIN CHEW 81 MG TABLET PO SCH (09:00)
== END 2017-07-12 12:29 | disposition home or self-care (01) ==
LOC: N.ED 22:20 → N.EDINP 07-11 02:56 → INTOOBSV 07-11 02:56 → N.TELEN 07-11 03:36
PROVIDERS: ADMIT Internal Medicine; ATTEND Internal Medicine

== ENCOUNTER 2017-07-15 18:45 | Inpatient (IN) ==
[2017-07-15 19:32] LABS: Basophils # 0.1 10*3/uL (0.0-0.2); Basophils % 1.1 % (0.0-0.8); Eosinophils # 0.6 10*3/uL (0.0-0.87); Eosinophils % 6.5 % (0.00-10.9); Hematocrit 45.4 VOL% (42.0-52.0); Hemoglobin 15.1 GM/DL (14.0-18.0); Immature Granulocytes % 0.3 %; Immature Granulocytes Absolute 0.03 #; Lymphocytes # 2.9 10*3/uL (1.4-4.0); Lymphocytes % 30.2 % (21.2-54.2); Mean Corpuscular HGB Conc 33.3 GM/DL (32-36); Mean Corpuscular Hemoglobin 30 PG (27-34); Mean Corpuscular Volume 90.4 FL (87-102); Mean Platelet Volume 11.4 FL (9.6-12.0); Monocytes # 0.9 10*3/uL (0.11-0.8); Monocytes % 9.2 % (1.7-12.7); Neutrophils # 5.1 10*3/uL (1.4-7.4); Neutrophils % 52.7 % (38.7-73.9); Platelet Count 236 T/CUMM (130-400); Red Blood Count 5.02 MC/CUMM (3.8-5.5); Red Cell Distribution Width 15.2 % (9.3-17.3); White Blood Count 9.6 T/CUMM (4-12)
[2017-07-15 19:39] LABS: PT Patient Result 10.7 SECS; Partial Thromboplastin Time 25.7 SECS (0-40)
[2017-07-15 19:47] LABS: Albumin 3.6 G/DL (3.4-5.0); Bilirubin,Total 0.5 MG/DL (0.2-1.0); Calcium 9.1 MG/DL (8.5-10.1); Osmolality,Calculated 279.8 MOS/KG (273-304); Potassium 4.7 MMOL/L (3.5-5.1)
[2017-07-15 19:52] LABS: Troponin I Only 0.066 NG/ML (0.00-0.045)
[2017-07-15] MEDS ORDERED: MAGNESIUM SULF RIDER 2 GM in PREMIX 1 EACH IV PRN (22:41)
[2017-07-15] MEDS ORDERED: ONDANSETRON 4 MG/2 ML VIAL IV PRN (22:41)
[2017-07-15] MEDS ORDERED: MAGNESIUM SULF RIDER 4 GM in PREMIX 1 EACH IV PRN (22:41)
[2017-07-15] MEDS: POTASSIUM CHLORIDE 10 MEQ TABLET PO SCH (23:00)
[2017-07-15] MEDS: ATORVASTATIN 40 MG TABLET PO SCH (23:00)
[2017-07-15] MEDS: FUROSEMIDE 40 MG TABLET PO SCH (23:01)
[2017-07-15] MEDS: CARVEDILOL 3.125 MG TABLET PO SCH (23:01)
[2017-07-15] MEDS: AMIODARONE 200 MG TABLET PO SCH (23:01)
[2017-07-15] MEDS: DOCUSATE SODIUM 100 MG CAPSULE PO SCH (23:02)
[2017-07-15] MEDS: APIXABAN 5 MG TABLET PO SCH (23:02)
[2017-07-15] MEDS: SACUBITRIL/VALSARTAN 49-51 MG TABLET PO SCH (23:02)
[2017-07-16] MEDS: FUROSEMIDE 40 MG TABLET PO SCH (06:59)
[2017-07-16] MEDS ORDERED: ENOXAPARIN 100 MG/ML SYRINGE SUBCUT ONE (08:15)
[2017-07-16] MEDS: AMIODARONE 200 MG TABLET PO SCH ×2 (08:52→21:15)
[2017-07-16] MEDS: ASPIRIN CHEW 81 MG TABLET PO SCH (08:52)
[2017-07-16] MEDS: CARVEDILOL 3.125 MG TABLET PO SCH ×2 (08:52→21:16)
[2017-07-16] MEDS: ALLOPURINOL 300 MG TABLET PO SCH (08:52)
[2017-07-16] MEDS: SACUBITRIL/VALSARTAN 49-51 MG TABLET PO SCH ×2 (08:52→21:17)
[2017-07-16] MEDS: DOCUSATE SODIUM 100 MG CAPSULE PO SCH ×2 (08:53→21:16)
[2017-07-16] MEDS: POTASSIUM CHLORIDE 10 MEQ TABLET PO SCH ×2 (08:53→21:19)
[2017-07-16] MEDS ORDERED: MAGNESIUM SULF RIDER 2 GM in PREMIX 1 EACH IV PRN (09:08)
[2017-07-16] MEDS ORDERED: diphenhydrAMINE CAP 25 MG CAPSULE PO ONE (09:08)
[2017-07-16] MEDS ORDERED: POTASSIUM CHLORIDE RIDER 10 MEQ in PREMIX 1 EACH IV PRN (09:08)
[2017-07-16] MEDS ORDERED: DIAZEPAM 5 MG TABLET PO ONE (09:08)
[2017-07-16] MEDS ORDERED: SODIUM CHLORIDE 0.9% 1,000 ML IV SCH (09:30)
[2017-07-16] MEDS: ACETYLCYSTEINE 600 MG CAPSULE PO SCH ×2 (09:57→21:16)
[2017-07-16 12:44] LABS: Barbiturates Screen,Urine Negative (Negative); Benzodiazepines Screen,Urine Negative (Negative); Cannabinoid Screen,Urine Negative (Negative); Opiate Screen,Urine Negative (Negative); Phencyclidine Screen,Urine Negative (Negative)
[2017-07-16] MEDS ORDERED: LIDOCAINE 1% 20 ML VIAL ONE (13:29)
[2017-07-16] MEDS ORDERED: MIDAZOLAM 2 MG/2 ML VIAL ONE (13:29)
[2017-07-16] MEDS ORDERED: fentaNYL 100 MCG/2 ML VIAL ONE (13:29)
[2017-07-16] MEDS ORDERED: diphenhydrAMINE CAP 25 MG CAPSULE PO PRN (15:01)
[2017-07-16] MEDS: FUROSEMIDE 40 MG/4 ML VIAL IV SCH (17:15)
[2017-07-16] MEDS: PANTOPRAZOLE 20 MG TABLET PO SCH (17:16)
[2017-07-16] MEDS: ATORVASTATIN 40 MG TABLET PO SCH (21:16)
[2017-07-16] MEDS: ZALEPLON 5 MG CAPSULE PO PRN (21:17)
[2017-07-17] MEDS: ACETAMINOPHEN 325 MG TABLET PO PRN ×2 (00:12→20:48)
[2017-07-17 04:59] LABS: Basophils # 0.1 10*3/uL (0.0-0.2); Basophils % 0.8 % (0.0-0.8); Eosinophils # 0.3 10*3/uL (0.0-0.87); Eosinophils % 2.7 % (0.00-10.9); Immature Granulocytes % 0.2 %; Immature Granulocytes Absolute 0.03 #; Lymphocytes # 2.8 10*3/uL (1.4-4.0); Lymphocytes % 21.5 % (21.2-54.2); Mean Corpuscular HGB Conc 33.3 GM/DL (32-36); Mean Corpuscular Hemoglobin 30 PG (27-34); Mean Corpuscular Volume 89.1 FL (87-102); Mean Platelet Volume 11.4 FL (9.6-12.0); Monocytes # 1.4 10*3/uL (0.11-0.8); Monocytes % 10.9 % (1.7-12.7); Neutrophils # 8.2 10*3/uL (1.4-7.4); Neutrophils % 63.9 % (38.7-73.9); Platelet Count 251 T/CUMM (130-400); Red Blood Count 5.05 MC/CUMM (3.8-5.5); White Blood Count 12.8 T/CUMM (4-12)
[2017-07-17 05:23] LABS: Osmolality,Calculated 269.1 MOS/KG (273-304); Potassium 4.4 MMOL/L (3.5-5.1)
[2017-07-17 05:34] LABS: Calcium 8.9 MG/DL (8.5-10.1); Magnesium 2.1 MG/DL (1.8-2.4); Osmolality,Calculated 269.1 MOS/KG (273-304); Potassium 4.3 MMOL/L (3.5-5.1)
[2017-07-17] MEDS: AMIODARONE 200 MG TABLET PO SCH ×2 (08:16→20:48)
[2017-07-17] MEDS: DOCUSATE SODIUM 100 MG CAPSULE PO SCH ×2 (08:16→20:48)
[2017-07-17] MEDS: PANTOPRAZOLE 20 MG TABLET PO SCH (08:16)
[2017-07-17] MEDS: ASPIRIN CHEW 81 MG TABLET PO SCH (08:16)
[2017-07-17] MEDS: ALLOPURINOL 300 MG TABLET PO SCH (08:16)
[2017-07-17] MEDS: ACETYLCYSTEINE 600 MG CAPSULE PO SCH ×2 (08:16→20:48)
[2017-07-17] MEDS: FUROSEMIDE 40 MG/4 ML VIAL IV SCH ×2 (08:17→15:33)
[2017-07-17] MEDS: POTASSIUM CHLORIDE 10 MEQ TABLET PO SCH ×2 (08:17→20:48)
[2017-07-17] MEDS: CARVEDILOL 3.125 MG TABLET PO SCH ×2 (08:17→20:48)
[2017-07-17] MEDS ORDERED: ENOXAPARIN 100 MG/ML SYRINGE SUBCUT SCH (09:00)
[2017-07-17] MEDS: SACUBITRIL/VALSARTAN 49-51 MG TABLET PO SCH ×2 (09:02→20:48)
[2017-07-17] MEDS: APIXABAN 5 MG TABLET PO SCH (20:48)
[2017-07-17] MEDS: ZALEPLON 5 MG CAPSULE PO PRN (20:48)
[2017-07-17] MEDS: ATORVASTATIN 40 MG TABLET PO SCH (20:48)
[2017-07-18 07:06] LABS: Calcium 8.8 MG/DL (8.5-10.1); Magnesium 2.3 MG/DL (1.8-2.4); Potassium 4.4 MMOL/L (3.5-5.1)
[2017-07-18] MEDS: SACUBITRIL/VALSARTAN 49-51 MG TABLET PO SCH ×2 (09:53→20:56)
[2017-07-18] MEDS: ACETYLCYSTEINE 600 MG CAPSULE PO SCH ×2 (09:54→20:58)
[2017-07-18] MEDS: DOCUSATE SODIUM 100 MG CAPSULE PO SCH ×2 (09:54→20:57)
[2017-07-18] MEDS: CARVEDILOL 3.125 MG TABLET PO SCH ×2 (09:54→20:58)
[2017-07-18] MEDS: FUROSEMIDE 40 MG/4 ML VIAL IV SCH ×2 (09:54→16:01)
[2017-07-18] MEDS: POTASSIUM CHLORIDE 10 MEQ TABLET PO SCH ×2 (09:55→20:57)
[2017-07-18] MEDS: ALLOPURINOL 300 MG TABLET PO SCH (09:56)
[2017-07-18] MEDS: PANTOPRAZOLE 20 MG TABLET PO SCH (09:56)
[2017-07-18] MEDS: ASPIRIN CHEW 81 MG TABLET PO SCH (09:56)
[2017-07-18] MEDS: AMIODARONE 200 MG TABLET PO SCH ×2 (09:56→20:57)
[2017-07-18] MEDS: APIXABAN 5 MG TABLET PO SCH ×2 (09:56→20:58)
[2017-07-18] MEDS: ZALEPLON 5 MG CAPSULE PO PRN (20:58)
[2017-07-18] MEDS: ATORVASTATIN 40 MG TABLET PO SCH (20:58)
[2017-07-19 04:48] LABS: Hemoglobin 13.8 GM/DL (14.0-18.0); Mean Corpuscular Volume 90.3 FL (87-102); Red Blood Count 4.65 MC/CUMM (3.8-5.5); White Blood Count 14.3 T/CUMM (4-12)
[2017-07-19 04:49] LABS: Basophils # 0.1 10*3/uL (0.0-0.2); Basophils % 0.6 % (0.0-0.8); Eosinophils # 0.3 10*3/uL (0.0-0.87); Eosinophils % 1.8 % (0.00-10.9); Immature Granulocytes % 0.3 %; Immature Granulocytes Absolute 0.05 #; Lymphocytes % 21.1 % (21.2-54.2); Mean Corpuscular HGB Conc 32.9 GM/DL (32-36); Mean Corpuscular Hemoglobin 30 PG (27-34); Mean Platelet Volume 11.3 FL (9.6-12.0); Monocytes # 1.7 10*3/uL (0.11-0.8); Monocytes % 12.1 % (1.7-12.7); Neutrophils # 9.2 10*3/uL (1.4-7.4); Neutrophils % 64.1 % (38.7-73.9); Platelet Count 244 T/CUMM (130-400); Red Cell Distribution Width 14.9 % (9.3-17.3)
[2017-07-19 05:12] LABS: Calcium 9.3 MG/DL (8.5-10.1)
[2017-07-19 05:13] LABS: Magnesium 2.2 MG/DL (1.8-2.4); Osmolality,Calculated 275.8 MOS/KG (273-304); Potassium 4.6 MMOL/L (3.5-5.1)
[2017-07-19] MEDS: ALLOPURINOL 300 MG TABLET PO SCH (09:38)
[2017-07-19] MEDS: CARVEDILOL 3.125 MG TABLET PO SCH ×2 (09:38→20:43)
[2017-07-19] MEDS: ACETYLCYSTEINE 600 MG CAPSULE PO SCH ×2 (09:39→20:43)
[2017-07-19] MEDS: SACUBITRIL/VALSARTAN 49-51 MG TABLET PO SCH ×2 (09:39→20:44)
[2017-07-19] MEDS: APIXABAN 5 MG TABLET PO SCH ×2 (09:42→20:43)
[2017-07-19] MEDS: AMIODARONE 200 MG TABLET PO SCH ×2 (09:42→20:43)
[2017-07-19] MEDS: DOCUSATE SODIUM 100 MG CAPSULE PO SCH ×2 (09:43→20:44)
[2017-07-19] MEDS: ASPIRIN CHEW 81 MG TABLET PO SCH (09:43)
[2017-07-19] MEDS: FUROSEMIDE 40 MG/4 ML VIAL IV SCH ×2 (09:44→15:27)
[2017-07-19] MEDS: POTASSIUM CHLORIDE 10 MEQ TABLET PO SCH ×2 (09:45→20:44)
[2017-07-19] MEDS: PANTOPRAZOLE 20 MG TABLET PO SCH (16:58)
[2017-07-19] MEDS: ATORVASTATIN 40 MG TABLET PO SCH (20:45)
[2017-07-20 02:56] LABS: Calcium 8.9 MG/DL (8.5-10.1); Magnesium 2.1 MG/DL (1.8-2.4); Osmolality,Calculated 271.2 MOS/KG (273-304); Potassium 4.7 MMOL/L (3.5-5.1)
[2017-07-20 08:29] VITALS: BP 121/77
[2017-07-20] MEDS: AMIODARONE 200 MG TABLET PO SCH (09:35)
[2017-07-20] MEDS: PANTOPRAZOLE 20 MG TABLET PO SCH (09:36)
[2017-07-20] MEDS: SACUBITRIL/VALSARTAN 49-51 MG TABLET PO SCH (09:36)
[2017-07-20] MEDS: POTASSIUM CHLORIDE 10 MEQ TABLET PO SCH (09:36)
[2017-07-20] MEDS: ALLOPURINOL 300 MG TABLET PO SCH (09:37)
[2017-07-20] MEDS: APIXABAN 5 MG TABLET PO SCH (09:37)
[2017-07-20] MEDS: CARVEDILOL 3.125 MG TABLET PO SCH (09:37)
[2017-07-20] MEDS: ACETYLCYSTEINE 600 MG CAPSULE PO SCH (09:37)
[2017-07-20] MEDS: ASPIRIN CHEW 81 MG TABLET PO SCH (09:38)
[2017-07-20] MEDS: FUROSEMIDE 40 MG/4 ML VIAL IV SCH (09:38)
[2017-07-20] MEDS: DOCUSATE SODIUM 100 MG CAPSULE PO SCH (09:40)
== END 2017-07-20 12:47 | disposition home or self-care (01) | DRG 286 ==
LOC: N.EDINP 18:45 → N.ED 18:45 → N.TELES 20:57
PROVIDERS: ADMIT Internal Medicine Cardiovascular Disease; ATTEND Internal Medicine Cardiovascular Disease

== ENCOUNTER 2019-12-22 16:31 | Observation (INO) ==
[2019-12-22] MEDS ORDERED: NITROGLYCERIN 2% OINT 1 INCH/GM PACK TOP STA (16:50)
[2019-12-22] MEDS ORDERED: ASPIRIN 325 MG TABLET PO STA (16:50)
[2019-12-22 17:24] LABS: Basophils # 0.1 10*3/uL (0.0-0.2); Basophils % 0.9 % (0.0-0.8); Eosinophils # 0.3 10*3/uL (0.0-0.87); Eosinophils % 3.6 % (0.00-10.9); Hematocrit 50.4 VOL% (42.0-52.0); Hemoglobin 17.4 GM/DL (14.0-18.0); Immature Granulocytes % 0.1 %; Immature Granulocytes Absolute 0.01 #; Lymphocytes % 21.4 % (21.2-54.2); Mean Corpuscular HGB Conc 34.5 GM/DL (32-36); Mean Corpuscular Volume 96.7 FL (87-102); Mean Platelet Volume 10.8 FL (9.6-12.0); Monocytes % 11.8 % (1.7-12.7); Neutrophils % 62.2 % (38.7-73.9); Platelet Count 175 T/CUMM (130-400); Red Blood Count 5.21 MC/CUMM (3.8-5.5); Red Cell Distribution Width 14.4 % (9.3-17.3); White Blood Count 9.2 T/CUMM (4-12)
[2019-12-22 17:36] LABS: INR 1.1; PT Patient Result 11.4 SECS (9.8-11.9)
[2019-12-22 17:36] LABS: Apearance,Urine CLEAR (Clear); Bilirubin,Urine Negative (Negative); Blood, Urine Small mg/dL (Negative); Glucose,Urine (UA) Negative (Negative); Hyaline Casts,Urine 25 /LPF (0-3); Ketones,Urine Negative (Negative); Mucus,Urine Occasional /LPF (Occasional); Nitrite,Urine Negative (Negative); Protein,Urine Negative; RBC,Urine 3 /HPF (0-4); Squamous Epithelial Cell,Urine Occasional /HPF (0-10); Urine Color Yellow (Yellow); Urine Specific Gravity 1.012 (1.001-1.035); Urine Urobilinogen < 2.0 EU/DL (0.2-1.0); WBC,Urine 2 /HPF (0-6)
[2019-12-22 17:41] LABS: Barbiturates Screen,Urine Negative (Negative); Benzodiazepines Screen,Urine Negative (Negative); Cannabinoid Screen,Urine Negative (Negative); Opiate Screen,Urine Negative (Negative); Phencyclidine Screen,Urine Negative (Negative)
[2019-12-22 17:43] LABS: Alanine Aminotransferase 28 U/L (16-61); Albumin 4.3 G/DL (3.4-5.0); Alkaline Phosphatase 114 U/L (45-117); Aspartate Amino Transferase 31 U/L (0-37); Blood Urea Nitrogen 25 MG/DL (7-18); Calcium 9.6 MG/DL (8.5-10.1); Estimated Glom Filtration Rate 56 ML/MIN; Ferritin 51.4 ng/ml (26-388); Glucose 119 MG/DL (74-106); Osmolality,Calculated 272.2 MOS/KG (273-304); Total Protein 8.1 G/DL (6.4-8.3)
[2019-12-22] MEDS ORDERED: SODIUM CHLORIDE 0.9% 1,000 ML IV STA (17:59)
[2019-12-22] MEDS ORDERED: FUROSEMIDE 40 MG/4 ML VIAL IV STA (18:02)
[2019-12-22] MEDS ORDERED: DEXTROSE 10% 250 ML BAG IV PRN (19:13)
[2019-12-22] MEDS ORDERED: GLUCAGON 1 MG VIAL IM PRN (19:13)
[2019-12-22] MEDS ORDERED: ENOXAPARIN 30 MG/0.3 ML SYRINGE SUBCUT SCH (19:30)
[2019-12-22] MEDS: SODIUM CHLORIDE 0.9% 1,000 ML IV SCH (22:32)
[2019-12-22] MEDS: APIXABAN 5 MG TABLET PO SCH (22:32)
[2019-12-22] MEDS: ATORVASTATIN 40 MG TABLET PO SCH (22:32)
[2019-12-23 05:46] LABS: Basophils # 0.1 10*3/uL (0.0-0.2); Basophils % 0.9 % (0.0-0.8); Eosinophils # 0.3 10*3/uL (0.0-0.87); Eosinophils % 3.5 % (0.00-10.9); Hematocrit 47.4 VOL% (42.0-52.0); Immature Granulocytes % 0.4 %; Immature Granulocytes Absolute 0.04 #; Lymphocytes # 2.4 10*3/uL (1.4-4.0); Lymphocytes % 26.3 % (21.2-54.2); Mean Corpuscular HGB Conc 33.8 GM/DL (32-36); Mean Platelet Volume 10.9 FL (9.6-12.0); Monocytes % 14.2 % (1.7-12.7); Neutrophils % 54.7 % (38.7-73.9); Platelet Count 136 T/CUMM (130-400); Red Blood Count 4.79 MC/CUMM (3.8-5.5); Red Cell Distribution Width 14.4 % (9.3-17.3); White Blood Count 8.9 T/CUMM (4-12)
[2019-12-23 06:11] LABS: Albumin 3.7 G/DL (3.4-5.0); Bilirubin,Total 1.1 MG/DL (0.2-1.0); Calcium 9.4 MG/DL (8.5-10.1); Osmolality,Calculated 280.5 MOS/KG (273-304)
[2019-12-23] MEDS: APIXABAN 5 MG TABLET PO SCH ×2 (08:40→20:26)
[2019-12-23] MEDS: allopurinoL 300 MG TABLET PO SCH (08:40)
[2019-12-23] MEDS: ASPIRIN CHEW 81 MG TABLET PO SCH (08:40)
[2019-12-23] MEDS: SODIUM CHLORIDE 0.9% 1,000 ML IV SCH (14:49)
[2019-12-23] MEDS: ATORVASTATIN 40 MG TABLET PO SCH (20:27)
[2019-12-24 05:45] LABS: Calcium 8.4 MG/DL (8.5-10.1); Osmolality,Calculated 278.5 MOS/KG (273-304)
[2019-12-24 08:21] VITALS: BP 131/92
[2019-12-24] MEDS: ASPIRIN CHEW 81 MG TABLET PO SCH (09:26)
[2019-12-24] MEDS: APIXABAN 5 MG TABLET PO SCH (09:26)
[2019-12-24] MEDS: SODIUM CHLORIDE 0.9% 1,000 ML IV SCH (09:26)
[2019-12-24] MEDS: allopurinoL 300 MG TABLET PO SCH (09:26)
== END 2019-12-24 11:40 | disposition home or self-care (01) ==
LOC: N.ED 16:31 → N.EDINP 16:31 → SUATTDRO 18:36 → N.TELES 20:02
PROVIDERS: ADMIT Internal Medicine; ATTEND Internal Medicine

== ENCOUNTER 2020-12-11 11:56 | Inpatient (IN) ==
[2020-12-11 13:05] LABS: Basophils # 0.1 10*3/uL (0.0-0.2); Basophils % 0.7 % (0.0-0.8); Eosinophils # 0.1 10*3/uL (0.0-0.87); Eosinophils % 1.2 % (0.00-10.9); Hematocrit 47.8 VOL% (42.0-52.0); Hemoglobin 16.2 GM/DL (14.0-18.0); Immature Granulocytes % 0.6 %; Immature Granulocytes Absolute 0.06 #; Lymphocytes # 1.1 10*3/uL (1.4-4.0); Lymphocytes % 10.5 % (21.2-54.2); Mean Corpuscular HGB Conc 33.9 GM/DL (32-36); Mean Corpuscular Volume 102.6 FL (87-102); Monocytes % 5.2 % (1.7-12.7); Neutrophils % 81.8 % (38.7-73.9); Platelet Count 138 T/CUMM (130-400); Red Blood Count 4.66 MC/CUMM (3.8-5.5); Red Cell Distribution Width 13.9 % (9.3-17.3); White Blood Count 10.7 T/CUMM (4-12)
[2020-12-11 13:15] LABS: Albumin 3.9 G/DL (3.4-5.0); Bilirubin,Total 1.7 MG/DL (0.2-1.0); Potassium 4.3 MMOL/L (3.5-5.1)
[2020-12-11] MEDS ORDERED: FUROSEMIDE 40 MG/4 ML VIAL IV STA (13:43)
[2020-12-11] MEDS ORDERED: FUROSEMIDE 100 MG/10 ML VIAL ONE (13:56)
[2020-12-12] MEDS ORDERED: PROMETHAZINE 25 MG TABLET PO PRN (07:20)
[2020-12-12] MEDS ORDERED: ACETAMINOPHEN 325 MG TABLET PO PRN (07:20)
[2020-12-12] MEDS ORDERED: MAGNESIUM SULF RIDER 2 GM in PREMIX 1 EACH IV PRN (07:20)
[2020-12-12] MEDS ORDERED: ALUMINUM/MAGNES/SIMETH MAX STR 30 ML UDCUP PO PRN (07:20)
[2020-12-12] MEDS ORDERED: ONDANSETRON 4 MG/2 ML VIAL IV PRN (07:20)
[2020-12-12] MEDS ORDERED: MAGNESIUM SULF RIDER 4 GM in PREMIX 1 EACH IV PRN (07:20)
[2020-12-12] MEDS ORDERED: diphenhydrAMINE CAP 25 MG CAPSULE PO PRN (07:20)
[2020-12-12] MEDS ORDERED: DOCUSATE SODIUM 100 MG CAPSULE PO PRN (07:20)
[2020-12-12] MEDS ORDERED: POTASSIUM CHLORIDE 20 MEQ TABLET PO PRN (07:20)
[2020-12-12 07:25] LABS: Barbiturates Screen,Urine Negative (Negative); Benzodiazepines Screen,Urine Negative (Negative); Cannabinoid Screen,Urine Negative (Negative); Opiate Screen,Urine Negative (Negative); Phencyclidine Screen,Urine Negative (Negative)
[2020-12-12 08:29] LABS: Basophils # 0.1 10*3/uL (0.0-0.2); Basophils % 0.8 % (0.0-0.8); Eosinophils # 0.2 10*3/uL (0.0-0.87); Eosinophils % 1.7 % (0.00-10.9); Hematocrit 48.2 VOL% (42.0-52.0); Hemoglobin 15.8 GM/DL (14.0-18.0); Immature Granulocytes % 0.4 %; Immature Granulocytes Absolute 0.05 #; Lymphocytes # 1.6 10*3/uL (1.4-4.0); Lymphocytes % 11.7 % (21.2-54.2); Mean Corpuscular HGB Conc 32.8 GM/DL (32-36); Mean Corpuscular Volume 103.2 FL (87-102); Mean Platelet Volume 11.9 FL (9.6-12.0); Monocytes % 6.9 % (1.7-12.7); Neutrophils % 78.5 % (38.7-73.9); Platelet Count 129 T/CUMM (130-400); Red Blood Count 4.67 MC/CUMM (3.8-5.5); Red Cell Distribution Width 14.1 % (9.3-17.3); White Blood Count 13.2 T/CUMM (4-12)
[2020-12-12 08:55] LABS: Troponin I 0.109 NG/ML (0.00-0.045)
[2020-12-12] MEDS: FUROSEMIDE 40 MG/4 ML VIAL IV SCH ×2 (08:57→16:26)
[2020-12-12 08:58] LABS: Bilirubin,Total 1.8 MG/DL (0.2-1.0); Calcium 9.2 MG/DL (8.5-10.1); Osmolality,Calculated 274.2 MOS/KG (273-304); Potassium 4.2 MMOL/L (3.5-5.1); Risk Ratio 2.94; Total Protein 7.7 G/DL (6.4-8.2); VLDL CHOLESTEROL 25.4 MG/DL
[2020-12-12] MEDS: SACUBITRIL/VALSARTAN 49-51 MG TABLET PO SCH ×2 (09:04→21:40)
[2020-12-12] MEDS: ASPIRIN CHEW 81 MG TABLET PO SCH (09:04)
[2020-12-12] MEDS: POTASSIUM CHLORIDE 20 MEQ TABLET PO SCH ×2 (09:05→21:35)
[2020-12-12] MEDS: carvediloL 6.25 MG TABLET PO SCH ×2 (09:05→21:40)
[2020-12-12] MEDS: APIXABAN 5 MG TABLET PO SCH ×2 (09:05→21:35)
[2020-12-12] MEDS: ALBUTEROL 2.5 MG/3 ML NEB RESP TX SCH ×2 (12:55→19:42)
[2020-12-12] MEDS: ATORVASTATIN 40 MG TABLET PO SCH (21:34)
[2020-12-13] MEDS: ALBUTEROL 2.5 MG/3 ML NEB RESP TX SCH ×4 (01:41→20:12)
[2020-12-13 05:44] LABS: Calcium 8.8 MG/DL (8.5-10.1); Potassium 4.3 MMOL/L (3.5-5.1)
[2020-12-13] MEDS: SACUBITRIL/VALSARTAN 49-51 MG TABLET PO SCH ×2 (09:07→20:46)
[2020-12-13] MEDS: APIXABAN 5 MG TABLET PO SCH ×2 (09:07→20:44)
[2020-12-13] MEDS: ASPIRIN CHEW 81 MG TABLET PO SCH (09:07)
[2020-12-13] MEDS: POTASSIUM CHLORIDE 20 MEQ TABLET PO SCH ×2 (09:07→20:44)
[2020-12-13] MEDS: carvediloL 6.25 MG TABLET PO SCH ×2 (09:08→20:46)
[2020-12-13] MEDS: FUROSEMIDE 40 MG/4 ML VIAL IV SCH ×3 (09:08→17:22)
[2020-12-13] MEDS: ATORVASTATIN 40 MG TABLET PO SCH (20:46)
[2020-12-14] MEDS: ALBUTEROL 2.5 MG/3 ML NEB RESP TX SCH ×4 (01:38→19:23)
[2020-12-14 05:48] LABS: Calcium 9.1 MG/DL (8.5-10.1); Osmolality,Calculated 277.1 MOS/KG (273-304); Potassium 4.5 MMOL/L (3.5-5.1)
[2020-12-14] MEDS: FUROSEMIDE 40 MG/4 ML VIAL IV SCH ×2 (08:37→16:44)
[2020-12-14] MEDS: APIXABAN 5 MG TABLET PO SCH ×2 (08:37→20:35)
[2020-12-14] MEDS: carvediloL 6.25 MG TABLET PO SCH ×2 (08:37→20:35)
[2020-12-14] MEDS: ZALEPLON 5 MG CAPSULE PO PRN ×2 (08:37→22:26)
[2020-12-14] MEDS: POTASSIUM CHLORIDE 20 MEQ TABLET PO SCH ×2 (08:37→20:35)
[2020-12-14] MEDS: SACUBITRIL/VALSARTAN 49-51 MG TABLET PO SCH ×2 (08:37→20:35)
[2020-12-14] MEDS: FOLIC ACID 0.4 MG TABLET PO SCH (08:37)
[2020-12-14] MEDS: ASPIRIN CHEW 81 MG TABLET PO SCH (08:37)
[2020-12-14 18:44] LABS: Calcium 8.8 MG/DL (8.5-10.1); Potassium 4.3 MMOL/L (3.5-5.1)
[2020-12-14] MEDS: ATORVASTATIN 40 MG TABLET PO SCH (20:35)
[2020-12-15] MEDS: ALBUTEROL 2.5 MG/3 ML NEB RESP TX SCH ×2 (00:17→07:14)
[2020-12-15 05:40] LABS: Osmolality,Calculated 281.7 MOS/KG (273-304); Potassium 4.5 MMOL/L (3.5-5.1)
[2020-12-15 08:45] VITALS: BP 115/79
[2020-12-15] MEDS: FUROSEMIDE 40 MG/4 ML VIAL IV SCH (09:20)
[2020-12-15] MEDS: FOLIC ACID 0.4 MG TABLET PO SCH (09:20)
[2020-12-15] MEDS: SACUBITRIL/VALSARTAN 49-51 MG TABLET PO SCH (09:21)
[2020-12-15] MEDS: APIXABAN 5 MG TABLET PO SCH (09:21)
[2020-12-15] MEDS: ASPIRIN CHEW 81 MG TABLET PO SCH (09:21)
[2020-12-15] MEDS: carvediloL 6.25 MG TABLET PO SCH (09:21)
[2020-12-15] MEDS: POTASSIUM CHLORIDE 20 MEQ TABLET PO SCH (09:21)
== END 2020-12-15 11:09 | disposition home or self-care (01) | DRG 291 ==
LOC: N.ED 11:56 → N.EDINP 11:56 → N.TELEN 18:22
PROVIDERS: ADMIT Internal Medicine Cardiovascular Disease; ATTEND Internal Medicine Cardiovascular Disease

== ENCOUNTER 2021-03-07 09:12 | Inpatient (IN) ==
[2021-03-07 09:32] LABS: Basophils # 0.1 10*3/uL (0.0-0.2); Basophils % 0.8 % (0.0-0.8); Eosinophils # 0.2 10*3/uL (0.0-0.87); Eosinophils % 1.6 % (0.00-10.9); Hematocrit 47.7 VOL% (42.0-52.0); Hemoglobin 15.3 GM/DL (14.0-18.0); Immature Granulocytes % 0.3 %; Immature Granulocytes Absolute 0.03 #; Lymphocytes # 1.8 10*3/uL (1.4-4.0); Lymphocytes % 16.8 % (21.2-54.2); Mean Corpuscular HGB Conc 32.1 GM/DL (32-36); Mean Platelet Volume 12.1 FL (9.6-12.0); Monocytes % 10.4 % (1.7-12.7); Neutrophils % 70.1 % (38.7-73.9); Platelet Count 147 T/CUMM (130-400); Red Blood Count 4.63 MC/CUMM (3.8-5.5); Red Cell Distribution Width 13.6 % (9.3-17.3); White Blood Count 10.5 T/CUMM (4-12)
[2021-03-07] MEDS ORDERED: FUROSEMIDE 40 MG/4 ML VIAL IV STA (09:39)
[2021-03-07 09:54] LABS: Albumin 3.6 G/DL (3.4-5.0); Calcium 8.7 MG/DL (8.5-10.1); Potassium 4.5 MMOL/L (3.5-5.1); Total Protein 6.5 G/DL (6.4-8.2)
[2021-03-07 09:54] LABS: Partial Thromboplastin Time 32.8 SECS (23.9-33.8)
[2021-03-07 10:55] LABS: INR 1.3
[2021-03-07] MEDS ORDERED: ALUMINUM/MAGNES/SIMETH MAX STR 30 ML UDCUP PO PRN (11:03)
[2021-03-07] MEDS ORDERED: MAGNESIUM SULF RIDER 2 GM/50 ML PREMIX IV PRN (11:03)
[2021-03-07] MEDS ORDERED: DOCUSATE SODIUM 100 MG CAPSULE PO PRN (11:03)
[2021-03-07] MEDS ORDERED: POTASSIUM CHLORIDE 20 MEQ TABLET PO PRN (11:03)
[2021-03-07] MEDS ORDERED: MORPHINE 4 MG/1 ML VIAL IV PRN (11:03)
[2021-03-07] MEDS ORDERED: ACETAMINOPHEN 325 MG TABLET PO PRN (11:03)
[2021-03-07] MEDS ORDERED: MAGNESIUM SULF RIDER 4 GM/100 ML PREMIX IV PRN (11:03)
[2021-03-07] MEDS ORDERED: ONDANSETRON 4 MG/2 ML VIAL IV PRN (11:03)
[2021-03-07] MEDS ORDERED: PROMETHAZINE 25 MG TABLET PO PRN (11:03)
[2021-03-07] MEDS ORDERED: ENOXAPARIN 40 MG/0.4 ML SYRINGE SUBCUT SCH (11:30)
[2021-03-07 12:14] LABS: Bilirubin,Urine Negative (Negative); Blood, Urine Small mg/dL (Negative); Glucose,Urine (UA) Negative (Negative); Hyaline Casts,Urine 4 /LPF (0-3); Ketones,Urine Negative (Negative); Mucus,Urine Occasional /LPF (Occasional); Nitrite,Urine Negative (Negative); Protein,Urine Negative; RBC,Urine 3 /HPF (0-4); Squamous Epithelial Cell,Urine Occasional /HPF (0-10); Urine Appearance CLEAR (Clear); Urine Color Straw (Yellow); Urine Specific Gravity 1.004 (1.001-1.035); Urine Urobilinogen < 2.0 EU/DL (0.2-1.0)
[2021-03-07 12:19] LABS: Barbiturates Screen,Urine Negative (Negative); Benzodiazepines Screen,Urine Negative (Negative); Cannabinoid Screen,Urine Negative (Negative); Opiate Screen,Urine Negative (Negative); Phencyclidine Screen,Urine Negative (Negative)
[2021-03-07] MEDS: ALBUTEROL/IPRATROPIUM 3 ML NEB RESP TX SCH ×2 (13:34→19:24)
[2021-03-07] MEDS ORDERED: POTASSIUM CHLORIDE 20 MEQ TABLET PO SCH (17:00)
[2021-03-07] MEDS: FUROSEMIDE 40 MG/4 ML VIAL IV SCH (19:49)
[2021-03-07] MEDS: guaiFENesin/DM ER 600-30 MG TABLET PO PRN (21:40)
[2021-03-07] MEDS: APIXABAN 5 MG TABLET PO SCH (21:40)
[2021-03-07] MEDS: SACUBITRIL/VALSARTAN 49-51 MG TABLET PO SCH (21:40)
[2021-03-07] MEDS: carvediloL 6.25 MG TABLET PO SCH (21:40)
[2021-03-07] MEDS: ATORVASTATIN 40 MG TABLET PO SCH (21:40)
[2021-03-08] MEDS: ALBUTEROL/IPRATROPIUM 3 ML NEB RESP TX SCH ×4 (03:36→19:58)
[2021-03-08 06:10] LABS: Basophils # 0.1 10*3/uL (0.0-0.2); Basophils % 0.5 % (0.0-0.8); Eosinophils # 0.1 10*3/uL (0.0-0.87); Eosinophils % 0.6 % (0.00-10.9); Hematocrit 49.2 VOL% (42.0-52.0); Hemoglobin 15.6 GM/DL (14.0-18.0); Immature Granulocytes % 0.5 %; Immature Granulocytes Absolute 0.06 #; Lymphocytes # 1.4 10*3/uL (1.4-4.0); Mean Corpuscular HGB Conc 31.7 GM/DL (32-36); Mean Corpuscular Volume 103.4 FL (87-102); Mean Platelet Volume 12.9 FL (9.6-12.0); Monocytes % 7.6 % (1.7-12.7); Neutrophils % 78.8 % (38.7-73.9); Platelet Count 145 T/CUMM (130-400); Red Blood Count 4.76 MC/CUMM (3.8-5.5); Red Cell Distribution Width 13.5 % (9.3-17.3)
[2021-03-08 06:20] LABS: Albumin 3.4 G/DL (3.4-5.0); Bilirubin,Total 1.4 MG/DL (0.2-1.0); Calcium 8.8 MG/DL (8.5-10.1); Osmolality,Calculated 278.2 MOS/KG (273-304); Potassium 5.1 MMOL/L (3.5-5.1); Total Protein 6.8 G/DL (6.4-8.2)
[2021-03-08] MEDS: FUROSEMIDE 40 MG/4 ML VIAL IV SCH ×2 (10:07→17:22)
[2021-03-08] MEDS: allopurinoL 300 MG TABLET PO SCH (10:31)
[2021-03-08] MEDS: SACUBITRIL/VALSARTAN 49-51 MG TABLET PO SCH ×2 (10:31→21:00)
[2021-03-08] MEDS: PANTOPRAZOLE 40 MG TABLET PO SCH (10:31)
[2021-03-08] MEDS: ASPIRIN CHEW 81 MG TABLET PO SCH (10:31)
[2021-03-08] MEDS: guaiFENesin/DM ER 600-30 MG TABLET PO PRN ×2 (10:31→21:00)
[2021-03-08] MEDS: carvediloL 6.25 MG TABLET PO SCH ×2 (10:31→21:00)
[2021-03-08] MEDS: APIXABAN 5 MG TABLET PO SCH ×2 (10:32→21:00)
[2021-03-08] MEDS: ATORVASTATIN 40 MG TABLET PO SCH (21:00)
[2021-03-08] MEDS: ZALEPLON 5 MG CAPSULE PO PRN ×2 (22:26→23:27)
[2021-03-09] MEDS: ALBUTEROL/IPRATROPIUM 3 ML NEB RESP TX SCH ×4 (01:53→19:26)
[2021-03-09 04:08] LABS: Basophils # 0.1 10*3/uL (0.0-0.2); Basophils % 0.6 % (0.0-0.8); Eosinophils # 0.1 10*3/uL (0.0-0.87); Eosinophils % 1.3 % (0.00-10.9); Hematocrit 45.8 VOL% (42.0-52.0); Hemoglobin 14.7 GM/DL (14.0-18.0); Immature Granulocytes % 0.5 %; Immature Granulocytes Absolute 0.05 #; Lymphocytes # 1.7 10*3/uL (1.4-4.0); Lymphocytes % 16.1 % (21.2-54.2); Mean Corpuscular HGB Conc 32.1 GM/DL (32-36); Mean Platelet Volume 12.8 FL (9.6-12.0); Monocytes % 8.7 % (1.7-12.7); Neutrophils % 72.8 % (38.7-73.9); Platelet Count 138 T/CUMM (130-400); Red Blood Count 4.49 MC/CUMM (3.8-5.5); Red Cell Distribution Width 13.3 % (9.3-17.3); White Blood Count 10.8 T/CUMM (4-12)
[2021-03-09 04:32] LABS: Calcium 8.8 MG/DL (8.5-10.1); Osmolality,Calculated 274.5 MOS/KG (273-304); Potassium 4.5 MMOL/L (3.5-5.1)
[2021-03-09] MEDS: carvediloL 6.25 MG TABLET PO SCH ×2 (08:26→21:00)
[2021-03-09] MEDS: ASPIRIN CHEW 81 MG TABLET PO SCH (08:26)
[2021-03-09] MEDS: PANTOPRAZOLE 40 MG TABLET PO SCH (08:26)
[2021-03-09] MEDS: SACUBITRIL/VALSARTAN 49-51 MG TABLET PO SCH ×2 (08:26→21:00)
[2021-03-09] MEDS: APIXABAN 5 MG TABLET PO SCH ×2 (08:26→21:00)
[2021-03-09] MEDS: AZITHROMYCIN 250 MG TABLET PO SCH (08:26)
[2021-03-09] MEDS: allopurinoL 300 MG TABLET PO SCH (08:27)
[2021-03-09] MEDS: FUROSEMIDE 40 MG/4 ML VIAL IV SCH ×2 (08:28→15:53)
[2021-03-09] MEDS: ATORVASTATIN 40 MG TABLET PO SCH (21:00)
[2021-03-09] MEDS: ZALEPLON 5 MG CAPSULE PO PRN (23:11)
[2021-03-10] MEDS: ZALEPLON 5 MG CAPSULE PO PRN ×2 (01:10→21:53)
[2021-03-10] MEDS: ALBUTEROL/IPRATROPIUM 3 ML NEB RESP TX SCH ×3 (02:08→15:22)
[2021-03-10] MEDS: diphenhydrAMINE CAP 25 MG CAPSULE PO PRN ×2 (03:52→21:53)
[2021-03-10 05:13] LABS: Basophils # 0.1 10*3/uL (0.0-0.2); Basophils % 0.6 % (0.0-0.8); Eosinophils # 0.3 10*3/uL (0.0-0.87); Eosinophils % 2.7 % (0.00-10.9); Hematocrit 44.1 VOL% (42.0-52.0); Hemoglobin 14.2 GM/DL (14.0-18.0); Immature Granulocytes % 0.4 %; Immature Granulocytes Absolute 0.04 #; Lymphocytes # 1.7 10*3/uL (1.4-4.0); Lymphocytes % 15.6 % (21.2-54.2); Mean Corpuscular HGB Conc 32.2 GM/DL (32-36); Mean Corpuscular Volume 102.6 FL (87-102); Mean Platelet Volume 12.7 FL (9.6-12.0); Monocytes % 10.9 % (1.7-12.7); Neutrophils % 69.8 % (38.7-73.9); Platelet Count 142 T/CUMM (130-400); Red Cell Distribution Width 13.6 % (9.3-17.3); White Blood Count 10.9 T/CUMM (4-12)
[2021-03-10 05:51] LABS: Calcium 8.8 MG/DL (8.5-10.1); Osmolality,Calculated 273.5 MOS/KG (273-304)
[2021-03-10] MEDS: FUROSEMIDE 40 MG/4 ML VIAL IV SCH ×2 (08:52→16:36)
[2021-03-10] MEDS: SACUBITRIL/VALSARTAN 49-51 MG TABLET PO SCH ×2 (08:52→21:50)
[2021-03-10] MEDS: carvediloL 6.25 MG TABLET PO SCH (08:53)
[2021-03-10] MEDS: AZITHROMYCIN 250 MG TABLET PO SCH (08:53)
[2021-03-10] MEDS: PANTOPRAZOLE 40 MG TABLET PO SCH (08:53)
[2021-03-10] MEDS: allopurinoL 300 MG TABLET PO SCH (08:53)
[2021-03-10] MEDS: APIXABAN 5 MG TABLET PO SCH ×2 (08:53→21:50)
[2021-03-10] MEDS: ASPIRIN CHEW 81 MG TABLET PO SCH (08:53)
[2021-03-10] MEDS: ATORVASTATIN 40 MG TABLET PO SCH (21:50)
[2021-03-10] MEDS: carvediloL 12.5 MG TABLET PO SCH (21:50)
[2021-03-11] MEDS: ZALEPLON 5 MG CAPSULE PO PRN ×3 (00:30→23:53)
[2021-03-11] MEDS: ALBUTEROL/IPRATROPIUM 3 ML NEB RESP TX SCH ×5 (02:05→19:05)
[2021-03-11 05:21] LABS: Basophils # 0.1 10*3/uL (0.0-0.2); Eosinophils # 0.3 10*3/uL (0.0-0.87); Hematocrit 44.8 VOL% (42.0-52.0); Hemoglobin 14.5 GM/DL (14.0-18.0); Immature Granulocytes % 0.2 %; Immature Granulocytes Absolute 0.02 #; Lymphocytes % 21.4 % (21.2-54.2); Mean Corpuscular HGB Conc 32.4 GM/DL (32-36); Mean Corpuscular Volume 102.3 FL (87-102); Mean Platelet Volume 13.1 FL (9.6-12.0); Monocytes % 11.1 % (1.7-12.7); Neutrophils % 63.3 % (38.7-73.9); Platelet Count 139 T/CUMM (130-400); Red Blood Count 4.38 MC/CUMM (3.8-5.5); Red Cell Distribution Width 13.5 % (9.3-17.3); White Blood Count 9.4 T/CUMM (4-12)
[2021-03-11 05:35] LABS: Calcium 8.8 MG/DL (8.5-10.1); Osmolality,Calculated 274.2 MOS/KG (273-304); Potassium 3.4 MMOL/L (3.5-5.1)
[2021-03-11] MEDS: carvediloL 12.5 MG TABLET PO SCH ×2 (09:53→21:52)
[2021-03-11] MEDS: ASPIRIN CHEW 81 MG TABLET PO SCH (09:53)
[2021-03-11] MEDS: AZITHROMYCIN 250 MG TABLET PO SCH (09:53)
[2021-03-11] MEDS: PANTOPRAZOLE 40 MG TABLET PO SCH (09:53)
[2021-03-11] MEDS: SACUBITRIL/VALSARTAN 49-51 MG TABLET PO SCH ×2 (09:54→21:51)
[2021-03-11] MEDS: allopurinoL 300 MG TABLET PO SCH (09:54)
[2021-03-11] MEDS: FUROSEMIDE 40 MG/4 ML VIAL IV SCH ×2 (09:55→17:07)
[2021-03-11] MEDS: APIXABAN 5 MG TABLET PO SCH ×2 (09:55→21:51)
[2021-03-11] MEDS ORDERED: metOLazone 5 MG TABLET PO SCH (15:00)
[2021-03-11] MEDS: POTASSIUM CHLORIDE 20 MEQ TABLET PO SCH (21:51)
[2021-03-11] MEDS: ATORVASTATIN 40 MG TABLET PO SCH (21:52)
[2021-03-11] MEDS: AMIODARONE 200 MG TABLET PO SCH (21:52)
[2021-03-11] MEDS: diphenhydrAMINE CAP 25 MG CAPSULE PO PRN (21:53)
[2021-03-12] MEDS: ALBUTEROL/IPRATROPIUM 3 ML NEB RESP TX SCH ×4 (00:45→19:01)
[2021-03-12 04:49] LABS: Basophils # 0.1 10*3/uL (0.0-0.2); Basophils % 0.8 % (0.0-0.8); Eosinophils # 0.2 10*3/uL (0.0-0.87); Eosinophils % 2.4 % (0.00-10.9); Hematocrit 47.7 VOL% (42.0-52.0); Hemoglobin 15.2 GM/DL (14.0-18.0); Immature Granulocytes % 0.4 %; Immature Granulocytes Absolute 0.04 #; Lymphocytes # 1.8 10*3/uL (1.4-4.0); Mean Corpuscular HGB Conc 31.9 GM/DL (32-36); Mean Corpuscular Volume 103.2 FL (87-102); Monocytes % 11.6 % (1.7-12.7); Neutrophils % 64.8 % (38.7-73.9); Platelet Count 127 T/CUMM (130-400); Red Blood Count 4.62 MC/CUMM (3.8-5.5); Red Cell Distribution Width 13.6 % (9.3-17.3); White Blood Count 9.2 T/CUMM (4-12)
[2021-03-12 05:06] LABS: Calcium 8.7 MG/DL (8.5-10.1); Osmolality,Calculated 274.4 MOS/KG (273-304); Potassium 4.3 MMOL/L (3.5-5.1)
[2021-03-12] MEDS: AZITHROMYCIN 250 MG TABLET PO SCH (09:25)
[2021-03-12] MEDS: ASPIRIN CHEW 81 MG TABLET PO SCH (09:25)
[2021-03-12] MEDS: AMIODARONE 200 MG TABLET PO SCH ×2 (09:25→21:14)
[2021-03-12] MEDS: PANTOPRAZOLE 40 MG TABLET PO SCH (09:26)
[2021-03-12] MEDS: allopurinoL 300 MG TABLET PO SCH (09:26)
[2021-03-12] MEDS: APIXABAN 5 MG TABLET PO SCH ×2 (09:26→21:08)
[2021-03-12] MEDS: FUROSEMIDE 40 MG/4 ML VIAL IV SCH ×2 (09:26→17:24)
[2021-03-12] MEDS: POTASSIUM CHLORIDE 20 MEQ TABLET PO SCH ×2 (09:26→21:08)
[2021-03-12] MEDS: DOBUTamine 500 MG/250 ML PREMIX IV SCH ×2 (09:27→22:20)
[2021-03-12] MEDS: ATORVASTATIN 40 MG TABLET PO SCH (21:08)
[2021-03-13] MEDS: ALBUTEROL/IPRATROPIUM 3 ML NEB RESP TX SCH ×4 (00:38→19:28)
[2021-03-13] MEDS: DOBUTamine 500 MG/250 ML PREMIX IV SCH ×3 (03:55→23:17)
[2021-03-13 05:00] LABS: Calcium 8.7 MG/DL (8.5-10.1); Osmolality,Calculated 279.7 MOS/KG (273-304); Potassium 3.6 MMOL/L (3.5-5.1)
[2021-03-13] MEDS: FUROSEMIDE 40 MG/4 ML VIAL IV SCH ×2 (09:06→15:43)
[2021-03-13] MEDS: AZITHROMYCIN 250 MG TABLET PO SCH (09:06)
[2021-03-13] MEDS: ASPIRIN CHEW 81 MG TABLET PO SCH (09:06)
[2021-03-13] MEDS: AMIODARONE 200 MG TABLET PO SCH ×2 (09:07→21:00)
[2021-03-13] MEDS: POTASSIUM CHLORIDE 20 MEQ TABLET PO SCH ×2 (09:07→21:00)
[2021-03-13] MEDS: APIXABAN 5 MG TABLET PO SCH ×2 (09:07→21:00)
[2021-03-13] MEDS: allopurinoL 300 MG TABLET PO SCH (09:07)
[2021-03-13] MEDS: PANTOPRAZOLE 40 MG TABLET PO SCH (09:07)
[2021-03-13] MEDS: ATORVASTATIN 40 MG TABLET PO SCH (21:00)
[2021-03-13] MEDS: ZALEPLON 5 MG CAPSULE PO PRN (21:00)
[2021-03-14] MEDS: ALBUTEROL/IPRATROPIUM 3 ML NEB RESP TX SCH ×4 (00:27→19:28)
[2021-03-14 05:14] LABS: Calcium 8.6 MG/DL (8.5-10.1); Osmolality,Calculated 276.7 MOS/KG (273-304); Potassium 3.5 MMOL/L (3.5-5.1)
[2021-03-14] MEDS: AZITHROMYCIN 250 MG TABLET PO SCH (11:01)
[2021-03-14] MEDS: POTASSIUM CHLORIDE 20 MEQ TABLET PO SCH ×2 (11:01→21:27)
[2021-03-14] MEDS: AMIODARONE 200 MG TABLET PO SCH ×2 (11:01→21:26)
[2021-03-14] MEDS: PANTOPRAZOLE 40 MG TABLET PO SCH (11:01)
[2021-03-14] MEDS: APIXABAN 5 MG TABLET PO SCH ×2 (11:01→21:27)
[2021-03-14] MEDS: DOBUTamine 500 MG/250 ML PREMIX IV SCH ×3 (11:02→22:34)
[2021-03-14] MEDS: ASPIRIN CHEW 81 MG TABLET PO SCH (11:02)
[2021-03-14] MEDS: allopurinoL 300 MG TABLET PO SCH (11:02)
[2021-03-14] MEDS: FUROSEMIDE 40 MG/4 ML VIAL IV SCH ×2 (11:08→16:11)
[2021-03-14] MEDS: ATORVASTATIN 40 MG TABLET PO SCH (21:27)
[2021-03-14] MEDS: ZALEPLON 5 MG CAPSULE PO PRN (22:42)
[2021-03-14] MEDS: diphenhydrAMINE CAP 25 MG CAPSULE PO PRN (22:42)
[2021-03-15] MEDS: ALBUTEROL/IPRATROPIUM 3 ML NEB RESP TX SCH ×4 (01:58→20:40)
[2021-03-15 05:14] LABS: Calcium 8.8 MG/DL (8.5-10.1); Osmolality,Calculated 270.1 MOS/KG (273-304); Potassium 3.8 MMOL/L (3.5-5.1)
[2021-03-15] MEDS: PANTOPRAZOLE 40 MG TABLET PO SCH (08:19)
[2021-03-15] MEDS: POTASSIUM CHLORIDE 20 MEQ TABLET PO SCH ×2 (08:19→21:08)
[2021-03-15] MEDS: allopurinoL 300 MG TABLET PO SCH (08:19)
[2021-03-15] MEDS: ASPIRIN CHEW 81 MG TABLET PO SCH (08:19)
[2021-03-15] MEDS: APIXABAN 5 MG TABLET PO SCH ×2 (08:19→21:08)
[2021-03-15] MEDS: AMIODARONE 200 MG TABLET PO SCH ×2 (08:20→21:08)
[2021-03-15] MEDS: FUROSEMIDE 40 MG/4 ML VIAL IV SCH ×2 (08:26→15:50)
[2021-03-15] MEDS: DOBUTamine 500 MG/250 ML PREMIX IV SCH (13:21)
[2021-03-15] MEDS: ATORVASTATIN 40 MG TABLET PO SCH (21:08)
[2021-03-15] MEDS: ZALEPLON 5 MG CAPSULE PO PRN (23:06)
[2021-03-15] MEDS: diphenhydrAMINE CAP 25 MG CAPSULE PO PRN (23:07)
[2021-03-16] MEDS: ALBUTEROL/IPRATROPIUM 3 ML NEB RESP TX SCH ×4 (01:00→19:19)
[2021-03-16] MEDS: DOBUTamine 500 MG/250 ML PREMIX IV SCH ×2 (04:34→17:37)
[2021-03-16 05:53] LABS: Calcium 8.7 MG/DL (8.5-10.1); Potassium 3.8 MMOL/L (3.5-5.1)
[2021-03-16] MEDS: allopurinoL 300 MG TABLET PO SCH (09:03)
[2021-03-16] MEDS: FUROSEMIDE 40 MG/4 ML VIAL IV SCH ×2 (09:03→15:48)
[2021-03-16] MEDS: ASPIRIN CHEW 81 MG TABLET PO SCH (09:03)
[2021-03-16] MEDS: PANTOPRAZOLE 40 MG TABLET PO SCH (09:03)
[2021-03-16] MEDS: POTASSIUM CHLORIDE 20 MEQ TABLET PO SCH ×2 (09:03→21:22)
[2021-03-16] MEDS: APIXABAN 5 MG TABLET PO SCH ×2 (09:03→21:22)
[2021-03-16] MEDS: AMIODARONE 200 MG TABLET PO SCH (09:03)
[2021-03-16] MEDS: ATORVASTATIN 40 MG TABLET PO SCH (21:22)
[2021-03-16] MEDS: ZALEPLON 5 MG CAPSULE PO PRN (23:02)
[2021-03-16] MEDS: diphenhydrAMINE CAP 25 MG CAPSULE PO PRN (23:02)
[2021-03-17] MEDS: ALBUTEROL/IPRATROPIUM 3 ML NEB RESP TX SCH ×4 (00:55→19:32)
[2021-03-17 05:47] LABS: Calcium 8.9 MG/DL (8.5-10.1); Osmolality,Calculated 268.4 MOS/KG (273-304); Potassium 4.1 MMOL/L (3.5-5.1)
[2021-03-17] MEDS: DOBUTamine 500 MG/250 ML PREMIX IV SCH (07:20)
[2021-03-17] MEDS: FUROSEMIDE 40 MG/4 ML VIAL IV SCH ×2 (08:25→17:14)
[2021-03-17] MEDS: PANTOPRAZOLE 40 MG TABLET PO SCH (08:26)
[2021-03-17] MEDS: APIXABAN 5 MG TABLET PO SCH ×2 (08:26→21:33)
[2021-03-17] MEDS: allopurinoL 300 MG TABLET PO SCH (08:26)
[2021-03-17] MEDS: AMIODARONE 200 MG TABLET PO SCH (08:26)
[2021-03-17] MEDS: ASPIRIN CHEW 81 MG TABLET PO SCH (08:26)
[2021-03-17] MEDS: POTASSIUM CHLORIDE 20 MEQ TABLET PO SCH ×2 (08:26→21:33)
[2021-03-17] MEDS: ZALEPLON 5 MG CAPSULE PO PRN (21:32)
[2021-03-17] MEDS: diphenhydrAMINE CAP 25 MG CAPSULE PO PRN (21:33)
[2021-03-17] MEDS: ATORVASTATIN 40 MG TABLET PO SCH (21:33)
[2021-03-17] MEDS: carvediloL 3.125 MG TABLET PO SCH (21:33)
[2021-03-18] MEDS: ALBUTEROL/IPRATROPIUM 3 ML NEB RESP TX SCH ×5 (00:13→19:36)
[2021-03-18] MEDS: guaiFENesin/DM ER 600-30 MG TABLET PO PRN (02:18)
[2021-03-18] MEDS ORDERED: FUROSEMIDE 40 MG/4 ML VIAL IV SCH ×2 (03:00→08:00)
[2021-03-18] MEDS ORDERED: DOPamine 800 MG/250 ML PREMIX IV PRN (03:27)
[2021-03-18 03:30] LABS: Basophils # 0.1 10*3/uL (0.0-0.2); Basophils % 0.7 % (0.0-0.8); Eosinophils # 0.1 10*3/uL (0.0-0.87); Eosinophils % 0.5 % (0.00-10.9); Hematocrit 50.4 VOL% (42.0-52.0); Hemoglobin 15.8 GM/DL (14.0-18.0); Immature Granulocytes % 0.6 %; Immature Granulocytes Absolute 0.09 #; Lymphocytes # 1.8 10*3/uL (1.4-4.0); Lymphocytes % 12.5 % (21.2-54.2); Mean Corpuscular HGB Conc 31.3 GM/DL (32-36); Mean Corpuscular Volume 102.4 FL (87-102); Mean Platelet Volume 12.3 FL (9.6-12.0); Monocytes % 10.9 % (1.7-12.7); Neutrophils % 74.8 % (38.7-73.9); Platelet Count 181 T/CUMM (130-400); Red Blood Count 4.92 MC/CUMM (3.8-5.5); White Blood Count 14.7 T/CUMM (4-12)
[2021-03-18] MEDS ORDERED: SODIUM CHLORIDE 0.9% 250 ML IV ONE (03:41)
[2021-03-18 03:52] LABS: ABG Base Excess -9.7 MMOL/L (-2.5-2.5); ABG PCO2 24.4 MM HG (35-48); ABG PH 7.363 (7.35-7.45); ABG TCO2 11.6 MMOL/L (23-27)
[2021-03-18] MEDS: DOBUTamine 500 MG/250 ML PREMIX IV SCH ×2 (03:53→17:20)
[2021-03-18 04:07] LABS: Albumin 3.8 G/DL (3.4-5.0); Bilirubin,Total 3.2 MG/DL (0.2-1.0); Calcium 9.1 MG/DL (8.5-10.1); Osmolality,Calculated 261.1 MOS/KG (273-304); Total Protein 7.4 G/DL (6.4-8.2)
[2021-03-18] MEDS ORDERED: MORPHINE 2 MG/1 ML SYRINGE ONE (04:07)
[2021-03-18] MEDS ORDERED: FUROSEMIDE 40 MG/4 ML VIAL IV ONE (04:12)
[2021-03-18 04:19] LABS: Potassium 6.3 MMOL/L (3.5-5.1)
[2021-03-18] MEDS ORDERED: INSULIN REGULAR 10 UNIT, CALCIUM GLUCONATE 1,000 MG in DEXTROSE 10% 250 ML IV ONE (04:32)
[2021-03-18] MEDS ORDERED: CALCIUM GLUCONATE 1,000 MG in SODIUM CHLORIDE 0.9% 100 ML IV ONE (04:32)
[2021-03-18] MEDS ORDERED: SODIUM POLYSTYRENE SULFATE 15 GM/60 ML BOTTLE PO ONE (04:33)
[2021-03-18] MEDS ORDERED: MORPHINE 2 MG/1 ML SYRINGE IV ONE (05:30)
[2021-03-18 06:28] LABS: Bacteria,Urine Occasional /HPF (Few); Bilirubin,Urine Negative (Negative); Blood, Urine Moderate mg/dL (Negative); Glucose,Urine (UA) Negative (Negative); Hyaline Casts,Urine 10 /LPF (0-3); Ketones,Urine Negative (Negative); Mucus,Urine Occasional /LPF (Occasional); Nitrite,Urine Negative (Negative); Protein,Urine 100 MG/DL; RBC,Urine 20 /HPF (0-4); Squamous Epithelial Cell,Urine Occasional /HPF (0-10); Urine Appearance CLOUDY (Clear); Urine Color Amber (Yellow); Urine Specific Gravity 1.014 (1.001-1.035)
[2021-03-18] MEDS: FUROSEMIDE 40 MG/4 ML VIAL IV SCH ×2 (09:49→21:02)
[2021-03-18] MEDS: ASPIRIN CHEW 81 MG TABLET PO SCH (09:49)
[2021-03-18] MEDS: AMIODARONE 200 MG TABLET PO SCH (09:49)
[2021-03-18] MEDS: allopurinoL 300 MG TABLET PO SCH (09:50)
[2021-03-18] MEDS: PANTOPRAZOLE 40 MG TABLET PO SCH (09:50)
[2021-03-18] MEDS: APIXABAN 5 MG TABLET PO SCH ×2 (09:50→21:02)
[2021-03-18 16:39] LABS: Calcium 9.2 MG/DL (8.5-10.1); Osmolality,Calculated 270.7 MOS/KG (273-304); Potassium 4.3 MMOL/L (3.5-5.1)
[2021-03-18] MEDS: ATORVASTATIN 40 MG TABLET PO SCH (21:02)
[2021-03-19] MEDS: ALBUTEROL/IPRATROPIUM 3 ML NEB RESP TX SCH ×4 (01:34→19:32)
[2021-03-19 04:01] LABS: Basophils # 0.1 10*3/uL (0.0-0.2); Basophils % 0.5 % (0.0-0.8); Eosinophils # 0.1 10*3/uL (0.0-0.87); Hematocrit 41.3 VOL% (42.0-52.0); Hemoglobin 13.8 GM/DL (14.0-18.0); Immature Granulocytes % 0.3 %; Immature Granulocytes Absolute 0.05 #; Lymphocytes # 1.4 10*3/uL (1.4-4.0); Lymphocytes % 9.9 % (21.2-54.2); Mean Corpuscular HGB Conc 33.4 GM/DL (32-36); Mean Corpuscular Volume 98.6 FL (87-102); Mean Platelet Volume 12.1 FL (9.6-12.0); Monocytes % 4.6 % (1.7-12.7); Neutrophils % 83.7 % (38.7-73.9); Platelet Count 139 T/CUMM (130-400); Red Blood Count 4.19 MC/CUMM (3.8-5.5); Red Cell Distribution Width 13.8 % (9.3-17.3); White Blood Count 14.4 T/CUMM (4-12)
[2021-03-19 04:20] LABS: Calcium 8.4 MG/DL (8.5-10.1)
[2021-03-19 04:35] LABS: Albumin 3.4 G/DL (3.4-5.0); Bilirubin,Direct 1.28 MG/DL (0.0-0.20); Bilirubin,Indirect 1.2 MG/DL (0.0-1.0); Bilirubin,Total 2.5 MG/DL (0.2-1.0); Total Protein 5.8 G/DL (6.4-8.2)
[2021-03-19] MEDS: DOBUTamine 500 MG/250 ML PREMIX IV SCH ×3 (06:36→23:22)
[2021-03-19] MEDS: AMIODARONE 200 MG TABLET PO SCH (08:32)
[2021-03-19] MEDS: allopurinoL 300 MG TABLET PO SCH (08:32)
[2021-03-19] MEDS: ASPIRIN CHEW 81 MG TABLET PO SCH (08:32)
[2021-03-19] MEDS: PANTOPRAZOLE 40 MG TABLET PO SCH (08:32)
[2021-03-19] MEDS: APIXABAN 5 MG TABLET PO SCH ×2 (08:32→21:25)
[2021-03-19] MEDS: FUROSEMIDE 40 MG/4 ML VIAL IV SCH ×2 (08:40→21:22)
[2021-03-19 09:40] LABS: Hepatitis B Core IgM Quant 0.05 Index; Hepatitis B Surface Ag Quant < 0.10 Index; Hepatitis B Surface Ag Result Non-Reactive (NonReactive); Hepatitis C Virus Ab Quant 0.05 Index; Hepatitis C Virus Ab Result Non-Reactive (NonReactive)
[2021-03-19] MEDS: POTASSIUM CHLORIDE 20 MEQ TABLET PO SCH ×3 (11:55→17:03)
[2021-03-19] MEDS: ATORVASTATIN 40 MG TABLET PO SCH (21:25)
[2021-03-19] MEDS: ZALEPLON 5 MG CAPSULE PO PRN (21:25)
[2021-03-19] MEDS: diphenhydrAMINE CAP 25 MG CAPSULE PO PRN (21:25)
[2021-03-20] MEDS: ALBUTEROL/IPRATROPIUM 3 ML NEB RESP TX SCH ×4 (02:08→21:25)
[2021-03-20 05:30] LABS: Albumin 3.3 G/DL (3.4-5.0); Bilirubin,Total 1.9 MG/DL (0.2-1.0); Calcium 8.7 MG/DL (8.5-10.1); Osmolality,Calculated 278.8 MOS/KG (273-304); Potassium 3.4 MMOL/L (3.5-5.1); Total Protein 6.3 G/DL (6.4-8.2)
[2021-03-20] MEDS: APIXABAN 5 MG TABLET PO SCH ×2 (08:56→20:52)
[2021-03-20] MEDS: AMIODARONE 200 MG TABLET PO SCH (08:56)
[2021-03-20] MEDS: ASPIRIN CHEW 81 MG TABLET PO SCH (08:56)
[2021-03-20] MEDS: allopurinoL 300 MG TABLET PO SCH (08:56)
[2021-03-20] MEDS: PANTOPRAZOLE 40 MG TABLET PO SCH (08:56)
[2021-03-20] MEDS: FUROSEMIDE 40 MG/4 ML VIAL IV SCH ×2 (09:03→20:52)
[2021-03-20] MEDS: DOBUTamine 500 MG/250 ML PREMIX IV SCH (10:43)
[2021-03-20] MEDS: ATORVASTATIN 40 MG TABLET PO SCH (20:52)
[2021-03-20] MEDS: diphenhydrAMINE CAP 25 MG CAPSULE PO PRN (22:36)
[2021-03-21] MEDS: ALBUTEROL/IPRATROPIUM 3 ML NEB RESP TX SCH ×4 (01:00→20:18)
[2021-03-21] MEDS: DOBUTamine 500 MG/250 ML PREMIX IV SCH (05:28)
[2021-03-21 06:50] LABS: Albumin 3.4 G/DL (3.4-5.0); Albumin 3.5 G/DL (3.4-5.0); Bilirubin,Direct 0.82 MG/DL (0.0-0.20); Bilirubin,Indirect 2.2 MG/DL (0.0-1.0); Bilirubin,Total 2.2 MG/DL (0.20-1.00); Calcium 8.9 MG/DL (8.5-10.1); Osmolality,Calculated 277.8 MOS/KG (273-304); Potassium 3.8 MMOL/L (3.5-5.1); Total Protein 6.2 G/DL (6.4-8.2); Total Protein 6.7 G/DL (6.4-8.2)
[2021-03-21] MEDS: AMIODARONE 200 MG TABLET PO SCH (08:27)
[2021-03-21] MEDS: allopurinoL 300 MG TABLET PO SCH (08:27)
[2021-03-21] MEDS: ASPIRIN CHEW 81 MG TABLET PO SCH (08:27)
[2021-03-21] MEDS: APIXABAN 5 MG TABLET PO SCH ×2 (08:28→21:11)
[2021-03-21] MEDS: PANTOPRAZOLE 40 MG TABLET PO SCH (08:28)
[2021-03-21] MEDS: FUROSEMIDE 40 MG/4 ML VIAL IV SCH ×2 (08:33→21:11)
[2021-03-21] MEDS: ZALEPLON 5 MG CAPSULE PO SCH (21:11)
[2021-03-21] MEDS: diphenhydrAMINE CAP 25 MG CAPSULE PO PRN (21:14)
[2021-03-22] MEDS: ALBUTEROL/IPRATROPIUM 3 ML NEB RESP TX SCH ×4 (00:58→18:58)
[2021-03-22 06:54] LABS: Albumin 3.4 G/DL (3.4-5.0); Bilirubin,Total 2.3 MG/DL (0.20-1.00); Calcium 9.3 MG/DL (8.5-10.1); Osmolality,Calculated 272.4 MOS/KG (273-304); Potassium 3.7 MMOL/L (3.5-5.1); Total Protein 6.7 G/DL (6.4-8.2)
[2021-03-22] MEDS ORDERED: FUROSEMIDE 40 MG/4 ML VIAL IV SCH (08:30)
[2021-03-22 08:59] LABS: Basophils # 0.1 10*3/uL (0.0-0.2); Basophils % 0.9 % (0.0-0.8); Eosinophils # 0.2 10*3/uL (0.0-0.87); Eosinophils % 1.6 % (0.00-10.9); Hematocrit 44.2 VOL% (42.0-52.0); Hemoglobin 14.3 GM/DL (14.0-18.0); Immature Granulocytes % 0.2 %; Immature Granulocytes Absolute 0.02 #; Lymphocytes # 1.7 10*3/uL (1.4-4.0); Lymphocytes % 16.5 % (21.2-54.2); Mean Corpuscular HGB Conc 32.4 GM/DL (32-36); Mean Corpuscular Volume 100.2 FL (87-102); Mean Platelet Volume 11.9 FL (9.6-12.0); Monocytes % 8.9 % (1.7-12.7); Neutrophils % 71.9 % (38.7-73.9); Platelet Count 162 T/CUMM (130-400); Red Blood Count 4.41 MC/CUMM (3.8-5.5); Red Cell Distribution Width 14.1 % (9.3-17.3); White Blood Count 10.5 T/CUMM (4-12)
[2021-03-22] MEDS: allopurinoL 300 MG TABLET PO SCH (09:04)
[2021-03-22] MEDS: APIXABAN 5 MG TABLET PO SCH ×2 (09:04→21:07)
[2021-03-22] MEDS: ASPIRIN CHEW 81 MG TABLET PO SCH (09:04)
[2021-03-22] MEDS: AMIODARONE 200 MG TABLET PO SCH (09:04)
[2021-03-22] MEDS: PANTOPRAZOLE 40 MG TABLET PO SCH (09:04)
[2021-03-22] MEDS: FUROSEMIDE 40 MG/4 ML VIAL IV SCH ×3 (09:09→21:07)
[2021-03-22] MEDS: ATORVASTATIN 40 MG TABLET PO SCH (21:06)
[2021-03-22] MEDS: ZALEPLON 5 MG CAPSULE PO SCH (21:06)
[2021-03-23] MEDS: ALBUTEROL/IPRATROPIUM 3 ML NEB RESP TX SCH ×4 (02:06→21:50)
[2021-03-23 05:37] LABS: Calcium 8.7 MG/DL (8.5-10.1); Osmolality,Calculated 266.9 MOS/KG (273-304); Potassium 3.6 MMOL/L (3.5-5.1)
[2021-03-23] MEDS: ASPIRIN CHEW 81 MG TABLET PO SCH (09:44)
[2021-03-23] MEDS: carvediloL 3.125 MG TABLET PO SCH ×2 (09:44→20:25)
[2021-03-23] MEDS: APIXABAN 5 MG TABLET PO SCH ×2 (09:44→20:26)
[2021-03-23] MEDS: allopurinoL 300 MG TABLET PO SCH (09:44)
[2021-03-23] MEDS: AMIODARONE 200 MG TABLET PO SCH (09:44)
[2021-03-23] MEDS: POTASSIUM CHLORIDE 20 MEQ TABLET PO SCH (09:44)
[2021-03-23] MEDS: PANTOPRAZOLE 40 MG TABLET PO SCH (09:44)
[2021-03-23] MEDS: FUROSEMIDE 40 MG/4 ML VIAL IV SCH ×3 (09:49→20:26)
[2021-03-23] MEDS ORDERED: CLORAZEPATE 3.75 MG TABLET PO ONE (15:36)
[2021-03-23] MEDS ORDERED: CLORAZEPATE 3.75 MG TABLET PO PRN (15:36)
[2021-03-23] MEDS ORDERED: ALBUTEROL/IPRATROPIUM 3 ML NEB RESP TX ONE (15:36)
[2021-03-23] MEDS: ATORVASTATIN 40 MG TABLET PO SCH (20:25)
[2021-03-23] MEDS: ZALEPLON 5 MG CAPSULE PO SCH (20:25)
[2021-03-23] MEDS: guaiFENesin/DM ER 600-30 MG TABLET PO PRN (20:39)
[2021-03-23] MEDS: diphenhydrAMINE CAP 25 MG CAPSULE PO PRN (20:39)
[2021-03-24] MEDS ORDERED: metOLazone 2.5 MG TABLET PO ONE (00:15)
[2021-03-24] MEDS: ALBUTEROL/IPRATROPIUM 3 ML NEB RESP TX SCH ×4 (00:15→20:30)
[2021-03-24] MEDS ORDERED: DOBUTamine 500 MG/250 ML PREMIX IV PRN (02:49)
[2021-03-24] MEDS: DOBUTamine 500 MG/250 ML PREMIX IV SCH ×2 (03:36→18:29)
[2021-03-24 06:51] LABS: Calcium 9.8 MG/DL (8.5-10.1); Osmolality,Calculated 265.4 MOS/KG (273-304); Potassium 5.6 MMOL/L (3.5-5.1)
[2021-03-24] MEDS: APIXABAN 5 MG TABLET PO SCH ×2 (08:54→20:45)
[2021-03-24] MEDS: MULTIVITAMIN (CENTRUM) TABLET PO SCH (08:54)
[2021-03-24] MEDS: ASPIRIN CHEW 81 MG TABLET PO SCH (08:54)
[2021-03-24] MEDS: PANTOPRAZOLE 40 MG TABLET PO SCH (08:54)
[2021-03-24] MEDS: AMIODARONE 200 MG TABLET PO SCH (08:54)
[2021-03-24] MEDS: allopurinoL 300 MG TABLET PO SCH (08:54)
[2021-03-24] MEDS: carvediloL 3.125 MG TABLET PO SCH (08:54)
[2021-03-24] MEDS: FUROSEMIDE 40 MG/4 ML VIAL IV SCH ×2 (09:02→16:16)
[2021-03-24] MEDS: TOLVAPTAN 15 MG TABLET PO SCH (12:13)
[2021-03-24 15:43] LABS: Calcium 8.8 MG/DL (8.5-10.1); Osmolality,Calculated 275.2 MOS/KG (273-304); Potassium 3.6 MMOL/L (3.5-5.1)
[2021-03-24] MEDS: ZALEPLON 5 MG CAPSULE PO SCH (20:45)
[2021-03-24] MEDS: ATORVASTATIN 40 MG TABLET PO SCH (20:45)
[2021-03-24] MEDS: diphenhydrAMINE CAP 25 MG CAPSULE PO PRN (20:47)
[2021-03-25 05:07] LABS: Calcium 8.9 MG/DL (8.5-10.1); Osmolality,Calculated 274.1 MOS/KG (273-304)
[2021-03-25] MEDS: ALBUTEROL/IPRATROPIUM 3 ML NEB RESP TX SCH ×4 (05:46→20:35)
[2021-03-25] MEDS ORDERED: POTASSIUM CHLORIDE 20 MEQ TABLET PO ONE (08:33)
[2021-03-25] MEDS: MULTIVITAMIN (CENTRUM) TABLET PO SCH (09:12)
[2021-03-25] MEDS: TOLVAPTAN 15 MG TABLET PO SCH (09:12)
[2021-03-25] MEDS: ASPIRIN CHEW 81 MG TABLET PO SCH (09:13)
[2021-03-25] MEDS: POTASSIUM CHLORIDE 20 MEQ TABLET PO SCH (09:13)
[2021-03-25] MEDS: AMIODARONE 200 MG TABLET PO SCH (09:13)
[2021-03-25] MEDS: allopurinoL 300 MG TABLET PO SCH (09:13)
[2021-03-25] MEDS: APIXABAN 5 MG TABLET PO SCH ×2 (09:13→21:13)
[2021-03-25] MEDS: PANTOPRAZOLE 40 MG TABLET PO SCH (09:13)
[2021-03-25] MEDS: FUROSEMIDE 40 MG/4 ML VIAL IV SCH ×2 (09:22→16:52)
[2021-03-25] MEDS: DOBUTamine 500 MG/250 ML PREMIX IV SCH (10:13)
[2021-03-25] MEDS: ATORVASTATIN 40 MG TABLET PO SCH (21:13)
[2021-03-25] MEDS: ZALEPLON 5 MG CAPSULE PO SCH (21:13)
[2021-03-25] MEDS: diphenhydrAMINE CAP 25 MG CAPSULE PO PRN (21:14)
[2021-03-26] MEDS: DOBUTamine 500 MG/250 ML PREMIX IV SCH ×2 (01:21→16:28)
[2021-03-26] MEDS: ALBUTEROL/IPRATROPIUM 3 ML NEB RESP TX SCH ×4 (02:29→19:04)
[2021-03-26 06:06] LABS: Calcium 9.5 MG/DL (8.5-10.1); Osmolality,Calculated 283.1 MOS/KG (273-304); Potassium 2.6 MMOL/L (3.5-5.1)
[2021-03-26] MEDS ORDERED: POTASSIUM CHLORIDE 20 MEQ TABLET PO ONE (06:30)
[2021-03-26] MEDS: ASPIRIN CHEW 81 MG TABLET PO SCH (08:33)
[2021-03-26] MEDS: allopurinoL 300 MG TABLET PO SCH (08:33)
[2021-03-26] MEDS: APIXABAN 5 MG TABLET PO SCH ×2 (08:33→21:02)
[2021-03-26] MEDS: MULTIVITAMIN (CENTRUM) TABLET PO SCH (08:33)
[2021-03-26] MEDS: AMIODARONE 200 MG TABLET PO SCH (08:33)
[2021-03-26] MEDS: PANTOPRAZOLE 40 MG TABLET PO SCH (08:33)
[2021-03-26] MEDS: POTASSIUM CHLORIDE 20 MEQ TABLET PO SCH (08:33)
[2021-03-26] MEDS: FUROSEMIDE 40 MG/4 ML VIAL IV SCH ×2 (08:34→17:10)
[2021-03-26] MEDS: diphenhydrAMINE CAP 25 MG CAPSULE PO PRN (21:01)
[2021-03-26] MEDS: ATORVASTATIN 40 MG TABLET PO SCH (21:01)
[2021-03-26] MEDS: ZALEPLON 5 MG CAPSULE PO SCH (21:01)
[2021-03-27] MEDS: ALBUTEROL/IPRATROPIUM 3 ML NEB RESP TX SCH ×4 (01:00→19:31)
[2021-03-27 05:45] LABS: Basophils # 0.1 10*3/uL (0.0-0.2); Basophils % 0.6 % (0.0-0.8); Eosinophils # 0.3 10*3/uL (0.0-0.87); Eosinophils % 1.8 % (0.00-10.9); Hematocrit 44.6 VOL% (42.0-52.0); Hemoglobin 14.9 GM/DL (14.0-18.0); Immature Granulocytes % 0.7 %; Immature Granulocytes Absolute 0.11 #; Lymphocytes # 1.2 10*3/uL (1.4-4.0); Lymphocytes % 7.3 % (21.2-54.2); Mean Corpuscular HGB Conc 33.4 GM/DL (32-36); Mean Corpuscular Volume 96.7 FL (87-102); Mean Platelet Volume 11.6 FL (9.6-12.0); Monocytes % 7.7 % (1.7-12.7); Neutrophils % 81.9 % (38.7-73.9); Platelet Count 160 T/CUMM (130-400); Red Blood Count 4.61 MC/CUMM (3.8-5.5); Red Cell Distribution Width 14.4 % (9.3-17.3); White Blood Count 16.2 T/CUMM (4-12)
[2021-03-27 06:10] LABS: Albumin 3.5 G/DL (3.4-5.0); Bilirubin,Total 2.4 MG/DL (0.20-1.00); Calcium 9.7 MG/DL (8.5-10.1); Osmolality,Calculated 272.5 MOS/KG (273-304); Potassium 2.9 MMOL/L (3.5-5.1); Total Protein 7.1 G/DL (6.4-8.2)
[2021-03-27] MEDS: DOBUTamine 500 MG/250 ML PREMIX IV SCH ×2 (07:15→23:05)
[2021-03-27] MEDS ORDERED: POTASSIUM CHLORIDE 20 MEQ TABLET PO ONE (07:31)
[2021-03-27] MEDS: carvediloL 3.125 MG TABLET PO SCH (08:36)
[2021-03-27] MEDS: AMIODARONE 200 MG TABLET PO SCH (08:36)
[2021-03-27] MEDS: PANTOPRAZOLE 40 MG TABLET PO SCH (08:36)
[2021-03-27] MEDS: APIXABAN 5 MG TABLET PO SCH (08:36)
[2021-03-27] MEDS: ASPIRIN CHEW 81 MG TABLET PO SCH (08:36)
[2021-03-27] MEDS: MULTIVITAMIN (CENTRUM) TABLET PO SCH (08:36)
[2021-03-27] MEDS: FUROSEMIDE 40 MG/4 ML VIAL IV SCH ×2 (08:37→16:00)
[2021-03-27] MEDS ORDERED: POTASSIUM CHLORIDE 20 MEQ TABLET PO SCH (09:00)
[2021-03-27] MEDS: allopurinoL 300 MG TABLET PO SCH (09:08)
[2021-03-27 09:30] LABS: Bilirubin,Urine Negative (Negative); Blood, Urine Negative (Negative); Glucose,Urine (UA) Negative (Negative); Ketones,Urine Negative (Negative); Nitrite,Urine Negative (Negative); Protein,Urine Negative; Urine Appearance CLEAR (Clear); Urine Color Yellow (Yellow); Urine Specific Gravity 1.004 (1.001-1.035); Urine Urobilinogen < 2.0 EU/DL (0.2-1.0)
[2021-03-27 23:16] VITALS: BP 110/80
== END 2021-03-27 21:04 | disposition hospice, home (50) | DRG 291 ==
LOC: N.EDINP 09:12 → N.ED 09:12 → N.EDINP 12:24 → N.TELEN 12:31 → N.ICU 03-18 03:37 → N.TELEN 03-20 16:21
PROVIDERS: ADMIT Internal Medicine Cardiovascular Disease; ATTEND Internal Medicine Cardiovascular Disease